=== PATIENT | male | born 1965 | race Caucasian/White ===

== ENCOUNTER 2018-03-30 16:00 | Emergency (ER) | payer MEDICARE, OTHER ==
[~2018-03-30] VITALS: Ht 167.6 cm; Wt 68.0 kg
--- OUTSIDE RECORDS SUMMARY | 2018-03-30 16:08 | XMS REPORT | Continuity of Care Document ---
Author Author [facility] Ctr of [facility] of [place] Address Unknown Phone Unavailable Allergies Active Description Code Type Severity Reaction Onset Reported/Identified Relationship to Patient Clinical Status Yes Mellaril Drug Allergy N/A N/A 07/25/2011 Yes Thorazine Drug Allergy N/A N/A 07/25/2011 Yes Mellaril Drug Allergy 07/25/2011 Yes Thorazine Drug Allergy 07/25/2011 Medications There is no data. Problems Date Dx Coded Attending Type Code Diagnosis Diagnosed By 05/07/2011 296.80 MO BIPOLAR NOS 05/07/2011 DAVID BELLE PHD 296.80 MO BIPOLAR NOS 05/07/2011 296.80 MO BIPOLAR NOS 05/07/2011 296.80 MO BIPOLAR NOS 05/07/2011 296.80 MO BIPOLAR NOS 05/07/2011 296.80 MO BIPOLAR NOS 05/07/2011 TAMELA HUBBARD DO 296.80 MO BIPOLAR NOS 05/07/2011 DAVID BELLE PHD 296.80 MO BIPOLAR NOS 05/07/2011 SHIRA ONEAL APRN 296.80 MO BIPOLAR NOS 05/07/2011 296.80 MO BIPOLAR NOS 07/25/2011 V58.69 MEDICATION HIGH RISK 07/25/2011 DAVID BELLE PHD V58.69 MEDICATION HIGH RISK 07/25/2011 V58.69 MEDICATION HIGH RISK 07/25/2011 V58.69 MEDICATION HIGH RISK 07/25/2011 V58.69 MEDICATION HIGH RISK 07/25/2011 V58.69 MEDICATION HIGH RISK 07/25/2011 TAMELA HUBBARD DO V58.69 MEDICATION HIGH RISK 07/25/2011 DAVID BELLE PHD V58.69 MEDICATION HIGH RISK 07/25/2011 SHIRA ONEAL APRN V58.69 MEDICATION HIGH RISK 07/25/2011 V58.69 MEDICATION HIGH RISK 01/06/2012 296.30 MO DEPRESSIVE RECURRENT UNSPECIFIED 01/06/2012 DAVID BELLE PHD 296.30 MO DEPRESSIVE RECURRENT UNSPECIFIED 01/06/2012 296.30 MO DEPRESSIVE RECURRENT UNSPECIFIED 01/06/2012 296.30 MO DEPRESSIVE RECURRENT UNSPECIFIED 01/06/2012 296.30 MO DEPRESSIVE RECURRENT UNSPECIFIED 01/06/2012 296.30 MO DEPRESSIVE RECURRENT UNSPECIFIED 01/06/2012 TAMELA HUBBARD DO 296.30 MO DEPRESSIVE RECURRENT UNSPECIFIED 01/06/2012 DAVID BELLE PHD 296.30 MO DEPRESSIVE RECURRENT UNSPECIFIED 01/06/2012 ONEALVIOLETA DOMINGUEZSHIRA 296.30 MO DEPRESSIVE RECURRENT UNSPECIFIED Procedures Code [place] [address] INDIV PSYTX 45/50 MIN 12/19/2011 61017 ROUTINE VENIPUNCTURE 01/06/2012 66143 LIVER PANEL (LFT) 01/06/2012 32827 CBC 01/06/2012 [id number] GFR CALC (RESULT ONLY) 01/06/2012 10509 RENAL PROFILE 01/07/2012 04063 LITHIUM 01/07/2012 26249 TSH 01/07/2012 11997 PSYCH PHARM MGMT 01/14/2012 38284 INDIV PSYTX 20/30 MIN 01/26/2012 14128 ROUTINE VENIPUNCTURE 05/04/2012 29048 UA LONG DIP 05/04/2012 90822 CREATININE 05/04/2012 0851016 GFR CALC (RESULT ONLY) 05/04/2012 00086 LITHIUM 05/04/2012 20256 PSYTX PT&/FAMILY 45 MINUTES 07/13/2012 96932 PSYTX PT&/FAMILY 30 MINUTES 11/04/2012 Results There is no data. Encounters ACCT No. Visit Date/Time Discharge Status Pt. Type Provider Facility Loc./Unit Complaint [id number] 03/30/2013 10:28:00 03/30/2013 23:59:59 CLS Outpatient JM DOMINGUEZSHIRA [id number] 11/03/2012 14:09:00 11/03/2012 23:59:59 CLS Outpatient DAVID BELLE PHD [id number] 10/06/2012 13:50:00 10/06/2012 23:59:59 CLS Outpatient TAMELA HUBBARD DO [id number] 05/04/2012 14:16:00 05/04/2012 23:59:59 CLS Outpatient [id number] 04/07/2012 11:30:00 04/07/2012 23:59:59 CLS Outpatient [id number] 01/26/2012 11:17:00 01/26/2012 23:59:59 CLS Outpatient BARBRA PARNELL, DAVID Vallecillo [id number] 01/06/2012 11:47:00 01/06/2012 23:59:59 CLS Outpatient [id number] 12/19/2011 09:57:00 12/19/2011 23:59:59 CLS Outpatient [id number] 07/12/2012 08:55:00 Document Registration [id number] 05/04/2012 14:16:00 Document Registration [id number] 03/22/2018 09:30:00 03/22/2018 23:59:59 CLS Outpatient [facility] RIGO MARTINEZ [facility]
--- NOTE | 2018-03-30 16:23 | ED Hip Pain/Injury ---
General Chief Complaint: Hip/Pelvic Problems Stated Complaint: HIP PAIN Source: patient History of Present Illness Date Seen by Provider: Mar 30, 2018 Time Seen by Provider: 16:05 Initial Comments 52-year-old male presents with left hip pain. He reports he fell 3 days ago when he slipped on ice. He has continued pain and wanted to be evaluated. He is able ambulate on it and bear weight. He was able to chop wood. He reports no other injuries from the fall. Allergies and Home Medications Patient Home Medication List Home Medication List Reviewed: Yes Review of Systems Constitutional: no symptoms reported EENTM: no symptoms reported Respiratory: no symptoms reported Musculoskeletal: see HPI Past Vamyoap-Iyxgys-Qoqntd Hx Patient Social History Recent Foreign Travel: No Contact w/Someone Who Travel: No Physical Exam Vital Signs Vital Signs - First Documented 03/30/18 16:08 Temp 97.8 Pulse 65 Resp 16 Pulse Ox 96 Capillary Refill : Height, Weight, BMI Height: '" Weight: lbs. oz. kg; BMI Method: General Appearance: No Apparent Distress, WD/WN HEENT: Normal ENT Inspection Cardiovascular: Regular Rate, Rhythm, No Edema Respiratory: Chest Non Tender, Lungs Clear, Normal Breath Sounds Gastrointestinal: Normal Bowel Sounds Extremity: Other (Mild tenderness to the left hip, full range of motion no obvious deformity) Neurologic/Psychiatric: Oriented x3 Skin: Normal Color, Cool Progress/Results/Core Measures Results/Orders My Orders Orders - LAZ GREGORY DO Hip 2-3 View Left (03/30/18 16:16) Vital Signs/I&O 03/30/18 16:08 Temp 97.8 Pulse 65 Resp 16 B/P (MAP) Pulse Ox 96 Progress Progress Note : Time: 16:45 Progress Note Reviewed with patient that there is no fracture or dislocation on x-ray. He likely has a hip contusion. He is RA prescribed narcotic pain medication and that we will not be further prescribing her more pain medication. I recommended he try 4% lidocaine with menthol creamer gel along with other type of warm moist heat. If that does not provide him relief he needs to follow-up with his primary care physician for further options for pain management. Departure Impression Primary Impression: Contusion of left hip, initial encounter Disposition: HOME, SELF-CARE Condition: Stable Departure-Patient Inst. Referrals: SELF,DAVID GARBER (PCP/Family) Primary Care Physician Patient Instructions: Contusion (DC) Add. Discharge Instructions: 4% lidocaine with menthol cream or gel to affected area. Warm moist heat to affected area Follow-up with primary care in 3-4 days if no improvement or worsening of symptoms. all discharge instructions reviewed with patient and/or family. Voiced understanding. LAZ GREGORY DO Mar 30, 2018 16:23
--- NOTE | 2018-03-30 16:50 | Diagnostic Imaging Report ---
EXAM: Left hip at 4:20 p.m. INDICATION: Injury TECHNIQUE: AP and lateral views were obtained. COMPARISON: There are no prior studies available for comparison. FINDINGS: There is no fracture, dislocation or acute bony abnormality evident. There is only mild degenerative disease of the hip joint. The sacroiliac joint is generally unremarkable. The soft tissues show no sign of an acute injury or for a radiopaque foreign body. IMPRESSION: 1. There is no evidence for an acute bony abnormality. 2. If clinical concern regarding an underlying abnormality persists, then MRI would be recommended for further study. Dictated by: Dictated on workstation # [id number]
== END 2018-03-30 17:01 | disposition home or self-care (01) ==
LOC: EDUNIT# 16:00 → ER FS 16:04
DX: S70.02XA Contusion of left hip, initial encounter (principal); W00.0XXA Fall on same level due to ice and snow, initial encounter
CPT/HCPCS: 73502; 99282

== ENCOUNTER 2018-04-30 12:02 | Inpatient (IN) | payer MEDICARE ==
[~2018-04-30] VITALS: Ht 167.6 cm; Wt 67.7 kg
--- OUTSIDE RECORDS SUMMARY | 2018-04-30 12:07 | XMS REPORT ---
Author Author Migration, Doctor Organization [facility] Address Unknown Phone Unavailable Care Team Providers Care Clam Treader Name Role Phone Migration, Doctor Unavailable Unavailable PROBLEMS Type Condition ICD9-CM Code VWJ32-EP Code Onset Dates Condition Status SNOMED Code Problem Type 2 diabetes mellitus without complication, unspecified whether senior care insulin use E11.9 Active 160041195 Problem Essential hypertension I10 Active 53459582 Problem Encounter for long-term (current) use of other medications V58.69 Active 352244609 Problem Bipolar disorder, unspecified 296.80 Active 61697417 Problem Major depressive disorder, recurrent episode, unspecified 296.30 Active 97154233 Problem Bipolar disorder, unspecified F31.9 Active 15874211 ALLERGIES No Information ENCOUNTERS Encounter Location Date Diagnosis [address] [address] June, [address] [address] Mar, [address] [address] Mar, [address] [address] 11 Mar, 2018 Type 2 diabetes mellitus without complication, unspecified whether oysterman insulin use E11.9 ; Essential hypertension I10 ; Bipolar disorder, unspecified F31.9 and Pelvic pain in male R10.[address] [address] 11 Mar, 2018 Type 2 diabetes mellitus without complication, unspecified whether oysterman insulin use E11.9 and Essential hypertension I10 [address] [address] Feb, [facility] [address] [facility] [facility] [id number], [place] [address] May, [facility] [address] [facility] [id number], [place] [address] May, [facility] [place] [facility] [address] [id number] [place] [address] Aug, [facility] [place] [facility] [address] [id number] [place] [address] Aug, [facility] [place] [facility] [address] [id number] [place] [address] Aug, [facility] [place] [facility] [address] [id number] [place] [address] Aug, [facility] [place] [facility] [address] [id number] [place] [address] Aug, [facility] [place] [facility] [address] [id number] [place] [address] Aug, [facility] [place] [facility] [address] [id number] [place] [address] Aug, [facility] [place] [facility] [address] [id number] [place] [address] Aug, [facility] [place] [facility] [address] [id number] [place] [address] Jul, [facility] [place] [facility] [address] [id number] [place] [address] Jul, [facility] [place] [facility] [address] [id number] [place] [address] June, [facility] [place] [facility] [address] [id number] [place] [address] June, [facility] [place] [facility] [address] [id number] [place] [address] Mar, [facility] [place] [facility] [address] [id number] [place] [address] Mar, [facility] [place] [facility] [address] [id number] [place] [address] Feb, [facility] [place] [facility] [address] [id number] [place] [address] Feb, [facility] [address] [id number] [place] Feb, [facility] [address] [id number] [place] [address] Feb, [facility] [address] [id number] [place] [address] Oct, [facility] [place] [facility] [address] [id number] [place] [address] Sep, [facility] [address] [id number] [place] [address] Aug, [facility] [address] [id number] [place] [address] Jul, [facility] [address] [id number] [place] [address] Jul, [facility] [address] [id number] [place] [address] Jul, [facility] [place] [facility] [address] [id number] [place] [address] Jul, [facility] [address] [id number] [place] [address] Apr, [facility] [place] [facility] [address] [id number] [place] [address] Apr, [facility] [place] [facility] [address] [id number] [place] [address] Mar, [facility] [place] [facility] [address] [id number] [place] [address] Mar, [facility] [place] [facility] [address] [id number] [place] [address] Feb, [facility] [place] [facility] [address] [id number] [place] [address] Feb, [facility] [place] [facility] [address] [id number] [place] [address] Jan, [facility] [place] [facility] [address] [id number] [place] [address] Jan, [facility] [place] [facility] [address] [id number] [place] [address] Dec, [facility] [place] [facility] [address] [id number] [place] [address] Dec, [facility] [place] [facility] [address] [id number] [place] [address] Dec, [facility] [place] [facility] [address] [id number] [place] [address] Dec, [facility] [place] [facility] [address] [id number] [place] [address] Nov, [facility] [place] [facility] [address] [id number] [place] [address] Oct, [facility] [place] [facility] [address] [id number] [place] [address] Oct, [facility] [place] [facility] [address] [id number] [place] [address] Oct, [facility] [place] [facility] [address] [id number] [place] [address] Aug, [facility] [place] [facility] [address] [id number], [place] [address] Aug, [facility] [place] [facility] [address] [id number] [place] [address] Jul, [facility] [place] [facility] [address] [id number] [place] [address] Jul, [facility] [place] [facility] [address] [id number] [place] [address] Jul, [facility] [place] [facility] [address] [id number], [place] [address] 15 Jul, 2011 [facility] [address] [id number], [place] [address] Jul, [facility] [id number], [place] [address] Jul, [facility] [address] [id number], [place] [address] Jul, [facility] [id number], [place] [address] June, [facility] [id number], [place] [address] June, [facility] [id number], [place] [address] June, [facility] [address] [address] May, [facility] [address] [id number] [address] Apr, IMMUNIZATIONS No Known Immunizations SOCIAL HISTORY Never Assessed REASON FOR VISIT [facility] [place] VITAL SIGNS MEDICATIONS Unknown Medications RESULTS No Results PROCEDURES No Known procedures INSTRUCTIONS MEDICATIONS ADMINISTERED No Known Medications MEDICAL (GENERAL) HISTORY Type Description Date Medical History COPD Medical History BIPOLAR 2 DISORDER Medical History type 2 diabetes mellitus with hyperglycemia, with oysterman current use of insulin Medical History panlobular emphysema Medical History hyperlipidemia Medical History hyperglycemia Medical History tobacco abuse Medical History tendonitis of wrist, left Medical History leukocytosis Medical History hypoxia Medical History tubular adenoma of colon (multiple) Medical History diabetes mellitus due to underlying condition with hyperglycemia with long-term current use of insulin Medical History adrenal nodule, left Medical History gallstones Medical History renal stones Medical History biopolar 1 disorder Medical History diabetic ketoacidosis without coma associated with type 2 diabetes mellitus Medical History aneurysum of right common iliac artery Medical History hyperosmolar hyponatremia Surgical History shoulder surgery, left Surgical History hip arthrogram, right 12/12/2013 Surgical History colonoscopy, 04/02/2016, 10/15/2016 Surgical History cholecystectomy 05/28/2017 Surgical History umbilical hernia repair 05/25/2017 Surgical History total hip arthroplasty, right 04/17/2014
--- OUTSIDE RECORDS SUMMARY | 2018-04-30 12:07 | XMS REPORT | Continuity of Care Document ---
Author Author [facility] C[facility] of [facility] Ctr of [facility] Address Unknown Phone Unavailable Allergies Active Description [...] 01/06/2012 296.30 MO DEPRESSIVE RECURRENT UNSPECIFIED 01/06/2012 STEVIE BRAY TAMELA Ruby 296.30 MO DEPRESSIVE RECURRENT UNSPECIFIED 01/06/2012 BARBRA PHD, DAVID Vallecillo 296.30 MO DEPRESSIVE RECURRENT UNSPECIFIED 01/06/2012 JM DOMINGUEZSHIRA 296.30 MO DEPRESSIVE RECURRENT UNSPECIFIED 03/30/2018 GREGORY DO, LAZ L Ot M25.552 PAIN IN LEFT HIP 03/30/2018 GREGORY DO, LAZ L Ot S70.02XA CONTUSION OF LEFT HIP, INITIAL ENCOUNTER 03/30/2018 BRI BRAY, LAZ L Ot W00.0XXA FALL ON SAME LEVEL DUE TO ICE AND SNOW, 04/07/2018 GREGORY DO, LAZ L Ot M25.552 PAIN IN LEFT HIP 04/07/2018 GREGORY DO, LAZ L Ot S70.02XA CONTUSION OF LEFT HIP, INITIAL ENCOUNTER 04/07/2018 GREGORY , LAZ L Ot W00.0XXA FALL ON SAME LEVEL DUE TO ICE AND SNOW, Procedures Code Description [place] [address] INDIV PSYTX 45/50 MIN 12/19/2011 04566 ROUTINE VENIPUNCTURE 01/06/2012 19080 LIVER PANEL (LFT) 01/06/2012 15273 CBC 01/06/2012 8138601 GFR CALC (RESULT ONLY) 01/06/2012 73155 RENAL PROFILE 01/07/2012 70827 LITHIUM 01/07/2012 56522 TSH 01/07/2012 91526 PSYCH PHARM MGMT 01/14/2012 29530 INDIV PSYTX 20/30 MIN 01/26/2012 76395 ROUTINE VENIPUNCTURE 05/04/2012 94823 UA LONG DIP 05/04/2012 77421 CREATININE 05/04/2012 1326547 GFR CALC (RESULT ONLY) 05/04/2012 27592 LITHIUM 05/04/2012 29522 PSYTX PT&/FAMILY 45 MINUTES 07/13/2012 83310 PSYTX PT&/FAMILY 30 MINUTES 11/04/2012 Results There is no data. Encounters ACCT No. Visit Date/Time Discharge Status Pt. Type Provider Facility Loc./Unit Complaint [id number] 03/30/2013 10:28:00 03/30/2013 23:59:59 CLS Outpatient SHIRA ONEAL APRN [id number] 11/03/2012 14:09:00 11/03/2012 23:59:59 CLS Outpatient DAVID BELLE PHD [id number] 10/06/2012 13:50:00 10/06/2012 23:59:59 CLS Outpatient TAMELA HUBBARD DO [id number] 05/04/2012 14:16:00 05/04/2012 23:59:59 CLS Outpatient [id number] 04/07/2012 11:30:00 04/07/2012 23:59:59 CLS Outpatient [id number] 01/26/2012 11:17:00 01/26/2012 23:59:59 CLS Outpatient DAVID BELLE PHD [id number] 01/06/2012 11:47:00 01/06/2012 23:59:59 CLS Outpatient [id number] 12/19/2011 09:57:00 12/19/2011 23:59:59 CLS Outpatient [id number] 07/12/2012 08:55:00 Document Registration [id number] 05/04/2012 14:16:00 Document Registration [id number] 03/30/2018 16:04:00 03/30/2018 17:01:00 DIS Emergency LAZ GREGORY DO [facility] ER FS HIP PAIN [id number] 04/30/2018 12:04:00 ACT Emergency COTY GARSIA DO [facility] ER FS ABD PAIN; HYPERGLYCEMIA; N/V [id number] 04/30/2018 10:40:00 ACT Outpatient [facility]
[2018-04-30] MEDS ORDERED: AMIT25TA9 (12:35)
[2018-04-30] MEDS ORDERED: INSU100I32 (12:35)
[2018-04-30] MEDS ORDERED: INSU100I14 (12:35)
[2018-04-30] MEDS ORDERED: PROP20TA5 (12:35)
[2018-04-30] MEDS ORDERED: ALBUTEROL (12:35)
[2018-04-30] MEDS ORDERED: PANT40TA3 (12:35)
[2018-04-30] MEDS ORDERED: TRAZ150T72 (12:35)
[2018-04-30] MEDS ORDERED: CITA40TA11 (12:35)
[2018-04-30] MEDS ORDERED: LITH300T3 (12:35)
[2018-04-30] MEDS ORDERED: inSUlin (REGULAR) HUMAN 1 UNIT/0.01 ML (CHARGE PER UNIT) SC ONE (12:45)
[2018-04-30] MEDS: NS IV 1000 ML 1,000 ML IV SCH ×3 (12:47→15:06)
--- NOTE | 2018-04-30 12:51 | ED General ---
General Chief Complaint: Glucose Problems Stated Complaint: ABD PAIN; HYPERGLYCEMIA; N/V Source of Information: Patient History of Present Illness Date Seen by Provider: Apr 30, 2018 Time Seen by Provider: 12:00 Initial Comments Patient is a 53-year-old insulin-dependent diabetic with cognitive impairment who presents with persistent hypoglycemia for the past 2 days. Patient states his blood sugars and elevated greater than 500 at home and that he discontinued the insulin 2 days ago because it was not working. Patient reports abdominal upset and nausea. Was seen at outpatient clinic earlier today and given Zofran and referred to the ED for further evaluation Timing/Duration: 3-4 Days Severity: Moderate Associated Systoms: No Cough, No Diaphoresis, No Fever/Chills; Malaise, Nausea/ Vomiting; No Seizure, No Shortness of Air, No Syncope; Weakness Allergies and Home Medications Allergies Coded Allergies: chlorpromazine (Verified Allergy, Unknown, paralysis, 04/30/18) fentanyl (Verified Allergy, Unknown, hives, 04/30/18) thioridazine (Verified Allergy, Unknown, confusion, 04/30/18) Patient Home Medication List Home Medication List Reviewed: Yes Review of Systems Review of Systems Constitutional: see HPI, dizziness, malaise, weakness, weight loss EENTM: see HPI Respiratory: no symptoms reported Cardiovascular: no symptoms reported Gastrointestinal: nausea, vomiting Genitourinary: no symptoms reported Musculoskeletal: no symptoms reported Skin: no symptoms reported Psychiatric/Neurological: No Symptoms Reported Hematologic/Lymphatic: No Symptoms Reported Immunological/Allergic: no symptoms reported All Other Systems Reviewed Negative Unless Noted: Yes Past Ifeuscl-Pmesjy-Abzgrz Hx Past Med/Social Hx: Reviewed Nursing Past Med/Soc Hx Physical Exam Vital Signs Vital Signs - First Documented 04/30/18 12:13 Temp 99.5 Pulse 108 Resp 26 B/P (MAP) 132/83 (99) Pulse Ox 99 Capillary Refill : Height, Weight, BMI Height: 5'6.00" Weight: 150lbs. oz. 68.971745rg; BMI Method:Stated General Appearance: No Apparent Distress, WD/WN Eyes: Bilateral Eye Normal Inspection, Bilateral Eye PERRL, Bilateral Eye EOMI HEENT: PERRL/EOMI, TMs Normal, Normal ENT Inspection Neck: Full Range of Motion, Normal Inspection, Supple Respiratory: Chest Non Tender, Lungs Clear, Normal Breath Sounds Cardiovascular: Regular Rate, Rhythm Gastrointestinal: Normal Bowel Sounds Back: Normal Inspection Neurologic/Psychiatric: Alert, Oriented x3, artificial breeding technician II-XII Norm as Tested Skin: Normal Color, Warm/Dry Focused Exam Sepsis Stage: Ruled Out Progress/Results/Core Measures Suspected Sepsis SIRS Temperature: Pulse: Respiratory Rate: Laboratory Tests 04/30/18 12:20: White Blood Count 14.1H Blood Pressure / Mean: Laboratory Tests 04/30/18 12:20: Creatinine 1.09, Platelet Count 371, Total Bilirubin 0.6 Results/Orders Lab Results Laboratory Tests Test 04/30/18 12:20 04/30/18 12:26 04/30/18 13:33 04/30/18 14:14 Range/Units White Blood Count 14.1 H 4.3-11.0 10^3/uL Red Blood Count 5.52 4.35-5.85 10^6/uL Hemoglobin 16.9 13.3-17.7 G/DL Hematocrit 47 40-54 % Mean Corpuscular Volume 85 80-99 FL Mean Corpuscular Hemoglobin 31 25-34 PG Mean Corpuscular Hemoglobin Concent 36 32-36 G/DL Red Cell Distribution Width 13.5 10.0-14.5 % Platelet Count 371 130-400 10^3/uL Mean Platelet Volume 10.8 H 7.4-10.4 FL Neutrophils (%) (Auto) 82 H 42-75 % Lymphocytes (%) (Auto) 10 L 12-44 % Monocytes (%) (Auto) 7 0-12 % Eosinophils (%) (Auto) 0 0-10 % Basophils (%) (Auto) 1 0-10 % Neutrophils # (Auto) 11.6 H 1.8-7.8 X 10^3 Lymphocytes # (Auto) 1.4 1.0-4.0 X 10^3 Monocytes # (Auto) 0.9 0.0-1.0 X 10^3 Eosinophils # (Auto) 0.1 0.0-0.3 10^3/uL Basophils # (Auto) 0.1 0.0-0.1 10^3/uL Sodium Level 129 L 135-145 MMOL/L Potassium Level 4.2 3.6-5.0 MMOL/L Chloride Level 87 L 98-107 MMOL/L Carbon Dioxide Level 19 L 21-32 MMOL/L Anion Gap 23 H 5-14 MMOL/L Blood Urea Nitrogen 18 7-18 MG/DL Creatinine 1.09 0.60-1.30 MG/DL Estimat Glomerular Filtration Rate > 60 BUN/Creatinine Ratio 17 Glucose Level 696 *H 70-105 MG/DL Calcium Level 10.2 H 8.5-10.1 MG/DL Corrected Calcium 9.9 8.5-10.1 MG/DL Total Bilirubin 0.6 0.1-1.0 MG/DL Aspartate Amino Transf (AST/SGOT) 14 5-34 U/L Alanine Aminotransferase (ALT/SGPT) 20 0-55 U/L Alkaline Phosphatase 181 H 40-136 U/L Troponin T 24 H <=15 NG/L Total Protein 7.6 6.4-8.2 GM/DL Albumin 4.4 3.2-4.5 GM/DL Lipase 30 8-78 U/L Glucometer > 600 *H 565 *H 70-110 MG/DL Urine Color YELLOW Urine Clarity CLEAR Urine pH 5.5 5-9 Urine Specific [place] <=1.005 1.016-1.022 Urine Protein NEGATIVE NEGATIVE Urine Glucose (UA) 3+ H NEGATIVE Urine Ketones NEGATIVE NEGATIVE Urine Nitrite NEGATIVE NEGATIVE Urine Bilirubin NEGATIVE NEGATIVE Urine Urobilinogen 0.2 NORMAL MG/DL Urine Leukocyte Esterase NEGATIVE NEGATIVE Urine RBC (Auto) TRACE-I NEGATIVE Test 04/30/18 14:21 04/30/18 15:06 Range/Units Troponin T 21 H <=15 NG/L Glucometer 427 *H 70-110 MG/DL My Orders Orders - COTY GARSIA DO Cbc With Automated Diff (04/30/18 12:28) Comprehensive Metabolic Panel (04/30/18 12:28) Lipase (04/30/18 12:28) Urinalysis Dipstick Only (04/30/18 12:28) Acetone,Urine (04/30/18 12:28) Troponin T (04/30/18 12:28) Accucheck Fasting (04/30/18 12:28) Ns Iv 1000 Ml (Sodium Chloride 0.9%) (04/30/18 12:45) Insulin (Regular) Human (Humulin R (Per (04/30/18 12:45) [place] Level (04/30/18 12:54) Accucheck Achs ACHS (04/30/18 13:49) Famotidine Injection (Pepcid Injection) (04/30/18 14:15) Troponin T (04/30/18 14:40) Insulin Aspart (Novolog) (Novolog (Charg (04/30/18 15:30) Ondansetron Oral Dissolve Tab (Zofran (04/30/18 16:02) Medications Given in ED Current Medications Medications Dose Ordered Sig/Roshan Route Start Time Stop Time Status Last Admin Dose Admin Famotidine 20 mg ONCE ONCE IVP 04/30/18 14:15 04/30/18 14:16 DC 04/30/18 15:02 20 MG Insulin Aspart 8 unit ONCE ONCE SC 04/30/18 15:30 04/30/18 15:31 DC 04/30/18 16:05 8 UNIT Insulin Human Regular 16 unit ONCE ONCE SC 04/30/18 12:45 04/30/18 12:46 DC 04/30/18 12:47 16 UNIT Vital Signs/I&O 04/30/18 12:13 Temp 99.5 Pulse 108 Resp 26 B/P (MAP) 132/83 (99) Pulse Ox 99 Capillary Refill : Departure Communication (Admissions) IV fluids, antiacid and antiemetics given. Insulin bolus repeated. Patient still feels nauseated with hyperglycemia is high risk of feeling outpatient therapy. Dr. Sanderson to admit to [facility]. Impression Primary Impression: Hyperglycemia Additional Impressions: Insulin dependent diabetes mellitus Nausea & vomiting Disposition: XFER SHT-TRM HOSP Condition: Stable Admissions Decision to Admit/Date: Apr 30, 2018 Time/Decision to Admit Time: 16:11 Transfer Time Spoke to Accepting Phy: 16:11 (Dr. Sanderson) Departure-Patient Inst. Decision time for Depature: 16:10 Referrals: SELFDAVID MD (PCP/Family) Primary Care Physician COTY GARSIA DO Apr 30, 2018 12:51
[2018-04-30 12:55] LABS: BASOPHILS # (AUTO) 0.1 10^3/uL (0.0-0.1); BASOPHILS % (AUTO) 1 % (0-10); EOSINOPHILS # (AUTO) 0.1 10^3/uL (0.0-0.3); EOSINOPHILS % (AUTO) 0 % (0-10); HEMATOCRIT 47 % (40-54); HEMOGLOBIN 16.9 G/DL (13.3-17.7); LYMPHOCYTES # (AUTO) 1.4 X 10^3 (1.0-4.0); LYMPHOCYTES % (AUTO) 10 % (12-44); MEAN CORPUSCULAR HEMOGLOBIN 31 PG (25-34); MEAN CORPUSCULAR HGB CONC 36 G/DL (32-36); MEAN CORPUSCULAR VOLUME 85 FL (80-99); MEAN PLATELET VOLUME 10.8 FL (7.4-10.4); MONOCYTES # (AUTO) 0.9 X 10^3 (0.0-1.0); MONOCYTES % (AUTO) 7 % (0-12); NEUTROPHILS # (AUTO) 11.6 X 10^3 (1.8-7.8); NEUTROPHILS % (AUTO) 82 % (42-75); PLATELET COUNT 371 10^3/uL (130-400); RED CELL DISTRIBUTION WIDTH 13.5 % (10.0-14.5); WHITE BLOOD COUNT 14.1 10^3/uL (4.3-11.0)
[2018-04-30 13:52] LABS: CARBON DIOXIDE 19 MMOL/L (21-32); CHLORIDE 87 MMOL/L (98-107); POTASSIUM 4.2 MMOL/L (3.6-5.0); SODIUM 129 MMOL/L (135-145)
[2018-04-30 13:53] LABS: BUN/CREATININE RATIO 17; CREATININE SERUM 1.09 MG/DL (0.60-1.30); GFR ESTIMATED > 60
[2018-04-30 13:54] LABS: GLUCOSE 696 MG/DL (70-105)
[2018-04-30 13:55] LABS: ALANINE AMINOTRANSFERASE 20 U/L (0-55); ALBUMIN 4.4 GM/DL (3.2-4.5); ALKALINE PHOSPHATASE 181 U/L (40-136); BILIRUBIN,TOTAL 0.6 MG/DL (0.1-1.0); CALCIUM 10.2 MG/DL (8.5-10.1); LIPASE 30 U/L (8-78); TOTAL PROTEIN 7.6 GM/DL (6.4-8.2)
[2018-04-30] MEDS ORDERED: FAMOTIDINE 20MG/2ML IV (PEPCID) IVP ONE (14:15)
[2018-04-30 14:50] LABS: BILIRUBIN,URINE NEGATIVE (NEGATIVE); CLARITY,URINE CLEAR; COLOR,URINE YELLOW; GLUCOSE, URINE (UA) 3+ (NEGATIVE); KETONES,URINE NEGATIVE (NEGATIVE); LEUKOCYTE ESTERASE ,URINE NEGATIVE (NEGATIVE); NITRITE,URINE NEGATIVE (NEGATIVE); PH,URINE 5.5 (5-9); PROTEIN,URINE NEGATIVE (NEGATIVE); UROBILINOGEN,URINE 0.2 MG/DL (NORMAL)
[2018-04-30] MEDS ORDERED: inSUlin ASPART (NovoLOG) 1 UNIT/0.01 ML (CHARGE PER UNIT) SC ONE (15:30)
[2018-04-30] MEDS ORDERED: ONDANSETRON 4 MG (ZOFRAN) ORAL DISSOLVE TAB PO STA (16:02)
--- OUTSIDE RECORDS SUMMARY | 2018-04-30 17:50 | XMS REPORT | Continuity of Care Document ---
Author Author [facility] Address Unknown Phone Unavailable Allergies Active Description Code Type Severity Reaction Onset Reported/Identified Relationship to Patient Clinical Status Yes Mellaril Drug Allergy N/A N/A 07/25/2011 Yes Thorazine Drug Allergy N/A N/A 07/25/2011 Yes Mellaril Drug Allergy 07/25/2011 Yes Thorazine Drug Allergy 07/25/2011 Yes chlorpromazine [id number] Drug Allergy Unknown paralysis 04/30/2018 Yes fentanyl [id number] Drug Allergy Unknown hives 04/30/2018 Yes thioridazine [id number] Drug Allergy Unknown confusion 04/30/2018 Medications There is no data. Problems Date [...] 01/06/2012 296.30 MO DEPRESSIVE RECURRENT UNSPECIFIED 01/06/2012 BARBRA PHD, DAVID Vallecillo 296.30 MO DEPRESSIVE RECURRENT UNSPECIFIED 01/06/2012 296.30 MO DEPRESSIVE RECURRENT UNSPECIFIED 01/06/2012 296.30 MO DEPRESSIVE RECURRENT UNSPECIFIED 01/06/2012 296.30 MO DEPRESSIVE RECURRENT UNSPECIFIED 01/06/2012 296.30 MO DEPRESSIVE RECURRENT UNSPECIFIED 01/06/2012 STEVIE BRAY TAMELA F 296.30 MO DEPRESSIVE RECURRENT UNSPECIFIED 01/06/2012 BARBRA PHD, DAVID Vallecillo 296.30 MO DEPRESSIVE RECURRENT UNSPECIFIED 01/06/2012 JM CINTRONNSHIRA 296.30 MO DEPRESSIVE RECURRENT UNSPECIFIED 03/30/2018 GREGORY DO, LAZ L Ot M25.552 PAIN IN LEFT HIP 03/30/2018 GREGORY , LAZ L Ot S70.02XA CONTUSION OF LEFT HIP, INITIAL ENCOUNTER 03/30/2018 GREGORY , LAZ L Ot W00.0XXA FALL ON SAME LEVEL DUE TO ICE AND SNOW, 04/07/2018 GREGORY DO, LAZ L Ot M25.552 PAIN IN LEFT HIP 04/07/2018 GREGORY , LAZ L Ot S70.02XA CONTUSION OF LEFT HIP, INITIAL ENCOUNTER 04/07/2018 BRI BRAY, LAZ L Ot W00.0XXA FALL ON SAME LEVEL DUE TO ICE AND SNOW, Procedures Code [place] [address] INDIV PSYTX 45/50 MIN 12/19/2011 47509 ROUTINE VENIPUNCTURE 01/06/2012 51580 LIVER PANEL (LFT) 01/06/2012 00642 CBC 01/06/2012 2269770 GFR CALC (RESULT ONLY) 01/06/2012 69152 RENAL PROFILE 01/07/2012 48553 LITHIUM 01/07/2012 34964 TSH 01/07/2012 83533 PSYCH PHARM MGMT 01/14/2012 16280 INDIV PSYTX 20/30 MIN 01/26/2012 95048 ROUTINE VENIPUNCTURE 05/04/2012 02089 UA LONG DIP 05/04/2012 19651 CREATININE 05/04/2012 6014936 GFR CALC (RESULT ONLY) 05/04/2012 92533 LITHIUM 05/04/2012 67972 PSYTX PT&/FAMILY 45 MINUTES 07/13/2012 97986 PSYTX PT&/FAMILY 30 MINUTES 11/04/2012 Results Test Result Range Complete blood count (CBC) with automated white blood cell (WBC) differential - 04/30/18 12:20 Blood leukocytes automated count (number/volume) 14.1 10*3/uL 4.3-11.0 Blood erythrocytes automated count (number/volume) 5.52 10*6/uL 4.35-5.85 Venous blood hemoglobin measurement (mass/volume) 16.9 g/dL 13.3-17.7 Blood hematocrit (volume fraction) 47 % 40-54 Automated erythrocyte mean corpuscular volume 85 [foz_us] 80-99 Automated erythrocyte mean corpuscular hemoglobin (mass per erythrocyte) 31 pg 25-34 Automated erythrocyte mean corpuscular hemoglobin concentration measurement ( mass/volume) 36 g/dL 32-36 Automated erythrocyte distribution width ratio 13.5 % 10.0-14.5 Automated blood platelet count (count/volume) 371 10*3/uL 130-400 Automated blood platelet mean volume measurement 10.8 [foz_us] 7.4-10.4 Automated blood neutrophils/100 leukocytes 82 % 42-75 Automated blood lymphocytes/100 leukocytes 10 % 12-44 Blood monocytes/100 leukocytes 7 % 0-12 Automated blood eosinophils/100 leukocytes 0 % 0-10 Automated blood basophils/100 leukocytes 1 % 0-10 Blood neutrophils automated count (number/volume) 11.6 10*3 1.8-7.8 Blood lymphocytes automated count (number/volume) 1.4 10*3 1.0-4.0 Blood monocytes automated count (number/volume) 0.9 10*3 0.0-1.0 Automated eosinophil count 0.1 10*3/uL 0.0-0.3 Automated blood basophil count (count/volume) 0.1 10*3/uL 0.0-0.1 Comprehensive metabolic panel - 04/30/18 12:20 Serum or plasma sodium measurement (moles/volume) 129 mmol/L 135-145 Serum or plasma potassium measurement (moles/volume) 4.2 mmol/L 3.6-5.0 Serum or plasma chloride measurement (moles/volume) 87 mmol/L 98-107 Carbon dioxide 19 mmol/L 21-32 Serum or plasma anion gap determination (moles/volume) 23 mmol/L 5-14 Serum or plasma urea nitrogen measurement (mass/volume) 18 mg/dL 7-18 Serum or plasma creatinine measurement (mass/volume) 1.09 mg/dL 0.60-1.30 Serum or plasma urea nitrogen/creatinine mass ratio 17 NRG Serum or plasma creatinine measurement with calculation of estimated glomerular filtration rate > NRG Serum or plasma glucose measurement (mass/volume) 696 mg/dL 70-105 Serum or plasma calcium measurement (mass/volume) 10.2 mg/dL 8.5-10.1 Serum or plasma total bilirubin measurement (mass/volume) 0.6 mg/dL 0.1-1.0 Serum or plasma alkaline phosphatase measurement (enzymatic activity/volume) 181 U/L 40-136 Serum or plasma aspartate aminotransferase measurement (enzymatic activity/ volume) 14 U/L 5-34 Serum or plasma alanine aminotransferase measurement (enzymatic activity/volume ) 20 U/L 0-55 Serum or plasma protein measurement (mass/volume) 7.6 g/dL 6.4-8.2 Serum or plasma albumin measurement (mass/volume) 4.4 g/dL 3.2-4.5 CALCIUM CORRECTED 9.9 mg/dL 8.5-10.1 TROPONIN T - 04/30/18 12:20 TROPONIN T 24 % <=15 Lipase - 04/30/18 12:20 Lipase 30 U/L 8-78 Capillary blood glucose measurement by glucometer (mass/volume) - 04/30/18 12: 26 Capillary blood glucose measurement by glucometer (mass/volume) > mg /dL 70-110 Capillary blood glucose measurement by glucometer (mass/volume) - 04/30/18 13: 33 Capillary blood glucose measurement by glucometer (mass/volume) 565 mg/dL 70-110 Automated dipstick urinalysis - 04/30/18 14:14 Urine color determination YELLOW NRG Urine clarity determination CLEAR NRG Urine pH measurement by test strip 5.5 5-9 Specific gravity of urine by test strip <= 1.016-1.022 Urine protein assay by test strip, semi-quantitative NEGATIVE NEGATIVE Urine glucose detection by automated test strip 3+ NEGATIVE Erythrocytes detection in urine sediment by light microscopy TRACE- I NEGATIVE Urine ketones detection by automated test strip NEGATIVE NEGATIVE Urine nitrite detection by test strip NEGATIVE NEGATIVE Urine total bilirubin detection by test strip NEGATIVE NEGATIVE Urine urobilinogen measurement by automated test strip (mass/volume) 0.2 mg/dL NORMAL Urine leukocyte esterase detection by dipstick NEGATIVE NEGATIVE TROPONIN T - 04/30/18 14:21 TROPONIN T 21 % <=15 Capillary blood glucose measurement by glucometer (mass/volume) - 04/30/18 15: 06 Capillary blood glucose measurement by glucometer (mass/volume) 427 mg/dL 70-110 Encounters ACCT No. Visit Date/Time Discharge Status Pt. Type Provider Facility Loc./Unit Complaint [id number] 03/30/2013 10:28:00 03/30/2013 23:59:59 CLS Outpatient SHIRA ONEAL APRN [id number] 11/03/2012 14:09:00 11/03/2012 23:59:59 CLS Outpatient DAVID BELLE PHD [id number] 10/06/2012 13:50:00 10/06/2012 23:59:59 CLS Outpatient TAMELA HUBBARD DO [id number] 05/04/2012 14:16:00 05/04/2012 23:59:59 CLS Outpatient [id number] 04/07/2012 11:30:00 04/07/2012 23:59:59 CLS Outpatient [id number] 01/26/2012 11:17:00 01/26/2012 23:59:59 CLS Outpatient DAVID BELLE PHD [id number] 01/06/2012 11:47:00 01/06/2012 23:59:59 CLS Outpatient [id number] 12/19/2011 09:57:00 12/19/2011 23:59:59 CLS Outpatient [id number] 07/12/2012 08:55:00 Document Registration [id number] 05/04/2012 14:16:00 Document Registration [id number] 03/30/2018 16:04:00 03/30/2018 17:01:00 DIS Emergency GREGORY DOLAZ [facility] ER FS HIP PAIN [id number] 04/30/2018 12:04:00 ACT Emergency COTY GARSIA DO [facility] ER FS ABD PAIN; HYPERGLYCEMIA; N/V [id number] 04/30/2018 10:40:00 ACT Outpatient [facility]
[2018-05-01 00:05] VITALS: BP 159/93
--- NOTE | 2018-05-01 00:15 | NUR ---
MAAMEOSIRIS Ruby admitted to room 416-1, with an admitting diagnosis of HYPERGLYCEMIA, on 04/30/18 from ED FS via EMS, accompanied by EMS.OSIRIS ISABEL introduced to surroundings, call light, bed controls, phone, TV, temperature control, lights, meal times, smoking policy, visitor policy, side rail policy, bathrooms and showers. Patient Rights given to patient in the handbook.OSIRIS ISABEL verbalizes understanding that [facility] is not responsible for the loss or damage to any personal effects or valuables that are kept in the patients posession during their hospitalization.
[2018-05-01] MEDS ORDERED: ONDANSETRON 4 MG/2 ML (SDV) Z0FRAN IV PRN (01:00)
[2018-05-01] MEDS: NS IV 1000 ML 1,000 ML IV SCH ×4 (02:05→16:49)
[2018-05-01 04:51] VITALS: BP 149/83
[2018-05-01 05:11] LABS: BASOPHILS % (AUTO) 0 % (0-10); EOSINOPHILS # (AUTO) 0.1 10^3/uL (0.0-0.3); EOSINOPHILS % (AUTO) 1 % (0-10); HEMATOCRIT 36 % (40-54); HEMOGLOBIN 12.8 G/DL (13.3-17.7); LYMPHOCYTES # (AUTO) 1.4 X 10^3 (1.0-4.0); LYMPHOCYTES % (AUTO) 15 % (12-44); MEAN CORPUSCULAR HEMOGLOBIN 31 PG (25-34); MEAN CORPUSCULAR HGB CONC 36 G/DL (32-36); MEAN CORPUSCULAR VOLUME 87 FL (80-99); MONOCYTES # (AUTO) 0.6 X 10^3 (0.0-1.0); MONOCYTES % (AUTO) 6 % (0-12); NEUTROPHILS # (AUTO) 6.9 X 10^3 (1.8-7.8); NEUTROPHILS % (AUTO) 78 % (42-75); PLATELET COUNT 227 10^3/uL (130-400); RED CELL DISTRIBUTION WIDTH 13.6 % (10.0-14.5)
[2018-05-01 05:31] LABS: ALANINE AMINOTRANSFERASE 16 U/L (0-55); ALBUMIN 3.3 GM/DL (3.2-4.5); ALKALINE PHOSPHATASE 109 U/L (40-136); BILIRUBIN,TOTAL 0.4 MG/DL (0.1-1.0); BUN/CREATININE RATIO 13; CALCIUM 8.4 MG/DL (8.5-10.1); CARBON DIOXIDE 24 MMOL/L (21-32); CHLORIDE 106 MMOL/L (98-107); CREATININE SERUM 0.93 MG/DL (0.60-1.30); GFR ESTIMATED > 60; GLUCOSE 298 MG/DL (70-105); POTASSIUM 3.8 MMOL/L (3.6-5.0); SODIUM 136 MMOL/L (135-145); TOTAL PROTEIN 5.1 GM/DL (6.4-8.2)
[2018-05-01] MEDS: inSUlin ASPART (NovoLOG) 1 UNIT/0.01 ML (CHARGE PER UNIT) SC SCH ×7 (05:33→21:18)
[2018-05-01 08:00] VITALS: BP 151/89
[2018-05-01] MEDS ORDERED: inSUlin ASPART (NovoLOG) 1 UNIT/0.01 ML (CHARGE PER UNIT) SC SCH (08:00)
--- NOTE | 2018-05-01 08:43 | History & Physicial (CHS) ---
HPI History of Present Illness: 53-year-old male admitted to [facility] by direct from [place] after patient apparently was having issues with his glucose. Patient is a known insulin-dependent diabetic and apparently has not been on his for CIBA over the past 2 days. He had been he having issues with hypoglycemia then on the day of presentation to [address] [place] [address] provider he apparently had a glucose greater than 500. He also was with abdominal discomfort and nausea. Patient had received Zofran in [facility]. He denied any fevers and there is been no reports of any cough. At present he does have an appetite and would like to try diabetic diet Source: patient Exam Limitations: clinical condition Date seen by provider: May 01, 2018 Time Seen by Provider: 08:15 Attending Physician Elenita Rouse MD PCP Self,Kemar GARBER Consult Date of Admission Apr 30, 2018 at 16:30 Home Medications Home Medications Reviewed patient Home Medication Reconciliation performed by pharmacy medication reconciliations pharmacy intake technician and/or nursing. Patients Allergies have been reviewed. Allergies Coded Allergies: chlorpromazine (Verified Allergy, Unknown, paralysis, 04/30/18) fentanyl (Verified Allergy, Unknown, hives, 04/30/18) thioridazine (Verified Allergy, Unknown, confusion, 04/30/18) UBZ-Uyhaiw-Xdhiet Hx Patient Social History Alcohol Use: Denies Use Recreational Drug Use: No Smoking Status: Current Everyday Smoker Type Used: Cigarettes 2nd Hand Smoke Exposure: Yes Recent Foreign Travel: No Contact w/other who traveled: No Recent Hopitalizations: No Recent Infectious Disease Expo: No Physical Abuse Screen: No Sexual Abuse: No Immunizations Up To Date Date of Pneumonia Vaccine: Dec 09, 2016 Date of Influenza Vaccine: Dec 09, 2017 Review of Systems (CHC) Constitutional: see HPI Reviewed Test Results Reviewed Test Results Lab Laboratory Tests Test 04/30/18 12:20 04/30/18 12:26 04/30/18 13:33 04/30/18 14:14 Range/Units White Blood Count 14.1 H 4.3-11.0 10^3/uL Red Blood Count 5.52 4.35-5.85 10^6/uL Hemoglobin 16.9 13.3-17.7 G/DL Hematocrit 47 40-54 % Mean Corpuscular Volume 85 80-99 FL Mean Corpuscular Hemoglobin 31 25-34 PG Mean Corpuscular Hemoglobin Concent 36 32-36 G/DL Red Cell Distribution Width 13.5 10.0-14.5 % Platelet Count 371 130-400 10^3/uL Mean Platelet Volume 10.8 H 7.4-10.4 FL Neutrophils (%) (Auto) 82 H 42-75 % Lymphocytes (%) (Auto) 10 L 12-44 % Monocytes (%) (Auto) 7 0-12 % Eosinophils (%) (Auto) 0 0-10 % Basophils (%) (Auto) 1 0-10 % Neutrophils # (Auto) 11.6 H 1.8-7.8 X 10^3 Lymphocytes # (Auto) 1.4 1.0-4.0 X 10^3 Monocytes # (Auto) 0.9 0.0-1.0 X 10^3 Eosinophils # (Auto) 0.1 0.0-0.3 10^3/uL Basophils # (Auto) 0.1 0.0-0.1 10^3/uL Sodium Level 129 L 135-145 MMOL/L Potassium Level 4.2 3.6-5.0 MMOL/L Chloride Level 87 L 98-107 MMOL/L Carbon Dioxide Level 19 L 21-32 MMOL/L Anion Gap 23 H 5-14 MMOL/L Blood Urea Nitrogen 18 7-18 MG/DL Creatinine 1.09 0.60-1.30 MG/DL Estimat Glomerular Filtration Rate > 60 BUN/Creatinine Ratio 17 Glucose Level 696 *H 70-105 MG/DL Calcium Level 10.2 H 8.5-10.1 MG/DL Corrected Calcium 9.9 8.5-10.1 MG/DL Total Bilirubin 0.6 0.1-1.0 MG/DL Aspartate Amino Transf (AST/SGOT) 14 5-34 U/L Alanine Aminotransferase (ALT/SGPT) 20 0-55 U/L Alkaline Phosphatase 181 H 40-136 U/L Troponin T 24 H <=15 NG/L Total Protein 7.6 6.4-8.2 GM/DL Albumin 4.4 3.2-4.5 GM/DL Lipase 30 8-78 U/L Glucometer > 600 *H 565 *H 70-110 MG/DL Urine Color YELLOW Urine Clarity CLEAR Urine pH 5.5 5-9 Urine Specific [place] <=1.005 1.016-1.022 Urine Protein NEGATIVE NEGATIVE Urine Glucose (UA) 3+ H NEGATIVE Urine Ketones NEGATIVE NEGATIVE Urine Nitrite NEGATIVE NEGATIVE Urine Bilirubin NEGATIVE NEGATIVE Urine Urobilinogen 0.2 NORMAL MG/DL Urine Leukocyte Esterase NEGATIVE NEGATIVE Urine RBC (Auto) TRACE-I NEGATIVE Test 04/30/18 14:21 04/30/18 15:06 04/30/18 16:07 04/30/18 17:14 Range/Units Troponin T 21 H <=15 NG/L Glucometer 427 *H 357 H 274 H 70-110 MG/DL Test 04/30/18 22:39 05/01/18 00:20 05/01/18 02:23 05/01/18 04:38 Range/Units Glucometer 92 133 H 240 H 271 H 70-110 MG/DL Test 05/01/18 05:00 05/01/18 06:29 Range/Units White Blood Count 9.0 4.3-11.0 10^3/uL Red Blood Count 4.15 L 4.35-5.85 10^6/uL Hemoglobin 12.8 #L 13.3-17.7 G/DL Hematocrit 36 L 40-54 % Mean Corpuscular Volume 87 80-99 FL Mean Corpuscular Hemoglobin 31 25-34 PG Mean Corpuscular Hemoglobin Concent 36 32-36 G/DL Red Cell Distribution Width 13.6 10.0-14.5 % Platelet Count 227 130-400 10^3/uL Mean Platelet Volume 10.0 7.4-10.4 FL Neutrophils (%) (Auto) 78 H 42-75 % Lymphocytes (%) (Auto) 15 12-44 % Monocytes (%) (Auto) 6 0-12 % Eosinophils (%) (Auto) 1 0-10 % Basophils (%) (Auto) 0 0-10 % Neutrophils # (Auto) 6.9 1.8-7.8 X 10^3 Lymphocytes # (Auto) 1.4 1.0-4.0 X 10^3 Monocytes # (Auto) 0.6 0.0-1.0 X 10^3 Eosinophils # (Auto) 0.1 0.0-0.3 10^3/uL Basophils # (Auto) 0.0 0.0-0.1 10^3/uL Sodium Level 136 135-145 MMOL/L Potassium Level 3.8 3.6-5.0 MMOL/L Chloride Level 106 98-107 MMOL/L Carbon Dioxide Level 24 21-32 MMOL/L Anion Gap 6 5-14 MMOL/L Blood Urea Nitrogen 12 7-18 MG/DL Creatinine 0.93 0.60-1.30 MG/DL Estimat Glomerular Filtration Rate > 60 BUN/Creatinine Ratio 13 Glucose Level 298 H 70-105 MG/DL Calcium Level 8.4 L 8.5-10.1 MG/DL Corrected Calcium 9.0 8.5-10.1 MG/DL Total Bilirubin 0.4 0.1-1.0 MG/DL Aspartate Amino Transf (AST/SGOT) 17 5-34 U/L Alanine Aminotransferase (ALT/SGPT) 16 0-55 U/L Alkaline Phosphatase 109 40-136 U/L Total Protein 5.1 L 6.4-8.2 GM/DL Albumin 3.3 3.2-4.5 GM/DL Glucometer 239 H 70-110 MG/DL Physical Exam-(CHC) Physical Exam Vital Signs VS - Last 72 Hours, by Label 04/30/18 04/30/18 05/01/18 05/01/18 12:13 23:08 00:05 00:15 Temp 99.5 97.1 97.6 Pulse 108 60 61 Resp 26 12 18 B/P (MAP) 132/83 (99) 154/86 (108) 159/93 Pulse Ox 99 98 94 94 O2 Delivery OxyMask Room Air Room Air 05/01/18 05/01/18 05/01/18 01:00 04:51 07:00 Temp 98.6 Pulse 60 60 59 Resp 18 B/P (MAP) 149/83 (105) Pulse Ox 97 O2 Delivery Room Air Capillary Refill : Less Than 3 Seconds General Appearance: no apparent distress Eyes: Bilateral Eye Normal Inspection HEENT: pharynx normal Neck: supple Respiratory: lungs clear Cardiovascular: regular rate, rhythm, no murmur Gastrointestinal: normal bowel sounds (Perhaps slightly increased), soft Rectal: deferred Extremities: normal inspection, no pedal edema Neurologic/Psychiatric: carton and can supply supervisor II-XII nml as tested, normal mood/affect, oriented x 3 Skin: normal color Assessment/Plan Assessment/Plan Admission Dx 1. Hyperglycemia 2. Diabetes mellitus insulin-dependent 3. Dehydration Admission Status: Inpatient Order (span 2 midnights) Reason for Inpatient Admission: Further monitoring of his glucose and adjustment of insulin. IV fluid rehydration Assessment & Plan 1. Hyperglycemia -Patient placed on sliding scale insulin 2. Diabetes mellitus insulin-dependent -Will restart his home regimen once glucose better under control 3. Dehydration -IV fluid rehydration with normal saline Clinical Quality Measures DVT/VTE Risk/Contraindication: Risk Factor Score Per Nursin RFS Level Per Nursing on Admit: 1=Low/No VTE PPX ASHIA HERNÁNDEZ MD May 01, 2018 08:42
[2018-05-01] MEDS: FAMOTIDINE 20MG/2ML IV (PEPCID) IVP SCH ×2 (09:48→21:16)
[2018-05-01 11:05] VITALS: BP 143/80
[2018-05-01 15:52] VITALS: BP 117/72
[2018-05-01 20:04] VITALS: BP 146/78
[2018-05-01] MEDS ORDERED: inSUlin DETERMIR 1 UNIT/0.01 ML (LEVEMIR) CHARGE PER UNIT SQ SCH (21:00)
[2018-05-01] MEDS: LITHIUM CARBONATE 300 MG TABLET PO SCH (22:46)
[2018-05-01] MEDS: traZODone 150 MG (DESYREL) TABLET PO SCH (22:46)
[2018-05-02] VITALS: BP 150/82
[2018-05-02 04:00] VITALS: BP 119/69
[2018-05-02] MEDS: NS IV 1000 ML 1,000 ML IV SCH ×2 (04:51→18:21)
[2018-05-02] MEDS: inSUlin ASPART (NovoLOG) 1 UNIT/0.01 ML (CHARGE PER UNIT) SC SCH ×7 (07:09→21:36)
[2018-05-02 07:41] VITALS: BP 147/75
[2018-05-02] MEDS: LITHIUM CARBONATE 300 MG TABLET PO SCH ×2 (08:28→21:36)
[2018-05-02] MEDS: FAMOTIDINE 20MG/2ML IV (PEPCID) IVP SCH ×2 (08:28→21:35)
--- NOTE | 2018-05-02 09:00 | Progress Note (SOAP) ---
Subjective Subjective/Events-last exam Patient has not had any hypoglycemic episodes. He does now report he has diarrhea. He is taking a 75 g carbohydrate diet Review of Systems Date Seen by Provider: May 02, 2018 Time Seen by Provider: 07:10 Objective Exam Last Set of Vital Signs Vital Signs Date Time Temp Pulse Resp B/P (MAP) Pulse Ox O2 Delivery O2 Flow Rate FiO2 05/02/18 07:41 97.5 63 20 147/75 (99) 96 Room Air Capillary Refill : Less Than 3 SecondsLess Than 3 Seconds I&O Intake and Output 05/02/18 00:00 Intake Total 5568 ml Output Total 1536 ml Balance 4032 ml Intake Oral 1568 ml IV Total 4000 ml Output Urine Total 1535 ml Stool Total 1 ml # Bowel Movements 1 Daily Weight Change No No General: No Acute Distress Neck: Supple Lungs: Clear to Auscultation Heart: Regular Rate Abdomen: Normal Bowel Sounds (At this time), Soft Skin: No Rashes Neuro: Normal Speech Results/Procedures Lab Laboratory Tests 05/01/18 11:09: Glucometer 192H 05/01/18 15:35: Glucometer 249H 05/01/18 20:39: Glucometer 245H 05/02/18 05:12: Glucometer 226H Assessment/Plan Assessment/Plan Assessment & Plan 1. Hyperglycemia -Patient placed on sliding scale insulin 05/02 -Patient has obviously improved with the hyperglycemia. He is still running in the mid 200s. -We discussed fine-tuning this outpatient but he doesn't feel comfortable going home yet today, especially with regards to now having diarrhea. We will increase the Levemir to 27 units at bedtime. 2. Diabetes mellitus insulin-dependent -Will restart his home regimen once glucose better under control 3. Dehydration -IV fluid rehydration with normal saline 4. Diarrheasuspect viral -Will monitor Clinical Quality Measures DVT/VTE Risk/Contraindication: Risk Factor Score Per Nursin RFS Level Per Nursing on Admit: 1=Low/No VTE PPX ASHIA HERNÁNDEZ MD May 02, 2018 09:00
[2018-05-02] MEDS ORDERED: ACETAMINOPHEN 500 MG TAB (TYLENOL) PO PRN (15:00)
[2018-05-02 16:00] VITALS: BP 147/83
[2018-05-02] MEDS ORDERED: inSUlin DETERMIR 1 UNIT/0.01 ML (LEVEMIR) CHARGE PER UNIT SQ SCH (21:00)
[2018-05-02] MEDS ORDERED: traZODone 150 MG (DESYREL) TABLET PO SCH (21:00)
[2018-05-02] MEDS ORDERED: LITHIUM CARBONATE 300 MG TABLET PO SCH (21:00)
[2018-05-02] MEDS: traZODone 150 MG (DESYREL) TABLET PO SCH (21:35)
[2018-05-03] VITALS: BP 130/72
[2018-05-03] MEDS: NS IV 1000 ML 1,000 ML IV SCH (04:11)
[2018-05-03] MEDS: inSUlin ASPART (NovoLOG) 1 UNIT/0.01 ML (CHARGE PER UNIT) SC SCH ×4 (05:38→11:39)
[2018-05-03 06:59] LABS: BUN/CREATININE RATIO 18; CALCIUM 9.2 MG/DL (8.5-10.1); CARBON DIOXIDE 24 MMOL/L (21-32); CHLORIDE 109 MMOL/L (98-107); CREATININE SERUM 0.78 MG/DL (0.60-1.30); GFR ESTIMATED > 60; GLUCOSE 111 MG/DL (70-105); POTASSIUM 3.1 MMOL/L (3.6-5.0); SODIUM 143 MMOL/L (135-145)
[2018-05-03 08:00] VITALS: BP 134/74
[2018-05-03] MEDS ORDERED: FAMOTIDINE 20 MG (PEPCID) TABLET PO SCH (09:33)
--- NOTE | 2018-05-03 09:48 | Discharge Summary-Hospitalist ---
Diagnosis/Chief Complaint Date of Admission Apr 30, 2018 at 16:30 Date of Discharge Discharge Date: May 03, 2018 Discharge Diagnosis (1) Hyperglycemia Status: Acute (2) Non-compliance Status: Chronic (3) Diarrhea Status: Acute Discharge Summary Discharge Physical Exam Allergies: Coded Allergies: chlorpromazine (Verified Allergy, Unknown, paralysis, 04/30/18) fentanyl (Verified Allergy, Unknown, hives, 04/30/18) thioridazine (Verified Allergy, Unknown, confusion, 04/30/18) Vitals & I&Os Vital Signs Date Time Temp Pulse Resp B/P (MAP) Pulse Ox O2 Delivery O2 Flow Rate FiO2 05/03/18 11:20 05/03/18 08:15 Room Air 05/03/18 08:00 97.3 68 20 96 General Appearance: No Apparent Distress, WD/WN, Chronically ill Respiratory: Chest Non Tender, Lungs Clear, Normal Breath Sounds, No Accessory Muscle Use, No Respiratory Distress Cardiovascular: Regular Rate, Rhythm, No Edema, No Gallop, No JVD, No Murmur, Normal Peripheral Pulses Neurologic/Psychiatric: Alert, Oriented x3, No Motor/Sensory Deficits, Normal Mood/Affect Hospital Course Was the Problem List Reviewed?: Yes Hospital course: Pt had a brief hospital course he was admitted for hyperglycemia and hypokalemia. Pt was given aggressive insulin regimen and he reports he was back to his baseline. Blood sugar was 125 this morning and he will resume his home medication dose in which he had missed a few doses. I did get a follow up for him at pending sale to [facility] and there will be a ride to help him get home since he doesn't drive and has no family. Labs (last 24 hrs) Laboratory Tests 05/02/18 21:10: Glucometer 210H 05/03/18 05:12: Glucometer 125H 05/03/18 06:11: Sodium Level 143, Potassium Level 3.1L, Chloride Level 109H, Carbon Dioxide Level 24, Anion Gap 10, Blood Urea Nitrogen 14, Creatinine 0.78, Estimat Glomerular Filtration Rate > 60, BUN/Creatinine Ratio 18, Glucose Level 111H, Calcium Level 9.2 Patient resulted labs reviewed. Pending Labs Discussion & Recommendations Discharge Planning: <30 minutes discharge planning Discharge Home Medications: Active Scripts Active Reported [Albuterol] Tresiba Flextouch U-100 (Insulin Degludec) 100 Unit/1 Ml Insuln.pen Trazodone HCl 150 Mg Tablet Citalopram HBr (Citalopram Hydrobromide) 40 Mg Tablet Amitriptyline HCl 25 Mg Tablet Novolog Flexpen (Insulin Aspart) 300 Units/3 Ml Solution Propranolol HCl 20 Mg Tablet [place] Carbonate 300 Mg Tablet Pantoprazole Sodium 40 Mg Tablet.dr Instructions to patient/family Please see electronic discharge instructions given to patient. Clinical Quality Measures DVT/VTE Risk/Contraindication: Risk Factor Score Per Nursin RFS Level Per Nursing on Admit: 1=Low/No VTE PPX Problem Qualifiers (1) Diarrhea: Diarrhea type: unspecified type Qualified Codes: R19.7 - Diarrhea, unspecified CHANDA DAVILA DO May 03, 2018 09:48
--- NOTE | 2018-05-03 09:56 | NUR ---
CM/SS RN spoke with this va underwriter that the patient was discharging and had no transportation. Spoke with patient and he stated had no family that would be able to transport. 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 Spoke with [employer] ([place]) she stated normally would not be able to transport but had a cancelation this day and would be able to transport at 11:15am. Updated patient and RNing.
[2018-05-03] MEDS ORDERED: KCL 20 MEQ TAB (K-DUR) PO NR (10:00)
[2018-05-03] MEDS: LITHIUM CARBONATE 300 MG TABLET PO SCH (10:22)
== END 2018-05-03 11:20 | disposition home or self-care (01) | DRG 641 ==
LOC: EDUNIT# 12:02 → ER FS 12:04 → 4TH 16:30
PROVIDERS: ADMIT Family Medicine; ATTEND Family Medicine
DX: E86.0 Dehydration (principal); E11.65 Type 2 diabetes mellitus with hyperglycemia; A08.4 Viral intestinal infection, unspecified; E87.6 Hypokalemia; F17.210 Nicotine dependence, cigarettes, uncomplicated; Z79.4 Long term (current) use of insulin; Z91.19 Patient's noncompliance with other medical treatment and regimen
CPT/HCPCS: 36415; 80048; 80053; 80178; 81002; 82962; 83690; 84484; 85025; 96372; 96374

== ENCOUNTER 2018-07-21 14:09 | Emergency (ER) | payer MEDICARE ==
[~2018-07-21] VITALS: Ht 167.6 cm; Wt 62.6 kg
[~2018-07-21 14:09] MED LIST: ALBUTEROL; AMIT25TA9; CITA40TA11; INSU100I14; INSU100I32; LITH300T3; PANT40TA3; PROP20TA5; TRAZ150T72
--- OUTSIDE RECORDS SUMMARY | 2018-07-21 14:15 | XMS REPORT | Continuity of Care Document ---
Author Organization Unknown Address Unknown Allergies Active Description Code Type Severity Reaction [...] DO 296.30 MO DEPRESSIVE RECURRENT UNSPECIFIED 01/06/2012 BARBRA PARNELL, DAVID Vallecillo 296.30 MO DEPRESSIVE RECURRENT UNSPECIFIED 01/06/2012 JM DOMINGUEZ, SHIRA BRITTON 296.30 MO DEPRESSIVE RECURRENT UNSPECIFIED Procedures Code [place] [address] INDIV PSYTX 45/50 MIN 12/19/2011 75675 ROUTINE VENIPUNCTURE 01/06/2012 27559 LIVER PANEL (LFT) 01/06/2012 08764 CBC 01/06/2012 3445055 GFR CALC (RESULT ONLY) 01/06/2012 83919 RENAL PROFILE 01/07/2012 53247 LITHIUM 01/07/2012 12309 TSH 01/07/2012 63368 PSYCH PHARM MGMT 01/14/2012 25629 INDIV PSYTX 20/30 MIN 01/26/2012 92337 ROUTINE VENIPUNCTURE 05/04/2012 70221 UA LONG DIP 05/04/2012 74221 CREATININE 05/04/2012 [id number] GFR CALC (RESULT ONLY) 05/04/2012 72454 LITHIUM 05/04/2012 61923 PSYTX PT&/FAMILY 45 MINUTES 07/13/2012 81169 PSYTX PT&/FAMILY 30 MINUTES 11/04/2012 Results Test Result Range CMP - 06/18/18 10:00 GLUCOSE 199 mg/dL 65-99 UREA NITROGEN (BUN) 11 mg/dL 7-25 CREATININE 1.06 mg/dL 0.70-1.33 eGFR NON-AFR. DANISH 79 mL/min/1.73m2 > OR=60 eGFR 91 mL/min/1.73m2 > OR=60 BUN/CREATININE RATIO NOT APPLICABLE (calc) 6-22 SODIUM 138 mmol/L 135-146 POTASSIUM 4.4 mmol/L 3.5-5.3 CHLORIDE 102 mmol/L 98-110 CARBON DIOXIDE 27 mmol/L 20-32 CALCIUM 9.5 mg/dL 8.6-10.3 PROTEIN, TOTAL 6.5 g/dL 6.1-8.1 ALBUMIN 3.9 g/dL 3.6-5.1 GLOBULIN 2.6 g/dL (calc) 1.9-3.7 ALBUMIN/GLOBULIN RATIO 1.5 (calc) 1.0-2.5 BILIRUBIN, TOTAL 0.3 mg/dL 0.2-1.2 ALKALINE PHOSPHATASE 111 U/L 40-115 AST 10 U/L 10-35 ALT 13 U/L 9-46 CBC - 06/18/18 10:00 WHITE BLOOD CELL COUNT 8.4 Thousand/uL 3.8-10.8 RED BLOOD CELL COUNT 4.66 Million/uL 4.20-5.80 HEMOGLOBIN 14.0 g/dL 13.2-17.1 HEMATOCRIT 41.0 % 38.5-50.0 MCV 88.0 fL 80.0-100.0 MCH 30.0 pg 27.0-33.0 MCHC 34.1 g/dL 32.0-36.0 RDW 14.6 % 11.0-15.0 PLATELET COUNT 317 Thousand/uL 140-400 MPV 10.0 fL 7.5-12.5 ABSOLUTE NEUTROPHILS 6166 cells/uL 0202-0534 ABSOLUTE LYMPHOCYTES 1512 cells/uL 850-3900 ABSOLUTE MONOCYTES 580 cells/uL 200-950 ABSOLUTE EOSINOPHILS 92 cells/uL 15-500 ABSOLUTE BASOPHILS 50 cells/uL 0-200 NEUTROPHILS 73.4 % NRG LYMPHOCYTES 18.0 % NRG MONOCYTES 6.9 % NRG EOSINOPHILS 1.1 % NRG BASOPHILS 0.6 % NRG LITHIUM (ESKALITH(R)), SERUM - 06/18/18 10:00 LITHIUM <0.3 mmol/L 0.6-1.2 A1C - 06/18/18 10:00 HEMOGLOBIN A1c 11.3 % of total Hgb <5.7 Encounters ACCT No. Visit Date/Time Discharge Status Pt. Type Provider Facility Loc./Unit Complaint [id number] 07/16/2018 15:30:00 07/16/2018 23:59:59 [facility] [id number] 06/18/2018 09:15:00 Document Registration [id number] 03/30/2013 10:28:00 03/30/2013 23:59:59 CLS Outpatient JM DOMINGUEZ SHIRA BRITTON [id number] 11/03/2012 14:09:00 11/03/2012 23:59:59 CLS Outpatient BARBRA PARNELL, DAVID Vallecillo [id number] 10/06/2012 13:50:00 10/06/2012 23:59:59 CLS Outpatient STEVIE TAMELA [id number] 05/04/2012 14:16:00 05/04/2012 23:59:59 CLS Outpatient [id number] 04/07/2012 11:30:00 04/07/2012 23:59:59 CLS Outpatient [id number] 01/26/2012 11:17:00 01/26/2012 23:59:59 CLS Outpatient DAVID BELLE PHD [id number] 01/06/2012 11:47:00 01/06/2012 23:59:59 CLS Outpatient [id number] 12/19/2011 09:57:00 12/19/2011 23:59:59 CLS Outpatient [id number] 07/12/2012 08:55:00 Document Registration [id number] 05/04/2012 14:16:00 Document Registration
--- OUTSIDE RECORDS SUMMARY | 2018-07-21 14:15 | XMS REPORT ---
Author Author Migration, Doctor Organization [facility] Address Unknown Phone Unavailable Care Team Providers Care Insurance Follow Up Representative Name Role Phone Migration, Doctor Unavailable Unavailable PROBLEMS Type Condition ICD9-CM Code MAC30-ON Code Onset Dates Condition Status SNOMED Code Problem Hypertension I10 Active 62509421 Problem Essential hypertension I10 Active 40920493 Problem Tubular adenoma of colon D12.6 Active 086468315 Problem Adrenal nodule E27.9 Active 10211298 Problem Hyperglycemia R73.9 Active 92197311 Problem Hyperlipemia E78.5 Active 30701636 Problem Type 2 diabetes mellitus treated with insulin E11.9 Active 204524596 Problem Hyperosmolar hyponatremia E87.1 Active 272505904 Problem Bipolar 2 disorder F31.81 Active 42068966 Problem Type 2 diabetes mellitus without complication, 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 Active 308256103 Problem Hypoxia R09.02 Active 696225225 Problem COPD (chronic obstructive pulmonary disease) J44.9 Active 71465344 Problem Tobacco abuse Z72.0 Active 54705413 Problem Panlobular emphysema J43.1 Active 7120783 Problem Aneurysm of iliac artery I72.3 Active 80488737 ALLERGIES No Information ENCOUNTERS Encounter Location Date Diagnosis [address] [address] Sep, [address] [address] June, Type 2 diabetes mellitus treated with insulin E11.9 and Panlobular emphysema J43.[address] [address] June, Type 2 diabetes mellitus without complication, 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 [address] Apr, Type 2 diabetes mellitus treated with insulin E11.9 [facility] [address] [facility] [id number] [address] Apr, [facility] [address] [facility] [place] [address] Apr, Type 2 diabetes mellitus without complication, unspecified whether jail insulin use E11.9 ; Uncontrolled blood glucose R73.09 and Nausea R11.0 [facility] [address] [place] [address] Apr, [facility] [address] [address] Apr, [facility] [address] [address] Mar, [facility] [address] [place] [address] Mar, [facility] [address] [place] [address] Mar, Type 2 diabetes mellitus without complication, 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 ; Essential hypertension I10 ; Bipolar disorder, unspecified F31.9 and Pelvic pain in male R10.2 [facility] [address] [place] [address] Mar, Type 2 diabetes mellitus without complication, unspecified whether jail insulin use E11.9 and Essential hypertension I10 [facility] [address] [place] [address] Feb, [facility] [address] [address] May, [facility] [address] [address] May, [facility] [address] [address] Aug, [facility] [address] [address] Aug, [facility] [address] [address] Aug, [facility] [address] [address] Aug, [facility] [place] [facility] [address] [id number] [place] [address] Aug, [facility] [place] [facility] [address] [id number] [place] [address] Aug, [facility] [place] [facility] [address] [id number] [place] [address] Aug, [facility] [place] [facility] [address] [id number] [place] [address] Aug, [facility] [place] [facility] [address] [id number] [place] [address] Jul, [facility] [place] [facility] [address] [id number] [place] [address] Jul, [facility] [place] [facility] [address] [id number] [place] [address] June, [facility] [place] [facility] [address] [id number] [place] [address] June, [facility] [place] [facility] [address] [id number] [place] [address] Mar, [facility] [place] [facility] [address] [id number] [place] [address] Mar, [facility] [place] [facility] [address] [id number] [place] [address] Feb, [facility] [place] [facility] [address] [id number] [address] Feb, [facility] [place] [facility] [address] [id number] [place] [address] Feb, [facility] [place] [facility] [address] [id number] [place] [address] Feb, [facility] [place] [facility] [address] [id number] [place] [address] Oct, [facility] [place] [facility] [address] [id number] [place] [address] Sep, [facility] [address] [id number] [place] [address] Aug, [facility] [address] [id number] [place] [address] Jul, [facility] [address] [id number] [place] [address] Jul, [facility] [place] [facility] [address] [id number] [place] [address] Jul, [facility] [address] [id number] [place] [address] Jul, [facility] [address] [id number] [place] [address] Apr, [facility] [address] [id number] [place] [address] Apr, [facility] [address] [id number] [place] [address] Mar, [facility] [address] [id number] [place] [address] Mar, [facility] [address] [id number] [place] [address] Feb, [facility] [address] [id number] [place] [address] Feb, [facility] [address] [id number] [place] [address] Jan, [facility] [place] [facility] [address] [id number] [place] [address] Jan, [facility] [place] [facility] [address] [id number] [place] [address] Dec, [facility] [address] [id number] [place] [address] Dec, [facility] [place] [facility] [address] [id number] [place] [address] Dec, [facility] [place] [facility] [address] [id number] [place] [address] Dec, [facility] [place] [facility] [address] [id number] [place] [address] Nov, [facility] [place] [facility] [address] [id number] [place] [address] Oct, [facility] [place] [facility] [address] [id number] [place] [address] Oct, [facility] [place] [facility] [address] [id number] [place] [address] Oct, [facility] [place] [facility] [address] [id number] [place] [address] Aug, [facility] [place] [facility] [address] [id number] [place] [address] Aug, [facility] [place] [facility] [address] [id number] [place] [address] Jul, [facility] [place] [facility] [address] [id number] [place] [address] Jul, [facility] [place] [facility] [address] [id number] [place] [address] Jul, [facility] [place] [facility] [address] [id number] [address] 15 Jul, 2011 [facility] [place] [facility] [address] [id number] [place] [address] Jul, [facility] [place] [facility] [address] [id number] [place] [address] Jul, [facility] [place] [facility] [address] [id number] [address] 06 Jul, 2011 [facility] [place] [facility] [address] [id number] [address] June, [facility] [address] [facility] [id number] [place] [address] June, [facility] [address] [facility] [id number] [address] June, [facility] [address] [facility] [id number] [address] May, [facility] [address] [facility] [id number] [address] Apr, IMMUNIZATIONS No Known Immunizations SOCIAL HISTORY Never Assessed REASON FOR VISIT EMR-[facility] PLAN OF CARE VITAL SIGNS MEDICATIONS Unknown Medications RESULTS No Results PROCEDURES No Known procedures INSTRUCTIONS MEDICATIONS ADMINISTERED No Known Medications MEDICAL (GENERAL) HISTORY Type Description Date Medical History COPD (chronic obstructive pulmonary disease) Medical History Bipolar 2 disorder Medical History Type 2 diabetes mellitus treated with insulin Medical History Panlobular emphysema Medical History Hyperlipemia Medical History Hyperglycemia Medical History Tobacco abuse Medical History Hypoxia Medical History Tubular adenoma of colon Medical History Adrenal nodule Medical History Aneurysm of iliac artery Medical History Hyperosmolar hyponatremia Medical History Hypertension Surgical History shoulder surgery, left Surgical History hip arthrogram, right 12/12/2013 Surgical History colonoscopy, 04/02/2016, 10/15/2016 Surgical History cholecystectomy 05/28/2017 Surgical History umbilical hernia repair 05/25/2017 Surgical History total hip arthroplasty, right 04/17/2014
--- OUTSIDE RECORDS SUMMARY | 2018-07-21 14:15 | XMS REPORT ---
Author Author Migration, Doctor Organization [facility] Address Unknown Phone Unavailable Care Team Providers Care Mainspring Torque Tester Name Role Phone Migration, Doctor Unavailable Unavailable PROBLEMS Type Condition ICD9-CM Code EWI74-CL Code Onset Dates Condition Status SNOMED Code Problem Hyperosmolar hyponatremia E87.1 Active 317632317 Problem Essential hypertension I10 Active 58504381 Problem Hypoxia R09.02 Active 609991266 Problem Bipolar 2 disorder F31.81 Active 36685366 Problem Hyperglycemia R73.9 Active 01554225 Problem Panlobular emphysema J43.1 Active 6271474 Problem Tubular adenoma of colon D12.6 Active 108567386 Problem Aneurysm of iliac artery I72.3 Active 30941019 Problem Adrenal nodule E27.9 Active 98074529 Problem Hyperlipemia E78.5 Active 56230575 Problem Type 2 diabetes mellitus treated with insulin E11.9 Active 761037659 Problem COPD (chronic obstructive pulmonary disease) J44.9 Active 19381378 Problem Tobacco abuse Z72.0 Active 97032068 ALLERGIES No Information ENCOUNTERS Encounter Location Date Diagnosis [address] [address] June, [address] [address] Apr, Type 2 diabetes mellitus treated with insulin E11.9 [facility] [address] [facility] [id number], [place] [address] Apr, [facility] [address] [place] [address] Apr, Type 2 diabetes mellitus without complication, unspecified whether halfway insulin use E11.9 ; Uncontrolled blood glucose R73.09 and Nausea R11.[address] [address] Apr, [address] [address] Apr, [address] [place] [address] Mar, [facility] [address] [place] [address] [place] [address] Mar, [facility] [address] [place] [address] Mar, Type 2 diabetes mellitus without complication, 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 ; Essential hypertension I10 ; Bipolar disorder, unspecified F31.9 and Pelvic pain in male R10.2 [facility] [address] [place] [address] [place] [address] Mar, Type 2 diabetes mellitus without complication, 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 and Essential hypertension I10 [facility] [address] [place] [address] Feb, [facility] [address] [facility] [id number], [place] [address] May, [facility] [address] [facility] [id number], [place] [address] May, [facility] [address] [facility] [id number], [place] [address] Aug, [facility] [address] [facility] [id number], [place] [address] Aug, [facility] [address] [facility] [id number], [place] [address] Aug, [facility] [address] [facility] [id number], [place] [address] Aug, [facility] [address] [facility] [id number], [place] [address] Aug, [facility] [address] [facility] [id number], [place] [address] Aug, [facility] [address] [facility] [id number], [place] [address] Aug, [facility] [address] [facility] [id number], [place] [address] Aug, [facility] [place] [facility] [address] [id number] [place] [address] Jul, [facility] [place] [facility] [address] [id number] [place] [address] Jul, [facility] [place] [facility] [address] [id number] [place] [address] June, [facility] [place] [facility] [address] [id number] [place] [address] June, [facility] [place] [facility] [address] [id number] [place] [address] Mar, [facility] [place] [facility] [address] [id number] [place] [address] Mar, [facility] [place] [facility] [address] [id number] [place] [address] Feb, [facility] [place] [facility] [address] [id number] [place] [address] Feb, [facility] [place] [facility] [address] [id number] [place] [address] Feb, [facility] [place] [facility] [address] [id number] [place] [address] Feb, [facility] [place] [facility] [address] [id number] [place] [address] Oct, [facility] [place] [facility] [address] [id number] [place] [address] Sep, [facility] [place] [facility] [address] [id number] [place] [address] Aug, [facility] [place] [facility] [address] [id number] [place] [address] Jul, [facility] [place] [facility] [address] [id number] [place] [address] Jul, [facility] [place] [facility] [address] [id number] [place] [address] Jul, [facility] [place] [facility] [address] [id number] [place] [address] Jul, [facility] [place] [facility] [address] [id number] [place] [address] Apr, [facility] [place] [facility] [address] [id number] [place] [address] Apr, [facility] [place] [facility] [address] [id number] [place] [address] Mar, [facility] [place] [facility] [address] [id number] [place] [address] Mar, [facility] [place] [facility] [address] [id number] [place] [address] Feb, [facility] [place] [facility] [address] [id number] [place] [address] Feb, [facility] [place] [facility] [address] [id number] [place] [address] Jan, [facility] [place] [facility] [address] [id number] [place] [address] Jan, [facility] [place] [facility] [address] [id number] [place] [address] Dec, [facility] [place] [facility] [address] [id number] [place] [address] Dec, [facility] [place] [facility] [address] [id number] [place] [address] Dec, [facility] [place] [facility] [address] [id number] [place] [address] Dec, [facility] [place] [facility] [address] [id number] [place] [address] Nov, [facility] [place] [facility] [address] [id number] [place] [address] 27 Oct, 2011 [facility] [place] [facility] [address] [id number] [place] [address] 07 Oct, 2011 [facility] [place] [facility] [address] [id number] [place] [address] 06 Oct, 2011 [facility] [place] [facility] [address] [id number] [place] [address] 29 Aug, 2011 [facility] [place] [facility] [address] [id number] [place] [address] Aug, [facility] [place] [facility] [address] [id number] [place] [address] Jul, [facility] [place] [facility] [address] [id number] [place] [address] Jul, [facility] [place] [facility] [address] [id number] [place] [address] Jul, [facility] [place] [facility] [address] [id number], [place] [address] 15 Jul, 2011 [facility] [place] [facility] [address] [id number] [place] [address] Jul, [facility] [place] [facility] [address] [id number] [place] [address] Jul, [facility] [place] [facility] [address] [id number], [place] [address] Jul, [facility] [place] [facility] [address] [id number], [place] [address] June, [facility] [place] [facility] [address] [id number] [place] [address] June, [facility] [place] [facility] [address] [id number], [place] [address] June, [facility] [place] [facility] [address] [id number] [place] [address] May, [facility] [place] [facility] [address] [facility] [id number] [place] [address] Apr, IMMUNIZATIONS No Known Immunizations SOCIAL HISTORY Never Assessed REASON FOR VISIT [place] VITAL SIGNS MEDICATIONS Unknown [...]
[2018-07-21] MEDS ORDERED: NS IV 1000 ML 1,000 ML IV SCH (14:39)
--- NOTE | 2018-07-21 14:42 | ED Integumentary General ---
General Chief Complaint: Bite-Animal/Human/Insect Stated Complaint: LT HAND INSECT STING; GENERAL WEAKNESS Source: patient Exam Limitations: no limitations History of Present Illness Date Seen by Provider: Jul 21, 2018 Time Seen by Provider: 14:19 Initial Comments Patient presents to ER by private conveyance with chief complaint that he was stung by a red wasp several times on his left hand 3 or 4 days ago and it was getting better but now today is getting hot swollen painful and red. He also says he's been without transportation so he had to walk to the doctor's office [address] yesterday and then again to the ER today. He says he feels very weak and tired like he is dehydrated. He says he's been drinking a lot of water but it runs out as fast as he drinks. He says he is diabetic and his blood sugars around upwards of 195 but usually they are better than that around 125- 150. He says is been urinating frequently but no dysuria fevers chills nausea vomiting diarrhea or abdominal pain. Allergies and Home Medications Allergies Coded Allergies: chlorpromazine (Verified Allergy, Unknown, paralysis, 04/30/18) fentanyl (Verified Allergy, Unknown, hives, 04/30/18) thioridazine (Verified Allergy, Unknown, confusion, 04/30/18) Patient Home Medication List Home Medication List Reviewed: Yes Review of Systems Review of Systems Constitutional: No chills, No fever, No malaise EENTM: No ear pain, No eye pain Respiratory: No cough, No phlegm Cardiovascular: No chest pain, No palpitations Gastrointestinal: No abdominal pain, No nausea Genitourinary: No discharge, No dysuria Past Mrrnbtk-Tdasjl-Kkyifa Hx Patient Social History Alcohol Use: Denies Use Recreational Drug Use: No Type Used: Cigarettes 2nd Hand Smoke Exposure: Yes Recent Hopitalizations: No Physical Abuse: No Sexual Abuse: No Mistreated: No Fear: No Immunizations Up To Date Date of Pneumonia Vaccine: Dec 09, 2016 Date of Influenza Vaccine: Dec 09, 2017 Seasonal Allergies Seasonal Allergies: No Past Medical History Surgeries: Yes (hip surgery, shoulder, gallbladder, hernia) Orthopedic Respiratory: Yes Asthma, Chronic Bronchitis, COPD, Emphysema Cardiac: Yes (cholesterol) Hypertension Neurological: No Genitourinary: No Gastrointestinal: No Musculoskeletal: Yes Degenerate Disk Disease, Arthritis Endocrine: Yes Diabetes, Insulin dep HEENT: No Cancer: No Psychosocial: Yes (bipolar disorder I, borderline personality ) Bipolar, Personality Disorder Integumentary: No Blood Disorders: No Physical Exam Vital Signs Vital Signs - First Documented 07/21/18 14:15 Temp 99.8 Pulse 92 Resp 24 B/P (MAP) 127/98 (108) Pulse Ox 100 O2 Delivery Room Air Capillary Refill : General Appearance: WD/WN, no apparent distress HEENT: PERRL/EOMI, pharynx normal Neck: full range of motion, normal inspection Cardiovascular: normal peripheral pulses, regular rate, rhythm Respiratory: lungs clear, normal breath sounds, no respiratory distress, no accessory muscle use Neurologic/Psychiatric: no motor/sensory deficits, alert, normal mood/affect, oriented x 3 Skin: other (erythema swelling over the left dorsal hand. Mild dry breakdown certain parts of the skin over the left thumb and first metacarpal.) Progress/Results/Core Measures Results/Orders Lab Results Laboratory Tests Test 07/21/18 14:45 Range/Units White Blood Count 13.6 H 4.3-11.0 10^3/uL Red Blood Count 4.49 4.35-5.85 10^6/uL Hemoglobin 13.9 13.3-17.7 G/DL Hematocrit 40 40-54 % Mean Corpuscular Volume 88 80-99 FL Mean Corpuscular Hemoglobin 31 25-34 PG Mean Corpuscular Hemoglobin Concent 35 32-36 G/DL Red Cell Distribution Width 15.5 H 10.0-14.5 % Platelet Count 294 130-400 10^3/uL Mean Platelet Volume 9.3 7.4-10.4 FL Neutrophils (%) (Auto) 81 H 42-75 % Lymphocytes (%) (Auto) 11 L 12-44 % Monocytes (%) (Auto) 7 0-12 % Eosinophils (%) (Auto) 1 0-10 % Basophils (%) (Auto) 1 0-10 % Neutrophils # (Auto) 11.0 H 1.8-7.8 X 10^3 Lymphocytes # (Auto) 1.5 1.0-4.0 X 10^3 Monocytes # (Auto) 0.9 0.0-1.0 X 10^3 Eosinophils # (Auto) 0.1 0.0-0.3 10^3/uL Basophils # (Auto) 0.1 0.0-0.1 10^3/uL Sodium Level 141 135-145 MMOL/L Potassium Level 3.8 3.6-5.0 MMOL/L Chloride Level 100 98-107 MMOL/L Carbon Dioxide Level 26 21-32 MMOL/L Anion Gap 15 H 5-14 MMOL/L Blood Urea Nitrogen 20 H 7-18 MG/DL Creatinine 0.86 0.60-1.30 MG/DL Estimat Glomerular Filtration Rate > 60 BUN/Creatinine Ratio 23 Glucose Level 175 H 70-105 MG/DL Calcium Level 9.7 8.5-10.1 MG/DL Corrected Calcium 9.5 8.5-10.1 MG/DL Total Bilirubin 0.4 0.1-1.0 MG/DL Aspartate Amino Transf (AST/SGOT) 14 5-34 U/L Alanine Aminotransferase (ALT/SGPT) 22 0-55 U/L Alkaline Phosphatase 105 40-136 U/L Total Protein 6.9 6.4-8.2 GM/DL Albumin 4.3 3.2-4.5 GM/DL My Orders Orders - ESTELA SWEENEY Cbc With Automated Diff (07/21/18 14:39) Comprehensive Metabolic Panel (07/21/18 14:39) Ed Iv/Invasive Line Start (07/21/18 14:39) Ns Iv 1000 Ml (Sodium Chloride 0.9%) (07/21/18 14:39) Ceftriaxone For Iv Use (Rocephin For I (07/21/18 14:45) Medications Given in ED Current Medications Medications Dose Ordered Sig/Roshan Route Start Time Stop Time Status Last Admin Dose Admin Ceftriaxone Sodium 1000 mg/ Sterile Water 10 ml @ 200 mls/hr ONCE ONCE IV 07/21/18 14:45 07/21/18 14:47 DC 07/21/18 14:52 200 MLS/HR Vital Signs/I&O 07/21/18 14:15 Temp 99.8 Pulse 92 Resp 24 B/P (MAP) 127/98 (108) Pulse Ox 100 O2 Delivery Room Air Progress Progress Note : Time: 15:39 Progress Note Patient complains of being very dehydrated so we'll give him a liter fluids check some basic labs which did demonstrate some borderline dehydration. We'll put him on topical bacitracin and Keflex 4 times a day for a week. Departure Impression Primary Impression: Cellulitis of left hand excluding fingers and thumb Additional Impression: Mild dehydration Disposition: 01 HOME, SELF-CARE Condition: Stable Departure-Patient Inst. Decision time for Depature: 15:34 Referrals: SELF,DAVID GARBER (PCP/Family) Primary Care Physician Patient Instructions: Cellulitis (Skin Infection), Adult (DC) Add. Discharge Instructions: Apply bacitracin to the skin of the left hand twice daily for the next week. director of group sales the Keflex and take one capsule 4 times a day with food or water for the next week. Expect to see improvement by day 3 or 4. If you do not been follow-up with primary care for reevaluation. If you develop high fever, nausea vomiting or inability to take medicines then you may return to the ER for further evaluation. Warm compresses, Tylenol and Motrin can be helpful for your pain or body aches. All discharge instructions reviewed with patient and/or family. Voiced understanding. Scripts Cephalexin (Cephalexin) 500 Mg Tablet 500 MG PO QID for 7 Days, #28 TAB 0 Refills Prov: ESTELA SWEENEY 07/21/18 Bacitracin (Bacitracin) 3.5 Gm Oint...g. 0.5 GM OP BID for 7 Days, #1 TUBE 0 Refills Prov: ESTELA SWEENEY 07/21/18 ESTELA SWEENEY Jul 21, 2018 14:41
[2018-07-21] MEDS ORDERED: cefTRIAXone FOR IV USE 1,000 MG in WATER (STERILE) FOR INJECTION 10 ML IV ONE (14:45)
[2018-07-21 14:56] LABS: BASOPHILS % (AUTO) 1 % (0-10); EOSINOPHILS % (AUTO) 1 % (0-10); HEMATOCRIT 40 % (40-54); HEMOGLOBIN 13.9 G/DL (13.3-17.7); LYMPHOCYTES % (AUTO) 11 % (12-44); MEAN CORPUSCULAR HEMOGLOBIN 31 PG (25-34); MEAN CORPUSCULAR HGB CONC 35 G/DL (32-36); MEAN CORPUSCULAR VOLUME 88 FL (80-99); MEAN PLATELET VOLUME 9.3 FL (7.4-10.4); MONOCYTES % (AUTO) 7 % (0-12); NEUTROPHILS % (AUTO) 81 % (42-75); PLATELET COUNT 294 10^3/uL (130-400); RED CELL DISTRIBUTION WIDTH 15.5 % (10.0-14.5); WHITE BLOOD COUNT 13.6 10^3/uL (4.3-11.0)
[2018-07-21 14:57] LABS: BASOPHILS # (AUTO) 0.1 10^3/uL (0.0-0.1); EOSINOPHILS # (AUTO) 0.1 10^3/uL (0.0-0.3); LYMPHOCYTES # (AUTO) 1.5 X 10^3 (1.0-4.0); MONOCYTES # (AUTO) 0.9 X 10^3 (0.0-1.0)
[2018-07-21 15:22] LABS: CHLORIDE 100 MMOL/L (98-107); POTASSIUM 3.8 MMOL/L (3.6-5.0); SODIUM 141 MMOL/L (135-145)
[2018-07-21 15:23] LABS: ALANINE AMINOTRANSFERASE 22 U/L (0-55); ALBUMIN 4.3 GM/DL (3.2-4.5); ALKALINE PHOSPHATASE 105 U/L (40-136); BILIRUBIN,TOTAL 0.4 MG/DL (0.1-1.0); BUN/CREATININE RATIO 23; CALCIUM 9.7 MG/DL (8.5-10.1); CARBON DIOXIDE 26 MMOL/L (21-32); CREATININE SERUM 0.86 MG/DL (0.60-1.30); GFR ESTIMATED > 60; GLUCOSE 175 MG/DL (70-105); TOTAL PROTEIN 6.9 GM/DL (6.4-8.2)
[2018-07-21] MEDS ORDERED: CEPH500T PO (15:48)
[2018-07-21] MEDS ORDERED: BACI3.5O6 OP (15:48)
[2018-07-21 15:56] VITALS: BP 118/84
== END 2018-07-21 15:56 | disposition home or self-care (01) ==
LOC: EDUNIT# 14:09 → ER FS 14:11
DX: L03.114 Cellulitis of left upper limb (principal); E86.0 Dehydration; J43.9 Emphysema, unspecified; I10 Essential (primary) hypertension; E11.9 Type 2 diabetes mellitus without complications; F31.9 Bipolar disorder, unspecified; F60.3 Borderline personality disorder; E78.00 Pure hypercholesterolemia, unspecified; Z88.8 Allergy status to other drugs, medicaments and biological substances; Z77.22 Contact with and (suspected) exposure to environmental tobacco smoke (acute) (chronic); Z98.890 Other specified postprocedural states
CPT/HCPCS: 36415; 80053; 85025; 96361; 96365

== ENCOUNTER 2018-11-03 12:35 | Emergency (ER) | payer MEDICARE ==
[~2018-11-03] VITALS: Ht 168 cm; Wt 65.3 kg
[~2018-11-03 12:35] MED LIST changes: +BACI3.5O6 OP; +CEPH500T PO
[2018-11-03] MEDS ORDERED: KETOROLAC 60 MG/2 ML VIAL ONE (12:59)
[2018-11-03] MEDS ORDERED: DEXAMETHASONE 4 MG/ML SDV (DECADRON) PO ONE (13:00)
[2018-11-03] MEDS ORDERED: oxyCODONE/APAP 5/325MG (PERCOCET 5) TABLET PO ONE (13:00)
[2018-11-03] MEDS ORDERED: KETOROLAC 15 MG/ML VIAL IM ONE (13:00)
--- NOTE | 2018-11-03 13:10 | ED General ---
General Chief Complaint: General Problems/Pain Stated Complaint: NECK/LWR BACK/LT HIP PAIN Nursing Triage Note: Patient c/o lower back, left hip, and neck pain. States that the pain started Thursday but is significantly worse today. He denies any injury or doing any physical activity out of the ordinary. Nursing Sepsis Screen: No Definite Risk History of Present Illness Date Seen by Provider: Nov 03, 2018 Time Seen by Provider: 13:07 Initial Comments Patient presenting to the emergency department for evaluation of multiple areas of pain including neck back with reading pain down his left leg. He says he has been cutting and carrying firewood for the past 2 weeks but denies any known trauma. He says starting Thursday night started having the pain and it has progressed since that time and this morning he said it was severe as it radiated towards his left hip down his left leg and at one point he felt his left leg give out he thinks due to pain. He denies any weakness numbness tingling saddle anesthesia bowel or bladder incontinence. He says he has had chronic back pain issues in the past and have considered an MRI however he has some metal in his mouth and they may have to pursue CT myelogram instead. He says he also hurts in the cervical spine region that he denies any trauma to this region either. He is in no obvious distress with normal vital signs. Allergies and Home Medications Allergies Coded Allergies: chlorpromazine (Verified Allergy, Unknown, paralysis, 04/30/18) fentanyl (Verified Allergy, Unknown, hives, 04/30/18) thioridazine (Verified Allergy, Unknown, confusion, 04/30/18) Home Medications Bacitracin 3.5 Gm Oint...g., 0.5 GM OP BID Prescribed by: ESTELA SWEENEY on 07/21/18 1548 Cephalexin 500 Mg Tablet, 500 MG PO QID Prescribed by: ESTELA SWEENEY on 07/21/18 1548 Patient Home Medication List Home Medication List Reviewed: Yes Review of Systems Review of Systems Constitutional: no symptoms reported EENTM: no symptoms reported Respiratory: no symptoms reported Cardiovascular: no symptoms reported Gastrointestinal: no symptoms reported Genitourinary: no symptoms reported Musculoskeletal: back pain, neck pain Skin: no symptoms reported Psychiatric/Neurological: No Symptoms Reported Past Ijhzdqj-Riaqdz-Iieodb Hx Patient Social History Alcohol Use: Denies Use Recreational Drug Use: No Type Used: Cigarettes 2nd Hand Smoke Exposure: Yes Recent Foreign Travel: No Contact w/Someone Who Travel: No Recent Infectious Disease Expo: No Recent Hopitalizations: No Physical Abuse: No Sexual Abuse: No Mistreated: No Fear: No Immunizations Up To Date Date of Pneumonia Vaccine: Dec 09, 2016 Date of Influenza Vaccine: Dec 09, 2017 Seasonal Allergies Seasonal Allergies: No Past Medical History Surgeries: Yes (hip surgery, shoulder, gallbladder, hernia) Orthopedic Respiratory: Yes Asthma, Chronic Bronchitis, COPD, Emphysema Cardiac: Yes (cholesterol) High Cholesterol, Hypertension Neurological: No Genitourinary: No Gastrointestinal: No Musculoskeletal: Yes Degenerate Disk Disease, Arthritis Endocrine: Yes Diabetes, Insulin dep HEENT: No Cancer: No Psychosocial: Yes (bipolar disorder I, borderline personality ) Bipolar, Personality Disorder Integumentary: No Blood Disorders: No Physical Exam Vital Signs Vital Signs - First Documented 11/03/18 12:40 Temp 36.5 Pulse 96 Resp 18 B/P (MAP) 145/90 (108) Pulse Ox 97 O2 Delivery Room Air Capillary Refill : Less Than 3 Seconds Height, Weight, BMI Height: 5'6.00" Weight: 138lbs. 0oz. 62.408806de; 23.00 BMI Method:Stated General Appearance: No Apparent Distress, WD/WN HEENT: PERRL/EOMI Neck: Supple, Tender Lateral, Tender Midline Respiratory: No Respiratory Distress Cardiovascular: Regular Rate, Rhythm Gastrointestinal: Non Tender, Soft Back: Muscle Spasm, Vertebral Tenderness Extremity: Normal Capillary Refill Neurologic/Psychiatric: Alert, Oriented x3, No Motor/Sensory Deficits Skin: Warm/Dry Progress/Results/Core Measures Suspected Sepsis Recent Fever Within 48 Hours: No Infection Criteria Present: None New/Unexplained Altered Menta: No Sepsis Screen: No Definite Risk SIRS Temperature: Pulse: 96 Respiratory Rate: 18 Blood Pressure 145 /90 Mean: 108 Results/Orders My Orders Orders - ALTAGRACIA MONDRAGON DO Cervical Spine 3 View Or Less (11/03/18 12:51) Lumbar Spine 2 Or 3 View (11/03/18 12:51) Ketorolac Injection (Toradol Injection) (11/03/18 13:00) Oxycodone/Apap 5/325mg Tablet (Percocet (11/03/18 13:00) Dexamethasone Injection (Decadron Inject (11/03/18 13:00) Ketorolac Injection (Toradol Injection) (11/03/18 12:59) Medications Given in ED Current Medications Medications Dose Ordered Sig/Roshan Route Start Time Stop Time Status Last Admin Dose Admin Dexamethasone Sodium Phosphate 8 mg ONCE ONCE PO 11/03/18 13:00 11/03/18 13:01 DC 11/03/18 13:12 8 MG Ketorolac Tromethamine 60 mg ONCE ONCE IM 11/03/18 13:00 11/03/18 13:01 DC 11/03/18 13:12 60 MG Oxycodone/ Acetaminophen 2 tab ONCE ONCE PO 11/03/18 13:00 11/03/18 13:01 DC 11/03/18 13:12 2 TAB Vital Signs/I&O 11/03/18 12:40 Temp 36.5 Pulse 96 Resp 18 B/P (MAP) 145/90 (108) Pulse Ox 97 O2 Delivery Room Air Capillary Refill : Less Than 3 Seconds Blood Pressure Mean: 108 Progress Note : Progress Note Patient with likely cervical and lumbar pain with radiculopathy. No red flag signs or symptoms necessitating an emergent MRI. I will treat his pain get basic imaging and reassess. I spoke to patient about all the findings on his cervical and lumbar spine imaging and the need for follow-up. Patient has repeat normal neurologic exam. His pain is improved he'll be discharged in stable condition with instructions take Tylenol and lidocaine patches for pain follow up with primary care provider soon as possible and come back to the ED sooner with worsening pain neurologic changes or other general concerns. Patient aware and agreeable with plan for discharge and verbalized understanding of the above instructions. Departure Impression Primary Impression: Acute cervical sprain Additional Impression: Lumbar back pain with radiculopathy affecting left lower extremity Disposition: HOME, SELF-CARE Condition: Stable Departure-Patient Inst. Referrals: SELF,DAVID GARBER (PCP/Family) Primary Care Physician Patient Instructions: Radiculopathy Add. Discharge Instructions: All discharge instructions reviewed with patient and/or family. Voiced understanding. Take tylenol for pain and lidocaine patches as well. Follow with PCP. Scripts Oxycodone HCl/Acetaminophen (Percocet 5-325 mg Tablet) 1 Each Tablet 1 TAB PO Q6H PRN for PAIN-MODERATE MDD 6 for 4 Days, #14 TAB Prov: ALTAGRACIA MONDRAGON DO 11/03/18 Ibuprofen (Ibuprofen) 800 Mg Tablet 800 MG PO Q8H PRN for PAIN, #30 TAB 0 Refills Prov: ALTAGRACIA MONDRAGON DO 11/03/18 ALTAGRACIA MONDRAGON DO Nov 03, 2018 13:10
--- NOTE | 2018-11-03 13:30 | Diagnostic Imaging Report ---
INDICATION: Chronic back pain. TIME OF EXAM: 12:46 PM No prior studies are available for comparison. FINDINGS: Curvature and alignment of lumbar spine is normal. There is generalized demineralization. There is very mild central compression of the L3 vertebral body, however, acuity is indeterminate. Remaining lumbar vertebrae show normal stature. Disc spaces are fairly well-maintained. There are some atherosclerotic calcifications in the abdominal aorta. Postop changes right hip arthroplasty are seen. IMPRESSION: Lumbar demineralization. There is an age-indeterminate mild central compression of L3 vertebral body. If there is continued back pain, MRI could be performed for further evaluation. Dictated by: Dictated on workstation # [id number]
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
[2018-11-03] MEDS ORDERED: OXYC-199 PO (14:09)
[2018-11-03] MEDS ORDERED: IBUP-1780 PO (14:09)
[2018-11-03 14:15] VITALS: BP 145/90
== END 2018-11-03 14:15 | disposition home or self-care (01) ==
LOC: EDUNIT# 12:35 → ER FS 12:36
DX: S16.1XXA Strain of muscle, fascia and tendon at neck level, initial encounter (principal); M54.16 Radiculopathy, lumbar region; J43.9 Emphysema, unspecified; I10 Essential (primary) hypertension; E11.9 Type 2 diabetes mellitus without complications; F31.9 Bipolar disorder, unspecified; E78.00 Pure hypercholesterolemia, unspecified; F60.9 Personality disorder, unspecified; Z88.5 Allergy status to narcotic agent; Z88.8 Allergy status to other drugs, medicaments and biological substances; Z77.22 Contact with and (suspected) exposure to environmental tobacco smoke (acute) (chronic); X58.XXXA Exposure to other specified factors, initial encounter
CPT/HCPCS: 72040; 72100

== ENCOUNTER 2018-11-26 12:57 | Emergency (ER) | payer MEDICARE ==
[~2018-11-26] VITALS: Ht 182.8 cm; Wt 63.6 kg
[~2018-11-26 12:57] MED LIST changes: +IBUP-1780 PO; +OXYC-199 PO
--- NOTE | 2018-11-26 13:01 | ED General ---
General Stated Complaint: LT ANKLE INJ History of Present Illness Date Seen by Provider: Nov 26, 2018 Time Seen by Provider: 13:00 Initial Comments Patient presenting to emergency department for evaluation of left ankle and foot pain status post trip and fall injury. Patient's sole of the shoe broke and as he was trying to walk for he tripped forward and he dorsiflexed his left ankle and heard a pop in the talar region. He says he has some numbness in all of his toes and he is not able to bear weight. He denies any other areas of pain or injury. Allergies and Home Medications Allergies Coded Allergies: chlorpromazine (Verified Allergy, Unknown, paralysis, 04/30/18) fentanyl (Verified Allergy, Unknown, hives, 04/30/18) thioridazine (Verified Allergy, Unknown, confusion, 04/30/18) Home Medications Bacitracin 3.5 Gm Oint...g., 0.5 GM OP BID Prescribed by: ESTELA SWEENEY on 07/21/18 1548 Cephalexin 500 Mg Tablet, 500 MG PO QID Prescribed by: ESTELA SWEENEY on 07/21/18 1548 Ibuprofen 800 Mg Tablet, 800 MG PO Q8H PRN for PAIN Prescribed by: ALTAGRACIA MONDRAGON on 11/03/18 1409 Oxycodone HCl/Acetaminophen 1 Each Tablet, 1 TAB PO Q6H PRN for PAIN-MODERATE Prescribed by: ALTAGRACIA MONDRAGON on 11/03/18 1409 Patient Home Medication List Home Medication List Reviewed: Yes Review of Systems Review of Systems Constitutional: no symptoms reported EENTM: no symptoms reported Musculoskeletal: joint pain Skin: no symptoms reported Psychiatric/Neurological: Numbness, Tingling All Other Systems Reviewed Negative Unless Noted: Yes Past Yjjgnpm-Rhswxn-Zmombj Hx Patient Social History Type Used: Cigarettes 2nd Hand Smoke Exposure: Yes Recent Foreign Travel: No Recent Hopitalizations: No Immunizations Up To Date Date of Pneumonia Vaccine: Dec 09, 2016 Date of Influenza Vaccine: Dec 09, 2017 Seasonal Allergies Seasonal Allergies: No Past Medical History Surgeries: Yes (hip surgery, shoulder, gallbladder, hernia) Orthopedic Respiratory: Yes Asthma, Chronic Bronchitis, COPD, Emphysema Cardiac: Yes (cholesterol) High Cholesterol, Hypertension Neurological: No Genitourinary: No Gastrointestinal: No Musculoskeletal: Yes Degenerate Disk Disease, Arthritis Endocrine: Yes Diabetes, Insulin dep HEENT: No Cancer: No Psychosocial: Yes (bipolar disorder I, borderline personality ) Bipolar, Personality Disorder Integumentary: No Blood Disorders: No Physical Exam Vital Signs Vital Signs - First Documented 11/26/18 13:02 Temp 36.8 Pulse 92 Resp 20 B/P (MAP) 123/79 (94) Pulse Ox 98 O2 Delivery Room Air Capillary Refill : Height, Weight, BMI Height: 5'6.00" Weight: 138lbs. 0oz. 62.250341if; 23.00 BMI Method:Stated General Appearance: No Apparent Distress, WD/WN Respiratory: No Respiratory Distress Cardiovascular: Regular Rate, Rhythm Extremity: Normal Capillary Refill, Normal Inspection, Other (slight swelling to left ankle with pain to palpation on bilateral malleoli as well as fifth metatarsal.) Neurologic/Psychiatric: Alert, Oriented x3, Sensory Deficit (subjective numbnes s on all toes is he says it feels dull and tingly to palpation but he has normal cap refill and movement of his toes.) Skin: Warm/Dry Progress/Results/Core Measures Suspected Sepsis SIRS Temperature: Pulse: Respiratory Rate: Blood Pressure / Mean: Results/Orders My Orders Orders - ALTAGRACIA MONDRAGON DO Ankle 3 View Left (11/26/18 13:10) Foot 3 View Left (11/26/18 13:10) Oxycodone/Apap 5/325mg Tablet (Percocet (11/26/18 13:15) Ibuprofen Tablet (Motrin Tablet) (11/26/18 13:15) Medications Given in ED Current Medications Medications Dose Ordered Sig/Roshan Route Start Time Stop Time Status Last Admin Dose Admin Ibuprofen 800 mg ONCE ONCE PO 11/26/18 13:15 11/26/18 13:16 DC 11/26/18 13:24 800 MG Oxycodone/ Acetaminophen 2 tab ONCE ONCE PO 11/26/18 13:15 11/26/18 13:16 DC 11/26/18 13:24 2 TAB Vital Signs/I&O 11/26/18 13:02 Temp 36.8 Pulse 92 Resp 20 B/P (MAP) 123/79 (94) Pulse Ox 98 O2 Delivery Room Air Capillary Refill : Progress Note : Progress Note Patient's x-rays negative for acute process. He does have a neuropraxia which will need follow-up which I discussed with him. Patient told rise precautions to take NSAIDs for pain follow with PCP and/or orthopedics and come back to the ED sooner with any new worsening pain neurologic changes or other general concerns. Departure Impression Primary Impression: Sprain and strain of ankle Additional Impression: Sprain or strain of foot Disposition: 01 HOME, SELF-CARE Condition: Stable Departure-Patient Inst. Referrals: SELF,DAVID GARBER (PCP/Family) Primary Care Physician Patient Instructions: Ankle Sprain (DC) Add. Discharge Instructions: Take 600mg of ibuprofen every 6 hours for pain. Scripts Hydrocodone/Acetaminophen ([place] 5-325 Tablet) 1 Each Tablet 1 TAB PO QHS for Pain MDD 10 TABS for 7 Days, #5 TAB Prov: ALTAGRACIA MONDRAGON DO 11/26/18 ALTAGRACIA MONDRAGON DO Nov 26, 2018 13:01
[2018-11-26] MEDS ORDERED: IBUPROFEN 800 MG (MOTRIN) TAB PO ONE (13:15)
[2018-11-26] MEDS ORDERED: oxyCODONE/APAP 5/325MG (PERCOCET 5) TABLET PO ONE (13:15)
--- NOTE | 2018-11-26 13:42 | Diagnostic Imaging Report ---
Indication: Left foot injury 3 views of the left foot show no fracture, dislocation or other acute abnormalities. IMPRESSION: Negative left foot Dictated by: Dictated on workstation # [id number]
--- NOTE | 2018-11-26 13:43 | Diagnostic Imaging Report ---
INDICATION: Injury to the left ankle. Time of exam 12:56 PM 3 views of the left ankle were obtained. Alignment is normal. Ankle mortise is well maintained. The talar dome is smooth. No fracture or dislocation is seen. IMPRESSION: No acute bony abnormality is detected. Dictated by: Dictated on workstation # [id number]
[2018-11-26] MEDS ORDERED: HYDR-4226 PO (14:01)
[2018-11-26 14:10] VITALS: BP 123/79
--- OUTSIDE RECORDS SUMMARY | 2018-12-20 00:48 | XMS REPORT | Continuity of Care Document ---
Author Organization Unknown POS Address Unknown SP Phone Unavailable SP Allergies Active Description Code Type Severity POS Reaction Onset Reported/Identified POS to Patient Clinical Status POS Yes Mellaril Drug Allergy N/A SP N/A 07/25/2011 SP Yes Thorazine Drug Allergy N/A SP N/A 07/25/2011 SP Yes Mellaril Drug Allergy SP 07/25/2011 SP Yes Thorazine Drug Allergy SP 07/25/2011 SP Yes chlorpromazine [id number] Dr ug Allergy SP Unknown paralysis 04/30/2018 SP SP Yes fentanyl [id number] Drug Allergy SP hives 04/30/2018 SP Yes thioridazine [id number] Drug Allergy SP Unknown confusion 04/30/2018 SP SP Medications There is no data. Problems Date Dx Coded Attending Type Code POS Diagnosed By POS 05/07/2011 296.80 MO BIPOLAR NOS SP SP 05/07/2011 BARBRA PHD, DAVID Vallecillo 296.80 SP MO BIPOLAR NOS SP 05/07/2011 296.80 MO BIPOLAR NOS SP SP 05/07/2011 296.80 MO BIPOLAR NOS SP SP 05/07/2011 296.80 MO BIPOLAR NOS SP SP 05/07/2011 296.80 MO BIPOLAR NOS SP SP 05/07/2011 TAMELA HUBBARD DO 296 .80 SP BIPOLAR NOS SP 05/07/2011 BARBRA PHD, DAVID Vallecillo 296.80 SP MO BIPOLAR NOS SP 05/07/2011 SHIRA ONEAL APRN 296.80 SP MO BIPOLAR NOS SP 05/07/2011 296.80 MO BIPOLAR NOS SP SP 07/25/2011 V58.69 MED ICATION HIGH SP SP 07/25/2011 BARBRA PHD, DAVID Vallecillo V58.69 SP MEDICATION HIGH RISK SP 07/25/2011 V58.69 MED ICATION HIGH SP SP 07/25/2011 V58.69 MED ICATION HIGH SP SP 07/25/2011 V58.69 MED ICATION HIGH SP SP 07/25/2011 V58.69 MED ICATION HIGH SP SP 07/25/2011 STEVIE TAMELA V58 .69 SP HIGH RISK SP 07/25/2011 BARBRA PHD, DAVID Vallecillo V58.69 SP MEDICATION HIGH RISK SP 07/25/2011 JM DOMINGUEZ SHIRA BRITTON V58.69 SP MEDICATION HIGH RISK SP 07/25/2011 V58.69 MED ICATION HIGH SP SP 01/06/2012 296.30 MO DEPRESSIVE SP UNSPECIFIED SP 01/06/2012 BARBRA PHD, DAVID Vallecillo 296.30 SP MO DEPRESSIVE RECURRENT UNSPECIFIED SP 01/06/2012 296.30 MO DEPRESSIVE SP UNSPECIFIED SP 01/06/2012 296.30 MO DEPRESSIVE SP UNSPECIFIED SP 01/06/2012 296.30 MO DEPRESSIVE SP UNSPECIFIED SP 01/06/2012 296.30 MO DEPRESSIVE SP UNSPECIFIED SP 01/06/2012 SILVIODEXTER DO TAMELA Ruby 296 .30 SP DEPRESSIVE RECURRENT UNSPECIFIED SP 01/06/2012 BARBRA PHD, DAVID Vallecillo 296.30 SP MO DEPRESSIVE RECURRENT UNSPECIFIED SP 01/06/2012 JM DOMINGUEZ SHIRA RIZOH 296.30 SP MO DEPRESSIVE RECURRENT UNSPECIFIED SP 03/30/2018 GREGORY DO, LAZ L Ot M25.5 52 SP IN LEFT HIP SP 03/30/2018 GREGORY DO, LAZ L Ot S70.02XA SP CONTUSION OF LEFT HIP, INITIAL ENCOUNTER SP 03/30/2018 GREGORY DO, LAZ L Ot W00.0XXA SP FALL ON SAME LEVEL DUE TO ICE AND SNOW, SP 04/07/2018 GREGORY DO, LAZ L Ot M25.5 52 SP IN LEFT HIP SP 04/07/2018 GREGORY DO, LAZ L Ot S70.02XA SP CONTUSION OF LEFT HIP, INITIAL ENCOUNTER SP 04/07/2018 GREGORY DO, LAZ L Ot W00.0XXA SP FALL ON SAME LEVEL DUE TO ICE AND SNOW, SP 05/03/2018 TYSHAWN GARBER, JOAQUIN R Ot A08.4 SP INTESTINAL INFECTION, UNSPECIFIED SP 05/03/2018 TYSHAWN GARBER, JOAQUIN Conde Ot 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 9 SP 2 DIABETES MELLITUS WITHOUT COMPLIC SP 07/21/2018 ESTELA SWEENEY MD Ot E78. 00 SP HYPERCHOLESTEROLEMIA, UNSPECIFIED SP 07/21/2018 ESTELA SWEENEY MD Ot E86. 0 SP SP 07/21/2018 ESTELA SWEENEY MD Ot F31. 9 SP DISORDER, UNSPECIFIED SP 07/21/2018 ESTELA SWEENEY MD Ot F60. 3 SP PERSONALITY DISORDER SP 07/21/2018 ESTELA SWEENEY MD Ot I10 SP (PRIMARY) HYPERTENSION SP 07/21/2018 ESTELA SWEENEY MD Ot J43. 9 SP UNSPECIFIED SP 07/21/2018 ESTELA SWEENEY MD Ot L03.114 SP CELLULITIS OF LEFT UPPER LIMB SP 07/21/2018 ESTELA SWEENEY MD Ot Z77. 22 SP W AND EXPSR TO ENVIRON TOBACCO SMO SP 07/21/2018 ESTELA SWEENEY MD Ot Z88. 8 SP STATUS TO [facility] DRUG/MEDS/BIOL SUB SP 07/21/2018 ESTELA SWEENEY MD Ot Z98.890 SP OTHER SPECIFIED POSTPROCEDURAL STATES SP 07/23/2018 ESTELA SWEENEY MD Ot E11. 9 SP 2 DIABETES MELLITUS WITHOUT COMPLIC SP 07/23/2018 ESTELA SWEENEY MD Ot E78. 00 SP HYPERCHOLESTEROLEMIA, UNSPECIFIED SP 07/23/2018 ESTELA SWEENEY MD Ot E86. 0 SP SP 07/23/2018 ESTELA SWEENEY MD Ot F31. 9 SP DISORDER, UNSPECIFIED SP 07/23/2018 ESTELA SWEENEY MD Ot F60. 3 SP PERSONALITY DISORDER SP 07/23/2018 ESTELA SWEENEY MD Ot I10 SP (PRIMARY) HYPERTENSION SP 07/23/2018 ESTELA SWEENEY MD Ot J43. 9 SP UNSPECIFIED SP 07/23/2018 ESTELA SWEENEY MD Ot L03.114 SP CELLULITIS OF LEFT UPPER LIMB SP 07/23/2018 ESTELA SWEENEY MD Ot Z77. 22 SP W AND EXPSR TO ENVIRON TOBACCO SMO SP 07/23/2018 ESTELA SWEENEY MD Ot Z88. 8 SP STATUS TO OTH DRUG/MEDS/BIOL SUB SP 07/23/2018 ESTELA SWEENEY MD Ot Z98.890 SP OTHER SPECIFIED POSTPROCEDURAL STATES SP 11/03/2018 ALTAGRACIA MONDRAGON DO Ot E11 .9 SP 2 DIABETES MELLITUS WITHOUT COMPLIC SP 11/03/2018 ALTAGRACIA MONDRAGON DO Ot E78.00 SP PURE HYPERCHOLESTEROLEMIA, UNSPECIFIED SP 11/03/2018 ALTAGRACIA MONDRAGON DO Ot F31 .9 SP DISORDER, UNSPECIFIED SP 11/03/2018 ALTAGRACIA MONDRAGON DO Ot F60 .9 SP DISORDER, UNSPECIFIED SP 11/03/2018 ALTAGRACIA MONDRAGON DO Ot I10 SP (PRIMARY) HYPERTENSION SP 11/03/2018 ALTAGRACIA MONDRAGON DO Ot J43 .9 SP UNSPECIFIED SP 11/03/2018 ALTAGRACIA MONDRAGON DO Ot M54.16 SP RADICULOPATHY, LUMBAR REGION SP 11/03/2018 ALTAGRACIA MONDRAGON DO, Ot M54 .2 SP SP 11/03/2018 ALTAGRACIA MONDRAGON DO Ot S16.1XXA SP STRAIN OF MUSCLE, FASCIA AND TENDON AT N SP 11/03/2018 ALTAGRACIA MONDRAGON DO Ot X58.XXXA SP EXPOSURE TO OTHER SPECIFIED FACTORS, INI SP 11/03/2018 ALTAGRACIA MONDRAGON DO Ot Z77.22 SP CNTCT W AND EXPSR TO ENVIRON TOBACCO SMO SP 11/03/2018 ALTAGRACIA MONDRAGON DO Ot Z88 .5 SP STATUS TO NARCOTIC AGENT STATUS SP 11/03/2018 ALTAGRACIA MONDRAGON DO Ot Z88 .8 SP STATUS TO OTH DRUG/MEDS/BIOL SUB SP 11/05/2018 ALTAGRACIA MONDRAGON DO Ot E11 .9 SP 2 DIABETES MELLITUS WITHOUT COMPLIC SP 11/05/2018 ALTAGRACIA MONDRAGON DO Ot E78.00 SP PURE HYPERCHOLESTEROLEMIA, UNSPECIFIED SP 11/05/2018 ALTAGRACIA MONDRAGON DO Ot F31 .9 SP DISORDER, UNSPECIFIED SP 11/05/2018 ALTAGRACIA MONDRAGON DO Ot F60 .9 SP DISORDER, UNSPECIFIED SP 11/05/2018 ALTAGRACIA MONDRAGON DO Ot I10 SP (PRIMARY) HYPERTENSION SP 11/05/2018 ALTAGRACIA MONDRAGON DO Ot J43 .9 SP UNSPECIFIED SP 11/05/2018 ALTAGRACIA MONDRAGON DO Ot M54.16 SP RADICULOPATHY, LUMBAR REGION SP 11/05/2018 ALTAGRACIA MONDRAGON DO Ot M54 .2 SP SP 11/05/2018 ALTAGRACIA MONDRAGON DO Ot S16.1XXA SP STRAIN OF MUSCLE, FASCIA AND TENDON AT N SP 11/05/2018 ALTAGRACIA MONDRAGON DO Ot X58.XXXA SP EXPOSURE TO OTHER SPECIFIED FACTORS, INI SP 11/05/2018 ALTAGRACIA MONDRAGON DO, Ot Z77.22 SP CNTCT W AND EXPSR TO ENVIRON TOBACCO SMO SP 11/05/2018 ALTAGRACIA MONDRAGON DO, Ot Z88 .5 SP STATUS TO NARCOTIC AGENT STATUS SP 11/05/2018 ALTAGRACIA MONDRAGON DO Ot Z88 .8 SP STATUS TO OTH DRUG/MEDS/BIOL SUB SP 11/30/2018 ALTAGRACIA MONDRAGON DO Ot E11 .9 SP 2 DIABETES MELLITUS WITHOUT COMPLIC SP 11/30/2018 ALTAGRACIA MONDRAGON DO Ot E78.00 SP PURE HYPERCHOLESTEROLEMIA, UNSPECIFIED SP 11/30/2018 ALTAGRACIA MONDRAGON DO, Ot F31 .9 SP DISORDER, UNSPECIFIED SP 11/30/2018 ALTAGRACIA MONDRAGON DO Ot F60 .3 SP PERSONALITY DISORDER SP 11/30/2018 ALTAGRACIA MONDRAGON DO Ot I10 SP (PRIMARY) HYPERTENSION SP 11/30/2018 ALTAGRACIA MONDRAGON DO, Ot J43 .9 SP UNSPECIFIED SP 11/30/2018 ALTAGRACIA MONDRAGON DO, Ot J45.909 SP UNSPECIFIED ASTHMA, UNCOMPLICATED SP 11/30/2018 ALTAGRACIA MONDRAGON DO Ot M79.89 SP OTHER SPECIFIED SOFT TISSUE DISORDERS SP 11/30/2018 ALTAGRACIA MONDRAGON DO Ot S93.402A SP SPRAIN OF UNSPECIFIED LIGAMENT OF LEFT A SP 11/30/2018 ALTAGRACIA MONDRAGON DO, Ot S99.912A SP UNSPECIFIED INJURY OF LEFT ANKLE, INITIA SP 11/30/2018 ALTAGRACIA MONDRAGON DO Ot W01.0XXA SP FALL SAME LEV FROM SLIP/TRIP W/O STRIKE SP 11/30/2018 ALTAGRACIA MONDRAGON DO Ot Y93.01 SP ACTIVITY, WALKING, MARCHING AND HIKING SP 11/30/2018 ALTAGRACIA MONDRAGON DO Ot Z77.22 SP CNTCT W AND EXPSR TO ENVIRON TOBACCO SMO SP 11/30/2018 ALTAGRACIA MONDRAGON DO Ot Z88 .5 SP STATUS TO NARCOTIC AGENT STATUS SP 11/30/2018 ALTAGRACIA MONDRAGON DO Ot Z88 .8 SP STATUS TO OTH DRUG/MEDS/BIOL SUB SP 12/17/2018 WOLF GARBER, LINDA Cullen Ot E11.9 SP 2 DIABETES MELLITUS WITHOUT COMPLIC SP 12/17/2018 WOLF GARBER, LINDA Cullen Ot E78.0 0 SP HYPERCHOLESTEROLEMIA, UNSPECIFIED SP 12/17/2018 WOLF GARBER, LINDA Cullen Ot F31.9 SP DISORDER, UNSPECIFIED SP 12/17/2018 WOLF GARBER, LINDA Cullen Ot F60.3 SP PERSONALITY DISORDER SP 12/17/2018 WOLF GARBER, LINDA Cullen Ot I10 SP (PRIMARY) HYPERTENSION SP 12/17/2018 WOLF GARBER, LINDA Cullen Ot J43.9 SP UNSPECIFIED SP 12/17/2018 WOLF GARBER, LINDA Cullen Ot M79.6 44 SP IN RIGHT FINGER(S) SP 12/17/2018 WOLF GARBER, LINDA Cullen Ot S62.638A SP DISP FX OF DISTAL PHALANX OF OTH FINGER, SP 12/17/2018 WOLF GARBER, LINDA Cullen Ot S67.190A SP CRUSHING INJURY OF RIGHT INDEX FINGER, I SP 12/17/2018 WOLF GARBER, LINDA Cullen Ot W22.8XXA SP STRIKING AGAINST OR STRUCK BY OTHER OBJE SP 12/17/2018 LINDA BLOOM MD Ot Z77.2 2 SP W AND EXPSR TO ENVIRON TOBACCO SMO SP 12/17/2018 LINDA BLOOM MD Ot Z88.5 SP STATUS TO NARCOTIC AGENT STATUS SP 12/17/2018 WOLF GARBER, LINDA Cullen Ot Z88.8 SP STATUS TO OTH DRUG/MEDS/BIOL SUB SP Procedures Code [place] [address] [place] V PSYTX 45/50 MIN SP 12/19/2011 [place] [address] ROUT INE VENIPUNCTURE SP 01/06/2012 [place] [address] LIVE R PANEL (LFT) SP 01/06/2012 [place] [address]68 CBC SP 01/06/2012 SP [id number] GF R CALC (RESULT ONLY) SP 01/06/2012 [place] [address]49 REGGIE L PROFILE SP 01/07/2012 [place] [address] LITHIUM SP 01/07/2012 [place] 80650 TSH SP 01/07/2012 [place] 41939 PSYC H PHARM MGMT SP 01/14/2012 [place] [address] HALEIGH V PSYTX 20/30 MIN SP 01/26/2012 [place] [address] ROUT INE VENIPUNCTURE SP 05/04/2012 [place] [address] UA L ADALID DIP SP 05/04/2012 [place] [address]41 CREA TININE SP 05/04/2012 SP [id number] GF R CALC (RESULT ONLY) SP 05/04/2012 [place] [address] LITHIUM SP 05/04/2012 [place] [address] PSYT X PT&/FAMILY 45 MINUTES SP 07/13/2012 [place] [address] PSYT X PT&/FAMILY 30 MINUTES SP 11/04/2012 SP Results Test Result Range POS Complete blood count (CBC) with automate d white blood cell (WBC) differential - POS 12:20 Blood leukocytes automated count (number/volume) 14.1 10*3/uL POS 4.3-11.0 SP Blood erythrocytes automated count (number/volume) 5.52 10*6/uL SP 4.35-5.85 SP Venous blood hemoglobin measurement (mass/volume) 16.9 g/dL SP17.7 Blood hematocrit (volume fraction) 47 % 40-54 SP Automated erythrocyte mean corpuscular volume 85 [ foz_us] SP99 Automated erythrocyte mean corpuscular h emoglobin (mass per erythrocyte) SP 31 pg 25-34 SP Automated erythrocyte mean corpuscular h emoglobin concentration measurement SP 36 g/dL 32-36 SP Automated erythrocyte distribution width ratio 13. 5 % 10.0- SP Automated blood platelet count (count/volume) 371 10*3/uL SP400 Automated blood platelet mean volume measurement 10.8 [foz_us] SP 7.4-10.4 SP Automated blood neutrophils/100 leukocytes 82 % 42-75 SP Automated blood lymphocytes/100 leukocytes 10 % 12-44 SP Blood monocytes/100 leukocytes 7 % 0-12 SP Automated blood eosinophils/100 leukocytes 0 % 0-10 SP Automated blood basophils/100 leukocytes 1 % 0-10 SP Blood neutrophils automated count (number/volume) 11.6 10*3 SP7.8 Blood lymphocytes automated count (number/volume) 1.4 10*3 SP4.0 Blood monocytes automated count (number/volume) 0. 9 10*3 SP1.0 Automated eosinophil count 0.1 10*3/uL 0 .0-0.3 SP Automated blood basophil count (count/volume) 0.1 10*3/uL SP0.1 Comprehensive metabolic panel - 04/30/18 12:20 POS Serum or plasma sodium measurement (moles/volume) 129 mmol/L SP 135-145 SP Serum or plasma potassium measurement (moles/volume) 4.2 mmol/L SP 3.6-5.0 SP Serum or plasma chloride measurement (moles/volume) 87 mmol/L SP 98-107 SP Carbon dioxide 19 mmol/L 21-32 SP Serum or plasma anion gap determination (moles/volume) 23 mmol/L SP 5-14 SP Serum or plasma urea nitrogen measurement (mass/volume ) 18 mg/dL SP 7-18 SP Serum or plasma creatinine measurement (mass/volume) 1.09 mg/dL SP 0.60-1.30 SP Serum or plasma urea nitrogen/creatinine mass ratio 17 NRG SP Serum or plasma creatinine measurement w ith calculation of estimated glomerular SP rate > NRG SP Serum or plasma glucose measurement (mass/volume) 696 mg/dL SP105 Serum or plasma calcium measurement (mass/volume) 10.2 mg/dL SP 8.5-10.1 SP Serum or plasma total bilirubin measurement (mass/volu me) 0.6 mg/dL SP 0.1-1.0 SP Serum or plasma alkaline phosphatase rick surement (enzymatic activity/volume) SP 181 U/L 40-136 SP Serum or plasma aspartate aminotransfera se measurement (enzymatic SP 14 U/L 5-34 SP Serum or plasma alanine aminotransferase measurement (enzymatic activity/volume) SP 20 U/L 0-55 SP Serum or plasma protein measurement (mass/volume) 7.6 g/dL SP8.2 Serum or plasma albumin measurement (mass/volume) 4.4 g/dL SP4.5 CALCIUM CORRECTED 9.9 mg/dL 8.5-10.1 SP TROPONIN T - 04/30/18 12:20 POS TROPONIN T 24 % <=15 SP Lipase - 04/30/18 12:20 POS Lipase 30 U/L 8-78 SP LITHIUM LEVEL - 04/30/18 12:20 POS [place] [mass/volume] in serum or plasma 0.1 % 0.5-1.5 SP Capillary blood glucose measurement by g lucometer (mass/volume) - 04/30/18 12:26 POS Capillary blood glucose measurement by glucometer (mas s/volume) > POS 70-110 SP Capillary blood glucose measurement by g lucometer (mass/volume) - 04/30/18 13:33 POS Capillary blood glucose measurement by glucometer (mas s/volume) 565 POS 70-110 SP Automated dipstick urinalysis - 04/30/18 14:14 POS Urine color determination YELLOW NRG SP Urine clarity determination CLEAR NR G SP Urine pH measurement by test strip 5.5 5-9 SP Specific gravity of urine by test strip <= 1.016-1.022 SP Urine protein assay by test strip, semi-quantitative NEGATIVE SP NEGATIVE SP Urine glucose detection by automated test strip 3+ NEGATIVE SP Erythrocytes detection in urine sediment by light micr oscopy TRACE-I SP NEGATIVE SP Urine ketones detection by automated test strip NE GATIVE SP Urine nitrite detection by test strip NEGATIVE NEGATIVE SP Urine total bilirubin detection by test strip NEGA TIVE SP Urine urobilinogen measurement by automated test strip (mass/volume) SP mg/dL NORMAL SP Urine leukocyte esterase detection by dipstick NEG ATIVE SP TROPONIN T - 04/30/18 14:21 POS TROPONIN T 21 % <=15 SP Capillary blood glucose measurement by g lucometer (mass/volume) - 04/30/18 15:06 POS Capillary blood glucose measurement by glucometer (mas s/volume) 427 POS 70-110 SP Capillary blood glucose measurement by g lucometer (mass/volume) - 04/30/18 16:07 POS Capillary blood glucose measurement by glucometer (mas s/volume) 357 POS 70-110 SP Capillary blood glucose measurement by g lucometer (mass/volume) - 04/30/18 17:14 POS Capillary blood glucose measurement by glucometer (mas s/volume) 274 POS 70-110 SP Capillary blood glucose measurement by g lucometer (mass/volume) - 04/30/18 22:39 POS Capillary blood glucose measurement by glucometer (mas s/volume) 92 POS 70-110 SP Capillary blood glucose measurement by g lucometer (mass/volume) - 05/01/18 00:20 POS Capillary blood glucose measurement by glucometer (mas s/volume) 133 POS 70-110 SP Capillary blood glucose measurement by g lucometer (mass/volume) - 05/01/18 02:23 POS Capillary blood glucose measurement by glucometer (mas s/volume) 240 POS 70-110 SP Capillary blood glucose measurement by g lucometer (mass/volume) - 05/01/18 04:38 POS Capillary blood glucose measurement by glucometer (mas s/volume) 271 POS 70-110 SP Complete blood count (CBC) with automate d white blood cell (WBC) differential - POS 05:00 Blood leukocytes automated count (number/volume) 9.0 10*3/uL POS 4.3-11.0 SP Blood erythrocytes automated count (number/volume) 4.15 10*6/uL SP 4.35-5.85 SP Venous blood hemoglobin measurement (mass/volume) 12.8 g/dL SP17.7 Blood hematocrit (volume fraction) 36 % 40-54 SP Automated erythrocyte mean corpuscular volume 87 [ foz_us] SP99 Automated erythrocyte mean corpuscular h emoglobin (mass per erythrocyte) SP 31 pg 25-34 SP Automated erythrocyte mean corpuscular h emoglobin concentration measurement SP 36 g/dL 32-36 SP Automated erythrocyte distribution width ratio 13. 6 % 10.0- SP Automated blood platelet count (count/volume) 227 10*3/uL SP400 Automated blood platelet mean volume measurement 10.0 [foz_us] SP 7.4-10.4 SP Automated blood neutrophils/100 leukocytes 78 % 42-75 SP Automated blood lymphocytes/100 leukocytes 15 % 12-44 SP Blood monocytes/100 leukocytes 6 % 0-12 SP Automated blood eosinophils/100 leukocytes 1 % 0-10 SP Automated blood basophils/100 leukocytes 0 % 0-10 SP Blood neutrophils automated count (number/volume) 6.9 10*3 SP7.8 Blood lymphocytes automated count (number/volume) 1.4 10*3 SP4.0 Blood monocytes automated count (number/volume) 0. 6 10*3 SP1.0 Automated eosinophil count 0.1 10*3/uL 0 .0-0.3 SP Automated blood basophil count (count/volume) 0.0 10*3/uL SP0.1 Comprehensive metabolic panel - 05/01/18 05:00 POS Serum or plasma sodium measurement (moles/volume) 136 mmol/L SP 135-145 SP Serum or plasma potassium measurement (moles/volume) 3.8 mmol/L SP 3.6-5.0 SP Serum or plasma chloride measurement (moles/volume) 106 mmol/L SP 98-107 SP Carbon dioxide 24 mmol/L 21-32 SP Serum or plasma anion gap determination (moles/volume) 6 mmol/L SP 5-14 SP Serum or plasma urea nitrogen measurement (mass/volume ) 12 mg/dL SP 7-18 SP Serum or plasma creatinine measurement (mass/volume) 0.93 mg/dL SP 0.60-1.30 SP Serum or plasma urea nitrogen/creatinine mass ratio 13 NRG SP Serum or plasma creatinine measurement w ith calculation of estimated glomerular SP rate > NRG SP Serum or plasma glucose measurement (mass/volume) 298 mg/dL SP105 Serum or plasma calcium measurement (mass/volume) 8.4 mg/dL SP10.1 Serum or plasma total bilirubin measurement (mass/volu me) 0.4 mg/dL SP 0.1-1.0 SP Serum or plasma alkaline phosphatase rick surement (enzymatic activity/volume) SP 109 U/L 40-136 SP Serum or plasma aspartate aminotransfera se measurement (enzymatic SP 17 U/L 5-34 SP Serum or plasma alanine aminotransferase measurement (enzymatic activity/volume) SP 16 U/L 0-55 SP Serum or plasma protein measurement (mass/volume) 5.1 g/dL SP8.2 Serum or plasma albumin measurement (mass/volume) 3.3 g/dL SP4.5 CALCIUM CORRECTED 9.0 mg/dL 8.5-10.1 SP Capillary blood glucose measurement by g lucometer (mass/volume) - 05/01/18 06:29 POS Capillary blood glucose measurement by glucometer (mas s/volume) 239 POS 70-110 SP Capillary blood glucose measurement by g lucometer (mass/volume) - 05/01/18 08:18 POS Capillary blood glucose measurement by glucometer (mas s/volume) 178 POS 70-110 SP Capillary blood glucose measurement by g lucometer (mass/volume) - 05/01/18 11:09 POS Capillary blood glucose measurement by glucometer (mas s/volume) 192 POS 70-110 SP Capillary blood glucose measurement by g lucometer (mass/volume) - 05/01/18 15:35 POS Capillary blood glucose measurement by glucometer (mas s/volume) 249 POS 70-110 SP Capillary blood glucose measurement by g lucometer (mass/volume) - 05/01/18 20:39 POS Capillary blood glucose measurement by glucometer (mas s/volume) 245 POS 70-110 SP Capillary blood glucose measurement by g lucometer (mass/volume) - 05/02/18 05:12 POS Capillary blood glucose measurement by glucometer (mas s/volume) 226 POS 70-110 SP Capillary blood glucose measurement by g lucometer (mass/volume) - 05/02/18 10:49 POS Capillary blood glucose measurement by glucometer (mas s/volume) 230 POS 70-110 SP Capillary blood glucose measurement by g lucometer (mass/volume) - 05/02/18 16:29 POS Capillary blood glucose measurement by glucometer (mas s/volume) 212 POS 70-110 SP Capillary blood glucose measurement by g lucometer (mass/volume) - 05/02/18 21:10 POS Capillary blood glucose measurement by glucometer (mas s/volume) 210 POS 70-110 SP Capillary blood glucose measurement by g lucometer (mass/volume) - 05/03/18 05:12 POS Capillary blood glucose measurement by glucometer (mas s/volume) 125 POS 70-110 SP Whole blood basic metabolic panel - 04/10 06/27 06:11 POS Serum or plasma sodium measurement (moles/volume) 143 mmol/L SP 135-145 SP Serum or plasma potassium measurement (moles/volume) 3.1 mmol/L SP 3.6-5.0 SP Serum or plasma chloride measurement (moles/volume) 109 mmol/L SP 98-107 SP Carbon dioxide 24 mmol/L 21-32 SP Serum or plasma anion gap determination (moles/volume) 10 mmol/L SP 5-14 SP Serum or plasma urea nitrogen measurement (mass/volume ) 14 mg/dL SP 7-18 SP Serum or plasma creatinine measurement (mass/volume) 0.78 mg/dL SP 0.60-1.30 SP Serum or plasma urea nitrogen/creatinine mass ratio 18 NRG SP Serum or plasma creatinine measurement w ith calculation of estimated glomerular SP rate > NRG SP Serum or plasma glucose measurement (mass/volume) 111 mg/dL SP105 Serum or plasma calcium measurement (mass/volume) 9.2 mg/dL SP10.1 CMP - 06/18/18 10:00 POS GLUCOSE 199 mg/dL 65-99 SP UREA NITROGEN (BUN) 11 mg/dL 7-25 SP CREATININE 1.06 mg/dL 0.70-1.33 SP eGFR NON-AFR. PERUVIAN 79 mL/min/1.73m2 > OR=60 SP eGFR 91 mL/min/1.73m2 > OR=60 SP BUN/CREATININE RATIO NOT APPLICABLE (calc) 6-22 SP SODIUM 138 mmol/L 135-146 SP POTASSIUM 4.4 mmol/L 3.5-5.3 SP CHLORIDE 102 mmol/L 98-110 SP CARBON DIOXIDE 27 mmol/L 20-32 SP CALCIUM 9.5 mg/dL 8.6-10.3 SP PROTEIN, TOTAL 6.5 g/dL 6.1-8.1 SP ALBUMIN 3.9 g/dL 3.6-5.1 SP GLOBULIN 2.6 g/dL (calc) 1.9-3.7 SP ALBUMIN/GLOBULIN RATIO 1.5 (calc) 1.0-2. 5 SP BILIRUBIN, TOTAL 0.3 mg/dL 0.2-1.2 SP ALKALINE PHOSPHATASE 111 U/L 40-115 SP AST 10 U/L 10-35 SP ALT 13 U/L 9-46 SP CBC - 06/18/18 10:00 POS WHITE BLOOD CELL COUNT 8.4 Thousand/uL 3 .8-10.8 SP RED BLOOD CELL COUNT 4.66 Million/uL 4.2 0-5.80 SP HEMOGLOBIN 14.0 g/dL 13.2-17.1 SP HEMATOCRIT 41.0 % 38.5-50.0 SP MCV 88.0 fL 80.0-100.0 SP MCH 30.0 pg 27.0-33.0 SP MCHC 34.1 g/dL 32.0-36.0 SP RDW 14.6 % 11.0-15.0 SP PLATELET COUNT 317 Thousand/uL 140-400 SP MPV 10.0 fL 7.5-12.5 SP ABSOLUTE NEUTROPHILS 6166 cells/uL 1500- 7800 SP ABSOLUTE LYMPHOCYTES 1512 cells/uL 850-3 900 SP ABSOLUTE MONOCYTES 580 cells/uL 200-950 SP ABSOLUTE EOSINOPHILS 92 cells/uL 15-500 SP ABSOLUTE BASOPHILS 50 cells/uL 0-200 SP NEUTROPHILS 73.4 % NRG SP LYMPHOCYTES 18.0 % NRG SP MONOCYTES 6.9 % NRG SP EOSINOPHILS 1.1 % NRG SP BASOPHILS 0.6 % NRG SP LITHIUM (ESKALITH(R)), SERUM - 06/18/18 10:00 POS LITHIUM <0.3 mmol/L 0.6-1.2 SP A1C - 06/18/18 10:00 POS HEMOGLOBIN A1c 11.3 % of total Hgb <5.7 SP Complete blood count (CBC) with automate d white blood cell (WBC) differential - POS 14:45 Blood leukocytes automated count (number/volume) 13.6 10*3/uL POS 4.3-11.0 SP Blood erythrocytes automated count (number/volume) 4.49 10*6/uL SP 4.35-5.85 SP Venous blood hemoglobin measurement (mass/volume) 13.9 g/dL SP17.7 Blood hematocrit (volume fraction) 40 % 40-54 SP Automated erythrocyte mean corpuscular volume 88 [ foz_us] SP99 Automated erythrocyte mean corpuscular h emoglobin (mass per erythrocyte) SP 31 pg 25-34 SP Automated erythrocyte mean corpuscular h emoglobin concentration measurement SP 35 g/dL 32-36 SP Automated erythrocyte distribution width ratio 15. 5 % 10.0- SP Automated blood platelet count (count/volume) 294 10*3/uL SP400 Automated blood platelet mean volume measurement 9.3 [foz_us] SP 7.4-10.4 SP Automated blood neutrophils/100 leukocytes 81 % 42-75 SP Automated blood lymphocytes/100 leukocytes 11 % 12-44 SP Blood monocytes/100 leukocytes 7 % 0-12 SP Automated blood eosinophils/100 leukocytes 1 % 0-10 SP Automated blood basophils/100 leukocytes 1 % 0-10 SP Blood neutrophils automated count (number/volume) 11.0 10*3 SP7.8 Blood lymphocytes automated count (number/volume) 1.5 10*3 SP4.0 Blood monocytes automated count (number/volume) 0. 9 10*3 SP1.0 Automated eosinophil count 0.1 10*3/uL 0 .0-0.3 SP Automated blood basophil count (count/volume) 0.1 10*3/uL SP0.1 Comprehensive metabolic panel - 07/21/18 14:45 POS Serum or plasma sodium measurement (moles/volume) 141 mmol/L SP 135-145 SP Serum or plasma potassium measurement (moles/volume) 3.8 mmol/L SP 3.6-5.0 SP Serum or plasma chloride measurement (moles/volume) 100 mmol/L SP 98-107 SP Carbon dioxide 26 mmol/L 21-32 SP Serum or plasma anion gap determination (moles/volume) 15 mmol/L SP 5-14 SP Serum or plasma urea nitrogen measurement (mass/volume ) 20 mg/dL SP 7-18 SP Serum or plasma creatinine measurement (mass/volume) 0.86 mg/dL SP 0.60-1.30 SP Serum or plasma urea nitrogen/creatinine mass ratio 23 NRG SP Serum or plasma creatinine measurement w ith calculation of estimated glomerular SP rate > NRG SP Serum or plasma glucose measurement (mass/volume) 175 mg/dL SP105 Serum or plasma calcium measurement (mass/volume) 9.7 mg/dL SP10.1 Serum or plasma total bilirubin measurement (mass/volu me) 0.4 mg/dL SP 0.1-1.0 SP Serum or plasma alkaline phosphatase rick surement (enzymatic activity/volume) SP 105 U/L 40-136 SP Serum or plasma aspartate aminotransfera se measurement (enzymatic SP 14 U/L 5-34 SP Serum or plasma alanine aminotransferase measurement (enzymatic activity/volume) SP 22 U/L 0-55 SP Serum or plasma protein measurement (mass/volume) 6.9 g/dL SP8.2 Serum or plasma albumin measurement (mass/volume) 4.3 g/dL SP4.5 CALCIUM CORRECTED 9.5 mg/dL 8.5-10.1 SP LIPID PANEL - 09/23/18 08:54 POS CHOLESTEROL, TOTAL 241 mg/dL <200 SP HDL CHOLESTEROL 37 mg/dL >40 SP TRIGLYCERIDES 512 mg/dL <150 SP LDL-CHOLESTEROL mg/dL (calc) NRG SP CHOL/HDLC RATIO 6.5 (calc) <5.0 SP NON HDL CHOLESTEROL 204 mg/dL (calc) <13 0 SP CBC - 09/23/18 08:54 POS WHITE BLOOD CELL COUNT 9.2 Thousand/uL 3 .8-10.8 SP RED BLOOD CELL COUNT 4.59 Million/uL 4.2 0-5.80 SP HEMOGLOBIN 14.3 g/dL 13.2-17.1 SP HEMATOCRIT 43.4 % 38.5-50.0 SP MCV 94.6 fL 80.0-100.0 SP MCH 31.2 pg 27.0-33.0 SP MCHC 32.9 g/dL 32.0-36.0 SP RDW 14.2 % 11.0-15.0 SP PLATELET COUNT 355 Thousand/uL 140-400 SP MPV 10.4 fL 7.5-12.5 SP ABSOLUTE NEUTROPHILS 7010 cells/uL 1500- 7800 SP ABSOLUTE LYMPHOCYTES 1481 cells/uL 850-3 900 SP ABSOLUTE MONOCYTES 570 cells/uL 200-950 SP ABSOLUTE EOSINOPHILS 92 cells/uL 15-500 SP ABSOLUTE BASOPHILS 46 cells/uL 0-200 SP NEUTROPHILS 76.2 % NRG SP LYMPHOCYTES 16.1 % NRG SP MONOCYTES 6.2 % NRG SP EOSINOPHILS 1.0 % NRG SP BASOPHILS 0.5 % NRG SP A1C - 09/23/18 08:54 POS HEMOGLOBIN A1c 13.3 % of total Hgb <5.7 SP VITAMIN B12 - 09/23/18 08:54 POS VITAMIN B12 308 pg/mL 200-1100 SP C-PEPTIDE, SERUM - 12/09/18 12:30 POS C-PEPTIDE 0.83 ng/mL 0.80-3.85 SP A1C - 12/09/18 12:30 POS HEMOGLOBIN A1c 13.7 % of total Hgb <5.7 SP Encounters ACCT No. Visit Date/Time Discharge Status POS Pt. Type Provider Facility Loc./Un it POS Complaint POS [id number] 12/17/2018 15:00:00 ACT SP [facility] SP [id number] 12/09/2018 09:00:00 Document SPRegistration SP [id number] 09/23/2018 09:00:00 Document SPRegistration SP [id number] 06/18/2018 09:15:00 Document [facility] SP [id number] 12/14/2018 16:18:00 17:01:00 SP DIS Outpatient LINDA BLOOM MD [facility] ER FS RT INDEX FINGER LAC SP [id number] 11/26/2018 12:59:00 14:10:00 SP DIS Outpatient ALTAGRACIA MONDRAGON DO [facility] ER FS LT ANKLE INJ SP [id number] 11/03/2018 12:36:00 14:15:00 SP DIS Emergency ALTAGRACIA MONDRAGON DO [facility] ER FS NECK/LWR BACK/LT HIP PAIN SP [id number] 07/21/2018 14:11:00 15:56:00 SP DIS Emergency PATEL GARBER, ESTELA J [facility] ER FS LT HAND INSECT STING; GENERA L WEAKNESS SP [id number] 04/30/2018 16:30:00 019 11:20:00 SP DIS Inpatient TYSHAWN GARBER, JOAQUIN Conde [facility] 4TH HYPERGLYCEMIA SP [id number] 03/30/2018 16:04:00 17:01:00 SP DIS Emergency GREGORY DO, LAZ L [facility] ER FS HIP PAIN SP [id number] 03/30/2013 10:28:00 03/30/2013 23:59: 59 CLS SP Outpatient SHIRA ONEAL APRN SP SP [id number] 11/03/2012 14:09:00 11/03/2012 23:59: 59 CLS SP Outpatient DAVID BELLE PHD SP SP [id number] 10/06/2012 13:50:00 10/06/2012 23:59: 59 CLS SP Outpatient TAMELA HUBBARD DO SP SP [id number] 05/04/2012 14:16:00 05/04/2012 23:59: 59 CLS SP Outpatient SP [id number] 04/07/2012 11:30:00 04/07/2012 23:59: 59 CLS SP Outpatient SP [id number] 01/26/2012 11:17:00 01/26/2012 23:59: 59 CLS SP Outpatient DAVID BELLE PHD SP SP [id number] 01/06/2012 11:47:00 01/06/2012 23:59: 59 [place] [id number] 12/19/2011 09:57:00 12/19/2011 23:59:5 9 CLS SP Outpatient SP [id number] 07/12/2012 08:55:00 Document SP SP [id number] 05/04/2012 14:16:00 Document SP SP
== END 2018-11-26 14:10 | disposition home or self-care (01) ==
LOC: EDUNIT# 12:57 → ER FS 12:59
DX: S93.402A Sprain of unspecified ligament of left ankle, initial encounter (principal); M79.89 Other specified soft tissue disorders; J43.9 Emphysema, unspecified; J45.909 Unspecified asthma, uncomplicated; E78.00 Pure hypercholesterolemia, unspecified; I10 Essential (primary) hypertension; E11.9 Type 2 diabetes mellitus without complications; F31.9 Bipolar disorder, unspecified; F60.3 Borderline personality disorder; Z88.8 Allergy status to other drugs, medicaments and biological substances; Z88.5 Allergy status to narcotic agent; Z77.22 Contact with and (suspected) exposure to environmental tobacco smoke (acute) (chronic); W01.0XXA Fall on same level from slipping, tripping and stumbling without subsequent striking against object, initial encounter; Y93.01 Activity, walking, marching and hiking
CPT/HCPCS: 73610; 73630

== ENCOUNTER 2018-12-14 16:17 | Emergency (ER) | payer MEDICARE ==
[~2018-12-14] VITALS: Ht 175 cm; Wt 95.0 kg
[~2018-12-14 16:17] MED LIST changes: +HYDR-4226 PO
--- NOTE | 2018-12-14 16:36 | ED Upper Extremity ---
General Chief Complaint: Laceration Stated Complaint: RT INDEX FINGER LAC Source: patient History of Present Illness Date Seen by Provider: Dec 14, 2018 Time Seen by Provider: 16:21 Initial Comments 53-year-old male presenting with complaints of crush injury to his right index finger. He was cutting with and then splinting with a sledgehammer. He caught his finger with a sledgehammer. He has decreased sensation and movement to the tip of his right finger. He has bruising and some flattening to the right index finger. He states that his last tetanus shot was within the last 10 years. He has an abrasion or split skin to the index finger just proximal to the nail. He rates his pain as a 1 or 2 out of 10. He states that this happened just prior to coming to the emergency department. He has not taken anything for pain. Allergies and Home Medications Allergies Coded Allergies: chlorpromazine (Verified Allergy, Unknown, paralysis, 04/30/18) fentanyl (Verified Allergy, Unknown, hives, 04/30/18) thioridazine (Verified Allergy, Unknown, confusion, 04/30/18) Home Medications Amoxicillin/Potassium Clav 1 Each Tablet, 1 EACH PO BID Prescribed by: LINDA BLOOM on 12/14/18 1656 Bacitracin 3.5 Gm Oint...g., 0.5 GM OP BID Prescribed by: ESTELA SWEENEY on 07/21/18 1548 Cephalexin 500 Mg Tablet, 500 MG PO QID Prescribed by: ESTELA SWEENEY on 07/21/18 1548 Hydrocodone/Acetaminophen 1 Each Tablet, 1 TAB PO QHS Prescribed by: ALTAGRACIA MONDRAGON on 11/26/18 1401 Hydrocodone/Acetaminophen 1 Each Tablet, 0.5-1 EACH PO Q6H PRN for PAIN-SEVERE Prescribed by: LINDA BLOOM on 12/14/18 1656 Ibuprofen 800 Mg Tablet, 800 MG PO Q8H PRN for PAIN Prescribed by: ALTAGRACIA MONDRAGON on 11/03/18 1409 Oxycodone HCl/Acetaminophen 1 Each Tablet, 1 TAB PO Q6H PRN for PAIN-MODERATE Prescribed by: ALTAGRACIA MONDRAGON on 11/03/18 1409 Patient Home Medication List Home Medication List Reviewed: Yes Review of Systems Constitutional: No chills, No fever EENTM: no symptoms reported Respiratory: no symptoms reported Cardiovascular: no symptoms reported Gastrointestinal: no symptoms reported Genitourinary: no symptoms reported Musculoskeletal: see HPI Skin: see HPI Psychiatric/Neurological: See HPI Past Odfmbtr-Jjklhw-Lxessy Hx Past Med/Social Hx: Reviewed Nursing Past Med/Soc Hx Patient Social History Type Used: Cigarettes 2nd Hand Smoke Exposure: Yes Recent Foreign Travel: No Contact w/Someone Who Travel: No Recent Hopitalizations: No Immunizations Up To Date Date of Pneumonia Vaccine: Dec 09, 2016 Date of Influenza Vaccine: Dec 09, 2017 Seasonal Allergies Seasonal Allergies: No Past Medical History Surgeries: Yes (hip surgery, shoulder, gallbladder, hernia) Orthopedic Respiratory: Yes Asthma, Chronic Bronchitis, COPD, Emphysema Cardiac: Yes (cholesterol) High Cholesterol, Hypertension Neurological: No Genitourinary: No Gastrointestinal: No Musculoskeletal: Yes Degenerate Disk Disease, Arthritis Endocrine: Yes Diabetes, Insulin dep HEENT: No Cancer: No Psychosocial: Yes (bipolar disorder I, borderline personality ) Bipolar, Personality Disorder Integumentary: No Blood Disorders: No Physical Exam Vital Signs Vital Signs - First Documented 12/14/18 16:41 Temp 36.7 Pulse 90 Resp 18 B/P (MAP) 116/93 (101) Pulse Ox 97 O2 Delivery Room Air Capillary Refill : Height, Weight, BMI Height: 5'6.00" Weight: 138lbs. 0oz. 62.916884yf; 19.00 BMI Method:Stated General Appearance: no apparent distress Cardiovascular: normal peripheral pulses Hand: abrasions, ecchymosis (bruising to right index fingertip with flattening of the distal portion of the fingertip. decreased sensation to light touch), limited ROM, stiffness, swelling Neurologic/Psychiatric: alert, normal mood/affect, oriented x 3 Skin: warm/dry Progress/Results/Core Measures Results/Orders My Orders Orders - LINDA BLOOM MD Finger(S) (12/14/18 16:30) Vital Signs/I&O 12/14/18 12/14/18 16:41 16:49 Temp 36.7 36.7 Pulse 90 90 Resp 18 18 B/P (MAP) 116/93 (101) 116/93 (101) Pulse Ox 97 97 O2 Delivery Room Air Progress Progress Note #1: Progress Note clean wound with chlorhexidine and sterile water. obtain imaging of the right index finger. Progress Note #2: Progress Note comminuted and mildly displaced fracture of distal phalanx index finger. splint and have him take antibiotic for the abrasion. Elevate and wear splint to help with swelling and try to prevent throbbing and pain. Counseled that he is still at risk for losing the finger. Advised to check back with orthopedics or her clinic and they may still need to see a plastic surgeon or hand specialist. Diagnostic Imaging Diagonstic Imaging: Xray Plain Films/CT/US/NM/MRI: other (index finger.) Comments NAME: OSIRIS ISABEL [facility] REC#: [id number] PT STATUS: REG ER : 1965 PHYSICIAN: LINDA BLOOM MD ADMIT DATE: 12/14/18/ER FS Draft POSDate of Exam:12/14/18 FINGER(S) INDICATION: Smashed index finger. TECHNIQUE: Single view hand with two views of the right index finger. CORRELATION STUDY: None. FINDINGS: There is a multipart comminuted fracture through the distal phalanx of the index finger. The fracture line does involve the articular base extending through the tuft. There is slight outward displacement of some of the major fracture fragments with the alignment otherwise anatomic. The proximal phalanx and middle phalanx are intact. There is prominent soft tissue edema as well as small gas collections. No definitive foreign body. IMPRESSION: Comminuted, mild, outwardly displaced fractures through the distal phalanx index finger. Dictated on workstation # [id number] Dict: 12/14/18 1648 Trans: 12/14/18 1651 [id number] Interpreted by: KOMAL DUQUE DO Electronically signed by: Reviewed: Reviewed by Me Departure Impression Primary Impression: Crushing injury of right index finger, initial encounter Additional Impressions: Abrasion of right index finger, initial encounter Displaced fracture of distal phalanx of right index finger, initial encounter for closed fracture Disposition: 01 HOME, SELF-CARE Condition: Stable Departure-Patient Inst. Decision time for Depature: 16:52 Referrals: SELFDAVID MD (PCP) Primary Care Physician Patient Instructions: Skin Abrasions (DC), Finger Fracture (DC), SPLINT CARE Add. Discharge Instructions: Keep splint on until you follow up with clinic. Call to be seen with Orthopedics or Primary tomorrow or . Deny Dunbar is at [phone]. You may still need to see a hand specialist and are at risk of losing the fingertip so it is important that you follow this closely with the clinic. Take antibiotics to help prevent infection from the abrasion. Keep your hand elevated above your heart level. Take the pain medicine as needed to control your pain in the finger. All discharge instructions reviewed with patient and/or family. Voiced understanding. Scripts Hydrocodone/Acetaminophen (Hydrocodon-Acetaminophn 10-325) 1 Each Tablet 0.5-1 EACH PO Q6H PRN for PAIN-SEVERE MDD 5 for 3 Days, #12 TAB 0 Refills Prov: LINDA BLOOM MD 12/14/18 Amoxicillin/Potassium Clav (Amox Tr-K Clv 875-125 mg Tab) 1 Each Tablet 1 EACH PO BID for 10 Days, #20 TAB 0 Refills Prov: LINDA BLOOM MD 12/14/18 LINDA BLOOM MD Dec 14, 2018 16:36 POS
[2018-12-14 16:49] VITALS: BP 116/93
--- NOTE | 2018-12-14 16:52 | Diagnostic Imaging Report ---
INDICATION: Smashed index finger. TECHNIQUE: Single view hand with two views of the right index finger. CORRELATION STUDY: None. FINDINGS: There is a multipart comminuted fracture through the distal phalanx of the index finger. The fracture line does involve the articular base extending through the tuft. There is slight outward displacement of some of the major fracture fragments with the alignment otherwise anatomic. The proximal phalanx and middle phalanx are intact. There is prominent soft tissue edema as well as small gas collections. No definitive foreign body. IMPRESSION: Comminuted, mild, outwardly displaced fractures through the distal phalanx index finger. Dictated by: Dictated on workstation # [id number]
[2018-12-14] MEDS ORDERED: AMOX1TAB12 PO (16:56)
[2018-12-14] MEDS ORDERED: HYDR-3820 PO (16:56)
== END 2018-12-14 17:01 | disposition home or self-care (01) ==
LOC: EDUNIT# 16:17 → ER FS 16:18
DX: S62.638A Displaced fracture of distal phalanx of other finger, initial encounter for closed fracture (principal); S67.190A Crushing injury of right index finger, initial encounter; I10 Essential (primary) hypertension; E11.9 Type 2 diabetes mellitus without complications; E78.00 Pure hypercholesterolemia, unspecified; J43.9 Emphysema, unspecified; F31.9 Bipolar disorder, unspecified; F60.3 Borderline personality disorder; Z88.5 Allergy status to narcotic agent; Z88.8 Allergy status to other drugs, medicaments and biological substances; Z77.22 Contact with and (suspected) exposure to environmental tobacco smoke (acute) (chronic); W22.8XXA Striking against or struck by other objects, initial encounter
CPT/HCPCS: 26755; 29130; 73140

== ENCOUNTER → 2018-12-27 | Outpatient (CLI) | payer MEDICARE ==
[~2018-12-27] MED LIST changes: +AMOX1TAB12 PO; +HYDR-3820 PO
--- NOTE | 2018-12-27 11:33 | Diagnostic Imaging Report ---
INDICATION: Right index finger fracture, followup. TIME OF EXAM: 9:25 AM Correlation made with prior study 12/14/2018. Comminuted fracture of the distal phalanx of index finger is again noted. Fracture lines remain clearly visible. Alignment appears to be fairly stable. No new fractures are seen. There is soft tissue swelling of the distal aspect of the index finger. IMPRESSION: Comminuted distal phalangeal fracture of the index finger with fracture lines remaining clearly visible. Anatomic alignment is maintained. Dictated by: Dictated on workstation # [id number]
== END ==
LOC: RAD FS 09:21
PROVIDERS: ATTEND Nurse Practitioner
DX: S62.630D Displaced fracture of distal phalanx of right index finger, subsequent encounter for fracture with routine healing (principal)
CPT/HCPCS: 73140

== ENCOUNTER → 2019-01-12 | Outpatient (CLI) | payer MEDICARE ==
[~2019-01-12] MED LIST changes: +BARIUM SUSPENSION 2.1% (VANILLA SILQ) 450 ML PO ONE; +CATHETER FLUSH 10 ML SYR IV PRN; +HOLD METFORMIN - RECEIVED CONTRAST 20 ML VIAL IV SCH; +IOHEXOL 350 MG/ML 100 ML (OMNIPAQUE 350) VIAL IV ONE; +NS 100 ML (IVPB) BAG IV ONE
[2019-01-12 09:10] LABS: BUN/CREATININE RATIO 17; CARBON DIOXIDE 27 MMOL/L (21-32); CHLORIDE 102 MMOL/L (98-107); CREATININE SERUM 0.84 MG/DL (0.60-1.30); GFR ESTIMATED > 60; POTASSIUM 4.1 MMOL/L (3.6-5.0); SODIUM 141 MMOL/L (135-145)
[2019-01-12 09:11] LABS: ALANINE AMINOTRANSFERASE 16 U/L (0-55); ALBUMIN 3.7 GM/DL (3.2-4.5); ALKALINE PHOSPHATASE 85 U/L (40-136); BILIRUBIN,TOTAL 0.2 MG/DL (0.1-1.0); CALCIUM 9.6 MG/DL (8.5-10.1); GLUCOSE 291 MG/DL (70-105); TOTAL PROTEIN 5.9 GM/DL (6.4-8.2)
--- NOTE | 2019-01-12 14:31 | Diagnostic Imaging Report ---
PROCEDURE: CT abdomen with and without contrast. TECHNIQUE: Multiple contiguous axial CT images of the abdomen were obtained prior to and after intravenous administration of iodinated contrast. Auto Exposure Controls were utilized during the CT exam to meet ALARA standards for radiation dose reduction. INDICATION: Left adrenal nodule. COMPARISON: None available. FINDINGS: There is a 2.3 x 1.7 cm left adrenal nodule which has circumscribed margins and no features of aggressive invasion of the surrounding structures. Precontrast attenuation of the nodule is 15 Hounsfield units. At 60 seconds after IV contrast administration attenuation is 95 Hounsfield units and 15 minute delayed phase images have attenuation of 30 Hounsfield units. These imaging features indicate washout and are compatible with a lipid poor adenoma. Right adrenal gland is normal. There is small amount of dependent atelectasis in right lung base. Otherwise, lung bases are clear. No pericardial or pleural effusion. The liver, spleen and pancreas are normal. Status post cholecystectomy. No pathologic biliary duct dilatation. No dilated loops of bowel. No abdominal lymphadenopathy. There are a few simple cysts within both kidneys. No solid renal mass. Nonobstructing 2-4 mm bilateral renal stones. No concerning focal osseous lesions. IMPRESSION: 1. 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 Dictated by: Dictated on workstation # [id number]
== END ==
LOC: RAD FS 08:25
PROVIDERS: ATTEND Family Medicine
DX: E27.8 Other specified disorders of adrenal gland (principal)
CPT/HCPCS: 36415; 74170; 80053

== ENCOUNTER → 2019-01-17 | Outpatient (CLI) | payer MEDICARE ==
[~2019-01-17] MED LIST changes: -BARIUM SUSPENSION 2.1% (VANILLA SILQ) 450 ML PO ONE; -CATHETER FLUSH 10 ML SYR IV PRN; -HOLD METFORMIN - RECEIVED CONTRAST 20 ML VIAL IV SCH; -IOHEXOL 350 MG/ML 100 ML (OMNIPAQUE 350) VIAL IV ONE; -NS 100 ML (IVPB) BAG IV ONE
--- NOTE | 2019-01-17 12:44 | Diagnostic Imaging Report ---
INDICATION: Fracture. Comparison made with prior examination of 12/27/2018. 3 views were obtained. FINDINGS: There is a subacute comminuted fracture of the distal phalanx of the right index finger. There is some persistent soft tissue swelling. Fracture line is still visible. No other fracture or dislocation. IMPRESSION: Stable alignment of the subacute comminuted fracture involving distal phalanx of the right index finger Dictated by: Dictated on workstation # [id number]
== END ==
LOC: RAD FS 10:31
PROVIDERS: ATTEND Nurse Practitioner
DX: S62.630B Displaced fracture of distal phalanx of right index finger, initial encounter for open fracture (principal)
CPT/HCPCS: 73140

== ENCOUNTER 2019-03-29 12:42 | Emergency (ER) | payer MEDICARE, MEDICAID ==
[~2019-03-29] VITALS: Ht 167 cm; Wt 68.0 kg
[2019-03-29 13:00] LABS: BASOPHILS # (AUTO) 0.1 10^3/uL (0.0-0.1); BASOPHILS % (AUTO) 0 % (0-10); EOSINOPHILS % (AUTO) 0 % (0-10); HEMATOCRIT 44 % (40-54); HEMOGLOBIN 15.1 G/DL (13.3-17.7); LYMPHOCYTES % (AUTO) 8 % (12-44); MEAN CORPUSCULAR HEMOGLOBIN 30 PG (25-34); MEAN CORPUSCULAR HGB CONC 35 G/DL (32-36); MEAN CORPUSCULAR VOLUME 87 FL (80-99); MEAN PLATELET VOLUME 9.4 FL (7.4-10.4); MONOCYTES # (AUTO) 0.7 X 10^3 (0.0-1.0); MONOCYTES % (AUTO) 6 % (0-12); NEUTROPHILS % (AUTO) 85 % (42-75); PLATELET COUNT 365 10^3/uL (130-400); RED CELL DISTRIBUTION WIDTH 14.5 % (10.0-14.5); WHITE BLOOD COUNT 11.8 10^3/uL (4.3-11.0)
[2019-03-29] MEDS ORDERED: NS IV 1000 ML 1,000 ML IV SCH ×2 (13:00→13:30)
[2019-03-29 13:19] LABS: BILIRUBIN,URINE NEGATIVE (NEGATIVE); CLARITY,URINE CLEAR; COLOR,URINE YELLOW; GLUCOSE, URINE (UA) 3+ (NEGATIVE); KETONES,URINE NEGATIVE (NEGATIVE); LEUKOCYTE ESTERASE ,URINE NEGATIVE (NEGATIVE); NITRITE,URINE NEGATIVE (NEGATIVE); PROTEIN,URINE NEGATIVE (NEGATIVE); RBC,URINE RARE /HPF
[2019-03-29 13:20] LABS: BUN/CREATININE RATIO 15; CARBON DIOXIDE 24 MMOL/L (21-32); CHLORIDE 93 MMOL/L (98-107); CREATININE SERUM 0.85 MG/DL (0.60-1.30); GFR ESTIMATED > 60; POTASSIUM 4.2 MMOL/L (3.6-5.0); SODIUM 133 MMOL/L (135-145)
[2019-03-29 13:20] LABS: SQUAMOUS EPITHELIAL CELL,UR RARE /HPF
[2019-03-29 13:21] LABS: ALANINE AMINOTRANSFERASE 19 U/L (0-55); ALBUMIN 4.4 GM/DL (3.2-4.5); ALKALINE PHOSPHATASE 127 U/L (40-136); BILIRUBIN,TOTAL 0.2 MG/DL (0.1-1.0); CALCIUM 10.3 MG/DL (8.5-10.1); GLUCOSE 531 MG/DL (70-105); TOTAL PROTEIN 7.3 GM/DL (6.4-8.2)
[2019-03-29] MEDS ORDERED: inSUlin (REGULAR) HUMAN 1 UNIT/0.01 ML (CHARGE PER UNIT) IV ONE (13:30)
--- NOTE | 2019-03-29 13:33 | ED General ---
General Chief Complaint: Psych/Social Disorder Stated Complaint: AMS, ANXIETY Nursing Triage Note: PT WAS AT A MENTAL HEALTH MEETING AND DRANK A CUP OF COFFEE AND BECAME ANXIOUS. HE REPORTS HE HAS NOT HAD COFFEE IN OVER A WEEK. MENTAL HEALTH CALLED AN AMBULANCE. Nursing Sepsis Screen: No Definite Risk History of Present Illness Date Seen by Provider: Mar 29, 2019 Time Seen by Provider: 13:37 Initial Comments Patient presenting to emergency department via EMS for evaluation of an apparent anxiety attack. History is provided by EMS and patient. He was at his mental health group meeting and decided to have a cup of coffee and he said he had not had cough in a week. Immediately after drinking the coffee he started feeling very shaky and short of breath and was hyperventilating and was concerning other members of the group so 911 was called. After EMS arrived he was still somewhat anxious but was improving and he requested to smoke a cigarette. EMS allowed h im to smoke a cigarette and then he was back to himself that he still wanted to be evaluated in the emergency room. Patient says that he feels back to himself with no pain dizziness vision changes weakness numbness tingling shortness of breath nausea vomiting. His blood sugar was elevated for EMS and here as well and I asked him why his blood sugar so high and he says he changed the site on his insulin pump today and his basal rate is at 1.4 units. I asked him why his pump is in correcting for his hyperglycemia and he says that he doesn't have any more since her pads on it and he says those are being mailed currently. He is in no obvious distress with normal vital signs. Allergies and Home Medications Allergies Coded Allergies: chlorpromazine (Verified Allergy, Unknown, paralysis, 04/30/18) fentanyl (Verified Allergy, Unknown, hives, 04/30/18) thioridazine (Verified Allergy, Unknown, confusion, 04/30/18) Home Medications Amoxicillin/Potassium Clav 1 Each Tablet, 1 EACH PO BID Prescribed by: LINDA BLOOM on 12/14/181655 Bacitracin 3.5 Gm Oint...g., 0.5 GM OP BID Prescribed by: ESTELA SWEENEY on 07/21/18 1548 Cephalexin 500 Mg Tablet, 500 MG PO QID Prescribed by: ESTELA WSEENEY on 07/21/18 1548 Hydrocodone/Acetaminophen 1 Each Tablet, 1 TAB PO QHS Prescribed by: ALTAGRACIA MONDRAGON on 11/26/18 1401 Hydrocodone/Acetaminophen 1 Each Tablet, 0.5-1 EACH PO Q6H PRN for PAIN-SEVERE Prescribed by: LINDA BLOOM on 12/14/18 1656 Ibuprofen 800 Mg Tablet, 800 MG PO Q8H PRN for PAIN Prescribed by: ALTAGRACIA MONDRAGON on 11/03/18 1409 Oxycodone HCl/Acetaminophen 1 Each Tablet, 1 TAB PO Q6H PRN for PAIN-MODERATE Prescribed by: ALTAGRACIA MONDRAGON on 11/03/18 140 Patient Home Medication List Home Medication List Reviewed: Yes Review of Systems Review of Systems Constitutional: no symptoms reported EENTM: no symptoms reported Respiratory: no symptoms reported Cardiovascular: no symptoms reported Gastrointestinal: no symptoms reported Genitourinary: no symptoms reported Musculoskeletal: no symptoms reported Skin: no symptoms reported Psychiatric/Neurological: No Symptoms Reported All Other Systems Reviewed Negative Unless Noted: Yes Past Pxthnjj-Vtpcwc-Uvksgv Hx Patient Social History Alcohol Use: Denies Use Recreational Drug Use: No Smoking Status: Current Everyday Smoker Type Used: Cigarettes 2nd Hand Smoke Exposure: Yes Recent Foreign Travel: No Contact w/Someone Who Travel: No Recent Infectious Disease Expo: No Recent Hopitalizations: No Physical Abuse: No Sexual Abuse: No Mistreated: No Fear: No Immunizations Up To Date Date of Pneumonia Vaccine: Dec 09, 2016 Date of Influenza Vaccine: Dec 09, 2017 Seasonal Allergies Seasonal Allergies: No Past Medical History Surgeries: Yes (hip surgery, shoulder, gallbladder, hernia) Orthopedic Respiratory: Yes Asthma, Chronic Bronchitis, COPD, Emphysema Cardiac: Yes (cholesterol) High Cholesterol, Hypertension Neurological: No Genitourinary: No Gastrointestinal: No Musculoskeletal: Yes Degenerate Disk Disease, Arthritis Endocrine: Yes Diabetes, Insulin dep HEENT: No Cancer: No Psychosocial: Yes (bipolar disorder I, borderline personality ) Bipolar, Personality Disorder Integumentary: No Blood Disorders: No Physical Exam Vital Signs Vital Signs - First Documented 03/29/19 12:49 Temp 36.5 Pulse 94 Resp 18 B/P (MAP) 176/94 (121) Pulse Ox 96 O2 Delivery Room Air Capillary Refill : Less Than 3 Seconds Height, Weight, BMI Height: 5'6.00" Weight: 138lbs. 0oz. 62.070271xb; 24.00 BMI Method:Stated General Appearance: No Apparent Distress, WD/WN HEENT: PERRL/EOMI Neck: Supple Respiratory: Normal Breath Sounds, No Respiratory Distress Cardiovascular: Regular Rate, Rhythm Gastrointestinal: Non Tender, Soft Back: Normal Inspection Extremity: Normal Capillary Refill Neurologic/Psychiatric: Alert, Oriented x3 Skin: Warm/Dry Progress/Results/Core Measures Suspected Sepsis Recent Fever Within 48 Hours: No Infection Criteria Present: None New/Unexplained Altered Menta: No Sepsis Screen: No Definite Risk SIRS Temperature: Pulse: 94 Respiratory Rate: 18 Laboratory Tests 03/29/19 12:50: White Blood Count 11.8H Blood Pressure 176 /94 Mean: 121 Laboratory Tests 03/29/19 12:50: Creatinine 0.85, Platelet Count 365, Total Bilirubin 0.2 Results/Orders Lab Results Laboratory Tests Test 03/29/19 12:50 03/29/19 12:55 Range/Units White Blood Count 11.8 H 4.3-11.0 10^3/uL Red Blood Count 5.01 4.35-5.85 10^6/uL Hemoglobin 15.1 13.3-17.7 G/DL Hematocrit 44 40-54 % Mean Corpuscular Volume 87 80-99 FL Mean Corpuscular Hemoglobin 30 25-34 PG Mean Corpuscular Hemoglobin Concent 35 32-36 G/DL Red Cell Distribution Width 14.5 10.0-14.5 % Platelet Count 365 130-400 10^3/uL Mean Platelet Volume 9.4 7.4-10.4 FL Neutrophils (%) (Auto) 85 H 42-75 % Lymphocytes (%) (Auto) 8 L 12-44 % Monocytes (%) (Auto) 6 0-12 % Eosinophils (%) (Auto) 0 0-10 % Basophils (%) (Auto) 0 0-10 % Neutrophils # (Auto) 10.0 H 1.8-7.8 X 10^3 Lymphocytes # (Auto) 1.0 1.0-4.0 X 10^3 Monocytes # (Auto) 0.7 0.0-1.0 X 10^3 Eosinophils # (Auto) 0.0 0.0-0.3 10^3/uL Basophils # (Auto) 0.1 0.0-0.1 10^3/uL Sodium Level 133 L 135-145 MMOL/L Potassium Level 4.2 3.6-5.0 MMOL/L Chloride Level 93 L 98-107 MMOL/L Carbon Dioxide Level 24 21-32 MMOL/L Anion Gap 16 H 5-14 MMOL/L Blood Urea Nitrogen 13 7-18 MG/DL Creatinine 0.85 0.60-1.30 MG/DL Estimat Glomerular Filtration Rate > 60 BUN/Creatinine Ratio 15 Glucose Level 531 *H 70-105 MG/DL Calcium Level 10.3 H 8.5-10.1 MG/DL Corrected Calcium 10.0 8.5-10.1 MG/DL Total Bilirubin 0.2 0.1-1.0 MG/DL Aspartate Amino Transf (AST/SGOT) 11 5-34 U/L Alanine Aminotransferase (ALT/SGPT) 19 0-55 U/L Alkaline Phosphatase 127 40-136 U/L Total Protein 7.3 6.4-8.2 GM/DL Albumin 4.4 3.2-4.5 GM/DL Urine Color YELLOW Urine Clarity CLEAR Urine pH 5.0 5-9 Urine Specific [place] 1.020 1.016-1.022 Urine Protein NEGATIVE NEGATIVE Urine Glucose (UA) 3+ H NEGATIVE Urine Ketones NEGATIVE NEGATIVE Urine Nitrite NEGATIVE NEGATIVE Urine Bilirubin NEGATIVE NEGATIVE Urine Urobilinogen 0.2 < = 1.0 MG/DL Urine Leukocyte Esterase NEGATIVE NEGATIVE Urine RBC (Auto) TRACE H NEGATIVE Urine RBC RARE /HPF Urine WBC NONE /HPF Urine Squamous Epithelial Cells RARE /HPF Urine Crystals NONE /LPF Urine Bacteria NONE /HPF Urine Casts NONE /LPF Urine Mucus NEGATIVE /LPF Urine Culture Indicated NO My Orders Orders - ALTAGRACIA MONDRAGON DO Cbc With Automated Diff (03/29/19 12:48) Comprehensive Metabolic Panel (03/29/19 12:48) Ns Iv 1000 Ml (Sodium Chloride 0.9%) (03/29/19 13:00) Ua Culture If Indicated (03/29/19 13:06) Insulin (Regular) Human (Humulin R (Per (03/29/19 13:30) Ns Iv 1000 Ml (Sodium Chloride 0.9%) (03/29/19 13:30) Medications Given in ED Current Medications Medications Dose Ordered Sig/Roshan Route Start Time Stop Time Status Last Admin Dose Admin Insulin Human Regular 10 unit ONCE ONCE IV 03/29/19 13:30 03/29/19 13:31 DC 03/29/19 13:30 10 UNIT Vital Signs/I&O 03/29/19 12:49 Temp 36.5 Pulse 94 Resp 18 B/P (MAP) 176/94 (121) Pulse Ox 96 O2 Delivery Room Air Capillary Refill : Less Than 3 Seconds Blood Pressure Mean: 121 Progress Note : Progress Note Patient is at his baseline and is in no obvious distress with normal vital signs other than hypertension noted. His blood sugar is quite elevated but there is no signs of acidosis or ketonuria so he is not in DKA at this time. I have no suspicion for ACS pulmonary embolism dissection or acute pathology at this time rather his symptoms seem quite consistent with anxiety attack provoked by a stimulant and then resolved shortly afterwards. He is being given IV and oral fluids as well as an insulin bolus. He was observed in the emergency department for 2 hours and is still at his baseline with normal vital signs with no complaints of he'll be discharged in stable condition. I told him to check his blood sugar with a fingerstick frequently and consider changing the site of his blood sugar keeps going up and or getting his insulin pump checked out as it could possibly be not functioning correctly. He was told to come back to emergency department any time with any new worsening symptoms. Departure Impression Primary Impression: Anxiety Additional Impression: Hyperglycemia Disposition: 01 HOME, SELF-CARE Condition: Stable Departure-Patient Inst. Referrals: SELF,DAVID GARBER (PCP/Family) Primary Care Physician Patient Instructions: Hyperglycemia, Adult (DC) ALTAGRACIA MONDRAGON DO Mar 29, 2019 13:33
[2019-03-29 14:26] VITALS: BP 112/72
== END 2019-03-29 14:30 | disposition home or self-care (01) ==
LOC: EDUNIT# 12:42 → ER FS 12:43
DX: F41.9 Anxiety disorder, unspecified (principal); E11.65 Type 2 diabetes mellitus with hyperglycemia; J43.9 Emphysema, unspecified; F17.210 Nicotine dependence, cigarettes, uncomplicated; Z88.8 Allergy status to other drugs, medicaments and biological substances; Z88.5 Allergy status to narcotic agent
CPT/HCPCS: 36415; 80053; 81000; 82962; 85025

== ENCOUNTER 2019-03-31 16:00 | Emergency (ER) | payer MEDICARE, MEDICAID ==
[~2019-03-31] VITALS: Ht 167.7 cm; Wt 68.4 kg
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
[2019-03-31 17:00] LABS: AMPHETAMINE SCREEN, URINE NEGATIVE (NEGATIVE); BARBITURATE SCREEN URINE NEGATIVE (NEGATIVE); BENZODIAZEPINES SCREEN URINE NEGATIVE (NEGATIVE); CANNABINOID SCREEN, URINE POSITIVE (NEGATIVE); COCAINE SCREEN URINE NEGATIVE (NEGATIVE); METHADONE STAT NEGATIVE (NEGATIVE); METHAMPHETAMINE SCREEN URINE S NEGATIVE (NEGATIVE); OPIATE SCREEN URINE NEGATIVE (NEGATIVE); OXYCODONE STAT NEGATIVE (NEGATIVE); PROPOXYPHENE STAT NEGATIVE (NEGATIVE); TRICYCLIC ANTIDEPRESSANTS SCRE NEGATIVE (NEGATIVE)
[2019-03-31 17:14] LABS: HEMOGLOBIN 15.3 G/DL (13.3-17.7); MEAN PLATELET VOLUME 9.6 FL (7.4-10.4); RED CELL DISTRIBUTION WIDTH 14.6 % (10.0-14.5); WHITE BLOOD COUNT 11.4 10^3/uL (4.3-11.0)
[2019-03-31 17:51] LABS: BUN/CREATININE RATIO 20; CARBON DIOXIDE 23 MMOL/L (21-32); CHLORIDE 98 MMOL/L (98-107); CREATININE SERUM 0.87 MG/DL (0.60-1.30); GFR ESTIMATED > 60; POTASSIUM 3.9 MMOL/L (3.6-5.0); SODIUM 135 MMOL/L (135-145)
[2019-03-31 17:52] LABS: GLUCOSE 405 MG/DL (70-105)
[2019-03-31 17:53] LABS: ACETAMINOPHEN < 10 UG/ML (10-30); ALANINE AMINOTRANSFERASE 16 U/L (0-55); ALBUMIN 4.2 GM/DL (3.2-4.5); ALKALINE PHOSPHATASE 127 U/L (40-136); BILIRUBIN,TOTAL 0.3 MG/DL (0.1-1.0); SALICYLATE 0.4 MG/DL (5.0-20.0); TOTAL PROTEIN 7.1 GM/DL (6.4-8.2)
[2019-03-31] MEDS ORDERED: NS IV 1000 ML 1,000 ML IV SCH (17:59)
[2019-03-31] MEDS ORDERED: inSUlin (REGULAR) HUMAN 1 UNIT/0.01 ML (CHARGE PER UNIT) SC ONE (18:00)
--- NOTE | 2019-03-31 19:39 | NUR ---
[facility] CONTACTED FOR SCREENING.
--- NOTE | 2019-03-31 20:45 | NUR ---
[facility] SCREENER CALLED AND IS IN CONFERENCE WITH PT
--- NOTE | 2019-03-31 21:20 | NUR ---
PT SIGNED SAFETY CONTRACT.
[2019-03-31 21:28] VITALS: BP 139/78
== END 2019-03-31 21:31 | disposition home or self-care (01) ==
LOC: EDUNIT# 16:00 → ER FS 16:01
DX: T22.112A Burn of first degree of left forearm, initial encounter (principal); T31.0 Burns involving less than 10% of body surface; E11.9 Type 2 diabetes mellitus without complications; F17.210 Nicotine dependence, cigarettes, uncomplicated; Z88.8 Allergy status to other drugs, medicaments and biological substances; Z88.5 Allergy status to narcotic agent; X76.XXXA Intentional self-harm by smoke, fire and flames, initial encounter
CPT/HCPCS: 36415; 80053; 80306; 80320; 80329; 82962; 85027; 96360; 96372

== ENCOUNTER 2019-04-28 12:46 | Emergency (ER) | payer MEDICARE, MEDICAID ==
--- NOTE | 2019-04-28 13:08 | NUR ---
PT DECIDED TO SEE DR BOURGEOIS ONCE HE GOT HERE.
--- OUTSIDE RECORDS SUMMARY | 2019-04-28 13:31 | XMS REPORT ---
Author Author Rodolfo Dinero Doctor Organization [facility] Address Unknown Phone Unavailable Care Team Providers Care Housing Project Manager Name Role Phone Migration, Doctor Unavailable Unavailable PROBLEMS Type Condition ICD9-CM Code IWF09-SV Code Onset Dates Condition S tatus SNOMED Code Problem Panlobular emphysema J43.1 Active 7007927 Problem Hypertension I10 Active 5128699 3 Problem Type 2 diabetes mellitus treated with insulin E11. 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 Activ e 24847567 Problem Tobacco abuse Z72.0 Active 353426 05 Problem COPD (chronic obstructive pulmonary disease) J44.9 Active 46701334 Problem History of diabetic gastroparesis Z86.39 Active 673319725 Problem Aneurysm artery, 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 Active 38033108 Problem Hypoxia R09.02 Active 207842212 Problem Tubular adenoma of colon D12.6 Activ e 976472455 Problem Hyperosmolar hyponatremia E87.1 Acti ve 051497966 Problem Bipolar 2 disorder F31.81 Active 8 6841483 Problem Sciatica of left side M54.32 Active 87995824 Problem Type 2 diabetes mellitus wit hout complication, unspecified whether fci insulin use E11.9 Active 239659898 Problem Essential hypertension I10 Active 83765764 Problem Diabetic polyneuropathy associated with type 2 d iabetes mellitus E11.42 Active 106220008 Problem Type 1 diabetes mellitus with hypoglycemia unawareness E10.649 Active Problem Needle phobia F40.298 Active 464795 003 Problem Type 1 diabetes mellitus with other specified complication E10.69 Active 33323740 Problem Decreased appetite R63.0 Active 6 9971184 Problem Hyperlipemia E78.5 Active 5147817 4 Problem Generalized anxiety disorder F41.1 A ctive 47092707 Problem Hyperglycemia R73.9 Active 671860 07 Problem Adrenal nodule E27.9 Active 84584 000 Problem History of diabetes with ketoacidosis Z86.39 Active 608683799 Problem Cigarette nicotine dependence without complication F17.210 Active 41001895 Problem Moderate depressive disorder F32.9 A ctive 687449621 Problem Altered taste R43.2 Active 537800 [id number] ALLERGIES No Information ENCOUNTERS Encounter Location Date Diagnosis [address] [place] [address] Apr, Aneurysm artery, iliac commo n I72.3 [address] [place] [address] Apr, [address] [place] [address] Mar, [address] [place] [address] Mar, Generalized anxiety disorder F41.1 ; Bipolar 2 disorder F31.81 and Suicidal behavior R46.89 [address] [place] [address] Mar, [address] [place] [address] Mar, [address] [place] [address] Mar, [facility] [id number] [place] [address] Mar, [id number] [place] [address] Mar, Type 1 diabetes mellitus with hypoglycem ia unawareness E10.649 and Suicidal ideations R45.851 [address] [place] [address] Mar, [facility] [id number] [place] [address] Mar, [address] [id number] [place] [address] Mar, [address] [place] [address] Mar, [address] [place] [address] 29 Feb, 2019 Decreased appetite R63.0 ; A ltered taste R43.2 ; Type 1 diabetes mellitus with hypoglycemia unawareness E10.649 and History of diabetic gastroparesis Z86.39 [facility] [place] [address] [id number] [place] [address] Feb, [address] [place] [address] 15 Feb, 2019 [address] [place] [address] 14 Feb, 2019 [address] [place] [address] Feb, Moderate depressive disorder F32.9 and Left hip pain M25.552 [address] [place] [address] Jan, [address] [place] [address] Jan, Type 2 diabetes mellitus wit hout complication, unspecified whether fci insulin use E11.9 [address] [place] [address] 09 Jan, 2019 [address] [place] [address] Jan, Open bite of left wrist, ini tial encounter S61.552A ; Bitten by cat, initial encounter W55.01XA ; Cigarette nicotine dependence without complication F17.210 and Encounter for immunization Z23 [address] [place] [address] Jan, Aneurysm artery, iliac commo n I72.3 ; Adrenal nodule E27.9 ; Encounter for Medicare annual wellness exam Z00.00 ; Essential hypertension I10 ; Type 2 diabetes mellitus without complication, unspecified whether long term care phlebotomist insulin use E11.9 ; COPD (chronic obstructive pulmonary disease) J44.9 and Adrenal adenoma, unspecified laterality D35.[address] [place] [address] Jan, COPD (chronic obstructive pu lmonary disease) J44.9 [facility] [address] [facility] [id number] [place] [address] Jan, [facility] [address] [place] [address] Dec, [facility] [address] [place] [address] Dec, [facility] M[facility] [address] [place] [address] Dec, Adrenal nodule E27.9 [facility] [id number] [place] [address] [id number] [place] [address] Dec, [facility] [address] [place] [id number] [place] [address] Dec, [facility] M[facility] [address] [place] [address] Dec, Encounter for Medicare annua l wellness exam Z00.00 ; Essential hypertension I10 ; Type 2 diabetes mellitus without complication, unspecified whether fci insulin use E11.9 ; COPD (chronic obstructive pulmonary disease) J44.9 ; Aneurysm artery, 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 and Adrenal adenoma, unspecified laterality D35.00 [facility] [address] [place] [address] Dec, [facility] [address] [place] [address] Dec, Essential hypertension I10 [facility] [address] [place] [address] Dec, Essential hypertension I10 [facility] [id number] [place] [address] [id number] [place] [address] Dec, [facility] M[facility] [address] [place] [address] Dec, [facility] M[facility] [address] [place] [address] Dec, Injury of right index finger , initial encounter S69.91XA [facility] [id number] [place] [address] Dec, [facility] [address] [address] Dec, [address] [place] [address] Dec, [address] [place] [address] Dec, [facility] [address] [address] Nov, [address] [place] [address] Nov, [address] [place] [address] Nov, Type 2 diabetes mellitus ramon ated with insulin E11.9 ; Tobacco abuse Z72.0 and Type 1 diabetes mellitus with hypoglycemia unawareness E10.649 [address] [place] [address] Nov, [facility] [id number] [place] [address] Nov, [facility] [address] [address] Nov, [address] [place] [address] Nov, [address] [place] [address] Nov, Strain of left ankle, initia l encounter S96.912A [address] [place] [address] Nov, Tobacco abuse Z72.0 ; Type 1 diabetes mellitus with hypoglycemia unawareness E10.649 ; Type 1 diabetes mellitus with other specified complication E10.69 ; History of diabetic gastroparesis Z86.39 ; History of diabetes with ketoacidosis Z86.39 ; Needle phobia F40.298 ; Risk for falls Z91.81 and Lives alone Z60.2 [address] [place] [address] 17 Nov, 2018 Type 2 diabetes mellitus wit hout complication, unspecified whether long term care phlebotomist insulin use E11.9 ; COPD (chronic obstructive pulmonary disease) J44.9 ; Essential hypertension I10 ; Encounter for immuni zation Z23 and Cervical pain (neck) M54.2 [address] [place] [address] Nov, Cervical pain (neck) M54.2 a nd Lumbar pain M54.5 [address] [place] [address] Oct, Diabetic polyneuropathy asso ciated with type 2 diabetes mellitus E11.42 [address] [place] [address] Sep, [address] [place] [address] Sep, Aneurysm of iliac artery I72 .3 ; Adrenal nodule E27.9 ; Diabetic polyneuropathy associated with type 2 diabetes mellitus E11.42 ; Sciatica of left side M54.32 and Lesion of right ear H93.91 [address] [place] [address] Sep, Diabetic polyneuropathy asso ciated with type 2 diabetes mellitus E11.42 and Type 2 diabetes mellitus treated with insulin E11.9 [address] [place] [address] Aug, [address] [place] [address] Aug, Diabetic polyneuropathy asso ciated with type 2 diabetes mellitus E11.42 [address] [place] [address] Aug, [facility] [place] MARTINEZ [address] [place] [address] Aug, [facility] [place] MARTINEZ [address] [place] [address] Jul, Ear lesion H93.90 [facility] [place] MARTINEZ [address] [place] [address] June, Type 2 diabetes mellitus ramon ated with insulin E11.9 and Panlobular emphysema J43.1 [facility] MARTINEZ [address] [place] [address] June, Type 2 diabetes mellitus wit hout complication, unspecified whether long term care phlebotomist insulin use E11.9 [facility] MARTINEZ [address] [place] [address] Apr, Type 2 diabetes mellitus ramon ated with insulin E11.9 [facility] [address] [id number] [place] [address] Apr, [facility] [address] [facility] [address] [place] [address] Apr, Type 2 diabetes mellitus wit hout complication, unspecified whether fci insulin use E11.9 ; Uncontrolled blood glucose R73.09 and Nausea R11.0 [facility] [place] MARTINEZ [address] [place] [address] Apr, [facility] [place] MARTINEZ [address] [place] [address] Apr, [facility] [place] MARTINEZ [address] [place] [address] Mar, [facility] [place] MARTINEZ [address] [place] [address] Mar, [facility] [place] MARTINEZ [address] [place] [address] Mar, Type 2 diabetes mellitus wit hout complication, unspecified whether fci insulin use E11.9 ; Essential hypertension I10 ; Bipolar disorder, unspecified F31.9 and Pelvic pain in male R10.2 [facility] [place] [facility] [address] [facility] [place] [address] Mar, Type 2 diabetes mellitus wit hout complication, unspecified whether long term care phlebotomist insulin use E11.9 and Essential hypertension I10 [facility] [address] [facility] [address] [place] [address] Feb, [facility] [id number] [place] [address] 14 May, 2014 [facility] [id number] [place] [address] May, [facility] [id number] [place] [address] Aug, [facility] [id number] [place] [address] Aug, [facility] [id number] [place] [address] Aug, [facility] [id number] [place] [address] Aug, [facility] [id number] [place] [address] Aug, [facility] [id number] [place] [address] Aug, [facility] [id number] [place] [address] Aug, [facility] [address] [id number] [place] [address] Aug, [facility] [id number] [place] [address] Jul, [facility] [id number] [place] [address] Jul, [facility] [id number] [place] [address] June, [facility] [address] [id number] [place] [address] June, [facility] [address] [id number] [place] [address] Mar, [facility] [address] [id number] [place] [address] Mar, [facility] [address] [id number] [place] [address] Feb, [facility] [address] [id number] [place] [address] Feb, [facility] [address] [id number] [place] [address] Feb, [facility] [address] [id number] [place] [address] Feb, [facility] [address] [id number] [place] [address] Oct, [facility] [address] [id number] [place] [address] Sep, [facility] [address] [id number] [place] [address] Aug, [facility] [address] [id number] [place] [address] Jul, [facility] [address] [id number] [place] [address] Jul, [facility] [address] [id number] [place] [address] Jul, [facility] [address] [id number] [place] [address] Jul, [facility] [address] [id number] [place] [address] Apr, [facility] [address] [id number] [place] [address] Apr, [facility] [address] [id number] [place] [address] Mar, [facility] [address] [id number] [place] [address] Mar, [facility] [address] [id number] [place] [address] Feb, [facility] [address] [id number] [place] [address] Feb, [facility] [address] [id number] [place] [address] Jan, [facility] [address] [id number] [place] [address] Jan, [facility] [address] [id number] [place] [address] Dec, [facility] [address] [id number] [place] [address] Dec, [facility] [address] [id number] [place] [address] Dec, [facility] [address] [id number] [place] [address] Dec, [facility] [address] [id number] [place] [address] Nov, [facility] [address] [id number] [place] [address] Oct, [facility] [address] [id number] [place] [address] 07 Oct, 2011 [facility] [address] [id number] [place] [address] Oct, [facility] [address] [id number] [place] [address] Aug, [facility] [address] [id number] [place] [address] Aug, [facility] [address] [id number] [place] [address] Jul, [facility] [address] [id number] [place] [address] Jul, [facility] [address] [id number] [place] [address] Jul, [facility] [id number] [place] [address] Jul, [facility] [id number] [place] [address] Jul, [facility] [id number] [place] [address] Jul, [facility] [id number] [place] [address] Jul, [facility] [id number] [place] [address] June, [facility] [id number] [place] [address] June, [facility] [id number] [place] [address] June, [facility] [id number] [place] [address] May, [facility] [id number] [place] [address] Apr, IMMUNIZATIONS No Known Immunizations SOCIAL HISTORY Never Assessed REASON FOR VISIT PLAN OF CARE VITAL SIGNS Weight 155.25 lbs 2013-03-30 Temperature 98 degrees Fahrenheit 2013-03-30 Heart Rate 60 bpm 2013-03-30 Respiratory Rate 28 2013-03-30 Blood pressure systolic 122 mmHg 2013-03-30 Blood pressure diastolic 80 mmHg 2013-03-30 MEDICATIONS Unknown Medications RESULTS No Results PROCEDURES No Known procedures INSTRUCTIONS MEDICATIONS ADMINISTERED No Known Medications MEDICAL (GENERAL) HISTORY Type Description Date Medical History COPD (chronic obstructive pulmonary dise ase) Medical History Bipolar 2 disorder Medical History Type 2 diabetes mellitus treated with in sulin Medical History Panlobular emphysema Medical History Hyperlipemia [...] Surgical History total hip arthroplasty, right 04/17/2014 Hospitalization History see surgeries Hospitalization History blood sugar, dehydration Hospitalization History [facility], [place], [place]
--- OUTSIDE RECORDS SUMMARY | 2019-04-28 13:32 | XMS REPORT | Continuity of Care Document ---
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 Capillary blood glucose measurement by glucometer (mas s/volume) 212 mg/dL 70-110 Capillary blood glucose measurement by g lucometer (mass/volume) - 05/02/18 21:10 Capillary blood glucose measurement by glucometer (mas s/volume) 210 mg/dL 70-110 Capillary blood glucose measurement by g lucometer (mass/volume) - 05/03/18 05:12 Capillary blood glucose measurement by glucometer (mas s/volume) 125 mg/dL 70-110 Whole blood basic metabolic panel - 04/10 06/27 06:11 Serum or plasma sodium measurement (moles/volume) 143 mmol/L 135-145 Serum or plasma potassium measurement (moles/volume) 3.1 mmol/L 3.6-5.0 Serum or plasma chloride measurement (moles/volume) 109 mmol/L 98-107 Carbon dioxide 24 mmol/L 21-32 Serum or plasma anion gap determination (moles/volume) 10 mmol/L 5-14 Serum or plasma urea nitrogen measurement (mass/volume ) 14 mg/dL 7-18 Serum or plasma creatinine measurement (mass/volume) 0.78 mg/dL 0.60-1.30 Serum or plasma urea nitrogen/creatinine mass ratio 18 NRG Serum or plasma creatinine measurement w ith calculation of estimated glomerular filtration rate > NRG Serum or plasma glucose measurement (mass/volume) 111 mg/dL 70-105 Serum or plasma calcium measurement (mass/volume) 9.2 mg/dL 8.5-10.1 CMP - 06/18/18 10:00 GLUCOSE 199 mg/dL 65-99 UREA NITROGEN (BUN) 11 mg/dL 7-25 CREATININE 1.06 mg/dL 0.70-1.33 eGFR NON-AFR. CITIZEN [place] 79 mL/min/1.73m2 > OR = 60 eGFR 91 mL/min/1.73m2 > OR = 60 BUN/CREATININE RATIO NOT APPLICABLE (calc) 6-22 SODIUM 138 mmol/L 135-146 POTASSIUM 4.4 mmol/L 3.5-5.3 CHLORIDE 102 mmol/L 98-110 CARBON DIOXIDE 27 mmol/L 20-32 CALCIUM 9.5 mg/dL 8.6-10.3 PROTEIN, TOTAL 6.5 g/dL 6.1-8.1 ALBUMIN 3.9 g/dL 3.6-5.1 GLOBULIN 2.6 g/dL (calc) 1.9-3.7 ALBUMIN/GLOBULIN RATIO 1.5 (calc) 1.0-2. 5 BILIRUBIN, TOTAL 0.3 mg/dL 0.2-1.2 ALKALINE PHOSPHATASE 111 U/L 40-115 AST 10 U/L 10-35 ALT 13 U/L 9-46 CBC - 06/18/18 10:00 WHITE BLOOD CELL COUNT 8.4 Thousand/uL 3 .8-10.8 RED BLOOD CELL COUNT 4.66 Million/uL 4.2 0-5.80 HEMOGLOBIN 14.0 g/dL 13.2-17.1 HEMATOCRIT 41.0 % 38.5-50.0 MCV 88.0 fL 80.0-100.0 MCH 30.0 pg 27.0-33.0 MCHC 34.1 g/dL 32.0-36.0 RDW 14.6 % 11.0-15.0 PLATELET COUNT 317 Thousand/uL 140-400 MPV 10.0 fL 7.5-12.5 ABSOLUTE NEUTROPHILS 6166 cells/uL 1500- 7800 ABSOLUTE LYMPHOCYTES 1512 cells/uL 850-3 900 ABSOLUTE MONOCYTES 580 cells/uL 200-950 ABSOLUTE EOSINOPHILS 92 cells/uL 15-500 ABSOLUTE BASOPHILS 50 cells/uL 0-200 NEUTROPHILS 73.4 % NRG LYMPHOCYTES 18.0 % NRG MONOCYTES 6.9 % NRG EOSINOPHILS 1.1 % NRG BASOPHILS 0.6 % NRG LITHIUM (ESKALITH(R)), SERUM - 06/18/18 10:00 LITHIUM <0.3 mmol/L 0.6-1.2 A1C - 06/18/18 10:00 HEMOGLOBIN A1c 11.3 % of total Hgb <5.7 Complete blood count (CBC) with automate d white blood cell (WBC) differential - 07/21/18 14:45 Blood leukocytes automated count (number/volume) 13.6 10*3/uL 4.3-11.0 Blood erythrocytes automated count (number/volume) 4.49 10*6/uL 4.35-5.85 Venous blood hemoglobin measurement (mass/volume) 13.9 g/dL 13.3-17.7 Blood hematocrit (volume fraction) 40 % 40-54 Automated erythrocyte mean corpuscular volume 88 [ foz_us] 80-99 Automated erythrocyte mean corpuscular h emoglobin (mass per erythrocyte) 31 pg 25-34 Automated erythrocyte mean corpuscular h emoglobin concentration measurement (mass/volume) 35 g/dL 32-36 Automated erythrocyte distribution width ratio 15. 5 % 10.0- 14.5 Automated blood platelet count (count/volume) 294 10*3/uL 130-400 Automated blood platelet mean volume measurement 9.3 [foz_us] 7.4-10.4 Automated blood neutrophils/100 leukocytes 81 % 42-75 Automated blood lymphocytes/100 leukocytes 11 % 12-44 Blood monocytes/100 leukocytes 7 % 0-12 Automated blood eosinophils/100 leukocytes 1 % 0-10 Automated blood basophils/100 leukocytes 1 % 0-10 Blood neutrophils automated count (number/volume) 11.0 10*3 1.8-7.8 Blood lymphocytes automated count (number/volume) 1.5 10*3 1.0-4.0 Blood monocytes automated count (number/volume) 0. 9 10*3 0.0-1.0 Automated eosinophil count 0.1 10*3/uL 0 .0-0.3 Automated blood basophil count (count/volume) 0.1 10*3/uL 0.0-0.1 Comprehensive metabolic panel - 07/21/18 14:45 Serum or plasma sodium measurement (moles/volume) 141 mmol/L 135-145 Serum or plasma potassium measurement (moles/volume) 3.8 mmol/L 3.6-5.0 Serum or plasma chloride measurement (moles/volume) 100 mmol/L 98-107 Carbon dioxide 26 mmol/L 21-32 Serum or plasma anion gap determination (moles/volume) 15 mmol/L 5-14 Serum or plasma urea nitrogen measurement (mass/volume ) 20 mg/dL 7-18 Serum or plasma creatinine measurement (mass/volume) 0.86 mg/dL 0.60-1.30 Serum or plasma urea nitrogen/creatinine mass ratio 23 NRG Serum or plasma creatinine measurement w ith calculation of estimated glomerular filtration rate > NRG Serum or plasma glucose measurement (mass/volume) 175 mg/dL 70-105 Serum or plasma calcium measurement (mass/volume) 9.7 mg/dL 8.5-10.1 Serum or plasma total bilirubin measurement (mass/volu me) 0.4 mg/dL 0.1-1.0 Serum or plasma alkaline phosphatase rick surement (enzymatic activity/volume) 105 U/L 40-136 Serum or plasma aspartate aminotransfera se measurement (enzymatic activity/volume) 14 U/L 5-34 Serum or plasma alanine aminotransferase measurement (enzymatic activity/volume) 22 U/L 0-55 Serum or plasma protein measurement (mass/volume) 6.9 g/dL 6.4-8.2 Serum or plasma albumin measurement (mass/volume) 4.3 g/dL 3.2-4.5 CALCIUM CORRECTED 9.5 mg/dL 8.5-10.1 LIPID PANEL - 09/23/18 08:54 CHOLESTEROL, TOTAL 241 mg/dL <200 HDL CHOLESTEROL 37 mg/dL >40 TRIGLYCERIDES 512 mg/dL <150 LDL-CHOLESTEROL mg/dL (calc) NRG CHOL/HDLC RATIO 6.5 (calc) <5.0 NON HDL CHOLESTEROL 204 mg/dL (calc) <13 0 CBC - 09/23/18 08:54 WHITE BLOOD CELL COUNT 9.2 Thousand/uL 3 .8-10.8 RED BLOOD CELL COUNT 4.59 Million/uL 4.2 0-5.80 HEMOGLOBIN 14.3 g/dL 13.2-17.1 HEMATOCRIT 43.4 % 38.5-50.0 MCV 94.6 fL 80.0-100.0 MCH 31.2 pg 27.0-33.0 MCHC 32.9 g/dL 32.0-36.0 RDW 14.2 % 11.0-15.0 PLATELET COUNT 355 Thousand/uL 140-400 MPV 10.4 fL 7.5-12.5 ABSOLUTE NEUTROPHILS 7010 cells/uL 1500- 7800 ABSOLUTE LYMPHOCYTES 1481 cells/uL 850-3 900 ABSOLUTE MONOCYTES 570 cells/uL 200-950 ABSOLUTE EOSINOPHILS 92 cells/uL 15-500 ABSOLUTE BASOPHILS 46 cells/uL 0-200 NEUTROPHILS 76.2 % NRG LYMPHOCYTES 16.1 % NRG MONOCYTES 6.2 % NRG EOSINOPHILS 1.0 % NRG BASOPHILS 0.5 % NRG A1C - 09/23/18 08:54 HEMOGLOBIN A1c 13.3 % of total Hgb <5.7 VITAMIN B12 - 09/23/18 08:54 VITAMIN B12 308 pg/mL 200-1100 C-PEPTIDE, SERUM - 12/09/18 12:30 C-PEPTIDE 0.83 ng/mL 0.80-3.85 A1C - 12/09/18 12:30 HEMOGLOBIN A1c 13.7 % of total Hgb <5.7 LIPID PANEL - 12/27/18 08:50 CHOLESTEROL, TOTAL 238 mg/dL <200 HDL CHOLESTEROL 36 mg/dL >40 TRIGLYCERIDES 323 mg/dL <150 LDL-CHOLESTEROL 152 mg/dL (calc) NRG CHOL/HDLC RATIO 6.6 (calc) <5.0 NON HDL CHOLESTEROL 202 mg/dL (calc) <13 0 Comprehensive metabolic panel - 01/12/19 08:45 Serum or plasma sodium measurement (moles/volume) 141 mmol/L 135-145 Serum or plasma potassium measurement (moles/volume) 4.1 mmol/L 3.6-5.0 Serum or plasma chloride measurement (moles/volume) 102 mmol/L 98-107 Carbon dioxide 27 mmol/L 21-32 Serum or plasma anion gap determination (moles/volume) 12 mmol/L 5-14 Serum or plasma urea nitrogen measurement (mass/volume ) 14 mg/dL 7-18 Serum or plasma creatinine measurement (mass/volume) 0.84 mg/dL 0.60-1.30 Serum or plasma urea nitrogen/creatinine mass ratio 17 NRG Serum or plasma creatinine measurement w ith calculation of estimated glomerular filtration rate > NRG Serum or plasma glucose measurement (mass/volume) 291 mg/dL 70-105 Serum or plasma calcium measurement (mass/volume) 9.6 mg/dL 8.5-10.1 Serum or plasma total bilirubin measurement (mass/volu me) 0.2 mg/dL 0.1-1.0 Serum or plasma alkaline phosphatase rick surement (enzymatic activity/volume) 85 U/L 40-136 Serum or plasma aspartate aminotransfera se measurement (enzymatic activity/volume) 13 U/L 5-34 Serum or plasma alanine aminotransferase measurement (enzymatic activity/volume) 16 U/L 0-55 Serum or plasma protein measurement (mass/volume) 5.9 g/dL 6.4-8.2 Serum or plasma albumin measurement (mass/volume) 3.7 g/dL 3.2-4.5 CALCIUM CORRECTED 9.8 mg/dL 8.5-10.1 Complete blood count (CBC) with automate d white blood cell (WBC) differential - 03/29/19 12:50 Blood leukocytes automated count (number/volume) 11.8 10*3/uL 4.3-11.0 Blood erythrocytes automated count (number/volume) 5.01 10*6/uL 4.35-5.85 Venous blood hemoglobin measurement (mass/volume) 15.1 g/dL 13.3-17.7 Blood hematocrit (volume fraction) 44 % 40-54 Automated erythrocyte mean corpuscular volume 87 [ foz_us] 80-99 Automated erythrocyte mean corpuscular h emoglobin (mass per erythrocyte) 30 pg 25-34 Automated erythrocyte mean corpuscular h emoglobin concentration measurement (mass/volume) 35 g/dL 32-36 Automated erythrocyte distribution width ratio 14. 5 % 10.0- 14.5 Automated blood platelet count (count/volume) 365 10*3/uL 130-400 Automated blood platelet mean volume measurement 9.4 [foz_us] 7.4-10.4 Automated blood neutrophils/100 leukocytes 85 % 42-75 Automated blood lymphocytes/100 leukocytes 8 % 12-44 Blood monocytes/100 leukocytes 6 % 0-12 Automated blood eosinophils/100 leukocytes 0 % 0-10 Automated blood basophils/100 leukocytes 0 % 0-10 Blood neutrophils automated count (number/volume) 10.0 10*3 1.8-7.8 Blood lymphocytes automated count (number/volume) 1.0 10*3 1.0-4.0 Blood monocytes automated count (number/volume) 0. 7 10*3 0.0-1.0 Automated eosinophil count 0.0 10*3/uL 0 .0-0.3 Automated blood basophil count (count/volume) 0.1 10*3/uL 0.0-0.1 Comprehensive metabolic panel - 03/29/19 12:50 Serum or plasma sodium measurement (moles/volume) 133 mmol/L 135-145 Serum or plasma potassium measurement (moles/volume) 4.2 mmol/L 3.6-5.0 Serum or plasma chloride measurement (moles/volume) 93 mmol/L 98-107 Carbon dioxide 24 mmol/L 21-32 Serum or plasma anion gap determination (moles/volume) 16 mmol/L 5-14 Serum or plasma urea nitrogen measurement (mass/volume ) 13 mg/dL 7-18 Serum or plasma creatinine measurement (mass/volume) 0.85 mg/dL 0.60-1.30 Serum or plasma urea nitrogen/creatinine mass ratio 15 NRG Serum or plasma creatinine measurement w ith calculation of estimated glomerular filtration rate > NRG Serum or plasma glucose measurement (mass/volume) 531 mg/dL 70-105 Serum or plasma calcium measurement (mass/volume) 10.3 mg/dL 8.5-10.1 Serum or plasma total bilirubin measurement (mass/volu me) 0.2 mg/dL 0.1-1.0 Serum or plasma alkaline phosphatase rick surement (enzymatic activity/volume) 127 U/L 40-136 Serum or plasma aspartate aminotransfera se measurement (enzymatic activity/volume) 11 U/L 5-34 Serum or plasma alanine aminotransferase measurement (enzymatic activity/volume) 19 U/L 0-55 Serum or plasma protein measurement (mass/volume) 7.3 g/dL 6.4-8.2 Serum or plasma albumin measurement (mass/volume) 4.4 g/dL 3.2-4.5 CALCIUM CORRECTED 10.0 mg/dL 8.5-10.1 Complete urinalysis with reflex to cultu re - 03/29/19 12:55 Urine color determination YELLOW NRG Urine clarity determination CLEAR NR G Urine pH measurement by test strip 5.0 5-9 Specific gravity of urine by test strip 1.020 1.016-1.022 Urine protein assay by test strip, semi-quantitative NEGATIVE NEGATIVE Urine glucose detection by automated test strip 3+ NEGATIVE Erythrocytes detection in urine sediment by light micr oscopy TRACE NEGATIVE Urine ketones detection by automated test strip NE GATIVE NEGATIVE Urine nitrite detection by test strip NEGATIVE NEGATIVE Urine total bilirubin detection by test strip NEGA TIVE NEGATIVE Urine urobilinogen measurement by automated test strip (mass/volume) 0.2 mg/dL < = 1.0 Urine leukocyte esterase detection by dipstick NEG ATIVE NEGATIVE Automated urine sediment erythrocyte cou nt by microscopy (number/high power field) RARE NRG Automated urine sediment leukocyte count by microscopy (number/high power field) NONE NRG Bacteria detection in urine sediment by light microsco py NONE NRG Squamous epithelial cells detection in u rine sediment by light microscopy RARE NRG Crystals detection in urine sediment by light microsco py NONE NRG Casts detection in urine sediment by light microscopy NONE NRG Mucus detection in urine sediment by light microscopy NEGATIVE NRG Complete urinalysis with reflex to culture NO NRG Capillary blood glucose measurement by g lucometer (mass/volume) - 03/29/19 14:17 Capillary blood glucose measurement by glucometer (mas s/volume) 220 mg/dL 70-110 Urine drug screening test - 03/31/19 16: 45 Urine phencyclidine detection by screening method NEGATIVE NEGATIVE Urine benzodiazepines detection by screening method NEGATIVE NEGATIVE Urine cocaine detection NEGATIVE NEGATI VE Urine amphetamines detection by screening method N EGATIVE NEGATIVE Urine methamphetamine detection by screening method NEGATIVE NEGATIVE Urine cannabinoids detection by screening method P OSITIVE NEGATIVE Urine opiates detection by screening method NEGATI VE NEGATIVE Urine barbiturates detection NEGATIVE N EGATIVE Screening urine tricyclic antidepressants detection NEGATIVE NEGATIVE Urine methadone detection by screening method NEGA TIVE NEGATIVE Urine oxycodone detection NEGATIVE NEGA TIVE Urine propoxyphene detection NEGATIVE N EGATIVE Automated blood complete blood count ( mogram) panel - 03/31/19 17:00 Blood leukocytes automated count (number/volume) 11.4 10*3/uL 4.3-11.0 Blood erythrocytes automated count (number/volume) 5.04 10*6/uL 4.35-5.85 Venous blood hemoglobin measurement (mass/volume) 15.3 g/dL 13.3-17.7 Blood hematocrit (volume fraction) 44 % 40-54 Automated erythrocyte mean corpuscular volume 87 [ foz_us] 80-99 Automated erythrocyte mean corpuscular h emoglobin (mass per erythrocyte) 30 pg 25-34 Automated erythrocyte mean corpuscular h emoglobin concentration measurement (mass/volume) 35 g/dL 32-36 Automated erythrocyte distribution width ratio 14. 6 % 10.0- 14.5 Automated blood platelet count (count/volume) 358 10*3/uL 130-400 Automated blood platelet mean volume measurement 9.6 [foz_us] 7.4-10.4 Comprehensive metabolic panel - 03/31/19 17:00 Serum or plasma sodium measurement (moles/volume) 135 mmol/L 135-145 Serum or plasma potassium measurement (moles/volume) 3.9 mmol/L 3.6-5.0 Serum or plasma chloride measurement (moles/volume) 98 mmol/L 98-107 Carbon dioxide 23 mmol/L 21-32 Serum or plasma anion gap determination (moles/volume) 14 mmol/L 5-14 Serum or plasma urea nitrogen measurement (mass/volume ) 17 mg/dL 7-18 Serum or plasma creatinine measurement (mass/volume) 0.87 mg/dL 0.60-1.30 Serum or plasma urea nitrogen/creatinine mass ratio 20 NRG Serum or plasma creatinine measurement w ith calculation of estimated glomerular filtration rate > NRG Serum or plasma glucose measurement (mass/volume) 405 mg/dL 70-105 Serum or plasma calcium measurement (mass/volume) 10.0 mg/dL 8.5-10.1 Serum or plasma total bilirubin measurement (mass/volu me) 0.3 mg/dL 0.1-1.0 Serum or plasma alkaline phosphatase rick surement (enzymatic activity/volume) 127 U/L 40-136 Serum or plasma aspartate aminotransfera se measurement (enzymatic activity/volume) 11 U/L 5-34 Serum or plasma alanine aminotransferase measurement (enzymatic activity/volume) 16 U/L 0-55 Serum or plasma protein measurement (mass/volume) 7.1 g/dL 6.4-8.2 Serum or plasma albumin measurement (mass/volume) 4.2 g/dL 3.2-4.5 CALCIUM CORRECTED 9.8 mg/dL 8.5-10.1 Serum or plasma salicylates measurement (mass/volume) - 03/31/19 17:00 Serum or plasma salicylates measurement (mass/volume) 0.4 mg/dL 5.0-20.0 Serum or plasma acetaminophen measuremen t (mass/volume) - 03/31/19 17:00 Serum or plasma acetaminophen measurement (mass/volume ) < ug/mL 10-30 Serum or plasma ethanol measurement (mas s/volume) - 03/31/19 17:00 Serum or plasma ethanol measurement (mass/volume) < mg/dL <10 Capillary blood glucose measurement by g lucometer (mass/volume) - 03/31/19 19:30 Capillary blood glucose measurement by glucometer (mas s/volume) 232 mg/dL 70-110 Encounters ACCT No. Visit Date/Time Discharge Status Pt. Type Provider Facility Loc./Unit Complaint [id number] 2019 11:15:00 2019 23:59: 59 [facility] [id number] 12/27/2018 08:30:00 Document Registration [id number] 12/09/2018 09:00:00 Document Registration [id number] 09/23/2018 09:00:00 Document Registration [id number] 06/18/2018 09:15:00 Document Registration [id number] 03/31/2019 16:01:00 21:31:00 DIS Outpatient SISSY MONZON MD [facility] ER FS SELF INFLICTED WOUNDS [id number] 03/29/2019 12:43:00 14:30:00 DIS Emergency ALTAGRACIA MONDRAGON DO [facility] ER FS AMS, ANXIETY [id number] 01/17/2019 10:31:00 23:59:59 CLS Outpatient SHERRILL PAREDES [facility] RAD FS S62.630B [id number] 01/12/2019 08:25:00 23:59:59 CLS Outpatient DAVID BOURGEOIS MD [facility] RAD FS ADRENAL NODULE [id number] 12/27/2018 09:21:00 23:59:59 CLS Outpatient SHERRILL PAREDES [facility] RAD FS S62.630B [id number] 12/14/2018 16:18:00 17:01:00 DIS Emergency LINDA BLOOM MD [facility] ER FS RT INDEX FINGER LAC [id number] 11/26/2018 12:59:00 14:10:00 DIS Emergency ALTAGRACIA MONDRAGON DO [facility] ER FS LT ANKLE INJ [id number] 11/03/2018 12:36:00 14:15:00 DIS Emergency GIANCARLO ALTAGRACIA BRAY [facility] ER FS NECK/LWR BACK/LT HIP PA IN [id number] 07/21/2018 14:11:00 019 15:56:00 DIS Emergency PATEL GARBER, ESTELA Casey [facility] ER FS LT HAND INSECT STING; G ENERAL WEAKNESS [id number] 04/30/2018 16:30:00 019 11:20:00 DIS Inpatient TYSHAWN GARBER, JOAQUIN Conde [facility] 4TH HYPERGLYCEMIA [id number] 03/30/2018 16:04:00 17:01:00 DIS Emergency LAZ GREGORY DO [facility] ER FS HIP PAIN [id number] 03/30/2013 10:28:00 03/30/2013 23:59: 59 CLS Outpatient JM DOMINGUEZSHIRA [id number] 11/03/2012 14:09:00 11/03/2012 23:59: 59 CLS Outpatient DAVID BELLE PHD [id number] 10/06/2012 13:50:00 10/06/2012 23:59: 59 CLS Outpatient TAMELA HUBBARD DO [id number] 05/04/2012 14:16:00 05/04/2012 23:59: 59 CLS Outpatient [id number] 04/07/2012 11:30:00 04/07/2012 23:59: 59 CLS Outpatient [id number] 01/26/2012 11:17:00 01/26/2012 23:59: 59 CLS Outpatient DAVID BELLE PHD [id number] 01/06/2012 11:47:00 01/06/2012 23:59: 59 CLS Outpatient [id number] 12/19/2011 09:57:00 12/19/2011 23:59:5 9 CLS Outpatient [id number] 07/12/2012 08:55:00 Document Registration [id number] 05/04/2012 14:16:00 Document Registration
--- OUTSIDE RECORDS SUMMARY | 2019-04-28 13:34 | XMS REPORT | Continuity of Care Document ---
Author Organization Unknown Address Unknown Phone Unavailable Allergies Active Description Code Type Severity Reaction Onset Reported/Identified Relationship to Patient Clinical Status Yes Mellaril Drug Allergy N/A N/A 07/25/2011 Yes Thorazine Drug Allergy N/A N/A 07/25/2011 Yes Mellaril Drug Allergy 07/25/2011 Yes Thorazine Drug Allergy 07/25/[id number] ug Allergy Unknown paralysis 04/30/2018 Yes fentanyl [id number] Drug Allergy Unknown hives 04/30/2018 Yes thioridazine [id number] Drug Allergy Unknown confusion 04/30/2018 Medications There [...] UNCOMPL 05/03/2018 JOAQUIN VILLAGRAN MD, Ot Z79.4 LIEUTENANT COLONEL (CURRENT) USE OF INSULIN 05/03/2018 JOAQUIN VILLAGRAN MD, Ot Z91.1 9 PATIENT'S NONCOMPLIANCE W [facility] MEDICAL TR 07/21/2018 PATEL GARBER, ESTELA Casey [...] DO, Ot Z88 .8 ALLERGY STATUS TO [facility] DRUG/MEDS/BIOL SUB 12/14/2018 LINDA BLOOM MD, Ot E11.9 TYPE 2 DIABETES MELLITUS WITHOUT COMPLIC 12/14/2018 LIDNA BLOOM MD, Ot E78.0 0 PURE HYPERCHOLESTEROLEMIA, [...] DO Ot J43 .9 EMPHYSEMA, UNSPECIFIED [facility]/31/[facility].82 ALTERED MENTAL STATUS, UNSPECIFIED 03/31/2019 GIANCARLO ALTAGRACIA BRAY Ot Z88 .5 ALLERGY STATUS TO NARCOTIC AGENT STATUS 03/31/2019 [facility] Z88 .8 ALLERGY STATUS TO OTH DRUG/MEDS/BIOL SUB 03/31/2019 SHERRILL PAREDES [employer]PERINTENDENT Ot S62.630D DISP FX OF DIST PHALANX [...] Code Description [place] [address] [place] V PSYTX 45/50 MIN 12/19/2011 87117 ROUT INE VENIPUNCTURE 01/06/2012 46584 LIVE R PANEL (LFT) 01/06/2012 75304 CBC 01/06/2012 1275505 GF R CALC (RESULT ONLY) 01/06/2012 62905 REGGIE L PROFILE 01/07/2012 89163 LITHIUM 01/07/2012 85774 TSH 01/07/2012 49266 PSYC H PHARM MGMT 01/14/2012 31215 [place] V PSYTX 20/30 MIN 01/26/2012 39156 ROUT INE VENIPUNCTURE 05/04/2012 36519 UA L ADALID DIP 05/04/2012 73648 CREA TININE 05/04/2012 9235727 GF R CALC (RESULT ONLY) 05/04/2012 75892 LITHIUM 05/04/2012 41888 PSYT X PT&/FAMILY 45 MINUTES 07/13/2012 18414 PSYT X PT&/FAMILY 30 MINUTES 11/04/2012 Results [...] U/L 8-78 LITHIUM LEVEL - 04/30/18 12:20 [place] [mass/volume] in serum or plasma 0.1 % [...] 7-25 CREATININE 1.06 mg/dL 0.70-1.33 eGFR NON-AFR. BRAZILIAN 79 mL/min/1.73m2 > OR = 60 eGFR [...] Status Pt. Type Provider Facility Loc./Unit Complaint [id number] 2019 11:15:00 2019 23:59: 59 [facility] [id number] 12/27/2018 08:30:00 Document Registration [id number] 12/09/2018 09:00:00 Document Registration [id number] 09/23/2018 09:00:00 Document Registration [id number] 06/18/2018 09:15:00 Document Registration [id number] 03/31/2019 16:01:00 21:31:00 DIS Outpatient SISSY MONZON MD [facility] ER FS SELF INFLICTED WOUNDS [id number] 03/29/2019 12:43:00 14:30:00 DIS Emergency ALTAGRACIA MONDRAGON DO [facility] ER FS AMS, ANXIETY [id number] 01/17/2019 10:31:00 23:59:59 CLS Outpatient SHERRILL PAREDES [facility] RAD FS S62.630B [id number] 01/12/2019 08:25:00 23:59:59 CLS Outpatient DAVID BOURGEOIS MD [facility] RAD FS ADRENAL NODULE [id number] 12/27/2018 09:21:00 23:59:59 CLS Outpatient SHERRILL PAREDES [facility] RAD FS S62.630B [id number] 12/14/2018 16:18:00 17:01:00 DIS Emergency LINDA BLOOM MD [facility] ER FS RT INDEX FINGER LAC [id number] 11/26/2018 12:59:00 14:10:00 DIS Emergency ALTAGRACIA MONDRAGON DO [facility] ER FS LT ANKLE INJ [id number] 11/03/2018 12:36:00 14:15:00 DIS Emergency GIANCARLO ALTAGRACIA BRAY [facility] ER FS NECK/LWR BACK/LT HIP PA IN [id number] 07/21/2018 14:11:00 019 15:56:00 DIS Emergency PATEL GARBER, ESTELA Casey [facility] ER FS LT HAND INSECT STING; G ENERAL WEAKNESS [id number] 04/30/2018 16:30:00 019 11:20:00 DIS Inpatient TYSHAWN GARBER, JOAQUIN Conde [facility] 4TH HYPERGLYCEMIA [id number] 03/30/2018 16:04:00 17:01:00 DIS Emergency LAZ GREGORY DO [facility] ER FS HIP PAIN [id number] 03/30/2013 10:28:00 03/30/2013 23:59: 59 CLS Outpatient JM DOMINGUEZSHIRA [id number] 11/03/2012 14:09:00 11/03/2012 23:59: 59 CLS Outpatient DAVID BELLE PHD [id number] 10/06/2012 13:50:00 10/06/2012 23:59: 59 CLS Outpatient TAMELA HUBBARD DO [id number] 05/04/2012 14:16:00 05/04/2012 23:59: 59 CLS Outpatient [id number] 04/07/2012 11:30:00 04/07/2012 23:59: 59 CLS Outpatient [id number] 01/26/2012 11:17:00 01/26/2012 23:59: 59 CLS Outpatient DAVID BELLE PHD [id number] 01/06/2012 11:47:00 01/06/2012 23:59: 59 CLS Outpatient [id number] 12/19/2011 09:57:00 12/19/2011 23:59:5 9 CLS Outpatient [id number] 07/12/2012 08:55:00 Document Registration [id number] 05/04/2012 14:16:00 Document Registration
== END 2019-04-28 13:09 | disposition left against medical advice (07) ==
LOC: EDUNIT# 12:46 → ER FS 12:51
DX: M25.551 Pain in right hip (principal); M25.552 Pain in left hip; M79.606 Pain in leg, unspecified

== ENCOUNTER → 2019-04-28 | Outpatient (CLI) | payer MEDICARE, MEDICAID ==
[~2019-04-28] MED LIST changes: +ACHYD1T PO; -HYDR-3820 PO
--- NOTE | 2019-04-28 15:29 | Diagnostic Imaging Report ---
INDICATION: Left hip pain AP and oblique views of the left hip are obtained and compared to 03/30/2018. No fracture or acute bony abnormality is seen. There is no lytic or blastic lesion. The findings are stable compared to the previous study IMPRESSION: Negative plain radiographs of the left hip. Dictated by: Dictated on workstation # [id number]
== END ==
LOC: RAD FS 13:26
PROVIDERS: ATTEND Nurse Practitioner Family
DX: M25.552 Pain in left hip (principal)
CPT/HCPCS: 73502

== ENCOUNTER → 2019-06-20 | Outpatient (CLI) | payer MEDICARE, MEDICAID ==
--- NOTE | 2019-06-20 10:41 | Diagnostic Imaging Report ---
INDICATION: Pre-MRI screening for foreign bodies. TIME OF EXAM: 10:26 AM. TECHNIQUE: Two views over the orbits were obtained. FINDINGS: There are numerous rounded BB foreign bodies identified in the right facial and right scalp soft tissues. In addition, there is a linear irregular metallic density just lateral to the right orbit. The proximity of this to the right globe prevents performance of MRI. No other foreign bodies are seen. IMPRESSION: There are multiple right-sided foreign bodies. There is an irregular metallic foreign body adjacent to the right orbit which precludes MRI. This could be surgically removed if MRI is indeed needed at a later date. Dictated by: Dictated on workstation # [id number]
== END ==
LOC: RAD 10:04
PROVIDERS: ATTEND Nurse Practitioner Family
DX: S00.95XA Superficial foreign body of unspecified part of head, initial encounter (principal); M25.552 Pain in left hip; Z87.39 Personal history of other diseases of the musculoskeletal system and connective tissue; Z96.641 Presence of right artificial hip joint; X58.XXXA Exposure to other specified factors, initial encounter

== ENCOUNTER 2019-08-18 05:37 | Outpatient (RCR) | payer MEDICARE, MEDICAID ==
[~2019-08-18] VITALS: Ht 167.7 cm; Wt 66.8 kg
[~2019-08-18 05:37] MED LIST changes: +AMIT10TA6 PO; +BUSP10TA95 PO; -CITA40TA11; +CITA40TA11 PO; +FLUT16SP22 NSEACH; +INSU100V16 SQ; -PROP20TA5; +PROP20TA5 PO; +RT-ALBUINH INH
== END 2019-08-18 13:39 | disposition home or self-care (01) ==
LOC: PREOP 05:37
PROVIDERS: ATTEND Surgery
DX: Z01.812 Encounter for preprocedural laboratory examination (principal); Z20.828 Contact with and (suspected) exposure to other viral communicable diseases; R10.13 Epigastric pain
CPT/HCPCS: 87635

== ENCOUNTER 2019-08-22 09:13 | Day surgery (SDC) | payer MEDICARE, MEDICAID ==
[~2019-08-22] VITALS: Ht 167.7 cm; Wt 66.8 kg
[2019-08-22] MEDS ORDERED: LACTATED RINGERS 1,000 ML IV ONE (09:20)
[2019-08-22] MEDS ORDERED: LACTATED RINGERS 1,000 ML IV STA (09:24)
[2019-08-22 09:25] VITALS: BP 151/93
[2019-08-22] MEDS ORDERED: HURRICAINE EXT TUBE (BENZOCAINE) XX PRN (09:30)
--- OUTSIDE RECORDS SUMMARY | 2019-08-22 09:34 | XMS REPORT ---
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 Name Role Phone DAVID BELLE Unavailable PROBLEMS Type Condition ICD9-CM Code TKT55-AJ Code Onset Dates Condition S tatus SNOMED Code Problem COPD (chronic obstructive pulmonary disease) J44.9 Active 54537105 Problem Hyperglycemia R73.9 Active 176165 07 Problem Tobacco abuse Z72.0 Active 123371 05 Problem Tubular adenoma of colon D12.6 Activ e 523965952 Problem Hyperlipemia E78.5 Active 5592250 4 Problem Bipolar 2 disorder F31.81 Active 8 9407647 Problem Hypoxia R09.02 Active 230249631 Problem Cigarette nicotine dependence without complication F17.210 Active 16714091 Problem Panlobular emphysema J43.1 Active 2744812 Problem Type 1 diabetes mellitus with other specified complication E10.69 Active 41667950 Problem Hypertension I10 Active 9653175 3 Problem Type 2 diabetes mellitus treated with insulin E11. 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 Activ e 21516214 Problem Diabetic polyneuropathy associated with type 2 d iabetes mellitus E11.42 Active 252947563 Problem Sciatica of left side M54.32 Active 42065465 Problem Aneurysm artery, 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 Active 11349735 Problem Essential hypertension I10 Active 12874612 Problem History of diabetic gastroparesis Z86.39 Active 808748280 Problem History of diabetes with ketoacidosis Z86.39 Active 287769920 Problem Needle phobia F40.298 Active 785440 003 Problem Type 1 diabetes mellitus with hypoglycemia unawareness E10.649 Active Problem Moderate depressive disorder F32.9 A ctive 272626648 Problem Altered taste R43.2 Active 847663 2963413 Problem Decreased appetite R63.0 Active 6 5264025 Problem Insulin pump titration Z46.81 Active 420659383 Problem Hyperosmolar hyponatremia E87.1 Acti ve 159044133 Problem Insulin pump in place Z96.41 Active 159337682 Problem Adrenal nodule E27.9 Active 35237 000 Problem Type 2 diabetes mellitus wit hout complication, unspecified whether shelter insulin use E11.9 Active 832226398 Problem Generalized anxiety disorder F41.1 A ctive 91418464 Problem Seasonal allergic rhinitis, unspecified trigger J3 0.2 Active 576412883 Problem History of right hip replacement Z96.641 Active 4429770216564461 Problem Minimal depression F32.9 Active 7 45222016 ALLERGIES No Information ENCOUNTERS Encounter Location Date Diagnosis [address] [id number] [place] [address] 14 Oct, [address] 340[id number], [place] [address] Aug, [facility] [address] [facility] [id number] 100[address] [place] [address] 02 Aug, [address] 340B [id number] [place] [address] Jul, Essential hypertension I10 ; Decreased appetite R63.0 ; Altered taste R43.2 ; Moderate depressive disorder F32.9 and Type 2 diabetes mellitus without complication, unspecified whether intermission coordinator insulin use E11.[address] 340B [id number] [place] [address] 17 Jul, 2019 Type 1 diabetes mellitus wit h hypoglycemia unawareness E10.649 ; Insulin pump in place Z96.41 ; Insulin pump titration Z46.81 ; Essential hypertension I10 ; Decreased appetite R63.0 ; Altered taste R43.2 ; Moderate depressive disorder F32.9 and Type 2 diabetes mellitus without complication, unspecified whether shelter insulin use E11.9 [facility] [address] [id number] [facility] [place] [address] 15 Jul, [address] 340B [id number] [place] [address] 12 Jul, 2019 Hypertension I10 ; Adrenal n odule E27.9 and Type 1 diabetes mellitus with hypoglycemia unawareness E10.649 [facility] [address] [facility] [id number] [place] [address] Jul, [facility] [address] [facility] [id number] [address] [place] [address] Jul, [facility] [address] [facility] [id number] [place] [address] June, [place] 2557855 [facility] [id number] [place] [address] June, [address] 340[address] [id number] [place] [address] June, [address] 340[address] [id number], [place] [address] June, Superficial foreign body of other part of head, subsequent encounter S00.85XD and Minimal depression F32.9 [place] [address] [id number] [address] June, Type 1 diabetes mellitus wit h hypoglycemia unawareness E10.649 ; Insulin pump in place Z96.41 and Insulin pump titration Z46.[address] [id number], [place] [address] June, [facility] [id number] [place] [address] May, Type 1 diabetes mellitus with hypoglycem ia unawareness E10.649 [place] [address] [facility] [id number] [address] [place] [address] Apr, Foreign body head S00.95XA [address] 340B [id number], [place] [address] Apr, Pain of left hip joint M25.5 52 ; History of osteoarthritis Z87.39 and History of right hip replacement Z96.[address] 340B [id number], [place] [address] Apr, Aneurysm artery, iliac commo n I72.3 ; COPD (chronic obstructive pulmonary disease) J44.9 ; Bipolar 2 disorder F31.81 ; Type 2 diabetes mellitus without complication, unspecified whether intermission coordinator insulin use E11.9 ; Seasonal allergic rhinitis, unspecified trigger J30.2 and Burn T30.[address] 340B [id number] [place] [address] Apr, Type 1 diabetes mellitus wit h hypoglycemia unawareness E10.[address] 340 [id number], [place] [address] Mar, [address] 340[address] [id number], [place] [address] Mar, Generalized anxiety disorder F41.1 ; Bipolar 2 disorder F31.81 and Suicidal behavior R46.89 [place] [address] [id number], [place] [address] Mar, [place] [address] [id number], [place] [address] Mar, [address] 340[address] [id number], [place] [address] Mar, [facility] [address] [facility] [id number] [address] [place] [address] Mar, [address] [id number] [place] [address] Mar, Type 1 diabetes mellitus with hypoglycem ia unawareness E10.649 and Suicidal ideations R45.[address] 340B [id number] [place] [address] Mar, [facility] [address] [facility] [id number] [address] [place] [address] Mar, [address] [id number] [address] Mar, [address] 340[address] [id number], [place] [address] Mar, [facility] [address] 340B [id number] [place] [address] Feb, Decreased appetite R63.0 ; A ltered taste R43.2 ; Type 1 diabetes mellitus with hypoglycemia unawareness E10.649 and History of diabetic gastroparesis Z86.[address] [facility] [place] [address] [id number] [place] [address] Feb, [address] 340B [id number] [place] [address] Feb, [address] 340B [id number] [place] [address] Feb, [address] 340B [id number], [place] [address] Feb, Moderate depressive disorder F32.9 and Left hip pain M25.[address] 340 [id number], [place] [address] Jan, [address] 340B [id number] [place] [address] Jan, Type 2 diabetes mellitus wit hout complication, unspecified whether shelter insulin use E11.[address] 340B [id number] [place] [address] 09 Jan, [address] 340B [id number] [place] [address] Jan, Open bite of left wrist, ini tial encounter S61.552A ; Bitten by cat, initial encounter W55.01XA ; Cigarette nicotine dependence without complication F17.210 and Encounter for immunization Z23 [address] 340B [id number], [place] [address] Jan, Aneurysm artery, iliac commo n I72.3 ; Adrenal nodule E27.9 ; Encounter for Medicare annual wellness exam Z00.00 ; Essential hypertension I10 ; Type 2 diabetes mellitus without complication, unspecified whether shelter insulin use E11.9 ; COPD (chronic obstructive pulmonary disease) J44.9 and Adrenal adenoma, unspecified laterality D35.00 [facility] [place] [address] 340B [id number] [place] [address] Jan, COPD (chronic obstructive pu lmonary disease) J44.9 [facility] [place] [address] [id number] [place] [address] Jan, [facility] [place] [address] 340B [id number] [place] [address] Dec, [facility] [place] [address] 340B [id number] [place] [address] Dec, [facility] [place] [address] [id number] [place] [address] Dec, Adrenal nodule E27.9 [facility] [address] [id number] [place] [address] Dec, [facility] [place] [address] [id number] [place] [address] Dec, [facility] [address] [id number] [place] [address] Dec, Encounter for Medicare annua wellness exam Z00.00 ; Essential hypertension I10 ; Type 2 diabetes mellitus without complication, unspecified whether shelter insulin use E11.9 ; COPD (chronic obstructive pulmonary disease) J44.9 ; Aneurysm artery, 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 and Adrenal adenoma, unspecified laterality D35.00 [facility] [place] [address] 340B [id number] [place] [address] Dec, [facility] [address] [id number] [place] [address] Dec, Essential hypertension I10 [facility] [place] [address] [id number] [place] [address] Dec, Essential hypertension I10 [facility] [place] [address] [id number] [place] [address] Dec, [facility] [place] [address] 340B [id number] [place] [address] Dec, [address] 340B [id number] [place] [address] Dec, Injury of right index finger , initial encounter S69.91XA [facility] [address] [id number] [address] [place] [address] Dec, [facility] [address] [facility] [id number] [address] [place] [address] Dec, [address] 340B [id number], [place] [address] Dec, [address] 340[address] [id number], [place] [address] Dec, [facility] [address] [facility] [id number] [address] [place] [address] Nov, [address] 340B [id number], [place] [address] Nov, [address] 340B [id number], [place] [address] Nov, Type 2 diabetes mellitus ramon ated with insulin E11.9 ; Tobacco abuse Z72.0 and Type 1 diabetes mellitus with hypoglycemia unawareness E10.[address] 340[place] [id number], [place] [address] Nov, [facility] [address] [facility] [id number] [address] [place] [address] Nov, [facility] [address] [facility] [id number] [address] [place] [address] Nov, [address] 340B [id number], [place] [address] Nov, [address] 340B [id number], [place] [address] Nov, Strain of left ankle, initia l encounter S96.912A [address] 340B [id number] [place] [address] Nov, Tobacco abuse Z72.0 ; Type 1 diabetes mellitus with hypoglycemia unawareness E10.649 ; Type 1 diabetes mellitus with other specified complication E10.69 ; History of diabetic gastroparesis Z86.39 ; History of diabetes with ketoacidosis Z86.39 ; Needle phobia F40.298 ; Risk for falls Z91.81 and Lives alone Z60.[address] 340 [id number], [place] [address] Nov, Type 2 diabetes mellitus wit hout complication, unspecified whether intermission coordinator insulin use E11.9 ; COPD (chronic obstructive pulmonary disease) J44.9 ; Essential hypertension I10 ; Encounter for immuni zation Z23 and Cervical pain (neck) M54.[address] 340B [id number], [place] [address] Nov, Cervical pain (neck) M54.2 a nd Lumbar pain M54.[address] 340 [id number], [place] [address] Oct, Diabetic polyneuropathy asso ciated with type 2 diabetes mellitus E11.[address] 340 [id number], [place] [address] Sep, [address] 340 [id number], [place] [address] Sep, Aneurysm of iliac artery I72 .3 ; Adrenal nodule E27.9 ; Diabetic polyneuropathy associated with type 2 diabetes mellitus E11.42 ; Sciatica of left side M54.32 and Lesion of right ear H93.[address] 340B [id number], [place] [address] Sep, Diabetic polyneuropathy asso ciated with type 2 diabetes mellitus E11.42 and Type 2 diabetes mellitus treated with insulin E11.[address] 340B [id number], [place] [address] Aug, [address] 340B [id number] [place] [address] Aug, Diabetic polyneuropathy asso ciated with type 2 diabetes mellitus E11.[address] [facility] RIGO [place] [address] 340B [id number] [place] [address] Aug, [facility] [place] [address] 340B [id number] [place] [address] Aug, [facility] [place] [address] 340B [id number] [place] [address] Jul, Ear lesion H93.[address] [facility] RIGO [address] 340B [id number] [place] [address] June, Type 2 diabetes mellitus ramon ated with insulin E11.9 and Panlobular emphysema J43.[address] [facility] RIG[place] [address] 340B [id number] [place] [address] June, Type 2 diabetes mellitus wit hout complication, unspecified whether shelter insulin use E11.[address] [facility] R[place] [address] 340B [id number] [place] [address] Apr, Type 2 diabetes mellitus ramon ated with insulin E11.9 [facility] [address] [facility] [id number] 100[address] [place] [address] Apr, [facility] [place] IN [facility] [address] [id number] [place] [address] Apr, Type 2 diabetes mellitus wit hout complication, unspecified whether shelter insulin use E11.9 ; Uncontrolled blood glucose R73.09 and Nausea R11.[address] [facility] RIGO [place] [address] 340B [id number] [place] [address] Apr, [facility] RIG[place] [address] 340B [id number] [place] [address] Apr, [facility] R[place] [address] 340B [id number] [place] [address] Mar, [facility] [place] [address] 340B [id number] [address] Mar, [facility] [place] MAIN [address] [facility] 340B [id number] [address] Mar, Type 2 diabetes mellitus wit hout complication, unspecified whether intermission coordinator insulin use E11.9 ; Essential hypertension I10 ; Bipolar disorder, unspecified F31.9 and Pelvic pain in male R10.2 [facility] [place] MAIN [address] [facility] 340B [id number] [place] [address] Mar, Type 2 diabetes mellitus wit hout complication, unspecified whether shelter insulin use E11.9 and Essential hypertension I10 [facility] RIGO [place] [facility] [address] [facility] 340B [id number] [place] [address] Feb, [facility] [address] [id number] [address] [place] [address] 14 May, 2014 [facility] [address] [id number] [address] [place] [address] May, [facility] [address] [id number] [address] [place] [address] Aug, [facility] [address] [id number] [address] [place] [address] Aug, [facility] [address] [id number] [address] [place] [address] Aug, [facility] [address] [id number] [address] [place] [address] Aug, [facility] [address] [id number] [address] [place] [address] Aug, [facility] [address] [id number] [address] [place] [address] Aug, [facility] [address] [id number] [address] [place] [address] Aug, [facility] [address] [id number] [address] [place] [address] Aug, [facility] [address] [id number] [address] [place] [address], [place] [address] Jul, [facility] [address] [id number] [address] [place] [address], [place] [address] Jul, [facility] [address] [id number] [address] [place] [address], [place] [address] June, [facility] [address] [id number] [address] [place] [address], [place] [address] June, [facility] [address] [id number] [address] [place] [address], [place] [address] Mar, [facility] [address] [id number] [address] [place] [address], [place] [address] Mar, [facility] [address] [id number] [address] [place] [address], [place] [address] Feb, [facility] [address] [id number] [address] [place] [address], [place] [address] Feb, [facility] [address] [id number] [address] [place] [address], [place] [address] Feb, [facility] [address] [id number] [address] [place] [address], [place] [address] Feb, [facility] [address] [id number] [address] [place] [address], [place] [address] Oct, [facility] [address] [id number] [address] [place] [address], [place] [address] Sep, [facility] [address] [id number] [address] [place] [address], [place] [address] Aug, [facility] [address] [id number] [address] [place] [address], [place] [address] Jul, [facility] [address] [id number] [address] [place] [address], [place] [address] Jul, [facility] [address] [id number] [address] [place] [address], [place] [address] Jul, [facility] [address] [id number] [address] [place] [address], [place] [address] Jul, [facility] [address] [id number] [address] [place] [address], [place] [address] Apr, [facility] [address] [id number] [address] [place] [address], [place] [address] Apr, [facility] [address] [id number] [address] [place] [address], [place] [address] Mar, [facility] [address] [id number] [address] [place] [address], [place] [address] Mar, [facility] [address] [id number] [address] [place] [address], [place] [address] Feb, [facility] [address] [id number] [address] [place] [address], [place] [address] Feb, [facility] [address] [id number] [address] [place] [address], [place] [address] Jan, [facility] [address] [id number] [address] [place] [address], [place] [address] Jan, [facility] [address] [id number] [address] [place] [address], [place] [address] Dec, [facility] [address] [id number] [address] [place] [address], [place] [address] Dec, [facility] [address] [id number] [address] [place] [address], [place] [address] Dec, [facility] [address] [id number] [address] [place] [address], [place] [address] Dec, [facility] [address] [id number] [address] [place] [address], [place] [address] Nov, [facility] [address] [id number] [address] [place] [address], [place] [address] Oct, [facility] [address] [id number] [address] [place] [address], [place] [address] 07 Oct, 2011 [facility] [address] [id number] [address] [place] [address], [place] [address] 06 Oct, 2011 [facility] [address] [id number] [address] [place] [address], [place] [address] 29 Aug, 2011 [facility] [address] [id number] [address] [place] [address], [place] [address] Aug, [facility] [address] [id number] [address] [place] [address], [place] [address] Jul, [facility] [address] [id number] [address] [place] [address], [place] [id number] Jul, [facility] [address] [id number] [address] [place] [address], [place] [id number] Jul, [facility] [address] [id number] [address] [place] [address], [place] [id number] Jul, [facility] [address] [id number] [address] [place] [address], [place] [id number] Jul, [facility] [address] [id number] [address] [place] [address], [place] [id number] Jul, [facility] [address] [id number] [address] [place] [address], [place] [id number] Jul, [facility] [address] [id number] [address] [place] [address], [place] [id number] June, [facility] [address] [id number] [address] [place] [address], [place] [id number] June, [facility] [address] [id number] [address] [place] [address], [place] [id number] June, [facility] [address] [id number] [address] [place] [address], [place] [id number] May, [facility] [address] [id number] [address] [place] [address], [place] [id number] Apr, IMMUNIZATIONS No Known Immunizations SOCIAL HISTORY Never Assessed REASON FOR VISIT PLAN OF CARE VITAL SIGNS MEDICATIONS Unknown Medications RESULTS No Results PROCEDURES Procedure Date Ordered Result Body Site PSYTX PT&/FAMILY 30 MINUTES Nov 03, 2012 INSTRUCTIONS MEDICATIONS ADMINISTERED No Known Medications MEDICAL [...] Hospitalization History blood sugar, dehydration Hospitalization History [facility], [place], [place]
--- OUTSIDE RECORDS SUMMARY | 2019-08-22 09:34 | XMS REPORT ---
Author Author Rodolfo Santamaria Organization [facility] Address [address] [place] [address] Care Team Providers Care Stage Director Name Role Phone HinaRYANEN Unavailable PROBLEMS Type Condition ICD9-CM Code [id number] Code Onset Dates Condition S tatus SNOMED Code Problem COPD (chronic obstructive pulmonary disease) J44.9 Active 65764928 Problem Hyperglycemia R73.9 Active 068131 07 Problem Tobacco abuse Z72.0 Active 928050 05 Problem Tubular adenoma of colon D12.6 Activ e 859103106 Problem Hyperlipemia E78.5 Active 0006679 4 Problem Bipolar 2 disorder F31.81 Active 8 5030713 Problem Hypoxia R09.02 Active 090313061 Problem Cigarette nicotine dependence without complication F17.210 Active 27068277 Problem Panlobular emphysema J43.1 Active 9648277 Problem Type 1 diabetes mellitus with other specified complication E10.69 Active 73251032 Problem Hypertension I10 Active 2289689 3 Problem Type 2 diabetes mellitus treated with insulin E11. 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 Active 328131 003 Problem Type 1 diabetes mellitus with hypoglycemia unawareness E10.649 Active Problem Moderate depressive disorder F32.9 A ctive 142147206 Problem Altered taste R43.2 Active 086493 3694876 Problem Decreased appetite R63.0 Active 6 9356507 Problem Insulin pump titration Z46.81 Active 619616567 Problem Hyperosmolar hyponatremia E87.1 Acti ve 506519984 Problem Insulin pump in place Z96.41 Active 985443945 Problem Adrenal nodule E27.9 Active 96141 000 Problem Type 2 diabetes mellitus wit hout complication, unspecified whether terminal operations supervisor insulin use E11.9 Active 578680433 Problem Generalized anxiety disorder F41.1 A ctive 93955140 Problem Seasonal allergic rhinitis, unspecified trigger J3 0.2 Active 398351672 Problem History of right hip replacement Z96.641 Active [id number] Problem Minimal depression F32.9 Active 7 44329893 ALLERGIES No Information ENCOUNTERS Encounter Location Date Diagnosis [address] [id number] [place] [address] Jul, [address] 340[address] [id number] [address] Jul, [facility] [id number] [place] [address] [address] [id number] [place] [address] June, [facility] [id number] [place], [place] [address]ER RD [id number] [place] [address] June, [address] 340 [id number] [place] [address] June, [address] 340[address] [id number] [place] [address] June, Superficial foreign body of other part of head, subsequent encounter S00.85XD and Minimal depression F32.[address] 340 [id number] [place] [address] June, Type 1 diabetes mellitus wit h hypoglycemia unawareness E10.649 ; Insulin pump in place Z96.41 and Insulin pump titration Z46.[address] 340[address] [id number] [place] [address] June, [facility] [address] [id number] [place] [address] May, Type 1 diabetes mellitus with hypoglycem ia unawareness E10.649 [place] [address] [facility] [id number] [place] [address] Apr, Foreign body head S00.95XA [address] 340 [id number] [address] Apr, Pain of left hip joint M25.5 52 ; History of osteoarthritis Z87.39 and History of right hip replacement Z96.[address] [id number] [address] Apr, Aneurysm artery, iliac commo n I72.3 ; COPD (chronic obstructive pulmonary disease) J44.9 ; Bipolar 2 disorder F31.81 ; Type 2 diabetes mellitus without complication, unspecified whether skilled nursing insulin use E11.9 ; Seasonal allergic rhinitis, unspecified trigger J30.2 and Burn T30.[address] [id number] [address] Apr, Type 1 diabetes mellitus wit h hypoglycemia unawareness E10.[address] [id number] [address] Mar, [address] [id number] [address] Mar, Generalized anxiety disorder F41.1 ; Bipolar 2 disorder F31.81 and Suicidal behavior R46.[address] [id number] [address] Mar, [place] [address] [id number] [address] Mar, [place] [address] [id number] [address] Mar, [facility] [address] [facility] [id number] [place] [address] Mar, [facility] [place]RISTOPHER[place]Y [address] [facility] [id number] [place] [address] Mar, Type 1 diabetes mellitus with hypoglycem ia unawareness E10.649 and Suicidal ideations R45.851 [facility] RIGO [address] 340[address] [id number] [place] [address] Mar, [facility] [address] [facility] [id number] 100KS [place] [address] Mar, [place] [id number] [facility] [id number] [place] [address] Mar, [address] 340[address] [id number] [place] [address] Mar, [address] 340B [id number] [place] [address] Feb, Decreased appetite R63.0 ; A ltered taste R43.2 ; Type 1 diabetes mellitus with hypoglycemia unawareness E10.649 and History of diabetic gastroparesis Z86.39 [facility] [id number] [place] [address] Feb, [facility] RIG[place] [address] 340B [id number] [place] [address] Feb, [address] 340B 40145926EDGRAND [place] [address] Feb, [address] 340[address] [id number] [place] [address] Feb, Moderate depressive disorder F32.9 and Left hip pain M25.[address] 340[address] [id number] [place] [address] Jan, [address] 340B [id number] [address] Jan, Type 2 diabetes mellitus wit hout complication, unspecified whether skilled nursing insulin use E11.9 [facility] RIGO [address] 340B [id number] [place] [address] Jan, [address] 340B [id number] [address] Jan, Open bite of left wrist, ini tial encounter S61.552A ; Bitten by cat, initial encounter W55.01XA ; Cigarette nicotine dependence without complication F17.210 and Encounter for immunization Z23 [facility] RIGO [place] [address] 340[address] [id number] [place] [address] 06 Jan, 2019 Aneurysm artery, iliac commo n I72.3 ; Adrenal nodule E27.9 ; Encounter for Medicare annual wellness exam Z00.00 ; Essential hypertension I10 ; Type 2 diabetes mellitus without complication, unspecified whether skilled nursing insulin use E11.9 ; COPD (chronic obstructive pulmonary disease) J44.9 and Adrenal adenoma, unspecified laterality D35.00 [facility] RIGO [place] [address] 340B [id number] [place] [address] Jan, COPD (chronic obstructive pu lmonary disease) J44.9 [facility] [place] [address] [id number] [place] [address] Jan, [facility] [place] [address] 340B [id number] [place] [address] Dec, [facility] [place] [address] 340B [id number] [place] [address] Dec, [facility] RIGO [address] 340B [id number] [place] [address] Dec, Adrenal nodule E27.9 [facility] CH[place]STOPHE [address] [id number] [place] [address] Dec, [facility] [place] [address] [id number] [place] [address] Dec, [facility] [place] [place] [address] 340B [id number] [place] [address] Dec, Encounter for Medicare annua l wellness exam Z00.00 ; Essential hypertension I10 ; Type 2 diabetes mellitus without complication, unspecified whether terminal operations supervisor insulin use E11.9 ; COPD (chronic obstructive pulmonary disease) J44.9 ; Aneurysm artery, 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 and Adrenal adenoma, unspecified laterality D35.00 [facility] [place] [address] 340[address] [id number] [place] [address] Dec, [facility] [place] [address] 340B [id number] [place] [address] Dec, Essential hypertension I10 [facility] [place] [address] 340B [id number] [place] [address] Dec, Essential hypertension I10 [facility] [place] [address] [id number] [place] [address] Dec, [facility] [place] [address] 340B [id number] [place] [address] Dec, [facility] [place] [address] 340B [id number] [place] [address] Dec, Injury of right index finger , initial encounter S69.91XA [facility] [address] [facility] [id number] [address] [place] [address] Dec, [facility] [address] [facility] [id number] [address] [place] [address] Dec, [facility] [place] [address] 340B [id number] [place] [address] Dec, [facility] [place] [address] 340B [id number] [place] [address] Dec, [facility] [address] [facility] [id number] [address] [place] [address] Nov, [facility] R[place] [address] 340B [id number] [place] [address] Nov, [facility] [place] [address] 340B [id number] [place] [address] Nov, Type 2 diabetes mellitus ramon ated with insulin E11.9 ; Tobacco abuse Z72.0 and Type 1 diabetes mellitus with hypoglycemia unawareness E10.649 [facility] [place] [address] 340B [id number] [place] [address] Nov, [facility] [address] [facility] [id number] [place] [address] Nov, [facility] [address] [facility] [id number] [address] [place] [address] Nov, [address] 340B [id number] [place] [address] Nov, [address] 340 [id number] [address] Nov, Strain of left ankle, initia l encounter S96.912A [address] [id number] [address] Nov, Tobacco abuse Z72.0 ; Type 1 diabetes mellitus with hypoglycemia unawareness E10.649 ; Type 1 diabetes mellitus with other specified complication E10.69 ; History of diabetic gastroparesis Z86.39 ; History of diabetes with ketoacidosis Z86.39 ; Needle phobia F40.298 ; Risk for falls Z91.81 and Lives alone Z60.[address] 340 [id number] [address] Nov, Type 2 diabetes mellitus wit hout complication, unspecified whether terminal operations supervisor insulin use E11.9 ; COPD (chronic obstructive pulmonary disease) J44.9 ; Essential hypertension I10 ; Encounter for immuni zation Z23 and Cervical pain (neck) M54.[address] 340 [id number] [address] Nov, Cervical pain (neck) M54.2 a nd Lumbar pain M54.[address] 340 [id number] [address] Oct, Diabetic polyneuropathy asso ciated with type 2 diabetes mellitus E11.[address] 340 [id number] [address] Sep, [address] 340B [id number] [place] [address] Sep, Aneurysm of iliac artery I72 .3 ; Adrenal nodule E27.9 ; Diabetic polyneuropathy associated with type 2 diabetes mellitus E11.42 ; Sciatica of left side M54.32 and Lesion of right ear H93.91 [facility] RIGO [place] [address] 340B [id number] [place] [address] Sep, Diabetic polyneuropathy asso ciated with type 2 diabetes mellitus E11.42 and Type 2 diabetes mellitus treated with insulin E11.9 [facility] RIGO [place] [address] 340B [id number] [place] [address] Aug, [facility] RIGO [address] 340B [id number] [place] [address] Aug, Diabetic polyneuropathy asso ciated with type 2 diabetes mellitus E11.42 [facility] RIGO [address] 340B [id number] [place] [address] Aug, [facility] RIGO [place] [address] 340B [id number] [place] [address] Aug, [facility] RIGO [place] [address] 340B [id number] [place] [address] Jul, Ear lesion H93.90 [facility] RIGO [address] 340B [id number] [place] [address] June, Type 2 diabetes mellitus ramon ated with insulin E11.9 and Panlobular emphysema J43.1 [facility] RIGO [place] [address] 340B [id number] [place] [address] June, Type 2 diabetes mellitus wit hout complication, unspecified whether terminal operations supervisor insulin use E11.9 [facility] RIG[place] [address] 340B [id number] [place] [address] Apr, Type 2 diabetes mellitus ramon ated with insulin E11.9 [facility] [address] [facility] [id number] 100KS [place] [address] Apr, [facility] [address] [id number] [place] [address] Apr, Type 2 diabetes mellitus wit hout complication, unspecified whether terminal operations supervisor insulin use E11.9 ; Uncontrolled blood glucose R73.09 and Nausea R11.0 [facility] [place] [address] 340B [id number] [place] [address] Apr, [facility] [place] [address] 340B [id number] [place] [address] Apr, [facility] RIGO [place] [address] 340B [id number] [place] [address] Mar, [facility] RIGO [place] [address] 340B [id number] [place] [address] Mar, [facility] [place] [address] 340B [id number] [address] Mar, Type 2 diabetes mellitus wit hout complication, unspecified whether skilled nursing insulin use E11.9 ; Essential hypertension I10 ; Bipolar disorder, unspecified F31.9 and Pelvic pain in male R10.2 [facility] [place] [address] 340B [id number] [place] [address] Mar, Type 2 diabetes mellitus wit hout complication, unspecified whether terminal operations supervisor insulin use E11.9 and Essential hypertension I10 [facility] RIGO [place] [address] 340B [id number] [place] [address] Feb, [facility] [address] [facility] [id number] [address] [place] [address] May, [facility] [address] [facility] [id number] [address] [place] [address] May, [facility] [address] [facility] [id number] [address] [place] [address] Aug, [facility] [address] [facility] [id number] [address] [place] [address] Aug, [facility] [address] [facility] [id number] [address] [place] [address] Aug, [facility] [address] [id number] [address] [place] [address], [place] [address] 18 Aug, 2013 [facility] [address] [id number] [address] [place] [address], [place] [address] Aug, [facility] [address] [id number] [address] [place] [address], [place] [address] Aug, [facility] [address] [id number] [address] [place] [address], [place] [address] Aug, [facility] [address] [id number] [address] [place] [address], [place] [address] Aug, [facility] [address] [id number] [address] [place] [address], [place] [address] Jul, [facility] [address] [id number] [address] [place] [address], [place] [address] Jul, [facility] [address] [id number] [address] [place] [address], [place] [address] June, [facility] [address] [id number] [address] [place] [address], [place] [address] June, [facility] [address] [id number] [address] [place] [address], [place] [address] Mar, [facility] [address] [id number] [address] [place] [address], [place] [address] Mar, [facility] [address] [id number] [address] [place] [address], [place] [address] Feb, [facility] [address] [id number] [address] [place] [address], [place] [address] Feb, [facility] [address] [id number] [address] [place] [address], [place] [address] Feb, [facility] [address] [id number] [address] [place] [address], [place] [address] Feb, [facility] [address] [id number] [address] [place] [address], [place] [address] Oct, [facility] [address] [id number] [address] [place] [address], [place] [address] Sep, [facility] [address] [id number] [address] [place] [address], [place] [address] Aug, [facility] [address] [id number] [address] [place] [address], [place] [address] Jul, [facility] [address] [id number] [address] [place] [address], [place] [address] Jul, [facility] [address] [id number] [address] [place] [address], [place] [address] Jul, [facility] [address] [id number] [address] [place] [address], [place] [address] Jul, [facility] [address] [id number] [address] [place] [address], [place] [address] Apr, [facility] [address] [id number] [address] [place] [address], [place] [address] Apr, [facility] [address] [id number] [address] [place] [address], [place] [address] Mar, [facility] [address] [id number] [address] [place] [address], [place] [address] Mar, [facility] [address] [id number] [address] [place] [address], [place] [address] Feb, [facility] [address] [id number] [address] [place] [address], [place] [address] Feb, [facility] [address] [id number] [address] [place] [address], [place] [address] Jan, [facility] [address] [id number] [address] [place] [address], [place] [address] Jan, [facility] [address] [id number] [address] [place] [address], [place] [address] Dec, [facility] [address] [id number] [address] [place] [address] Dec, [facility] [address] [id number] [address] [place] [address], [place] [address] Dec, [facility] [address] [id number] [address] [place] [address], [place] [address] Dec, [facility] [address] [id number] [address] [place] [address], [place] [address] Nov, [facility] [address] [id number] [address] [place] [address], [place] [address] 27 Oct, 2011 [facility] [address] [id number] [address] [place] [address], [place] [address] 07 Oct, 2011 [facility] [address] [id number] [address] [place] [address], [place] [address] Oct, [facility] [address] [id number] [address] [place] [address], [place] [address] Aug, [facility] [address] [id number] [address] [place] [address], [place] [address] Aug, [facility] [address] [id number] [address] [place] [address], [place] [address] Jul, [facility] [address] [id number] [address] [place] [address], [place] [address] Jul, [facility] [address] [id number] [address] [place] [address], [place] [address] Jul, [facility] [address] [id number] [address] [place] [address] 15 Jul, 2011 [facility] [address] [id number] [address] [place] [address], [place] [address] 12 Jul, 2011 [facility] [address] [id number] [address] [place] [address], [place] [address] 07 Jul, 2011 [facility] [address] [id number] [address] [place] [address], [place] [address] 06 Jul, 2011 [facility] [address] [id number] [address] [place] [address] June, [facility] [address] [facility] [id number] [address] [place] [address] June, [facility] [address] [facility] [id number] [address] [place] [address] June, [facility] [address] [facility] [place] [id number] [address] [place] [phone] May, [facility] [address] [facility] [place] [id number] [address] [place] [phone] Apr, IMMUNIZATIONS No Known Immunizations SOCIAL HISTORY Never Assessed REASON FOR VISIT PLAN OF CARE VITAL SIGNS Height 66.5 in 2012-10-06 Weight 154 lbs 2012-10-06 Temperature 98 degrees Fahrenheit 2012-10-06 Heart Rate 78 bpm 2012-10-06 Respiratory Rate 24 2012-10-06 Blood pressure systolic 104 mmHg 2012-10-06 Blood pressure diastolic 80 mmHg 2012-10-06 MEDICATIONS Unknown Medications RESULTS No Results PROCEDURES Procedure Date Ordered Result Body Site ASSAY OF CREATININE Oct 06, 2012 ASSAY OF LITHIUM Oct 06, 2012 URINALYSIS, AUTO, W/O SCOPE Oct 06, 2012 VENIPUNCT, ROUTINE* Oct 06, 2012 INSTRUCTIONS MEDICATIONS ADMINISTERED No Known Medications [...] Hospitalization History blood sugar, dehydration Hospitalization History [facility], [place], [place] PATY [place]
--- OUTSIDE RECORDS SUMMARY | 2019-08-22 09:34 | XMS REPORT ---
Author Author Rodolfo Santamaria Organization [facility] Address [address] [place] [address] Care Team Providers Care Awning Maker Name Role Phone HinaRYANEN Unavailable PROBLEMS Type Condition ICD9-CM Code DYE39-IU Code Onset Dates Condition S tatus SNOMED Code Problem COPD (chronic obstructive pulmonary disease) J44.9 Active 14762547 Problem Hyperglycemia R73.9 Active 146543 07 Problem Tobacco abuse Z72.0 Active 137492 05 Problem Tubular adenoma of colon D12.6 Activ e 519239205 Problem Hyperlipemia E78.5 Active 4581600 4 Problem Bipolar 2 disorder F31.81 Active 8 9261668 Problem Hypoxia R09.02 Active 209350694 Problem Cigarette nicotine dependence without complication F17.210 Active 64311562 Problem Panlobular emphysema J43.1 Active 3636493 Problem Type 1 diabetes mellitus with other specified complication E10.69 Active 22260271 Problem Hypertension I10 Active 3500688 3 Problem Type 2 diabetes mellitus treated with insulin E11. 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 Active 236200 003 Problem Type 1 diabetes mellitus with hypoglycemia unawareness E10.649 Active Problem Moderate depressive disorder F32.9 A ctive 368093385 Problem Altered taste R43.2 Active 254096 3001396 Problem Decreased appetite R63.0 Active 6 4634970 Problem Insulin pump titration Z46.81 Active 128578024 Problem Hyperosmolar hyponatremia E87.1 Acti ve 144490490 Problem Insulin pump in place Z96.41 Active 181740641 Problem Adrenal nodule E27.9 Active 68625 000 Problem Type 2 diabetes mellitus wit hout complication, unspecified whether keno terminal operator insulin use E11.9 Active 052601639 Problem Generalized anxiety disorder F41.1 A ctive 44582904 Problem Seasonal allergic rhinitis, unspecified trigger J3 0.2 Active 669612455 Problem History of right hip replacement Z96.641 Active 1805051855067553 Problem Minimal depression F32.9 Active 7 81660564 ALLERGIES No Information ENCOUNTERS Encounter Location Date Diagnosis [address] 340 [id number] [address] 14 Oct, [address] 340B [id number], [place] [address] Aug, [address] 340 [id number], [place] [address] Jul, Essential hypertension I10 ; Decreased appetite R63.0 ; Altered taste R43.2 ; Moderate depressive disorder F32.9 and Type 2 diabetes mellitus without complication, unspecified whether keno terminal operator insulin use E11.[address] 340 [id number] [place] [address] 17 Jul, 2019 Type 1 diabetes mellitus wit h hypoglycemia unawareness E10.649 ; Insulin pump in place Z96.41 ; Insulin pump titration Z46.81 ; Essential hypertension I10 ; Decreased appetite R63.0 ; Altered taste R43.2 ; Moderate depressive disorder F32.9 and Type 2 diabetes mellitus without complication, unspecified whether keno terminal operator insulin use E11.[address] [id number] [place] [address] 15 Jul, [address] 340B [id number] [place] [address] Jul, Hypertension I10 ; Adrenal n odule E27.9 and Type 1 diabetes mellitus with hypoglycemia unawareness E10.649 [facility] [address] [id number] [place] [address] Jul, [facility] [address] [facility] [id number] [address] [address] Jul, [facility] [address] [id number] [place] [address] June, [facility] [address] [id number] [place] [address] June, [address] [id number], [place] [address] June, [address] 340 [id number], [place] [address] June, Superficial foreign body of other part of head, subsequent encounter S00.85XD and Minimal depression F32.[address] [id number] [place] [address] June, Type 1 diabetes mellitus wit h hypoglycemia unawareness E10.649 ; Insulin pump in place Z96.41 and Insulin pump titration Z46.[address] [id number] [address] June, [facility] [address] [facility] [id number], [place] [address] May, Type 1 diabetes mellitus with hypoglycem ia unawareness E10.649 [facility] [address] [facility] [id number] [address] [address] Apr, Foreign body head S00.95XA [address] 340 [id number], [place] [address] Apr, Pain of left hip joint M25.5 52 ; History of osteoarthritis Z87.39 and History of right hip replacement Z96.[address] 340B [id number], [place] [address] Apr, Aneurysm artery, iliac commo n I72.3 ; COPD (chronic obstructive pulmonary disease) J44.9 ; Bipolar 2 disorder F31.81 ; Type 2 diabetes mellitus without complication, unspecified whether nursing home insulin use E11.9 ; Seasonal allergic rhinitis, unspecified trigger J30.2 and Burn T30.[address] 340B [id number], [place] [address] Apr, Type 1 diabetes mellitus wit h hypoglycemia unawareness E10.[address] 340B [id number], [place] [address] Mar, [address] 340B [id number], [place] [address] Mar, Generalized anxiety disorder F41.1 ; Bipolar 2 disorder F31.81 and Suicidal behavior R46.[address] 340B [id number], [place] [address] Mar, [address] 340B [id number], [place] [address] Mar, [address] 340B [id number], [place] [address] Mar, [facility] [address] [facility] [id number] [address] [address] Mar, [address] [id number] [address] Mar, Type 1 diabetes mellitus with hypoglycem ia unawareness E10.649 and Suicidal ideations R45.[address] 340B [id number], [place] [address] Mar, [facility] [address] [facility] [id number] [place] [address] Mar, [facility] [place] [id number] [id number], [place] [address] Mar, [address] 340B [id number] [place] [address] Mar, [address] 340B [id number], [place] [address] Feb, Decreased appetite R63.0 ; A ltered taste R43.2 ; Type 1 diabetes mellitus with hypoglycemia unawareness E10.649 and History of diabetic gastroparesis Z86.39 [facility] [place] [address] [id number] [place] [address] Feb, [facility] RIGO [address] 340B [id number] [place] [address] 15 Feb, [address] 340B [id number] [place] [address] 14 Feb, [address] 340B [id number] [place] [address] 06 Feb, 2019 Moderate depressive disorder F32.9 and Left hip pain M25.[address] 340B [id number] [place] [address] 11 Jan, [address] 340B [id number] [place] [address] Jan, Type 2 diabetes mellitus wit hout complication, unspecified whether nursing home insulin use E11.[address] 340B [id number] [place] [address] 09 Jan, [address] 340B [id number] [place] [address] 09 Jan, 2019 Open bite of left wrist, ini tial encounter S61.552A ; Bitten by cat, initial encounter W55.01XA ; Cigarette nicotine dependence without complication F17.210 and Encounter for immunization Z23 [address] 340B [id number] [place] [address] 06 Jan, 2019 Aneurysm artery, iliac commo n I72.3 ; Adrenal nodule E27.9 ; Encounter for Medicare annual wellness exam Z00.00 ; Essential hypertension I10 ; Type 2 diabetes mellitus without complication, unspecified whether nursing home insulin use E11.9 ; COPD (chronic obstructive pulmonary disease) J44.9 and Adrenal adenoma, unspecified laterality D35.[address] 340B [id number] [place] [address] Jan, COPD (chronic obstructive pu lmonary disease) J44.9 [facility] [place] [address] [id number] [place] [address] Jan, [facility] [place] [address] [id number] [place] [address] Dec, [facility] MARTINEZ [address] 340B [id number] [place] [address] Dec, [facility] [address]Z [address] [id number] [place] [address] Dec, Adrenal nodule E27.9 [facility] [place] [address] [id number] [place] [address] Dec, [facility] [place] [address] [id number] [place] [address] Dec, [facility] MARTINEZ [address] 340B [id number] [place] [address] Dec, Encounter for Medicare annua l wellness exam Z00.00 ; Essential hypertension I10 ; Type 2 diabetes mellitus without complication, unspecified whether nursing home insulin use E11.9 ; COPD (chronic obstructive pulmonary disease) J44.9 ; Aneurysm artery, 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 and Adrenal adenoma, unspecified laterality D35.00 [facility] [address] 340B [id number] [place] [address] Dec, [facility] [place]Z [address] [id number] [place] [address] Dec, Essential hypertension I10 [facility] [address] 340B [id number] [place] [address] Dec, Essential hypertension I10 [facility] [address] [id number] [place] [address] Dec, [facility]ART[facility] [address] 340B [id number] [place] [address] Dec, [facility] 340B [id number] [place] [address] Dec, Injury of right index finger , initial encounter S69.91XA [facility] [address] [facility] [id number] [address] [place] [address] Dec, [facility] [address] [facility] [id number] [address] [place] [address] Dec, [address] 340B [id number], [place] [address] Dec, [address] 340B [id number], [place] [address] Dec, [facility] [address] [facility] [id number] [address] [place] [address] Nov, [address] 340B [id number], [place] [address] Nov, [address] 340B [id number], [place] [address] Nov, Type 2 diabetes mellitus ramon ated with insulin E11.9 ; Tobacco abuse Z72.0 and Type 1 diabetes mellitus with hypoglycemia unawareness E10.[address] 340B [id number], [place] [address] Nov, [facility] [address] [facility] [id number] [address] [place] [address] Nov, [facility] [address] [facility] [id number] [address] [place] [address] Nov, [address] 340B [id number], [place] [address] Nov, [address] 340B [id number], [place] [address] Nov, Strain of left ankle, initia l encounter S96.912A [address] 340B [id number], [place] [address] Nov, Tobacco abuse Z72.0 ; Type 1 diabetes mellitus with hypoglycemia unawareness E10.649 ; Type 1 diabetes mellitus with other specified complication E10.69 ; History of diabetic gastroparesis Z86.39 ; History of diabetes with ketoacidosis Z86.39 ; Needle phobia F40.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 ; Risk for falls Z91.81 and Lives alone Z60.2 [facility] RIG[facility] [address] 340B [id number] [place] [address] Nov, Type 2 diabetes mellitus wit hout complication, unspecified whether keno terminal operator insulin use E11.9 ; COPD (chronic obstructive pulmonary disease) J44.9 ; Essential hypertension I10 ; Encounter for immuni zation Z23 and Cervical pain (neck) M54.[address] 340B [id number], [place] [address] Nov, Cervical pain (neck) M54.2 a nd Lumbar pain M54.[address] 340B [id number], [place] [address] Oct, Diabetic polyneuropathy asso ciated with type 2 diabetes mellitus E11.[address] 340B [id number] [place] [address] Sep, [address] 340B [id number], [place] [address] Sep, Aneurysm of iliac artery I72 .3 ; Adrenal nodule E27.9 ; Diabetic polyneuropathy associated with type 2 diabetes mellitus E11.42 ; Sciatica of left side M54.32 and Lesion of right ear H93.[address] 340B [id number] [place] [address] Sep, Diabetic polyneuropathy asso ciated with type 2 diabetes mellitus E11.42 and Type 2 diabetes mellitus treated with insulin E11.9 [facility] R[facility] [address] 340B [id number] [place] [address] Aug, [address] 340B [id number], [place] [address] Aug, Diabetic polyneuropathy asso ciated with type 2 diabetes mellitus E11.42 [facility] MARTINEZ [address] 340B [id number] [place] [address] Aug, [facility] MARTINE[facility] [address] 340B [id number] [place] [address] Aug, [facility] [address] 340B [id number] [place] [address] Jul, Ear lesion H93.90 [facility] MARTINE[facility] [address] 340B [id number] [place] [address] June, Type 2 diabetes mellitus ramon ated with insulin E11.9 and Panlobular emphysema J43.1 [facility] MARTINEZ [address] 340B [id number] [place] [address] June, Type 2 diabetes mellitus wit hout complication, unspecified whether nursing home insulin use E11.9 [facility] [address] 340B [id number] [place] [address] Apr, Type 2 diabetes mellitus ramon ated with insulin E11.9 [facility] [address] [facility] [id number] 100KS [place] [address] Apr, [facility] MARTINEZ [facility] [address] [id number] [place] [address] Apr, Type 2 diabetes mellitus wit hout complication, unspecified whether nursing home insulin use E11.9 ; Uncontrolled blood glucose R73.09 and Nausea R11.0 [facility] MARTINEZ [address] 340B [id number] [place] [address] Apr, [facility] [address] 340B [id number] [place] [address] Apr, [facility] M[facility] [address] 340B [id number] [place] [address] Mar, [facility] [address] 340B [id number] [place] [address] Mar, [facility] [address] 340B [id number] [place] [address] 11 Mar, 2018 Type 2 diabetes mellitus wit hout complication, unspecified whether nursing home insulin use E11.9 ; Essential hypertension I10 ; Bipolar disorder, unspecified F31.9 and Pelvic pain in male R10.2 [facility] RIGO MARTINEZ [address] 340B [id number] [place] [address] Mar, Type 2 diabetes mellitus wit hout complication, unspecified whether keno terminal operator insulin use E11.9 and Essential hypertension I10 [facility] RIG[place] M[place] [address] 340B [id number] [place] [address] Feb, [facility] [address] [id number] [address] [place] [address] May, [facility] [address] [id number] [address] [place] [address] May, [facility] [address] [id number] [address] [place] [address] Aug, [facility] [address] [id number] [address] [place] [address] Aug, [facility] [address] [id number] [address] [place] [address] Aug, [facility] [address] [id number] [address] [place] [address] Aug, [facility] [address] [id number] [address] [place] [address] Aug, [facility] [address] [id number] [address] [place] [address] Aug, [facility] [address] [id number] [address] [place] [address] Aug, [facility] [address] [id number] [address] [place] [address] Aug, [facility] [address] [id number] [address] [place] [address] Jul, [facility] [address] [id number] [address] [place] [address], [place] [address] Jul, [facility] [address] [id number] [address] [place] [address], [place] [address] June, [facility] [address] [id number] [address] [place] [address], [place] [address] June, [facility] [address] [id number] [address] [place] [address], [place] [address] Mar, [facility] [address] [id number] [address] [place] [address], [place] [address] Mar, [facility] [address] [id number] [address] [place] [address], [place] [address] Feb, [facility] [address] [id number] [address] [place] [address], [place] [address] Feb, [facility] [address] [id number] [address] [place] [address], [place] [address] Feb, [facility] [address] [id number] [address] [place] [address], [place] [address] Feb, [facility] [address] [id number] [address] [place] [address], [place] [address] Oct, [facility] [address] [id number] [address] [place] [address], [place] [address] Sep, [facility] [address] [id number] [address] [place] [address], [place] [address] Aug, [facility] [address] [id number] [address] [place] [address], [place] [address] Jul, [facility] [address] [id number] [address] [place] [address], [place] [address] Jul, [facility] [address] [id number] [address] [place] [address], [place] [address] Jul, [facility] [address] [id number] [address] [place] [address], [place] [address] Jul, [facility] [address] [id number] [address] [place] [address], [place] [address] Apr, [facility] [address] [id number] [address] [place] [address], [place] [address] Apr, [facility] [address] [id number] [address] [place] [address], [place] [address] Mar, [facility] [address] [id number] [address] [place] [address], [place] [address] Mar, [facility] [address] [id number] [address] [place] [address], [place] [address] Feb, [facility] [address] [id number] [address] [place] [address], [place] [address] Feb, [facility] [address] [id number] [address] [place] [address], [place] [address] Jan, [facility] [address] [id number] [address] [place] [address], [place] [address] Jan, [facility] [address] [id number] [address] [place] [address], [place] [address] Dec, [facility] [address] [id number] [address] [place] [address], [place] [address] Dec, [facility] [address] [id number] [address] [place] [address], [place] [address] Dec, [facility] [address] [id number] [address] [place] [address], [place] [address] Dec, [facility] [address] [id number] [address] [place] [address], [place] [address] 08 Nov, 2011 [facility] [address] [id number] [address] [place] [address], [place] [address] 27 Oct, 2011 [facility] [address] [id number] [address] [place] [address] [address] 07 Oct, 2011 [facility] [address] [id number] [address] [place] [address] 06 Oct, 2011 [facility] [address] [id number] [address] [place] [address] 29 Aug, 2011 [facility] [address] [id number] [address] [place] [address] Aug, [facility] [address] [id number] [address] [place] [address] Jul, [facility] [address] [id number] [address] [place] [address] Jul, [facility] [address] [id number] [address] [place] [address] Jul, [facility] [address] [id number] [address] [place] [address] Jul, [facility] [address] [id number] [address] [place] [address] Jul, [facility] [address] [id number] [address] [place] [address] Jul, [facility] [address] [id number] [address] [place] [address] Jul, [facility] [address] [id number] [address] [place] [address] June, [facility] [address] [id number] [address] [place] [address] June, [facility] [address] [id number] [address] [place] [id number] June, [facility] [address] [id number] [address] [place] [phone] May, [facility] [address] [id number] [address] [place] [id number] Apr, IMMUNIZATIONS No Known Immunizations SOCIAL HISTORY [...] Hospitalization History blood sugar, dehydration Hospitalization History [facility], [place], [place]
--- OUTSIDE RECORDS SUMMARY | 2019-08-22 09:35 | XMS REPORT ---
Author Author Rodolfo Dinero Doctor Organization [facility] Address Unknown Phone Unavailable Care Team Providers Care Show Worker Name Role Phone Migration, Doctor Unavailable Unavailable PROBLEMS Type Condition ICD9-CM Code CFC40-DR Code Onset Dates Condition S tatus SNOMED Code Problem Panlobular emphysema J43.1 Active 9127745 Problem Type 2 diabetes mellitus treated with insulin E11. 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 Activ e 28114614 Problem Tobacco abuse Z72.0 Active 329521 05 Problem COPD (chronic obstructive pulmonary disease) J44.9 Active 87619219 Problem Hyperlipemia E78.5 Active 3436938 4 Problem Hyperglycemia R73.9 Active 063268 07 Problem Type 1 diabetes mellitus with hypoglycemia unawareness E10.649 Active Problem History of diabetic gastroparesis Z86.39 Active 276109121 Problem Hypertension I10 Active 4052880 3 Problem Hyperosmolar hyponatremia E87.1 Acti ve 323719842 Problem Bipolar 2 disorder F31.81 Active 8 8413969 Problem Sciatica of left side M54.32 Active 59821442 Problem Type 2 diabetes mellitus wit hout complication, unspecified whether rn long term care insulin use E11.9 Active 241139669 Problem Aneurysm artery, 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 Active 56379544 Problem Diabetic polyneuropathy associated with type 2 d iabetes mellitus E11.42 Active 520880619 Problem Type 1 diabetes mellitus with other specified complication E10.69 Active 87972148 Problem Essential hypertension I10 Active 18821591 Problem Needle phobia F40.298 Active 503268 003 Problem History of diabetes with ketoacidosis Z86.39 Active 283624971 Problem Cigarette nicotine dependence without complication F17.210 Active 85289317 Problem Seasonal allergic rhinitis, unspecified trigger J3 0.2 Active 608468135 Problem Tubular adenoma of colon D12.6 Activ e 383612105 Problem History of right hip replacement Z96.641 Active 8879021978236330 Problem Adrenal nodule E27.9 Active 10079 000 Problem Hypoxia R09.02 Active 471762863 Problem Moderate depressive disorder F32.9 A ctive 635736507 Problem Altered taste R43.2 Active 991557 0776081 Problem Decreased appetite R63.0 Active 6 3279943 Problem Generalized anxiety disorder F41.1 A ctive 24883026 ALLERGIES No Information ENCOUNTERS Encounter Location Date Diagnosis [address] [id number] [place] [address] Jul, [address] 340[address] [id number] [place] [address] May, [facility] [address] [facility] [id number] [address] [address] 24 Apr, 2019 Foreign body head S00.95XA [address] 340B [id number] [place] [address] Apr, Pain of left hip joint M25.5 52 ; History of osteoarthritis Z87.39 and History of right hip replacement Z96.[address] 340B [id number] [place] [address] Apr, Aneurysm artery, iliac commo n I72.3 ; COPD (chronic obstructive pulmonary disease) J44.9 ; Bipolar 2 disorder F31.81 ; Type 2 diabetes mellitus without complication, unspecified whether rn long term care insulin use E11.9 ; Seasonal allergic rhinitis, unspecified trigger J30.2 and Burn T30.[address] 340[address] [id number] [place] [address] Apr, Type 1 diabetes mellitus wit h hypoglycemia unawareness E10.[address] 340[address] [id number] [place] [address] Mar, [address] 340B [id number] [place] [address] Mar, Generalized anxiety disorder F41.1 ; Bipolar 2 disorder F31.81 and Suicidal behavior R46.[address] 340B [id number] [place] [address] Mar, [address] 340[address] [id number] [place] [address] Mar, [address] [id number] [place] [address] Mar, [facility] [address] [facility] [id number] [address] [place] [address] Mar, [facility] [address] [id number] [place] [address] Mar, Type 1 diabetes mellitus with hypoglycem ia unawareness E10.649 and Suicidal ideations R45.[address] 340B [id number] [place] [address] Mar, [facility] [address] [facility] [id number] [address] [place] [address] Mar, [facility] [address] [facility] [id number], [place] [address] Mar, [address] 340B [id number] [place] [address] Mar, [address] 340B [id number] [place] [address] Feb, Decreased appetite R63.0 ; A ltered taste R43.2 ; Type 1 diabetes mellitus with hypoglycemia unawareness E10.649 and History of diabetic gastroparesis Z86.39 [facility] [id number] [place] [address] Feb, [address] 340[address] [id number] [place] [address] Feb, [address] 340B [id number] [place] [address] Feb, [address] 340B [id number] [place] [address] Feb, Moderate depressive disorder F32.9 and Left hip pain M25.[address] 340B [id number] [place] [address] Jan, [facility] [address] 340B [id number] [place] [address] Jan, Type 2 diabetes mellitus wit hout complication, unspecified whether rn long term care insulin use E11.9 [facility] [address] 340B [id number] [place] [address] Jan, [address] 340B [id number] [place] [address] Jan, Open bite of left wrist, ini tial encounter S61.552A ; Bitten by cat, initial encounter W55.01XA ; Cigarette nicotine dependence without complication F17.210 and Encounter for immunization Z23 [facility] [address] 340B [id number] [place] [address] 06 Jan, 2019 Aneurysm artery, iliac commo n I72.3 ; Adrenal nodule E27.9 ; Encounter for Medicare annual wellness exam Z00.00 ; Essential hypertension I10 ; Type 2 diabetes mellitus without complication, unspecified whether rn long term care insulin use E11.9 ; COPD (chronic obstructive pulmonary disease) J44.9 and Adrenal adenoma, unspecified laterality D35.00 [facility] [address] 340B [id number] [place] [address] Jan, COPD (chronic obstructive pu lmonary disease) J44.9 [facility] [address] [id number] [place] [address] Jan, [facility] [address] 340B [id number] [place] [address] Dec, [facility] [address] 340B [id number] [place] [address] Dec, [facility] [address] 340B [id number] [place] [address] Dec, Adrenal nodule E27.9 [facility] [address] [id number] [place] [address] Dec, [facility] [address] [id number] [place] [address] Dec, [facility] [address] 340B [id number] [place] [address] Dec, Encounter for Medicare pooja wellness exam Z00.00 ; Essential hypertension I10 ; Type 2 diabetes mellitus without complication, unspecified whether rn long term care insulin use E11.9 ; COPD (chronic obstructive pulmonary disease) J44.9 ; Aneurysm artery, 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 and Adrenal adenoma, unspecified laterality D35.00 [facility] [address] [address] [id number] [place] [address] Dec, [facility] [address] 340B [id number] [place] [address] Dec, Essential hypertension I10 [facility] [address] 340B [id number] [place] [address] Dec, Essential hypertension I10 [facility] [address] [id number] [place] [address] Dec, [facility] [address] 340B [id number] [place] [address] Dec, [facility] [address] [id number] [place] [address] Dec, Injury of right index finger , initial encounter S69.91XA [facility] [address] [facility] [id number] [address] [place] [address] Dec, [facility] [address] [facility] [id number] [address] [place] [address] Dec, [facility] [address] 340B [id number] [place] [address] Dec, [facility] [address] 340B [id number] [place] [address] Dec, [facility] [address] [facility] [id number] [address] [place] [address] Nov, [address] 340B [id number] [place] [address] Nov, [address] 340 [id number] [place] [address] Nov, Type 2 diabetes mellitus ramon ated with insulin E11.9 ; Tobacco abuse Z72.0 and Type 1 diabetes mellitus with hypoglycemia unawareness E10.[address] 340B [id number] [place] [address] Nov, [facility] [address] [facility] [id number] [address] [place] [address] Nov, [facility] [address] [facility] [id number] [address] [place] [address] Nov, [address] [id number] [place] [address] Nov, [address] 340B [id number] [place] [address] Nov, Strain of left ankle, initia l encounter S96.912A [address] [id number] [place] [address] Nov, Tobacco abuse Z72.0 ; Type 1 diabetes mellitus with hypoglycemia unawareness E10.649 ; Type 1 diabetes mellitus with other specified complication E10.69 ; History of diabetic gastroparesis Z86.39 ; History of diabetes with ketoacidosis Z86.39 ; Needle phobia F40.298 ; Risk for falls Z91.81 and Lives alone Z60.[address] 340B [id number] [place] [address] Nov, Type 2 diabetes mellitus wit hout complication, unspecified whether nursing home insulin use E11.9 ; COPD (chronic obstructive pulmonary disease) J44.9 ; Essential hypertension I10 ; Encounter for immuni zation Z23 and Cervical pain (neck) M54.[address] 340 [id number] [place] [address] Nov, Cervical pain (neck) M54.2 a nd Lumbar pain M54.5 [facility] MARTINE[facility] [address] 340B [id number] [place] [address] Oct, Diabetic polyneuropathy asso ciated with type 2 diabetes mellitus E11.42 [facility] [address] 340B [id number] [place] [address] Sep, [facility] [address] [id number] [place] [address] Sep, Aneurysm of iliac artery I72 .3 ; Adrenal nodule E27.9 ; Diabetic polyneuropathy associated with type 2 diabetes mellitus E11.42 ; Sciatica of left side M54.32 and Lesion of right ear H93.91 [facility]ART[facility] [address] 340B [id number] [place] [address] Sep, Diabetic polyneuropathy asso ciated with type 2 diabetes mellitus E11.42 and Type 2 diabetes mellitus treated with insulin E11.9 [facility] [address] [id number] [place] [address] Aug, [facility] [place] [address] [id number] [place] [address] Aug, Diabetic polyneuropathy asso ciated with type 2 diabetes mellitus E11.42 [facility] [address] 340B [id number] [place] [address] Aug, [facility] [place] [address] [id number] [place] [address] Aug, [facility] [address] [id number] [place] [address] Jul, Ear lesion H93.90 [facility] [address] 340B [id number] [place] [address] June, Type 2 diabetes mellitus ramon ated with insulin E11.9 and Panlobular emphysema J43.1 [facility] [address] 340B [id number] [place] [address] June, Type 2 diabetes mellitus wit hout complication, unspecified whether nursing home insulin use E11.9 [facility] R[facility] MARTINEZ [address] 340B [id number] [place] [address] Apr, Type 2 diabetes mellitus ramon ated with insulin E11.9 [facility] [address] [facility] [id number] [address] [place] [address] Apr, [facility] [address] [id number] [address] Apr, Type 2 diabetes mellitus wit hout complication, unspecified whether nursing home insulin use E11.9 ; Uncontrolled blood glucose R73.09 and Nausea R11.0 [facility] MART[place] [address] 340B [id number] [place] [address] Apr, [facility] MART[place] [address] 340B [id number] [place] [address] Apr, [facility] MART[place] [address] 340B [id number] [place] [address] Mar, [facility] MART[place] [address] 340B [id number] [place] [address] Mar, [facility] [address] 340B [id number] [place] [address] Mar, Type 2 diabetes mellitus wit hout complication, unspecified whether rn long term care insulin use E11.9 ; Essential hypertension I10 ; Bipolar disorder, unspecified F31.9 and Pelvic pain in male R10.2 [facility] RIG[facility] MARTINEZ [address] 340B [id number] [place] [address] Mar, Type 2 diabetes mellitus wit hout complication, unspecified whether rn long term care insulin use E11.9 and Essential hypertension I10 [facility] RIG[facility] MARTINEZ [address] 340B [id number] [place] [address] Feb, [facility] [address] [facility] [id number] [address] [place] [address] May, [facility] [address] [id number] [address] [place] [address], [place] [address] May, [facility] [address] [id number] [address] [place] [address], [place] [address] Aug, [facility] [address] [id number] [address] [place] [address], [place] [address] Aug, [facility] [address] [id number] [address] [place] [address], [place] [address] Aug, [facility] [address] [id number] [address] [place] [address], [place] [address] Aug, [facility] [address] [id number] [address] [place] [address], [place] [address] Aug, [facility] [address] [id number] [address] [place] [address], [place] [address] Aug, [facility] [address] [id number] [address] [place] [address], [place] [address] Aug, [facility] [address] [id number] [address] [place] [address], [place] [address] Aug, [facility] [address] [id number] [address] [place] [address], [place] [address] Jul, [facility] [address] [id number] [address] [place] [address], [place] [address] Jul, [facility] [address] [id number] [address] [place] [address], [place] [address] June, [facility] [address] [id number] [address] [place] [address], [place] [address] June, [facility] [address] [id number] [address] [place] [address], [place] [address] Mar, [facility] [address] [id number] [address] [place] [address], [place] [address] Mar, [facility] [address] [id number] [address] [place] [address], [place] [address] Feb, [facility] [address] [id number] [address] [place] [address], [place] [address] Feb, [facility] [address] [id number] [address] [place] [address], [place] [address] Feb, [facility] [address] [id number] [address] [place] [address], [place] [address] Feb, [facility] [address] [id number] [address] [place] [address], [place] [address] Oct, [facility] [address] [id number] [address] [place] [address], [place] [address] Sep, [facility] [address] [id number] [address] [place] [address], [place] [address] Aug, [facility] [address] [id number] [address] [place] [address], [place] [address] Jul, [facility] [address] [id number] [address] [place] [address], [place] [address] Jul, [facility] [address] [id number] [address] [place] [address], [place] [address] Jul, [facility] [address] [id number] [address] [place] [address], [place] [address] Jul, [facility] [address] [id number] [address] [place] [address], [place] [address] Apr, [facility] [address] [id number] [address] [place] [address], [place] [address] Apr, [facility] [address] [id number] [address] [place] [address], [place] [address] Mar, [facility] [address] [id number] [address] [place] [address], [place] [address] Mar, [facility] [address] [id number] [address] [place] [address], [place] [address] Feb, [facility] [address] [id number] [address] [place] [address], [place] [address] Feb, [facility] [address] [id number] [address] [place] [address], [place] [address] Jan, [facility] [address] [id number] [address] [place] [address], [place] [address] Jan, [facility] [address] [id number] [address] [place] [address], [place] [address] Dec, [facility] [address] [id number] [address] [place] [address], [place] [address] Dec, [facility] [address] [id number] [address] [place] [address], [place] [address] Dec, [facility] [address] [id number] [address] [place] [address], [place] [address] Dec, [facility] [address] [id number] [address] [place] [address], [place] [address] Nov, [facility] [address] [id number] [address] [place] [address], [place] [address] 27 Oct, 2011 [facility] [address] [id number] [address] [place] [address], [place] [address] 07 Oct, 2011 [facility] [address] [id number] [address] [place] [address], [place] [address] 06 Oct, 2011 [facility] [address] [id number] [address] [place] [address], [place] [address] Aug, [facility] [address] [id number] [address] [place] [address], [place] [address] Aug, [facility] [address] [id number] [address] [place] [address], [place] [address] Jul, [facility] [address] [id number] [address] [place] [address], [place] [address] Jul, [facility] [address] [id number] [address] [place] [address], [place] [address] Jul, [facility] [address] [id number] [address] [place] [address] 15 Jul, 2011 [facility] [address] [id number] [address] [place] [address] Jul, [facility] [address] [id number] [address] [place] [address] Jul, [facility] [address] [id number] [address] [place] [address] Jul, [facility] [address] [id number] [address] [place] [address] June, [facility] [address] [id number] [address] [place] [address] June, [facility] [address] [facility] [id number] [address] [place] [address] June, [facility] [address] [id number] [address] [place] [address] May, [facility] [address] [facility] [id number] [address] [place] [address] Apr, IMMUNIZATIONS No Known Immunizations SOCIAL HISTORY [...] Hospitalization History blood sugar, dehydration Hospitalization History [facility], [place]
--- OUTSIDE RECORDS SUMMARY | 2019-08-22 09:35 | XMS REPORT ---
Author Author Rodolfo BOURGEOIS [facility] Address [address] [place] [address] Care Team Providers Care Radio Television Announcer Name Role Phone DAVID BOURGEOIS Unavailable PROBLEMS Type Condition ICD9-CM Code [id number] Code Onset Dates Condition S tatus SNOMED Code Problem Panlobular emphysema J43.1 Active 1365046 Problem Type 2 diabetes mellitus treated with insulin E11. 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 Activ e 06371086 Problem Tobacco abuse Z72.0 Active 547516 05 Problem COPD (chronic obstructive pulmonary disease) J44.9 Active 48514509 Problem Hyperlipemia E78.5 Active 2987455 4 Problem Hyperglycemia R73.9 Active 902837 07 Problem Type 1 diabetes mellitus with hypoglycemia unawareness E10.649 Active Problem History of diabetic gastroparesis Z86.39 Active 470897547 Problem Hypertension I10 Active 2236236 3 Problem Hyperosmolar hyponatremia E87.1 Acti ve 096516578 Problem Bipolar 2 disorder F31.81 Active 8 0032991 Problem Sciatica of left side M54.32 Active 52612988 Problem Type 2 diabetes mellitus wit hout complication, unspecified whether long term care social worker insulin use E11.9 Active 372273981 Problem Aneurysm artery, 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 Active 99172646 Problem Diabetic polyneuropathy associated with type 2 d iabetes mellitus E11.42 Active 682549539 Problem Type 1 diabetes mellitus with other specified complication E10.69 Active 55620818 Problem Essential hypertension I10 Active 70908768 Problem Needle phobia F40.298 Active 326820 003 Problem History of diabetes with ketoacidosis Z86.39 Active 199244155 Problem Cigarette nicotine dependence without complication F17.210 Active 23756802 Problem Seasonal allergic rhinitis, unspecified trigger J3 0.2 Active 012816778 Problem Tubular adenoma of colon D12.6 Activ e 988267909 Problem History of right hip replacement Z96.641 Active 2725642575233953 Problem Adrenal nodule E27.9 Active 23640 000 Problem Hypoxia R09.02 Active 788085907 Problem Moderate depressive disorder F32.9 A ctive 688885411 Problem Altered taste R43.2 Active 792416 7134724 Problem Decreased appetite R63.0 Active 6 8343011 Problem Generalized anxiety disorder F41.1 A ctive 46619491 ALLERGIES Substance Reaction Event Type Date Status Thorazine Paralyzes his whole body Drug Allergy Apr, Act eula Fentanyl itching Drug Allergy Apr, Active Mellaril Unknown Drug Allergy Apr, Active ENCOUNTERS Encounter Location Date Diagnosis [address] 340 [id number], [place] [address] Jul, [address] [id number], [place] [address] May, [facility] [address] [facility] [id number] [address] May, Type 1 diabetes mellitus with hypoglycem ia unawareness E10.649 [facility] [address] [facility] [id number] [address] [place] [address] Apr, Foreign body head S00.95XA [address] [id number] [address] Apr, Pain of left hip joint M25.5 52 ; History of osteoarthritis Z87.39 and History of right hip replacement Z96.[address] [id number], [place] [address] Apr, Aneurysm artery, iliac commo n I72.3 ; COPD (chronic obstructive pulmonary disease) J44.9 ; Bipolar 2 disorder F31.81 ; Type 2 diabetes mellitus without complication, unspecified whether senior living insulin use E11.9 ; Seasonal allergic rhinitis, unspecified trigger J30.2 and Burn T30.[address] [id number] [place] [address] Apr, Type 1 diabetes mellitus wit h hypoglycemia unawareness E10.[address] [id number] [place] [address] Mar, [address] 340B [id number], [place] [address] Mar, Generalized anxiety disorder F41.1 ; Bipolar 2 disorder F31.81 and Suicidal behavior R46.[address] 340B [id number], [place] [address] Mar, [address] 340B [id number], [place] [address] Mar, [address] 340B [id number], [place] [address] Mar, [facility] [address] [facility] [id number] [address] [place] [address] Mar, [facility] [address] [id number] [place] [address] Mar, Type 1 diabetes mellitus with hypoglycem ia unawareness E10.649 and Suicidal ideations R45.851 [facility] [address] 340B [id number], [place] [address] Mar, [facility] [address] [facility] [id number] [address] [place] [address] Mar, [facility] [address] [id number] [place] [address] Mar, [facility] [address] 340B [id number], [place] [address] Mar, [address] 340B [id number], [place] [address] Feb, Decreased appetite R63.0 ; A ltered taste R43.2 ; Type 1 diabetes mellitus with hypoglycemia unawareness E10.649 and History of diabetic gastroparesis Z86.39 [facility] [place] [address] [id number] [place] [address] Feb, [facility] [address] 340B [id number] [place] [address] Feb, [facility] RIGO [address] 340B [id number] [place] [address] 14 Feb, [address] 340B [id number] [place] [address] Feb, Moderate depressive disorder F32.9 and Left hip pain M25.552 [facility] [address] 340B [id number] [place] [address] Jan, [address] 340B [id number] [place] [address] Jan, Type 2 diabetes mellitus wit hout complication, unspecified whether senior living insulin use E11.9 [facility] R[facility] [address] 340B [id number] [place] [address] Jan, [address] 340B [id number] [place] [address] Jan, Open bite of left wrist, ini tial encounter S61.552A ; Bitten by cat, initial encounter W55.01XA ; Cigarette nicotine dependence without complication F17.210 and Encounter for immunization Z23 [facility] [address] 340B [id number] [place] [address] 06 Jan, 2019 Aneurysm artery, iliac commo n I72.3 ; Adrenal nodule E27.9 ; Encounter for Medicare annual wellness exam Z00.00 ; Essential hypertension I10 ; Type 2 diabetes mellitus without complication, unspecified whether senior living insulin use E11.9 ; COPD (chronic obstructive pulmonary disease) J44.9 and Adrenal adenoma, unspecified laterality D35.00 [facility] RIG[facility] [address] 340B [id number] [place] [address] Jan, COPD (chronic obstructive pu lmonary disease) J44.9 [facility] [address] [id number] [place] [address] Jan, [facility] RIG[place] [address] 340B [id number] [place] [address] Dec, [facility] [address] 340B [id number] [place] [address] Dec, [facility] [address] 340B [id number] [place] [address] Dec, Adrenal nodule E27.9 [facility] KEE [address] [id number] [place] [address] Dec, [facility] KEE [address] [id number] [place] [address] Dec, [facility] [address] 340B [id number] [place] [address] Dec, Encounter for Medicare annua l wellness exam Z00.00 ; Essential hypertension I10 ; Type 2 diabetes mellitus without complication, unspecified whether long term care social worker insulin use E11.9 ; COPD (chronic obstructive pulmonary disease) J44.9 ; Aneurysm artery, 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 and Adrenal adenoma, unspecified laterality D35.00 [facility] [address] 340B [id number] [place] [address] Dec, [facility] [address] 340B [id number], [place] [address] Dec, Essential hypertension I10 [facility] [address] 340B [id number] [place] [address] Dec, Essential hypertension I10 [facility] [address] [id number] [place] [address] Dec, [facility] [address] 340B [id number] [place] [address] Dec, [facility] [address] 340B [id number], [place] [address] Dec, Injury of right index finger , initial encounter S69.91XA [facility] [address] [facility] [id number] [address] [place] [address] Dec, [facility] [address] [facility] [id number] [address] [place] [address] Dec, [facility] RIGO [address] 340B [id number] [place] [address] Dec, [address] 340B [id number] [place] [address] Dec, [facility] [address] [facility] [id number] [address] [place] [address] Nov, [address] 340B [id number] [place] [address] Nov, [address] 340B [id number], [place] [address] Nov, Type 2 diabetes mellitus ramon ated with insulin E11.9 ; Tobacco abuse Z72.0 and Type 1 diabetes mellitus with hypoglycemia unawareness E10.[address] 340 [id number], [place] [address] Nov, [facility] [address] [facility] [id number] [address] [place] [address] Nov, [facility] [address] [facility] [id number] [address] [place] [address] Nov, [address] 340B [id number], [place] [address] Nov, [address] 340B [id number], [place] [address] Nov, Strain of left ankle, initia l encounter S96.912A [address] 340B [id number], [place] [address] Nov, Tobacco abuse Z72.0 ; Type 1 diabetes mellitus with hypoglycemia unawareness E10.649 ; Type 1 diabetes mellitus with other specified complication E10.69 ; History of diabetic gastroparesis Z86.39 ; History of diabetes with ketoacidosis Z86.39 ; Needle phobia F40.298 ; Risk for falls Z91.81 and Lives alone Z60.2 [facility] [address] 340B [id number] [place] [address] Nov, Type 2 diabetes mellitus wit hout complication, unspecified whether senior living insulin use E11.9 ; COPD (chronic obstructive pulmonary disease) J44.9 ; Essential hypertension I10 ; Encounter for immuni zation Z23 and Cervical pain (neck) M54.2 [facility] RIGO [address] 340B [id number] [place] [address] Nov, Cervical pain (neck) M54.2 a nd Lumbar pain M54.5 [facility] RIGO MARTINEZ [address] 340B [id number] [place] [address] Oct, Diabetic polyneuropathy asso ciated with type 2 diabetes mellitus E11.42 [facility] RIGO MARTINEZ [address] 340B [id number] [place] [address] Sep, [facility] RIGO MARTINEZ [address] 340B [id number] [place] [address] Sep, Aneurysm of iliac artery I72 .3 ; Adrenal nodule E27.9 ; Diabetic polyneuropathy associated with type 2 diabetes mellitus E11.42 ; Sciatica of left side M54.32 and Lesion of right ear H93.91 [facility] RIGO MARTINEZ [address] 340B [id number] [place] [address] Sep, Diabetic polyneuropathy asso ciated with type 2 diabetes mellitus E11.42 and Type 2 diabetes mellitus treated with insulin E11.9 [facility] RIGO MARTINEZ [address] 340B [id number] [place] [address] Aug, [facility] RIGO MARTINEZ [address] 340B [id number] [place] [address] Aug, Diabetic polyneuropathy asso ciated with type 2 diabetes mellitus E11.42 [facility] RIGO MARTINEZ [address] 340B [id number] [place] [address] Aug, [facility] RIG[place] [address] 340B [id number] [place] [address] Aug, [facility] [address] 340B [id number] [place] [address] Jul, Ear lesion H93.90 [facility] RIGO MARTINEZ [address] 340B [id number] [place] [address] June, Type 2 diabetes mellitus ramon ated with insulin E11.9 and Panlobular emphysema J43.1 [facility] RIGO MARTINEZ [address] 340B [id number], [place] [address] June, Type 2 diabetes mellitus wit hout complication, unspecified whether long term care social worker insulin use E11.9 [facility] R[facility] [address] 340B [id number] [place] [address] Apr, Type 2 diabetes mellitus ramon ated with insulin E11.9 [facility] [address] [facility] [id number] [address] [place] [address] Apr, [facility] [address] [id number] [place] [address] Apr, Type 2 diabetes mellitus wit hout complication, unspecified whether long term care social worker insulin use E11.9 ; Uncontrolled blood glucose R73.09 and Nausea R11.0 [facility] RIGO MARTINEZ [address] 340B [id number], [place] [address] Apr, [facility] RIGO MARTINEZ [address] 340B [id number], [place] [address] Apr, [facility] RIGO MARTINEZ [address] 340B [id number], [place] [address] Mar, [facility] RIGO MARTINEZ [address] 340B [id number], [place] [address] Mar, [facility] RIGO MARTINEZ [address] 340B [id number], [place] [address] Mar, Type 2 diabetes mellitus wit hout complication, unspecified whether senior living insulin use E11.9 ; Essential hypertension I10 ; Bipolar disorder, unspecified F31.9 and Pelvic pain in male R10.2 [facility] RIGO MARTINEZ [address] 340B [id number] [place] [address] Mar, Type 2 diabetes mellitus wit hout complication, unspecified whether long term care social worker insulin use E11.9 and Essential hypertension I10 [facility] MAIN [address] [facility] 340B [id number] [address] Feb, [facility] [address] [id number] [address] [place] [address] 14 May, 2014 [facility] [address] [id number] [address] [place] [address] May, [facility] [address] [id number] [address] [place] [address] Aug, [facility] [address] [id number] [address] [place] [address] Aug, [facility] [address] [id number] [address] [place] [address] Aug, [facility] [address] [id number] [address] [place] [address] Aug, [facility] [address] [id number] [address] [place] [address] Aug, [facility] [address] [id number] [address] [place] [address] Aug, [facility] [address] [id number] [address] [place] [address] Aug, [facility] [address] [id number] [address] [place] [address] Aug, [facility] [address] [id number] [address] [place] [address] Jul, [facility] [address] [id number] [address] [place] [address] Jul, [facility] [address] [id number] [address] [place] [address] June, [facility] [address] [id number] [address] [place] [address], [place] [address] June, [facility] [address] [id number] [address] [place] [address], [place] [address] Mar, [facility] [address] [id number] [address] [place] [address], [place] [address] Mar, [facility] [address] [id number] [address] [place] [address], [place] [address] Feb, [facility] [address] [id number] [address] [place] [address], [place] [address] Feb, [facility] [address] [id number] [address] [place] [address], [place] [address] Feb, [facility] [address] [id number] [address] [place] [address], [place] [address] Feb, [facility] [address] [id number] [address] [place] [address], [place] [address] Oct, [facility] [address] [id number] [address] [place] [address], [place] [address] Sep, [facility] [address] [id number] [address] [place] [address], [place] [address] Aug, [facility] [address] [id number] [address] [place] [address], [place] [address] Jul, [facility] [address] [id number] [address] [place] [address], [place] [address] Jul, [facility] [address] [id number] [address] [place] [address], [place] [address] Jul, [facility] [address] [id number] [address] [place] [address], [place] [address] Jul, [facility] [address] [id number] [address] [place] [address], [place] [address] Apr, [facility] [address] [id number] [address] [place] [address], [place] [address] Apr, [facility] [address] [id number] [address] [place] [address], [place] [address] Mar, [facility] [address] [id number] [address] [place] [address], [place] [address] Mar, [facility] [address] [id number] [address] [place] [address], [place] [address] Feb, [facility] [address] [id number] [address] [place] [address], [place] [address] Feb, [facility] [address] [id number] [address] [place] [address], [place] [address] Jan, [facility] [address] [id number] [address] [place] [address], [place] [address] Jan, [facility] [address] [id number] [address] [place] [address], [place] [address] Dec, [facility] [address] [id number] [address] [place] [address], [place] [address] Dec, [facility] [address] [id number] [address] [place] [address], [place] [address] Dec, [facility] [address] [id number] [address] [place] [address], [place] [address] Dec, [facility] [address] [id number] [address] [place] [address], [place] [address] Nov, [facility] [address] [id number] [address] [place] [address], [place] [address] 27 Oct, 2011 [facility] [address] [id number] [address] [place] [address], [place] [address] 07 Oct, 2011 [facility] [address] [id number] [address] [place] [address], [place] [address] 06 Oct, 2011 [facility] [address] [id number] [address] [place] [address], [place] [address] Aug, [facility] [address] [id number] [address] [place] [address] Aug, [facility] [address] [id number] [address] [place] [address] Jul, [facility] [address] [id number] [address] [place] [address] Jul, [facility] [address] [id number] [address] [place] [address] Jul, [facility] [address] [id number] [address] [place] [address] Jul, [facility] [address] [id number] [address] [place] [address] Jul, [facility] [address] [id number] [address] [place] [address] Jul, [facility] [address] [id number] [address] [place] [address] Jul, [facility] [address] [id number] [address] [place] [address] June, [facility] [address] [id number] [address] [place] [address] June, [facility] [address] [id number] [address] [place] [address] June, [facility] [address] [id number] [address] [place] [address] May, [facility] [address] [id number] [address] [place] [address] Apr, IMMUNIZATIONS No Known Immunizations SOCIAL HISTORY Never Assessed REASON FOR VISIT [facility] follow up PLAN OF CARE Activity Details Follow Up has Reason: VITAL SIGNS Height 66.5 in 2018-05-07 Weight 150 lbs 2018-05-07 BMI 23.85 kg/m2 2018-05-07 Blood pressure systolic 120 mmHg 2018-05-07 Blood pressure diastolic 74 mmHg 2018-05-07 MEDICATIONS Medication Instructions Dosage Frequency Start Date End Date Duration S tatus Test strips test 4-5 times per day Active Oxygen Active Tresiba FlexTouch 100 UNIT/ML Subcutaneous Once a day 29 units 24h Active Amitriptyline HCl 25 MG Orally at bedtime 1 tablet 30 day(s) Active citalopram 40 mg by oral route Once a day 1 tablet 24h Aug, Active Lipitor 40 MG Orally at bedtime 1 Tablet by Oral route 1 time per d ay Sep, Active Aspirin 81 81 MG Orally Once a day 1 tablet 24h 30 d ay(s) Active Pantoprazole Sodium 40 MG Orally Once a day 1 tablet 24h 30 days Active Ventolin HFA 108 (90 Base) MCG/ACT Inhalation every 6 hrs 2 puffs a s needed 6h Active NovoLog Flexpen 100 UNIT/ML INJECT 10 UN ITS SUBCUTANEOUSLY WITH MEALS PLUS SLIDING SCALE DOSING UP TO 10 PER DAY 60 Active [place] Carbonate 300 mg Orally 2 times a day 1 Capsule by O ral route 1 time per day qAM2 Capsule by Oral route 1 time per day qHS 12h Aug, Active Cyclobenzaprine HCl 10 MG Orally TID PRN 1 tablet as needed Active trazodone 150 mg by oral route at bedtime 1 Tablet by Ora l route 1 time per day at bedtime Aug, Active Propranolol HCl 20 MG Orally 2 times a day 1 tablet on an empty stomac h 12h 30 day(s) Active RESULTS No Results PROCEDURES Procedure Date Ordered Result Body Site [facility] VISIT ESTABLISHED PATIENT May 07, 2018 INSTRUCTIONS MEDICATIONS ADMINISTERED No Known Medications MEDICAL [...] History blood sugar, dehydration Hospitalization History [facility], [place], [place]
--- OUTSIDE RECORDS SUMMARY | 2019-08-22 09:35 | XMS REPORT ---
Author Author Rodolfo Santamaria Organization [facility][1] Address [address] [place] [address] Care Team Providers Care Form Setter Name Role Phone HinaRYANEN Unavailable PROBLEMS Type Condition ICD9-CM Code XAS90-ZZ Code Onset Dates Condition S tatus SNOMED Code Problem COPD (chronic obstructive pulmonary disease) J44.9 Active 74611422 Problem Hyperglycemia R73.9 Active 493693 07 Problem Tobacco abuse Z72.0 Active 860260 05 Problem Tubular adenoma of colon D12.6 Activ e 017886329 Problem Hyperlipemia E78.5 Active 2805209 4 Problem Bipolar 2 disorder F31.81 Active 8 5360161 Problem Hypoxia R09.02 Active 018644168 Problem Cigarette nicotine dependence without complication F17.210 Active 95552999 Problem Panlobular emphysema J43.1 Active 0237295 Problem Type 1 diabetes mellitus with other specified complication E10.69 Active 76759638 Problem Hypertension I10 Active 4769804 3 Problem Type 2 diabetes mellitus treated with insulin E11. 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 Activ e 89245888 Problem Diabetic polyneuropathy associated with type 2 d iabetes mellitus E11.42 Active 140629596 Problem Sciatica of left side M54.32 Active 31508332 Problem Aneurysm artery, 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 Active 77131650 Problem Essential hypertension I10 Active 69204816 Problem History of diabetic gastroparesis Z86.39 Active 240333089 Problem History of diabetes with ketoacidosis Z86.39 Active 952761435 Problem Needle phobia F40.298 Active 947397 003 Problem Type 1 diabetes mellitus with hypoglycemia unawareness E10.649 Active Problem Moderate depressive disorder F32.9 A ctive 598041157 Problem Altered taste R43.2 Active 435043 2702208 Problem Decreased appetite R63.0 Active 6 8178679 Problem Insulin pump titration Z46.81 Active 597056554 Problem Hyperosmolar hyponatremia E87.1 Acti ve 185566082 Problem Insulin pump in place Z96.41 Active 524567520 Problem Adrenal nodule E27.9 Active 30413 000 Problem Type 2 diabetes mellitus wit hout complication, unspecified 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 Active 160442424 Problem Generalized anxiety disorder F41.1 A ctive 00522065 Problem Seasonal allergic rhinitis, unspecified trigger J3 0.2 Active 638874565 Problem History of right hip replacement Z96.641 Active 6603299934474755 Problem Minimal depression F32.9 Active 7 72410094 ALLERGIES No Information ENCOUNTERS Encounter Location Date Diagnosis [address] 340 [id number] [address] 17 Jul, [address] 340 [id number] [place] [address] Jul, [address] [id number] [address] June, Superficial foreign body of other part of head, subsequent encounter S00.85XD and Minimal depression F32.[address] 340 [id number] [place] [address] June, Type 1 diabetes mellitus wit h hypoglycemia unawareness E10.649 ; Insulin pump in place Z96.41 and Insulin pump titration Z46.[address] [id number] [place] [address] June, [facility] [address] [id number] [place] [address] May, Type 1 diabetes mellitus with hypoglycem ia unawareness E10.649 [facility] [address] [facility] [id number] 100[place] [address] Apr, Foreign body head S00.95XA [address] 340B [id number] [place] [address] Apr, Pain of left hip joint M25.5 52 ; History of osteoarthritis Z87.39 and History of right hip replacement Z96.[address] [id number] [place] [address] Apr, Aneurysm artery, iliac commo n I72.3 ; COPD (chronic obstructive pulmonary disease) J44.9 ; Bipolar 2 disorder F31.81 ; Type 2 diabetes mellitus without complication, unspecified whether senior care insulin use E11.9 ; Seasonal allergic rhinitis, unspecified trigger J30.2 and Burn T30.[address] 340B [id number] [place] [address] Apr, Type 1 diabetes mellitus wit h hypoglycemia unawareness E10.[address] [id number] [address] Mar, [address] 340B [id number] [place] [address] Mar, Generalized anxiety disorder F41.1 ; Bipolar 2 disorder F31.81 and Suicidal behavior R46.[address] [id number] [place] [address] Mar, [place] [address] [id number] [address] Mar, [place] [address] [id number] [place] [address] Mar, [facility] [address] [facility] [id number] [address] [place] [address] Mar, [address] [id number], [place] [address] Mar, Type 1 diabetes mellitus with hypoglycem ia unawareness E10.649 and Suicidal ideations R45.[address] 340B [id number] [place] [address] Mar, [facility] [address] [facility] [id number] [address] [place] [address] Mar, [facility] [address] [id number] [place] [address] 07 Mar, 2019 [facility] [address] 340B [id number] [place] [address] 03 Mar, 2019 [facility] [address] 340B [id number] [place] [address] Feb, Decreased appetite R63.0 ; A ltered taste R43.2 ; Type 1 diabetes mellitus with hypoglycemia unawareness E10.649 and History of diabetic gastroparesis Z86.39 [facility] [address] [id number] [place] [address] Feb, [facility] [address] 340B [id number] [place] [address] Feb, [address] 340B [id number] [place] [address] Feb, [address] 340B [id number] [place] [address] Feb, Moderate depressive disorder F32.9 and Left hip pain M25.[address] 340B [id number] [place] [address] Jan, [address] 340B [id number] [place] [address] Jan, Type 2 diabetes mellitus wit hout complication, unspecified whether senior care insulin use E11.9 [facility] [address] 340B [id number] [place] [address] Jan, [address] 340B [id number] [place] [address] Jan, Open bite of left wrist, ini tial encounter S61.552A ; Bitten by cat, initial encounter W55.01XA ; Cigarette nicotine dependence without complication F17.210 and Encounter for immunization Z23 [facility] [address] 340B [id number] [place] [address] Jan, Aneurysm artery, iliac commo n I72.3 ; Adrenal nodule E27.9 ; Encounter for Medicare annual wellness exam Z00.00 ; Essential hypertension I10 ; Type 2 diabetes mellitus without complication, unspecified 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 ; COPD (chronic obstructive pulmonary disease) J44.9 and Adrenal adenoma, unspecified laterality D35.00 [facility] [address] [id number] [address] Jan, COPD (chronic obstructive pu lmonary disease) J44.9 [facility] [address] [id number] [place] [address] Jan, [facility] [address]B [id number] [place] [address] Dec, [facility] [address] 340B [id number] [place] [address] Dec, [facility] [address] [id number] [place] [address] Dec, Adrenal nodule E27.9 [facility] [place] [address] [id number] [place] [address] Dec, [facility] [address] [id number] [place] [address] Dec, [facility] [address] 340B [id number] [place] [address] Dec, Encounter for Medicare annua l wellness exam Z00.00 ; Essential hypertension I10 ; Type 2 diabetes mellitus without complication, unspecified whether senior care insulin use E11.9 ; COPD (chronic obstructive pulmonary disease) J44.9 ; Aneurysm artery, 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 and Adrenal adenoma, unspecified laterality D35.00 [facility] [address] 340B [id number] [place] [address] Dec, [facility] [address] 340B [id number] [place] [address] Dec, Essential hypertension I10 [facility] [address] 340B [id number] [place] [address] Dec, Essential hypertension I10 [facility] [place] [address] [id number] [place] [address] Dec, [facility] [address] 340B [id number] [place] [address] Dec, [facility] [address] 340B [id number] [place] [address] Dec, Injury of right index finger , initial encounter S69.91XA [facility] [place] [address] [facility] [id number] [address] [place] [address] Dec, [facility] [place] [address] [facility] [id number] [address] [place] [address] Dec, [facility] [address] 340B [id number] [place] [address] Dec, [facility] [address] 340B [id number] [place] [address] Dec, [facility] [place] [address] [facility] [id number] [address] [place] [address] Nov, [facility] [address] 340B [id number] [place] [address] Nov, [facility] [address] 340B [id number] [place] [address] Nov, Type 2 diabetes mellitus ramon ated with insulin E11.9 ; Tobacco abuse Z72.0 and Type 1 diabetes mellitus with hypoglycemia unawareness E10.649 [facility] [address] 340B [id number] [place] [address] Nov, [facility] [place] [address] [facility] [id number] [address] [place] [address] Nov, [facility] [place] [address] [facility] [id number] [address] [place] [address] Nov, [facility] [address] 340B [id number] [place] [address] Nov, [address] 340 [id number] [place] [address] Nov, Strain of left ankle, initia l encounter S96.912A [address] 340 [id number] [place] [address] Nov, Tobacco abuse Z72.0 ; Type 1 diabetes mellitus with hypoglycemia unawareness E10.649 ; Type 1 diabetes mellitus with other specified complication E10.69 ; History of diabetic gastroparesis Z86.39 ; History of diabetes with ketoacidosis Z86.39 ; Needle phobia F40.298 ; Risk for falls Z91.81 and Lives alone Z60.[address] [id number] [address] Nov, Type 2 diabetes mellitus wit hout complication, unspecified whether senior care insulin use E11.9 ; COPD (chronic obstructive pulmonary disease) J44.9 ; Essential hypertension I10 ; Encounter for immuni zation Z23 and Cervical pain (neck) M54.[address] 340 [id number] [place] [address] Nov, Cervical pain (neck) M54.2 a nd Lumbar pain M54.[address] [id number] [place] [address] Oct, Diabetic polyneuropathy asso ciated with type 2 diabetes mellitus E11.[address] 340 [id number] [place] [address] Sep, [address] [id number] [place] [address] Sep, Aneurysm of iliac artery I72 .3 ; Adrenal nodule E27.9 ; Diabetic polyneuropathy associated with type 2 diabetes mellitus E11.42 ; Sciatica of left side M54.32 and Lesion of right ear H93.[address] 340B [id number] [place] [address] Sep, Diabetic polyneuropathy asso ciated with type 2 diabetes mellitus E11.42 and Type 2 diabetes mellitus treated with insulin E11.9 [facility] [address] 340B [id number] [place] [address] Aug, [facility] [address] 340B [id number] [place] [address] Aug, Diabetic polyneuropathy asso ciated with type 2 diabetes mellitus E11.42 [facility] [address] 340B [id number] [place] [address] Aug, [facility] [address] 340B [id number] [place] [address] Aug, [facility] [address] 340B [id number] [place] [address] Jul, Ear lesion H93.90 [facility] [address] 340B [id number] [place] [address] June, Type 2 diabetes mellitus ramon ated with insulin E11.9 and Panlobular emphysema J43.1 [facility] [address] 340B [id number] [place] [address] June, Type 2 diabetes mellitus wit hout complication, unspecified whether senior care insulin use E11.9 [facility] [address] 340B [id number] [place] [address] Apr, Type 2 diabetes mellitus ramon ated with insulin E11.9 [facility] [address] [facility] [id number] 100[place] [address] Apr, [facility] [address] [id number] [place] [address] Apr, Type 2 diabetes mellitus wit hout complication, unspecified whether senior care insulin use E11.9 ; Uncontrolled blood glucose R73.09 and Nausea R11.0 [facility] [address] 340B [id number] [place] [address] Apr, [facility] [place] [address] 340B [id number] [place] [address] Apr, [facility] [address] 340B [id number] [place] [address] Mar, [facility] [address] 340B [id number] [place] [address] Mar, [facility] [address] [id number] [place] [address] Mar, Type 2 diabetes mellitus wit hout complication, unspecified whether senior care insulin use E11.9 ; Essential hypertension I10 ; Bipolar disorder, unspecified F31.9 and Pelvic pain in male R10.2 [facility] [address] 340B [id number] [place] [address] Mar, Type 2 diabetes mellitus wit hout complication, unspecified whether senior care insulin use E11.9 and Essential hypertension I10 [facility] [address] [id number] [place] [address] Feb, [facility] [address] [id number] [address] [place] [address] May, [facility] [address] [id number] [address] [place] [address] May, [facility] [address] [facility] [id number] [address] [place] [address] Aug, [facility] [address] [id number] [address] [place] [address] Aug, [facility] [address] [id number] [address] [place] [address] Aug, [facility] [address] [id number] [address] [place] [address] Aug, [facility] [address] [id number] [address] [place] [address] Aug, [facility] [address] [id number] [address] [place] [address] Aug, [facility] [address] [id number] [address] [place] [address], [place] [address] 07 Aug, 2013 [facility] [address] [id number] [address] [place] [address], [place] [address] Aug, [facility] [address] [id number] [address] [place] [address], [place] [address] Jul, [facility] [address] [id number] [address] [place] [address], [place] [address] Jul, [facility] [address] [id number] [address] [place] [address], [place] [address] June, [facility] [address] [id number] [address] [place] [address], [place] [address] June, [facility] [address] [id number] [address] [place] [address], [place] [address] Mar, [facility] [address] [id number] [address] [place] [address], [place] [address] Mar, [facility] [address] [id number] [address] [place] [address], [place] [address] Feb, [facility] [address] [id number] [address] [place] [address], [place] [address] Feb, [facility] [address] [id number] [address] [place] [address], [place] [address] Feb, [facility] [address] [id number] [address] [place] [address], [place] [address] Feb, [facility] [address] [id number] [address] [place] [address], [place] [address] Oct, [facility] [address] [id number] [address] [place] [address], [place] [address] Sep, [facility] [address] [id number] [address] [place] [address], [place] [address] Aug, [facility] [address] [id number] [address] [place] [address], [place] [address] Jul, [facility] [address] [id number] [address] [place] [address], [place] [address] Jul, [facility] [address] [id number] [address] [place] [address], [place] [address] Jul, [facility] [address] [id number] [address] [place] [address], [place] [address] Jul, [facility] [address] [id number] [address] [place] [address], [place] [address] Apr, [facility] [address] [id number] [address] [place] [address], [place] [address] Apr, [facility] [address] [id number] [address] [place] [address], [place] [address] Mar, [facility] [address] [id number] [address] [place] [address], [place] [address] Mar, [facility] [address] [id number] [address] [place] [address], [place] [address] Feb, [facility] [address] [id number] [address] [place] [address], [place] [address] Feb, [facility] [address] [id number] [address] [place] [address], [place] [address] Jan, [facility] [address] [id number] [address] [place] [address], [place] [address] Jan, [facility] [address] [id number] [address] [place] [address], [place] [address] Dec, [facility] [address] [id number] [address] [place] [address], [place] [address] Dec, [facility] [address] [id number] [address] [place] [address], [place] [address] Dec, [facility] [address] [id number] [address] [place] [address], [place] [address] Dec, [facility] [address] [id number] [address] [place] [address] 08 Nov, 2011 [facility] [address] [id number] [address] [place] [address], [place] [address] 27 Oct, 2011 [facility] [address] [id number] [address] [place] [address], [place] [address] 07 Oct, 2011 [facility] [address] [id number] [address] [place] [address], [place] [address] 06 Oct, 2011 [facility] [address] [id number] [address] [place] [address], [place] [address] 29 Aug, 2011 [facility] [address] [id number] [address] [place] [address], [place] [address] Aug, [facility] [address] [id number] [address] [place] [address], [place] [address] Jul, [facility] [address] [id number] [address] [place] [address], [place] [address] Jul, [facility] [address] [id number] [address] [place] [address], [place] [address] Jul, [facility] [address] [id number] [address] [place] [address], [place] [address] Jul, [facility] [address] [id number] [address] [place] [address], [place] [address] Jul, [facility] [address] [id number] [address] [place] [address], [place] [address] Jul, [facility] [address] [id number] [address] [place] [address], [place] [address] Jul, [facility] [address] [id number] [address] [place] [address], [place] [address] June, [facility] [address] [id number] [address] [place] [address], [place] [address] June, [facility] [address] [id number] [address] [place] [address], [place] [address] June, [facility] [address] [facility] [id number] [place] [address] May, [facility] [address] [facility] [id number] [place] [address] Apr, IMMUNIZATIONS No Known Immunizations SOCIAL HISTORY [...] dehydration Hospitalization History [facility], [place], [place] PAT[place]
--- OUTSIDE RECORDS SUMMARY | 2019-08-22 09:35 | XMS REPORT ---
Author Author Rodolfo Santamaria Organization [facility] Address [address] [place] [address] Care Team Providers Care Structural Draftsman Name Role Phone Hina TAMELA Unavailable PROBLEMS Type Condition ICD9-CM Code GCF01-FX Code Onset Dates Condition S tatus SNOMED Code Problem Panlobular emphysema J43.1 Active 9385159 Problem Type 2 diabetes mellitus treated with insulin E11. 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 Activ e 75605079 Problem Tobacco abuse Z72.0 Active 043591 05 Problem COPD (chronic obstructive pulmonary disease) J44.9 Active 34092538 Problem Hyperlipemia E78.5 Active 7775450 4 Problem Hyperglycemia R73.9 Active 598566 07 Problem Type 1 diabetes mellitus with hypoglycemia unawareness E10.649 Active Problem History of diabetic gastroparesis Z86.39 Active 084079895 Problem Hypertension I10 Active 1015065 3 Problem Hyperosmolar hyponatremia E87.1 Acti ve 883456280 Problem Bipolar 2 disorder F31.81 Active 8 1657667 Problem Sciatica of left side M54.32 Active 29303235 Problem Type 2 diabetes mellitus wit hout complication, unspecified whether fdc insulin use E11.9 Active 250992377 Problem Aneurysm artery, 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 Active 31334860 Problem Diabetic polyneuropathy associated with type 2 d iabetes mellitus E11.42 Active 602934371 Problem Type 1 diabetes mellitus with other specified complication E10.69 Active 17694873 Problem Essential hypertension I10 Active 38197691 Problem Needle phobia F40.298 Active 551460 003 Problem History of diabetes with ketoacidosis Z86.39 Active 584848609 Problem Cigarette nicotine dependence without complication F17.210 Active 92603035 Problem Seasonal allergic rhinitis, unspecified trigger J3 0.2 Active 603839254 Problem Tubular adenoma of colon D12.6 Activ e 907972691 Problem History of right hip replacement Z96.641 Active 9835746346896382 Problem Adrenal nodule E27.9 Active 96450 000 Problem Hypoxia R09.02 Active 021398372 Problem Moderate depressive disorder F32.9 A ctive 091577344 Problem Altered taste R43.2 Active 311651 7748380 Problem Decreased appetite R63.0 Active 6 2078371 Problem Generalized anxiety disorder F41.1 A ctive 58136202 ALLERGIES No Information ENCOUNTERS Encounter Location Date Diagnosis [address] [id number] [address] Jul, [facility] [address] [id number] [place] [address] May, Type 1 diabetes mellitus with hypoglycem ia unawareness E10.649 [facility] [place] [address] [facility] [id number] [address] [place] [address] Apr, Foreign body head S00.95XA [address] [id number], [place] [address] Apr, Pain of left hip joint M25.5 52 ; History of osteoarthritis Z87.39 and History of right hip replacement Z96.[address] [id number], [place] [address] Apr, Aneurysm artery, iliac commo n I72.3 ; COPD (chronic obstructive pulmonary disease) J44.9 ; Bipolar 2 disorder F31.81 ; Type 2 diabetes mellitus without complication, unspecified whether fdc insulin use E11.9 ; Seasonal allergic rhinitis, unspecified trigger J30.2 and Burn T30.[address] [id number], [place] [address] Apr, Type 1 diabetes mellitus wit h hypoglycemia unawareness E10.[address] 340[address] 16307717AMADAM[place], [place] [address] Mar, [address] [id number], [place] [address] Mar, Generalized anxiety disorder F41.1 ; Bipolar 2 disorder F31.81 and Suicidal behavior R46.89 [facility] [address] [id number] [place] [address] Mar, [address] 340[address] [id number], [place] [address] Mar, [address] [id number] [place] [address] Mar, [facility] [place] [address] [facility] [id number] [address] [place] [address] Mar, [facility] [address] [id number] [place] [address] Mar, Type 1 diabetes mellitus with hypoglycem ia unawareness E10.649 and Suicidal ideations R45.[address] 340[address] [id number], [place] [address] Mar, [facility] [place] [address] [facility] [id number] [place] [address] Mar, [facility] [address] [id number], [place] [address] Mar, [address] 340[address] [id number], [place] [address] Mar, [address] 340[address] [id number], [place] [address] Feb, Decreased appetite R63.0 ; A ltered taste R43.2 ; Type 1 diabetes mellitus with hypoglycemia unawareness E10.649 and History of diabetic gastroparesis Z86.39 [facility] [address] [id number], [place] [address] Feb, [address] 340[address] [id number], [place] [address] Feb, [address] 340[address] 58859154QKADAMSVIL[place], [place] [address] Feb, [address] [id number] [place] [address] Feb, Moderate depressive disorder F32.9 and Left hip pain M25.552 [facility] [address] [id number] [place] [address] Jan, [facility] [address] [id number] [place] [address] Jan, Type 2 diabetes mellitus wit hout complication, unspecified whether fdc insulin use E11.9 [facility] [address] 340[address] [id number] [place] [address] Jan, [facility] [address] 340[address] [id number], [place] [address] Jan, Open bite of left wrist, ini tial encounter S61.552A ; Bitten by cat, initial encounter W55.01XA ; Cigarette nicotine dependence without complication F17.210 and Encounter for immunization Z23 [facility] [address] 340[address] [id number] [place] [address] Jan, Aneurysm artery, iliac commo n I72.3 ; Adrenal nodule E27.9 ; Encounter for Medicare annual wellness exam Z00.00 ; Essential hypertension I10 ; Type 2 diabetes mellitus without complication, unspecified whether fdc insulin use E11.9 ; COPD (chronic obstructive pulmonary disease) J44.9 and Adrenal adenoma, unspecified laterality D35.00 [facility] [address] 340[address] [id number] [place] [address] Jan, COPD (chronic obstructive pu lmonary disease) J44.9 [facility] [place] [address] [id number] [place] [address] Jan, [facility] [address] 340[address] [id number] [place] [address] Dec, [facility] [address] 340[address] [id number] [place] [address] Dec, [facility] [address] 340[address] [id number] [place] [address] Dec, Adrenal nodule E27.9 [facility] [address] [id number] [place] [address] Dec, [facility] [address] [id number] [place] [address] Dec, [facility] [address] [id number] [place] [address] Dec, Encounter for Medicare annua l wellness exam Z00.00 ; Essential hypertension I10 ; Type 2 diabetes mellitus without complication, unspecified whether fdc insulin use E11.9 ; COPD (chronic obstructive pulmonary disease) J44.9 ; Aneurysm artery, 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 and Adrenal adenoma, unspecified laterality D35.00 [facility] [address] 340[address] [id number] [place] [address] Dec, [facility] [address] 340[address] [id number], [place] [address] Dec, Essential hypertension I10 [facility] [address] 340[address] [id number] [place] [address] Dec, Essential hypertension I10 [facility] [address] [id number] [place] [address] Dec, [facility] [address] [id number] [place] [address] Dec, [facility] [address] [id number] [place] [address] Dec, Injury of right index finger , initial encounter S69.91XA [facility] [place] [address] [facility] [id number] [address] [place] [address] Dec, [facility] [place] [address] [facility] [id number] [address] [place] [address] Dec, [facility] [address] 340[address] [id number] [place] [address] Dec, [address] 340[address] [id number] [place] [address] Dec, [facility] [place] [address] [facility] [id number] [address] [place] [address] Nov, [address] 340[address] [id number] [place] [address] Nov, [address] 340 [id number], [place] [address] Nov, Type 2 diabetes mellitus ramon ated with insulin E11.9 ; Tobacco abuse Z72.0 and Type 1 diabetes mellitus with hypoglycemia unawareness E10.[address] 340 [id number], [place] [address] Nov, [facility] [place] [address] [facility] [id number] [address] [place] [address] Nov, [facility] [place] [address] [facility] [id number] [address] [place] [address] Nov, [address] 340[address] [id number], [place] [address] Nov, [address] 340 [id number], [place] [address] Nov, Strain of left ankle, initia l encounter S96.912A [address] 340 [id number] [address] Nov, Tobacco abuse Z72.0 ; Type 1 diabetes mellitus with hypoglycemia unawareness E10.649 ; Type 1 diabetes mellitus with other specified complication E10.69 ; History of diabetic gastroparesis Z86.39 ; History of diabetes with ketoacidosis Z86.39 ; Needle phobia F40.298 ; Risk for falls Z91.81 and Lives alone Z60.[address] 340[address] [id number], [place] [address] Nov, Type 2 diabetes mellitus wit hout complication, unspecified whether terminal makeup operator insulin use E11.9 ; COPD (chronic obstructive pulmonary disease) J44.9 ; Essential hypertension I10 ; Encounter for immuni zation Z23 and Cervical pain (neck) M54.2 [facility] [address] 340[address] [id number] [place] [address] 04 Nov, 2018 Cervical pain (neck) M54.2 a nd Lumbar pain M54.5 [facility] MARTINEZ [address] 340[address] [id number] [place] [address] Oct, Diabetic polyneuropathy asso ciated with type 2 diabetes mellitus E11.42 [facility] [address] [id number] [place] [address] Sep, [facility] [address] 340[address] [id number] [place] [address] Sep, Aneurysm of iliac artery I72 .3 ; Adrenal nodule E27.9 ; Diabetic polyneuropathy associated with type 2 diabetes mellitus E11.42 ; Sciatica of left side M54.32 and Lesion of right ear H93.91 [facility] M[place]Z [address] 340B [id number] [place] [address] Sep, Diabetic polyneuropathy asso ciated with type 2 diabetes mellitus E11.42 and Type 2 diabetes mellitus treated with insulin E11.9 [facility] [address] [id number] [place] [address] Aug, [facility] [address] [id number] [place] [address] Aug, Diabetic polyneuropathy asso ciated with type 2 diabetes mellitus E11.42 [facility] [address] [id number] [place] [address] Aug, [facility] [address] [id number] [place] [address] Aug, [facility] [address] [id number] [place] [address] Jul, Ear lesion H93.90 [facility] [address] 340B [id number] [place] [address] June, Type 2 diabetes mellitus ramon ated with insulin E11.9 and Panlobular emphysema J43.1 [facility] MART[address]Z [address] 340B [id number] [place] [address] June, Type 2 diabetes mellitus wit hout complication, unspecified whether terminal makeup operator insulin use E11.9 [facility] [place] [address] 340[address] [id number] [place] [address] Apr, Type 2 diabetes mellitus ramon ated with insulin E11.9 [facility] [place] [address] [facility] [id number] [address] [place] [address] Apr, [facility] WALK IN [facility] [id number] [address] Apr, Type 2 diabetes mellitus wit hout complication, unspecified whether terminal makeup operator insulin use E11.9 ; Uncontrolled blood glucose R73.09 and Nausea R11.0 [facility] [place] [address] 340[address] [id number] [place] [address] Apr, [facility] [place] [address] 340[address] [id number] [place] [address] Apr, [facility] M[place] [address] 340B [id number], [place] [address] Mar, [facility] [place] [address] [id number] [place] [address] Mar, [facility] [place] [address] 340B [id number], [place] [address] Mar, Type 2 diabetes mellitus wit hout complication, unspecified whether fdc insulin use E11.9 ; Essential hypertension I10 ; Bipolar disorder, unspecified F31.9 and Pelvic pain in male R10.2 [facility] M[place]Z [address] 340B [id number], [place] [address] Mar, Type 2 diabetes mellitus wit hout complication, unspecified whether terminal makeup operator insulin use E11.9 and Essential hypertension I10 [facility] M[place] [address] 340B [id number], [place] [address] Feb, [facility] [address] [id number] [address] [place] [address], [place] [address] 14 May, 2014 [facility] [address] [id number] [address] [place] [address], [place] [address] May, [facility] [address] [id number] [address] [place] [address], [place] [address] Aug, [facility] [address] [id number] [address] [place] [address], [place] [address] Aug, [facility] [address] [id number] [address] [place] [address], [place] [address] Aug, [facility] [address] [id number] [address] [place] [address], [place] [address] Aug, [facility] [address] [id number] [address] [place] [address], [place] [address] Aug, [facility] [address] [id number] [address] [place] [address], [place] [address] Aug, [facility] [address] [id number] [address] [place] [address], [place] [address] Aug, [facility] [address] [id number] [address] [place] [address], [place] [address] Aug, [facility] [address] [id number] [address] [place] [address], [place] [address] Jul, [facility] [address] [id number] [address] [place] [address], [place] [address] Jul, [facility] [address] [id number] [address] [place] [address], [place] [address] June, [facility] [address] [id number] [address] [place] [address], [place] [address] June, [facility] [address] [id number] [address] [place] [address], [place] [address] Mar, [facility] [address] [id number] [address] [place] [address], [place] [address] Mar, [facility] [address] [id number] [address] [place] [address], [place] [address] Feb, [facility] [address] [id number] [address] [place] [address], [place] [address] Feb, [facility] [address] [id number] [address] [place] [address], [place] [address] Feb, [facility] [address] [id number] [address] [place] [address], [place] [address] Feb, [facility] [address] [id number] [address] [place] [address], [place] [address] Oct, [facility] [address] [id number] [address] [place] [address], [place] [address] Sep, [facility] [address] [id number] [address] [place] [address], [place] [address] Aug, [facility] [address] [id number] [address] [place] [address], [place] [address] Jul, [facility] [address] [id number] [address] [place] [address], [place] [address] Jul, [facility] [address] [id number] [address] [place] [address], [place] [address] Jul, [facility] [address] [id number] [address] [place] [address], [place] [address] Jul, [facility] [address] [id number] [address] [place] [address], [place] [address] Apr, [facility] [address] [id number] [address] [place] [address], [place] [address] Apr, [facility] [address] [id number] [address] [place] [address], [place] [address] 27 Mar, 2012 [facility] [address] [id number] [address] [place] [address], [place] [address] Mar, [facility] [address] [id number] [address] [place] [address], [place] [address] Feb, [facility] [address] [id number] [address] [place] [address], [place] [address] Feb, [facility] [address] [id number] [address] [place] [address], [place] [address] Jan, [facility] [address] [id number] [address] [place] [address], [place] [address] Jan, [facility] [address] [id number] [address] [place] [address], [place] [address] Dec, [facility] [address] [id number] [address] [place] [address], [place] [address] Dec, [facility] [address] [id number] [address] [place] [address], [place] [address] Dec, [facility] [address] [id number] [address] [place] [address], [place] [address] Dec, [facility] [address] [id number] [address] [place] [address], [place] [address] Nov, [facility] [address] [id number] [address] [place] [address], [place] [address] Oct, [facility] [address] [id number] [address] [place] [address], [place] [address] Oct, [facility] [address] [id number] [address] [place] [address], [place] [address] 06 Oct, 2011 [facility] [address] [id number] [address] [place] [address], [place] [address] Aug, [facility] [address] [id number] [address] [place] [address], [place] [address] Aug, [facility] [address] [id number] [address] [place] [address], [place] [address] Jul, [facility] [address] [id number] [address] [place] [address] Jul, [facility] [place] [address] [id number] [address] [place] [address] Jul, [facility] [place] [address] [id number] [address] [place] [address] Jul, [facility] [place] [address] [id number] [address] [place] [address] Jul, [facility] [place] [address] [id number] [address] [place] [address] Jul, [facility] [place] [address] [id number] [address] [place] [address] Jul, [facility] [place] [address] [id number] [address] [place] [address] June, [facility] [place] [address] [facility] [id number] [address] [place] [address] June, [facility] [place] [address] [id number] [address] [place] [address] June, [facility] [place] [address] [id number] [address] [place] [address] May, [facility] [place] [address] [facility] [id number] [address] [place] [address] Apr, IMMUNIZATIONS No Known Immunizations SOCIAL HISTORY [...] Hospitalization History blood sugar, dehydration Hospitalization History [facility], [place], [place]
--- OUTSIDE RECORDS SUMMARY | 2019-08-22 09:35 | XMS REPORT ---
Author Author Rodolfo Santamaria Organization [facility] Address [address] [place] [address] Care Team Providers Care Ore Trimmer Name Role Phone Hina TAMELA Unavailable PROBLEMS Type Condition ICD9-CM Code [id number] Code Onset Dates Condition S tatus SNOMED Code Problem Panlobular emphysema J43.1 Active 9391330 Problem Type 2 diabetes mellitus treated with insulin E11. 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 Activ e 59657866 Problem Tobacco abuse Z72.0 Active 758520 05 Problem COPD (chronic obstructive pulmonary disease) J44.9 Active 30524124 Problem Hyperlipemia E78.5 Active 3572578 4 Problem Hyperglycemia R73.9 Active 284044 07 Problem Type 1 diabetes mellitus with hypoglycemia unawareness E10.649 Active Problem History of diabetic gastroparesis Z86.39 Active 919068952 Problem Hypertension I10 Active 1247065 3 Problem Hyperosmolar hyponatremia E87.1 Acti ve 475367194 Problem Bipolar 2 disorder F31.81 Active 8 1400854 Problem Sciatica of left side M54.32 Active 40375638 Problem Type 2 diabetes mellitus wit hout complication, unspecified whether shelter insulin use E11.9 Active 374560914 Problem Aneurysm artery, 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 Active 37445517 Problem Diabetic polyneuropathy associated with type 2 d iabetes mellitus E11.42 Active 986463962 Problem Type 1 diabetes mellitus with other specified complication E10.69 Active 70931210 Problem Essential hypertension I10 Active 65250706 Problem Needle phobia F40.298 Active 535128 003 Problem History of diabetes with ketoacidosis Z86.39 Active 672873383 Problem Cigarette nicotine dependence without complication F17.210 Active 47891573 Problem Seasonal allergic rhinitis, unspecified trigger J3 0.2 Active 768397233 Problem Tubular adenoma of colon D12.6 Activ e 330760071 Problem History of right hip replacement Z96.641 Active 2786556939396433 Problem Adrenal nodule E27.9 Active 40357 000 Problem Hypoxia R09.02 Active 844144234 Problem Moderate depressive disorder F32.9 A ctive 745921223 Problem Altered taste R43.2 Active 671448 3683511 Problem Decreased appetite R63.0 Active 6 3406086 Problem Generalized anxiety disorder F41.1 A ctive 97553429 ALLERGIES No Information ENCOUNTERS Encounter Location Date Diagnosis [address] [id number], [place] [address] Jul, [facility] [address] [id number] [place] [address] May, Type 1 diabetes mellitus with hypoglycem ia unawareness E10.649 [facility] [address] [facility] [id number] 100[address] [place] [address] Apr, Foreign body head S00.95XA [address] [id number], [place] [address] Apr, Pain of left hip joint M25.5 52 ; History of osteoarthritis Z87.39 and History of right hip replacement Z96.[address] [id number], [place] [address] Apr, Aneurysm artery, iliac commo n I72.3 ; COPD (chronic obstructive pulmonary disease) J44.9 ; Bipolar 2 disorder F31.81 ; Type 2 diabetes mellitus without complication, unspecified whether shelter insulin use E11.9 ; Seasonal allergic rhinitis, unspecified trigger J30.2 and Burn T30.[address] [id number], [place] [address] Apr, Type 1 diabetes mellitus wit h hypoglycemia unawareness E10.[address] [id number], [place] [address] Mar, [address] 340[address] [id number], [place] [address] Mar, Generalized anxiety disorder F41.1 ; Bipolar 2 disorder F31.81 and Suicidal behavior R46.89 [facility] [address] [id number] [place] [address] Mar, [address] [id number], [place] [address] Mar, [address] [id number] [place] [address] Mar, [facility] [address] [facility] [id number] [address] [place] [address] Mar, [facility] [address] [id number] [place] [address] Mar, Type 1 diabetes mellitus with hypoglycem ia unawareness E10.649 and Suicidal ideations R45.[address] 340[address] [id number], [place] [address] Mar, [facility] [address] [facility] [id number] [place] [address] Mar, [facility] [address] [id number], [place] [address] Mar, [address] [id number], [place] [address] Mar, [address] [id number], [place] [address] Feb, Decreased appetite R63.0 ; A ltered taste R43.2 ; Type 1 diabetes mellitus with hypoglycemia unawareness E10.649 and History of diabetic gastroparesis Z86.39 [facility] [address] [id number], [place] [address] Feb, [address] 340[address] [id number], [place] [address] Feb, [address] [id number], [place] [address] Feb, [address] [id number] [place] [address] Feb, Moderate depressive disorder F32.9 and Left hip pain M25.552 [facility] [address] [id number] [place] [address] Jan, [facility] [address] [id number] [place] [address] Jan, Type 2 diabetes mellitus wit hout complication, unspecified whether shelter insulin use E11.9 [facility] [address] [id number] [place] [address] Jan, [facility] [address] 340[address] [id number], [place] [address] Jan, Open bite of left wrist, ini tial encounter S61.552A ; Bitten by cat, initial encounter W55.01XA ; Cigarette nicotine dependence without complication F17.210 and Encounter for immunization Z23 [facility] [address] [id number] [place] [address] Jan, Aneurysm artery, iliac commo n I72.3 ; Adrenal nodule E27.9 ; Encounter for Medicare annual wellness exam Z00.00 ; Essential hypertension I10 ; Type 2 diabetes mellitus without complication, unspecified whether shelter insulin use E11.9 ; COPD (chronic obstructive pulmonary disease) J44.9 and Adrenal adenoma, unspecified laterality D35.00 [facility] [address] [id number] [place] [address] Jan, COPD (chronic obstructive pu lmonary disease) J44.9 [facility] [place] [address] [id number] [place] [address] Jan, [facility] [address] [id number] [place] [address] Dec, [facility] [address] [id number] [place] [address] Dec, [facility] [address] [id number] [place] [address] Dec, Adrenal nodule E27.9 [facility] [address] [id number] [place] [address] Dec, [facility] [address] [id number] [place] [address] Dec, [facility] [address] [id number] [place] [address] Dec, Encounter for Medicare annua l wellness exam Z00.00 ; Essential hypertension I10 ; Type 2 diabetes mellitus without complication, unspecified whether shelter insulin use E11.9 ; COPD (chronic obstructive pulmonary disease) J44.9 ; Aneurysm artery, 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 and Adrenal adenoma, unspecified laterality D35.00 [facility] [address] [id number] [place] [address] Dec, [facility] [address] 340[address] [id number], [place] [address] Dec, Essential hypertension I10 [facility] [address] 340[address] [id number] [place] [address] Dec, Essential hypertension I10 [facility] [address] [id number] [place] [address] Dec, [facility] [address] 340[address] [id number] [place] [address] Dec, [facility] [address] [id number] [place] [address] Dec, Injury of right index finger , initial encounter S69.91XA [facility] [address] [facility] [id number] [address] [place] [address] Dec, [facility] [address] [facility] [id number] [address] [place] [address] Dec, [facility] [address] [id number] [place] [address] Dec, [address] 340[address] [id number] [place] [address] Dec, [facility] [address] [facility] [id number] [address] [place] [address] Nov, [address] [id number] [place] [address] Nov, [address] 340 [id number], [place] [address] Nov, Type 2 diabetes mellitus ramon ated with insulin E11.9 ; Tobacco abuse Z72.0 and Type 1 diabetes mellitus with hypoglycemia unawareness E10.[address] 340 [id number], [place] [address] Nov, [facility] [address] [facility] [id number] [address] [place] [address] Nov, [facility] [address] [facility] [id number] [address] [place] [address] Nov, [address] 340[address] [id number], [place] [address] Nov, [address] 340 [id number], [place] [address] Nov, Strain of left ankle, initia l encounter S96.912A [address] 340 [id number], [place] [address] Nov, Tobacco abuse Z72.0 ; Type 1 diabetes mellitus with hypoglycemia unawareness E10.649 ; Type 1 diabetes mellitus with other specified complication E10.69 ; History of diabetic gastroparesis Z86.39 ; History of diabetes with ketoacidosis Z86.39 ; Needle phobia F40.298 ; Risk for falls Z91.81 and Lives alone Z60.[address] [id number], [place] [address] Nov, Type 2 diabetes mellitus wit hout complication, unspecified whether terminal operator insulin use E11.9 ; COPD (chronic obstructive pulmonary disease) J44.9 ; Essential hypertension I10 ; Encounter for immuni zation Z23 and Cervical pain (neck) M54.2 [facility] [address] 340B [id number] [place] [address] 04 Nov, 2018 Cervical pain (neck) M54.2 a nd Lumbar pain M54.5 [facility] [place] [address] [id number] [place] [address] Oct, Diabetic polyneuropathy asso ciated with type 2 diabetes mellitus E11.42 [facility] [place] [address] [id number] [place] [address] Sep, [facility] [address] [id number] [place] [address] Sep, Aneurysm of iliac artery I72 .3 ; Adrenal nodule E27.9 ; Diabetic polyneuropathy associated with type 2 diabetes mellitus E11.42 ; Sciatica of left side M54.32 and Lesion of right ear H93.91 [facility] [place] [address] 340[address] [id number] [place] [address] Sep, Diabetic polyneuropathy asso ciated with type 2 diabetes mellitus E11.42 and Type 2 diabetes mellitus treated with insulin E11.9 [facility] [address] [id number] [place] [address] Aug, [facility] [place] [address] [id number] [place] [address] Aug, Diabetic polyneuropathy asso ciated with type 2 diabetes mellitus E11.42 [facility] [address] [id number] [place] [address] Aug, [facility] [address] [id number] [place] [address] Aug, [facility] [address] [id number] [place] [address] Jul, Ear lesion H93.90 [facility] [address] [id number] [place] [address] June, Type 2 diabetes mellitus ramon ated with insulin E11.9 and Panlobular emphysema J43.1 [facility] [place] [address] [id number] [place] [address] June, Type 2 diabetes mellitus wit hout complication, unspecified whether terminal operator insulin use E11.9 [facility] [place] [address] 340[address] [id number] [place] [address] Apr, Type 2 diabetes mellitus ramon ated with insulin E11.9 [facility] [address] [facility] [id number] 100[place] [address] Apr, [facility] WALK IN [facility] [address] [id number] [address] Apr, Type 2 diabetes mellitus wit hout complication, unspecified whether terminal operator insulin use E11.9 ; Uncontrolled blood glucose R73.09 and Nausea R11.0 [facility] [place] [address] 340[address] [id number] [place] [address] Apr, [facility] [place] [address] [id number] [place] [address] Apr, [facility] [place] [address] 340[address] [id number], [place] [address] Mar, [facility] [place] [address] [id number] [place] [address] Mar, [facility] [place] [address] 340[address] [id number], [place] [address] Mar, Type 2 diabetes mellitus wit hout complication, unspecified whether shelter insulin use E11.9 ; Essential hypertension I10 ; Bipolar disorder, unspecified F31.9 and Pelvic pain in male R10.2 [facility] [place] [address] 340B [id number], [place] [address] Mar, Type 2 diabetes mellitus wit hout complication, unspecified whether terminal operator insulin use E11.9 and Essential hypertension I10 [facility] [place] [address] 340B [id number], [place] [address] Feb, [facility] [address] [id number] [address] [place] [address], [place] [address] 14 May, 2014 [facility] [address] [id number] [address] [place] [address], [place] [address] May, [facility] [address] [id number] [address] [place] [address], [place] [address] Aug, [facility] [address] [id number] [address] [place] [address], [place] [address] Aug, [facility] [address] [id number] [address] [place] [address], [place] [address] Aug, [facility] [address] [id number] [address] [place] [address], [place] [address] Aug, [facility] [address] [id number] [address] [place] [address], [place] [address] Aug, [facility] [address] [id number] [address] [place] [address], [place] [address] Aug, [facility] [address] [id number] [address] [place] [address], [place] [address] Aug, [facility] [address] [id number] [address] [place] [address], [place] [address] Aug, [facility] [address] [id number] [address] [place] [address], [place] [address] Jul, [facility] [address] [id number] [address] [place] [address], [place] [address] Jul, [facility] [address] [id number] [address] [place] [address], [place] [address] June, [facility] [address] [id number] [address] [place] [address], [place] [address] June, [facility] [address] [id number] [address] [place] [address], [place] [address] Mar, [facility] [address] [id number] [address] [place] [address], [place] [address] Mar, [facility] [address] [id number] [address] [place] [address], [place] [address] Feb, [facility] [address] [id number] [address] [place] [address], [place] [address] Feb, [facility] [address] [id number] [address] [place] [address], [place] [address] Feb, [facility] [address] [id number] [address] [place] [address], [place] [address] Feb, [facility] [address] [id number] [address] [place] [address], [place] [address] Oct, [facility] [address] [id number] [address] [place] [address], [place] [address] Sep, [facility] [address] [id number] [address] [place] [address], [place] [address] Aug, [facility] [address] [id number] [address] [place] [address], [place] [address] Jul, [facility] [address] [id number] [address] [place] [address], [place] [address] Jul, [facility] [address] [id number] [address] [place] [address], [place] [address] Jul, [facility] [address] [id number] [address] [place] [address], [place] [address] Jul, [facility] [address] [id number] [address] [place] [address], [place] [address] Apr, [facility] [address] [id number] [address] [place] [address], [place] [address] Apr, [facility] [address] [id number] [address] [place] [address], [place] [address] 27 Mar, 2012 [facility] [address] [id number] [address] [place] [address], [place] [address] Mar, [facility] [address] [id number] [address] [place] [address], [place] [address] Feb, [facility] [address] [id number] [address] [place] [address], [place] [address] Feb, [facility] [address] [id number] [address] [place] [address], [place] [address] Jan, [facility] [address] [id number] [address] [place] [address], [place] [address] Jan, [facility] [address] [id number] [address] [place] [address], [place] [address] Dec, [facility] [address] [id number] [address] [place] [address], [place] [address] Dec, [facility] [address] [id number] [address] [place] [address], [place] [address] Dec, [facility] [address] [id number] [address] [place] [address], [place] [address] Dec, [facility] [address] [id number] [address] [place] [address], [place] [address] Nov, [facility] [address] [id number] [address] [place] [address], [place] [address] Oct, [facility] [address] [id number] [address] [place] [address], [place] [address] Oct, [facility] [address] [id number] [address] [place] [address], [place] [address] 06 Oct, 2011 [facility] [address] [id number] [address] [place] [address], [place] [address] Aug, [facility] [address] [id number] [address] [place] [address], [place] [address] Aug, [facility] [address] [id number] [address] [place] [address], [place] [address] Jul, [facility] [address] [id number] [address] [place] [address] Jul, [facility] [address] [id number] [address] [place] [address] Jul, [facility] [address] [id number] [address] [place] [address] Jul, [facility] [address] [id number] [address] [place] [address] Jul, [facility] [address] [id number] [address] [place] [address] Jul, [facility] [address] [id number] [address] [place] [address] Jul, [facility] [address] [id number] [address] [place] [address] June, [facility] [address] [facility] [id number] [address] [place] [address] June, [facility] [address] [id number] [address] [place] [address] June, [facility] [address] [id number] [address] [place] [address] May, [facility] [address] [facility] [id number] [address] [place] [address] Apr, IMMUNIZATIONS No Known Immunizations SOCIAL HISTORY [...] Hospitalization History blood sugar, dehydration Hospitalization History [facility], [place], [place]
--- OUTSIDE RECORDS SUMMARY | 2019-08-22 09:36 | XMS REPORT ---
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 Activ e 01287861 Problem Tobacco abuse Z72.0 Active 592881 05 Problem COPD (chronic obstructive pulmonary disease) J44.9 Active 42654183 Problem Hyperlipemia E78.5 Active 3586287 4 Problem Hyperglycemia R73.9 Active 826756 07 Problem History of diabetes with ketoacidosis Z86.39 Active 172429275 Problem Needle phobia F40.298 Active 601941 003 Problem Hypertension I10 Active 3602165 3 Problem Hyperosmolar hyponatremia E87.1 Acti ve 470025919 Problem Bipolar 2 disorder F31.81 Active 8 6009134 Problem Sciatica of left side M54.32 Active 36978287 Problem Type 2 diabetes mellitus wit hout complication, unspecified whether assisted insulin use E11.9 Active 949452060 Problem Aneurysm artery, 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 Active 23657035 Problem Diabetic polyneuropathy associated with type 2 d iabetes mellitus E11.42 Active 023490553 Problem Type 1 diabetes mellitus with other specified complication E10.69 Active 67314289 Problem Essential hypertension I10 Active 60061547 Problem History of diabetic gastroparesis Z86.39 Active 440502460 Problem Type 1 diabetes mellitus with hypoglycemia unawareness E10.649 Active Problem Cigarette nicotine dependence without complication F17.210 Active 25595676 Problem Seasonal allergic rhinitis, unspecified trigger J3 0.2 Active 773120874 Problem Tubular adenoma of colon D12.6 Activ e 720479733 Problem History of right hip replacement Z96.641 Active 1797537530127845 Problem Adrenal nodule E27.9 Active 89633 000 Problem Hypoxia R09.02 Active 422727414 Problem Moderate depressive disorder F32.9 A ctive 002802056 Problem Altered taste R43.2 Active 505423 6080646 Problem Decreased appetite R63.0 Active 6 0608893 Problem Generalized anxiety disorder F41.1 A ctive 27616841 ALLERGIES No Information ENCOUNTERS Encounter Location Date Diagnosis [address] [id number] [place] [address] Jul, [address] 340 [id number] [address] May, [facility] [address] [facility] [id number] [address] [place] [address] 24 Apr, 2019 Foreign body head S00.95XA [address] 340 [id number], [place] [address] Apr, Pain of left hip joint M25.5 52 ; History of osteoarthritis Z87.39 and History of right hip replacement Z96.[address] [id number] [place] [address] Apr, Aneurysm artery, iliac commo n I72.3 ; COPD (chronic obstructive pulmonary disease) J44.9 ; Bipolar 2 disorder F31.81 ; Type 2 diabetes mellitus without complication, unspecified whether assisted insulin use E11.9 ; Seasonal allergic rhinitis, unspecified trigger J30.2 and Burn T30.[address] [id number], [place] [address] Apr, Type 1 diabetes mellitus wit h hypoglycemia unawareness E10.[address] [id number], [place] [address] Mar, [address] [id number], [place] [address] Mar, Generalized anxiety disorder F41.1 ; Bipolar 2 disorder F31.81 and Suicidal behavior R46.[address] [id number] [place] [address] Mar, [address] 340B [id number] [place] [address] Mar, [address] 340B [id number] [place] [address] Mar, [facility] [address] [facility] [id number] [address] [place] [address] Mar, [facility] [address] [id number] [place] [address] Mar, Type 1 diabetes mellitus with hypoglycem ia unawareness E10.649 and Suicidal ideations R45.[address] 340B [id number] [place] [address] Mar, [facility] [address] [facility] [id number] [place] [address] Mar, [facility] [address] [id number] [place] [address] Mar, [address] 340B [id number] [place] [address] Mar, [facility] [address] 340B [id number] [place] [address] Feb, Decreased appetite R63.0 ; A ltered taste R43.2 ; Type 1 diabetes mellitus with hypoglycemia unawareness E10.649 and History of diabetic gastroparesis Z86.39 [facility] [address] [id number] [place] [address] Feb, [facility] RIGO [address] 340B [id number] [place] [address] Feb, [address] 340B [id number] [place] [address] Feb, [address] 340B [id number], [place] [address] Feb, Moderate depressive disorder F32.9 and Left hip pain M25.552 [facility]IGO MARTINEZ [address] 340B [id number] [place] [address] Jan, [facility] RIGO MARTINEZ [address] 340B [id number] [place] [address] Jan, Type 2 diabetes mellitus wit hout complication, unspecified whether assisted insulin use E11.9 [facility] RIGO MARTINEZ [address] 340B [id number], [place] [address] Jan, [facility] [address] 340B [id number] [place] [address] Jan, Open bite of left wrist, ini tial encounter S61.552A ; Bitten by cat, initial encounter W55.01XA ; Cigarette nicotine dependence without complication F17.210 and Encounter for immunization Z23 [facility] [address] 340B [id number], [place] [address] Jan, Aneurysm artery, iliac commo n I72.3 ; Adrenal nodule E27.9 ; Encounter for Medicare annual wellness exam Z00.00 ; Essential hypertension I10 ; Type 2 diabetes mellitus without complication, unspecified whether exterminator termite insulin use E11.9 ; COPD (chronic obstructive pulmonary disease) J44.9 and Adrenal adenoma, unspecified laterality D35.00 [facility] RIG[facility] MARTINEZ [address] 340B [id number] [place] [address] Jan, COPD (chronic obstructive pu lmonary disease) J44.9 [facility] [address] [facility] [id number] [place] [address] Jan, [facility] RIGO MARTINEZ [address] 340B [id number] [place] [address] Dec, [facility] RIGO MARTINEZ [address] 340B [id number] [place] [address] Dec, [facility] [address] 340B [id number] [place] [address] Dec, Adrenal nodule E27.9 [facility] [address] [id number] [place] [address] Dec, [facility] [address] [id number] [place] [address] Dec, [facility] MARTINEZ [address] 340B [id number] [place] [address] Dec, [facility] Z00.00 ; Essential hypertension I10 ; Type 2 diabetes mellitus without complication, unspecified whether exterminator termite insulin use E11.9 ; COPD (chronic obstructive pulmonary disease) J44.9 ; Aneurysm artery, 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 and Adrenal adenoma, unspecified laterality D35.00 [facility] [address] 340B [id number] [place] [address] Dec, [facility] [address] 340B [id number] [place] [address] Dec, Essential hypertension I10 [facility] [address] 340B [id number] [place] [address] Dec, Essential hypertension I10 [facility] [address] [id number] [place] [address] Dec, [facility] RIGO MARTINEZ [address] 340B [id number] [place] [address] Dec, [facility] [address] 340B [id number] [place] [address] Dec, Injury of right index finger , initial encounter S69.91XA [facility] [address] [facility] [id number] [address] [place] [address] Dec, [facility] [address] [facility] [id number] [address] [place] [address] Dec, [facility] R[facility] [address] 340B [id number] [place] [address] Dec, [address] 340B [id number] [place] [address] Dec, [facility] [address] [facility] [id number] [address] [place] [address] Nov, [address] 340B [id number], [place] [address] Nov, [address] 340B [id number], [place] [address] Nov, Type 2 diabetes mellitus ramon ated with insulin E11.9 ; Tobacco abuse Z72.0 and Type 1 diabetes mellitus with hypoglycemia unawareness E10.[address] 340B [id number], [place] [address] Nov, [facility] [address] [facility] [id number] [address] [place] [address] Nov, [facility] [address] [facility] [id number] [address] [place] [address] Nov, [address] 340 [id number], [place] [address] Nov, [address] 340B [id number], [place] [address] Nov, Strain of left ankle, initia l encounter S96.912A [address] 340B [id number], [place] [address] Nov, Tobacco abuse Z72.0 ; Type 1 diabetes mellitus with hypoglycemia unawareness E10.649 ; Type 1 diabetes mellitus with other specified complication E10.69 ; History of diabetic gastroparesis Z86.39 ; History of diabetes with ketoacidosis Z86.39 ; Needle phobia F40.298 ; Risk for falls Z91.81 and Lives alone Z60.[address] 340B [id number], [place] [address] Nov, Type 2 diabetes mellitus wit hout complication, unspecified whether exterminator termite insulin use E11.9 ; COPD (chronic obstructive pulmonary disease) J44.9 ; Essential hypertension I10 ; Encounter for immuni zation Z23 and Cervical pain (neck) M54.[address]B [id number] [place] [address] 04 Nov, 2018 Cervical pain (neck) M54.2 a nd Lumbar pain M54.5 [facility] M[facility] [address] 340B [id number] [place] [address] 30 Oct, 2018 Diabetic polyneuropathy asso ciated with type 2 diabetes mellitus E11.42 [facility] MARTINEZ [address] 340B [id number] [place] [address] Sep, [facility] [address] 340B [id number] [place] [address] Sep, Aneurysm of iliac artery I72 .3 ; Adrenal nodule E27.9 ; Diabetic polyneuropathy associated with type 2 diabetes mellitus E11.42 ; Sciatica of left side M54.32 and Lesion of right ear H93.91 [facility] R[facility] MARTINEZ [address] 340B [id number] [place] [address] Sep, Diabetic polyneuropathy asso ciated with type 2 diabetes mellitus E11.42 and Type 2 diabetes mellitus treated with insulin E11.9 [facility] [address] [id number] [place] [address] Aug, [facility] R[facility] [address]ARTINEZ [address] [id number] [place] [address] Aug, Diabetic polyneuropathy asso ciated with type 2 diabetes mellitus E11.42 [facility] RIGO [address]INEZ [address] [id number] [place] [address] Aug, [facility] [address] [id number] [place] [address] Aug, [facility] [address] [id number] [place] [address] Jul, Ear lesion H93.90 [facility] [address] [id number] [place] [address] June, Type 2 diabetes mellitus ramon ated with insulin E11.9 and Panlobular emphysema J43.1 [facility] RIG[facility] MARTINEZ [address] 340B [id number] [place] [address] June, Type 2 diabetes mellitus wit hout complication, unspecified whether assisted insulin use E11.9 [facility] [address] 340B [id number] [place] [address] Apr, Type 2 diabetes mellitus ramon ated with insulin E11.9 [facility] [address] [facility] [id number] [address] [place] [address] Apr, [facility] [address] 340 [id number] [place] [address] Apr, Type 2 diabetes mellitus wit hout complication, unspecified whether exterminator termite insulin use E11.9 ; Uncontrolled blood glucose R73.09 and Nausea R11.0 [facility] RIGO MARTINEZ [address] 340B [id number] [place] [address] Apr, [facility] RIGO MARTINEZ [address] 340B [id number], [place] [address] Apr, [facility] R[facility] MARTINEZ [address] 340B [id number] [place] [address] Mar, [facility] RIG[facility] MARTINEZ [address] 340B [id number] [place] [address] Mar, [facility] MARTINEZ [address] 340B [id number] [place] [address] Mar, Type 2 diabetes mellitus wit hout complication, unspecified whether assisted insulin use E11.9 ; Essential hypertension I10 ; Bipolar disorder, unspecified F31.9 and Pelvic pain in male R10.2 [facility] RIG[facility] MARTINEZ [address] 340B [id number], [place] [address] Mar, Type 2 diabetes mellitus wit hout complication, unspecified whether assisted insulin use E11.9 and Essential hypertension I10 [facility] R[facility] MARTINEZ [address] 340B [id number] [place] [address] Feb, [facility] [address] [id number] [address] [place] [address], [place] [address] 14 May, 2014 [facility] [address] [id number] [address] [place] [address], [place] [address] 13 May, 2014 [facility] [address] [id number] [address] [place] [address], [place] [address] 30 Aug, 2013 [facility] [address] [id number] [address] [place] [address], [place] [address] 30 Aug, 2013 [facility] [address] [id number] [address] [place] [address], [place] [address] Aug, [facility] [address] [id number] [address] [place] [address], [place] [address] Aug, [facility] [address] [id number] [address] [place] [address], [place] [address] Aug, [facility] [address] [id number] [address] [place] [address], [place] [address] Aug, [facility] [address] [id number] [address] [place] [address], [place] [address] Aug, [facility] [address] [id number] [address] [place] [address], [place] [address] Aug, [facility] [address] [id number] [address] [place] [address], [place] [address] Jul, [facility] [address] [id number] [address] [place] [address], [place] [address] Jul, [facility] [address] [id number] [address] [place] [address], [place] [address] June, [facility] [address] [id number] [address] [place] [address], [place] [address] June, [facility] [address] [id number] [address] [place] [address], [place] [address] Mar, [facility] [address] [id number] [address] [place] [address], [place] [address] Mar, [facility] [address] [id number] [address] [place] [address], [place] [address] Feb, [facility] [address] [id number] [address] [place] [address], [place] [address] Feb, [facility] [address] [id number] [address] [place] [address], [place] [address] Feb, [facility] [address] [id number] [address] [place] [address], [place] [address] Feb, [facility] [address] [id number] [address] [place] [address], [place] [address] Oct, [facility] [address] [id number] [address] [place] [address], [place] [address] Sep, [facility] [address] [id number] [address] [place] [address], [place] [address] Aug, [facility] [address] [id number] [address] [place] [address], [place] [address] Jul, [facility] [address] [id number] [address] [place] [address], [place] [address] Jul, [facility] [address] [id number] [address] [place] [address], [place] [address] Jul, [facility] [address] [id number] [address] [place] [address], [place] [address] Jul, [facility] [address] [id number] [address] [place] [address], [place] [address] Apr, [facility] [address] [id number] [address] [place] [address], [place] [address] Apr, [facility] [address] [id number] [address] [place] [address], [place] [address] Mar, [facility] [address] [id number] [address] [place] [address], [place] [address] Mar, [facility] [address] [id number] [address] [place] [address], [place] [address] Feb, [facility] [address] [id number] [address] [place] [address], [place] [address] Feb, [facility] [address] [id number] [address] [place] [address], [place] [address] Jan, [facility] [address] [id number] [address] [place] [address], [place] [address] Jan, [facility] [address] [id number] [address] [place] [address], [place] [address] Dec, [facility] [address] [id number] [address] [place] [address], [place] [address] Dec, [facility] [address] [id number] [address] [place] [address], [place] [address] Dec, [facility] [address] [id number] [address] [place] [address], [place] [address] Dec, [facility] [address] [id number] [address] [place] [address], [place] [address] Nov, [facility] [address] [id number] [address] [place] [address], [place] [address] 27 Oct, 2011 [facility] [address] [id number] [address] [place] [address], [place] [address] Oct, [facility] [address] [id number] [address] [place] [address], [place] [address] Oct, [facility] [address] [id number] [address] [place] [address], [place] [address] Aug, [facility] [address] [id number] [address] [place] [address], [place] [address] Aug, [facility] [address] [id number] [address] [place] [address], [place] [address] Jul, [facility] [address] [id number] [address] [place] [address], [place] [address] Jul, [facility] [address] [id number] [address] [place] [address] Jul, [facility] [address] [id number] [address] [place] [address] Jul, [facility] [address] [id number] [address] [place] [address] Jul, [facility] [address] [id number] [address] [place] [address] Jul, [facility] [address] [id number] [address] [place] [address] Jul, [facility] [address] [id number] [address] [place] [address] June, [facility] [address] [facility] [id number] [address] [place] [address] June, [facility] [address] [id number] [address] [place] [address] June, [facility] [address] [id number] [address] [place] [address] May, [facility] [address] [facility] [id number] [address] [place] [address] Apr, IMMUNIZATIONS No Known Immunizations SOCIAL HISTORY Never Assessed [facility] OF CARE VITAL SIGNS MEDICATIONS Unknown [...] Hospitalization History blood sugar, dehydration Hospitalization History [facility] [place] PATY [place]
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
[2019-08-22] MEDS ORDERED: PROPOFOL INJECTION 50 ML IV ONE (10:29)
[2019-08-22] MEDS ORDERED: MIDAZOLAM 2 MG/2 ML (VERSED) VIAL ONE (10:29)
--- NOTE | 2019-08-22 10:30 | Progress Note-Pre Operative ---
Pre-Operative Progress Note H&P Reviewed The H&P was reviewed, patient examined and no changes noted. Time Seen by Provider: 10:29 Date H&P Reviewed: Aug 22, 2019 Time H&P Reviewed: 10:28 Pre-Operative Diagnosis: Epigastric pain, decreased appetite NED YANG DO Aug 22, 2019 10:30
--- NOTE | 2019-08-22 11:00 | Progress Note-Post Operative ---
Post-Operative Progess Note Surgeon (s)/Hedis Analyst (s) Surgeon NED YANG DO Hedis Analyst: none Pre-Operative Diagnosis Epigastric pain, decreased appetite Post-Operative Diagnosis Gastritis Hiatal Hernia Procedure & Operative Findings Date of Procedure 08/22/19 Procedure Performed/Findings EGD with bx Anesthesia Type IV sedation by FRAME FEEDER Estimated Blood Loss Estimated blood loss (mL): scant Specimens/Packing Specimens Removed antral bx body of stomach bx GE jxn bx NED YANG DO Aug 22, 2019 11:00
--- NOTE | 2019-08-22 11:05 | Endoscopy Discharge Instruct ---
Endo Procedure/Findings Findings 1.: Gastritis 2.: Hiatal Hernia Discharge Instructions - Activity: You might feel a little sleepy until tomorrow. This is due to the medicine you received to relax you. Until tomorrow, you should: NOT drive a car, operate machinery or power tools. NOT drink any alcoholic beverages. NOT make any important decisions or sign importortant papers. Do not return to work until tomorrow, unless otherwise instructed. Resume previous activities tomorrow. Diet: Start by taking liquids. If you tolerate liquids, advance to solid food. make appt for one week 1.: EGD in 1 year Notify Physician - If you experience excessive bleeding, unusual abdominal pain, fever, or chest pain, contact your doctor immediately. NED YANG DO Aug 22, 2019 11:05
[2019-08-22 11:12] VITALS: BP 134/67
[2019-08-22 11:35] VITALS: BP 131/70
[2019-08-22 11:48] VITALS: BP 131/70
--- NOTE | 2019-08-22 11:57 | Anesthesia-General Post-Op ---
MAC Patient Condition Mental Status/LOC: Same as Preop Cardiovascular: Satisfactory Nausea/Vomiting: Absent Respiratory: Satisfactory Pain: Controlled Complications: Absent Post Op Complications Complications None Follow Up Care/Instructions Patient Instructions None needed. Anesthesiology Discharge Order Discharge Order Patient is doing well, no complaints, stable vital signs, no apparent adverse anesthesia problems. No complications reported per nursing. VIRGIL WATERMAN CRNA Aug 22, 2019 11:57
--- NOTE | 2019-08-23 03:32 | OPERATIVE REPORT ---
DATE OF SERVICE: PREOPERATIVE DIAGNOSES: Epigastric pain and decreased appetite. POSTOPERATIVE DIAGNOSES: Gastritis, hiatal hernia. PROCEDURE: EGD with biopsy. SURGEON: Kris Andrade DO FLAP PRESSER: None. ANESTHESIA: IV sedation by the IRRIGATOR VALVE PIPE. SPECIMEN: Biopsy of the antrum, biopsy from the cardia and biopsy from GE junction. BLOOD LOSS: Scant. FLUIDS: Per anesthesia. POSTOPERATIVE CONDITION: Stable. INDICATION FOR PROCEDURE: The patient is a 54-year-old male, who has been having some epigastric pain and he has been noted some decreased appetite, needed a workup. FINDINGS: The patient had some gastritis and a hiatal hernia about 1 to 2 cm. Pictures taken. Biopsy done. PROCEDURE NOTE: After informed consent was obtained, the patient was brought to the endoscopy suite, placed in bed in the left lateral decubitus position. He was administered IV sedation by the IRRIGATOR VALVE PIPE, who then monitored his vitals the entire time, heart rate, blood pressure and pulse ox and the scope was inserted down the mouth through the esophagus. On the way in, noted some changes at the GE junction, took a picture. Pushed in towards the antrum, noted some gastritis, took a picture, pushed into the duodenum. Duodenum looked fine. Pulled back into the antrum, did a biopsy of the antrum and then I retroflexed the scope, saw an approximately 2 cm hiatal hernia, took a picture of this and then it looked like there may have been some redness up in the cardia, so did a biopsy of the cardia of stomach and then pulled the scope into the GE junction, did a biopsy, then pushed the scope back in the stomach, suctioned out all the air and then pulled the scope up the esophagus and out the mouth. The patient tolerated the procedure, recovered in endoscopy suite. Job ID: [id number] DocumentID: [id number] Dictated Date: 08/22/2019 16:58:56 Welfare Adviser Date: 08/23/2019 03:31:12 Dictated By: KRIS ANDRADE DO [facility]
== END 2019-08-22 11:48 | disposition home or self-care (01) ==
LOC: ENDO 09:13
PROVIDERS: ATTEND Surgery
DX: K29.70 Gastritis, unspecified, without bleeding (principal); K44.9 Diaphragmatic hernia without obstruction or gangrene; E11.9 Type 2 diabetes mellitus without complications; K21.0 Gastro-esophageal reflux disease with esophagitis; J43.9 Emphysema, unspecified; E78.5 Hyperlipidemia, unspecified; J30.2 Other seasonal allergic rhinitis; F31.9 Bipolar disorder, unspecified; M19.90 Unspecified osteoarthritis, unspecified site; Z88.5 Allergy status to narcotic agent; Z88.8 Allergy status to other drugs, medicaments and biological substances; Z79.82 Long term (current) use of aspirin; Z79.899 Other long term (current) drug therapy; Z86.79 Personal history of other diseases of the circulatory system; F17.210 Nicotine dependence, cigarettes, uncomplicated; Z79.4 Long term (current) use of insulin

== ENCOUNTER → 2019-08-24 | Outpatient (CLI) | payer MEDICARE, MEDICAID ==
--- NOTE | 2019-08-24 12:26 | Diagnostic Imaging Report ---
INDICATION: LOWER EXTREMITY EDEMA, EXERCISE INTOLERANCE COMPARISON: None FINDINGS: Frontal and lateral views of the chest demonstrate normal heart size and pulmonary vascularity. The lungs are clear. There are no signs of infiltrate, pleural effusions or pneumothoraces. The visualized osseous structures show no acute abnormalities. IMPRESSION: 1. No acute process. No signs of infiltrates, effusions or pneumothoraces. Dictated by: Dictated on workstation # [id number]
== END ==
LOC: RAD FS 10:49
PROVIDERS: ATTEND Nurse Practitioner
DX: R60.0 Localized edema (principal); R68.89 Other general symptoms and signs
CPT/HCPCS: 71046

== ENCOUNTER 2019-08-28 14:23 | Emergency (ER) | payer MEDICARE, MEDICAID ==
[~2019-08-28] VITALS: Ht 170.1 cm; Wt 68.8 kg
[2019-08-28 14:26] VITALS: BP 162/106
--- OUTSIDE RECORDS SUMMARY | 2019-08-28 14:31 | XMS REPORT | Continuity of Care Document ---
Author Organization Unknown Address Unknown Phone Unavailable Allergies Active Description Code Type Severity Reaction Onset Reported/Identified Relationship to Patient Clinical Status Yes Mellaril Drug Allergy N/A N/A 07/25/2011 Yes Thorazine Drug Allergy N/A N/A 07/25/2011 Yes Mellaril Drug Allergy 07/25/2011 Yes Thorazine Drug Allergy 07/25/[id number] ug Allergy Unknown paralysis 04/30/2018 Yes fentanyl [id number] Drug Allergy Unknown hives 04/30/2018 Yes thioridazine [id number] Drug Allergy Unknown confusion 04/30/2018 Medications There is no data. Problems Date Dx Coded Attending Type Code Diagnosis Diagnosed By 01/08/1338 NED YANG DO Ot R10.1 3 EPIGASTRIC PAIN 01/08/1338 NED YANG DO Ot Z01.8 12 ENCOUNTER FOR PREPROCEDURAL LABORATORY E 01/08/1338 NED YANG DO Ot Z20.8 28 CONTACT W AND EXPOSURE TO OTH VIRAL COMM 05/07/2011 296.80 MO BIPOLAR NOS 05/07/2011 BARBRA PHD, DAVID Vallecillo 296.80 MO BIPOLAR NOS 05/07/2011 296.80 MO BIPOLAR NOS 05/07/2011 296.80 MO BIPOLAR NOS 05/07/2011 296.80 MO BIPOLAR NOS 05/07/2011 296.80 MO BIPOLAR NOS 05/07/2011 TAMLEA HUBBARD DO 296 .80 MO BIPOLAR NOS 05/07/2011 BARBRA PHD, DAVID Vallecillo 296.80 MO BIPOLAR NOS 05/07/2011 SHIRA ONEAL APRN 296.80 MO BIPOLAR NOS 05/07/2011 296.80 MO BIPOLAR NOS 07/25/2011 V58.69 MED ICATION HIGH RISK 07/25/2011 BARBRA PHD, DAVID Vallecillo V58.69 MEDICATION HIGH RISK 07/25/2011 V58.69 MED ICATION HIGH RISK 07/25/2011 V58.69 MED ICATION HIGH RISK 07/25/2011 V58.69 MED ICATION HIGH RISK 07/25/2011 V58.69 MED ICATION HIGH RISK 07/25/2011 TAMELA HUBBARD DO V58 .69 MEDICATION HIGH RISK 07/25/2011 BARBRA PARNELL, DAVID Vallecillo V58.69 MEDICATION HIGH RISK 07/25/2011 JM DOMINGUEZ SHIRA BRITTON V58.69 MEDICATION HIGH RISK 07/25/2011 V58.69 MED ICATION HIGH RISK 01/06/2012 296.30 MO DEPRESSIVE RECURRENT UNSPECIFIED 01/06/2012 BARBRA PARNELL, DAVID Vallecillo 296.30 MO DEPRESSIVE RECURRENT UNSPECIFIED 01/06/2012 296.30 MO DEPRESSIVE RECURRENT UNSPECIFIED 01/06/2012 296.30 MO DEPRESSIVE RECURRENT UNSPECIFIED 01/06/2012 296.30 MO DEPRESSIVE RECURRENT UNSPECIFIED 01/06/2012 296.30 MO DEPRESSIVE RECURRENT UNSPECIFIED 01/06/2012 TAMELA HUBBARD DO 296 .30 MO DEPRESSIVE RECURRENT UNSPECIFIED 01/06/2012 BARBRA PARNELL, DAVID Vallecillo 296.30 MO DEPRESSIVE RECURRENT UNSPECIFIED 01/06/2012 JM DOMINGUEZ SHIRA RIZOH 296.30 MO DEPRESSIVE RECURRENT UNSPECIFIED 03/30/2018 GREGORY [...] MD Ot E86.0 DEHYDRATION 05/03/2018 JOAQUIN VILLAGRAN MD Ot E87.6 HYPOKALEMIA 05/03/2018 JOAQUIN VILLAGRAN MD Ot F17.2 10 NICOTINE DEPENDENCE, CIGARETTES, UNCOMPL 05/03/2018 JOAQUIN VILLAGRAN MD Ot Z79.4 [employer] (CURRENT) USE OF INSULIN 05/03/2018 JOAQUIN VILLAGRAN MD Ot Z91.1 9 PATIENT'S NONCOMPLIANCE W OT MEDICAL TR 07/21/2018 ESTELA SWEENEY MD Ot E11. 9 TYPE [...] MD Ot Z88. 8 ALLERGY STATUS TO [facility] DRUG/MEDS/BIOL SUB 07/21/2018 ESTELA SWEENEY MD Ot [...] DIABETES MELLITUS WITHOUT COMPLIC 11/03/2018 ALTAGRACIA MONDRAGON DO Ot E78.00 PURE HYPERCHOLESTEROLEMIA, UNSPECIFIED 11/03/2018 ALTAGRACIA MONDRAGON DO Ot F31 .9 BIPOLAR DISORDER, UNSPECIFIED 11/03/2018 ALTAGRACIA MONDRAGON DO Ot F60 .9 PERSONALITY DISORDER, UNSPECIFIED 11/03/2018 ALTAGRACIA MONDRAGON DO Ot I10 ESSENTIAL (PRIMARY) HYPERTENSION 11/03/2018 ALTAGRACIA MONDRAGON DO, Ot J43 .9 EMPHYSEMA, UNSPECIFIED 11/03/2018 ALTAGRACIA MONDRAGON DO, Ot M54.16 RADICULOPATHY, LUMBAR REGION 11/03/2018 ALTAGRACIA MONDRAGON DO, Ot M54 .2 CERVICALGIA 11/03/2018 ALTAGRACIA MONDRAGON DO Ot S16.1XXA STRAIN OF MUSCLE, FASCIA AND TENDON AT N 11/03/2018 ALTAGRACIA MONDRAGON DO Ot X58.XXXA EXPOSURE TO OTHER SPECIFIED FACTORS, INI 11/03/2018 ALTAGRACIA MONDRAGON DO Ot Z77.22 CNTCT W AND EXPSR TO ENVIRON TOBACCO SMO 11/03/2018 ALTAGRACIA MONDRAGON DO Ot Z88 .5 ALLERGY STATUS TO NARCOTIC AGENT STATUS 11/03/2018 ALTAGRACIA MONDRAGON DO Ot Z88 .8 ALLERGY STATUS TO OTH DRUG/MEDS/BIOL SUB 11/05/2018 ALTAGRACIA MONDRAGON DO, Ot E11 .9 TYPE 2 DIABETES MELLITUS WITHOUT COMPLIC 11/05/2018 ALTAGRACIA MONDRAGON DO Ot E78.00 PURE HYPERCHOLESTEROLEMIA, UNSPECIFIED 11/05/2018 ALTAGRACIA MONDRAGON DO, Ot F31 .9 BIPOLAR DISORDER, UNSPECIFIED 11/05/2018 ALTAGRACIA MONDRAGON DO, Ot F60 .9 PERSONALITY DISORDER, UNSPECIFIED 11/05/2018 ALTAGRACIA MONDRAGON DO Ot I10 ESSENTIAL (PRIMARY) HYPERTENSION 11/05/2018 ALTAGRACIA MONDRAGON DO, Ot J43 .9 EMPHYSEMA, UNSPECIFIED 11/05/2018 ALTAGRACIA MONDRAGON DO Ot M54.16 RADICULOPATHY, LUMBAR REGION 11/05/2018 ALTAGRACIA [...] FROM SLIP/TRIP W/O STRIKE 11/26/2018 ALTAGRACIA MONDRAGON DO, Ot Y93.01 ACTIVITY, WALKING, [...] .3 BORDERLINE PERSONALITY DISORDER 11/30/2018 ALTAGRACIA MONDRAGON DO Ot I10 ESSENTIAL (PRIMARY) HYPERTENSION 11/30/2018 ALTAGRACIA [...] .8 ALLERGY STATUS TO OTH DRUG/MEDS/BIOL SUB 12/14/2018 LINDA BLOOM MD, Ot [...] DIABETES MELLITUS WITHOUT COMPLIC 12/17/2018 LINDA BLOOM MD, Ot E78.0 0 PURE HYPERCHOLESTEROLEMIA, UNSPECIFIED 12/17/2018 LINDA BLOOM MD, Ot F31.9 BIPOLAR DISORDER, UNSPECIFIED 12/17/2018 LINDA BLOOM MD Ot 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 12/17/2018 LINDA BLOOM MD, Ot I10 ESSENTIAL (PRIMARY) HYPERTENSION 12/17/2018 LINAD BLOOM MD, Ot J43.9 EMPHYSEMA, UNSPECIFIED 12/17/2018 LINDA BLOOM MD, Ot M79.6 44 PAIN [...] DIABETES MELLITUS WITHOUT COMPLIC 12/22/2018 LINDA BLOOM MD, Ot E78.0 0 PURE HYPERCHOLESTEROLEMIA, UNSPECIFIED 12/22/2018 LINDA BLOOM MD, Ot F31.9 BIPOLAR DISORDER, UNSPECIFIED 12/22/2018 LINDA BLOOM MD, Ot 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 12/22/2018 LINDA [...] OTHER SPECIFIED DISORDERS OF ADRENAL GLA 02/08/2019 SEHRRILL PAREDES Ot S62.630B DISP FX OF DISTAL [...] Ot F41 .9 ANXIETY DISORDER, UNSPECIFIED 03/29/2019 ALTAGRACIA MONDRAGON DO Ot J43 .9 EMPHYSEMA, UNSPECIFIED 03/29/2019 ALTAGRACIA MONDRAGON DO Ot R41.82 ALTERED MENTAL STATUS, UNSPECIFIED 03/29/2019 ALTAGRACIA MONDRAGON DO Ot Z88 .5 ALLERGY STATUS TO NARCOTIC AGENT STATUS 03/29/2019 ALTAGRACIA MONDRAGON DO Ot Z88 .8 ALLERGY STATUS TO OTH DRUG/MEDS/BIOL SUB 03/31/2019 ALTAGRACIA MONDRAGON DO Ot E11.65 TYPE 2 DIABETES MELLITUS WITH HYPERGLYCE 03/31/2019 ALTAGRACIA MONDRAGON DO Ot F17.210 NICOTINE DEPENDENCE, CIGARETTES, UNCOMPL 03/31/2019 ALTAGRACIA MONDRAGON DO Ot F41 .9 ANXIETY DISORDER, UNSPECIFIED 03/31/2019 ALTAGRACIA MONDRAGON DO Ot J43 .9 EMPHYSEMA, UNSPECIFIED 03/31/2019 ALTAGRACIA MONDRAGON DO Ot R41.82 ALTERED MENTAL STATUS, UNSPECIFIED 03/31/2019 ALTAGRACIA MONDRAGON DO Ot Z88 .5 ALLERGY STATUS TO NARCOTIC AGENT STATUS 03/31/2019 ALTAGRACIA MONDRAGON DO Ot Z88 .8 ALLERGY STATUS TO OTH DRUG/MEDS/BIOL SUB 03/31/2019 SISSY MONZON MD Ot E11. 9 TYPE 2 DIABETES MELLITUS WITHOUT COMPLIC 03/31/2019 SISSY MONZON MD Ot F17.210 NICOTINE DEPENDENCE, CIGARETTES, UNCOMPL 03/31/2019 [...] TO OTH DRUG/MEDS/BIOL SUB 03/31/2019 SHERRILL PAREDES TURNER IN Ot S62.630D DISP FX OF DIST PHALANX OF R IDX FNGR, 7 03/31/2019 DAVID BOURGEOIS MD Ot E27.8 OTHER SPECIFIED DISORDERS OF ADRENAL GLA 03/31/2019 SHERRILL PAREDES TURNER IN Ot S62.630B DISP FX OF DISTAL PHALANX [...] TO NARCOTIC AGENT STATUS 04/05/2019 SISSY MONZON MD Ot Z88. 8 ALLERGY STATUS TO OTH DRUG/MEDS/BIOL SUB 05/04/2019 O'DELLODIN APRN Ot M25.552 PAIN IN LEFT HIP 05/21/2019 O'DELL, ODIN Saroj DOMINGUEZ Ot M25.552 PAIN IN LEFT HIP 06/01/2019 O'DELL, ODIN Saroj DOMINGUEZ Ot M25.552 PAIN IN LEFT HIP 06/21/2019 O'DELL, ODIN Saroj DOMINGUEZ Ot M25.552 PAIN IN LEFT HIP 06/21/2019 O'DELL, ODIN Kyle APRN Ot S00.95XA SUPERFICIAL FOREIGN BODY OF UNSP PART OF 06/21/2019 O'ODIN JIMENEZ APRN Ot X58.XXXA EXPOSURE TO OTHER SPECIFIED FACTORS, INI 06/21/2019 O'DELLODIN APRN Ot Z87.39 PERSONAL HISTORY OF DISEASES OF THE MS S 06/21/2019 O'DELL ODINLola Kyle APRN Ot Z96.641 PRESENCE OF RIGHT ARTIFICIAL HIP JOINT 07/07/2019 O'DELL, ODIN K WOODS RIDER Ot M25.552 PAIN IN LEFT HIP 07/07/2019 O'DELL, ODIN K WOODS RIDER Ot S00.95XA SUPERFICIAL FOREIGN BODY OF UNSP PART OF 07/07/2019 O'DELL, ODIN K WOODS RIDER Ot X58.XXXA EXPOSURE TO OTHER SPECIFIED FACTORS, INI 07/07/2019 O'DELL, ODIN K WOODS RIDER Ot Z87.39 PERSONAL HISTORY OF DISEASES OF THE MS S 07/07/2019 O'DELL, ODIN K WOODS RIDER Ot Z96.641 PRESENCE OF RIGHT ARTIFICIAL HIP JOINT 07/09/2019 O'DELL, ODIN K WOODS RIDER Ot M25.552 PAIN IN LEFT HIP 07/09/2019 O'DELL, ODIN K WOODS RIDER Ot S00.95XA SUPERFICIAL FOREIGN BODY OF UNSP PART OF 07/09/2019 O'DELL, ODIN K WOODS RIDER Ot X58.XXXA EXPOSURE TO OTHER SPECIFIED FACTORS, INI 07/09/2019 O'DELL, ODIN K WOODS RIDER Ot Z87.39 PERSONAL HISTORY OF DISEASES OF THE MS S 07/09/2019 O'DELL, ODIN K WOODS RIDER Ot Z96.641 PRESENCE OF RIGHT ARTIFICIAL HIP JOINT 07/28/2019 O'DELL, ODIN K WOODS RIDER Ot M25.552 PAIN IN LEFT HIP 07/28/2019 O'DELL, ODIN K WOODS RIDER Ot S00.95XA SUPERFICIAL FOREIGN BODY OF UNSP PART OF 07/28/2019 O'DELL, ODIN K WOODS RIDER Ot X58.XXXA EXPOSURE TO OTHER SPECIFIED FACTORS, INI 07/28/2019 O'DELL, ODIN K WOODS RIDER Ot Z87.39 PERSONAL HISTORY OF DISEASES OF THE MS S 07/28/2019 O'DELL, ODIN K WOODS RIDER Ot Z96.641 PRESENCE OF RIGHT ARTIFICIAL HIP JOINT 08/22/2019 DELMAN DO, NED B Ot E11.9 TYPE 2 DIABETES MELLITUS WITHOUT COMPLIC 08/22/2019 DELMAN DO, NED B Ot E78.5 HYPERLIPIDEMIA, UNSPECIFIED 08/22/2019 DELMAN DO, NED B Ot F17.2 10 NICOTINE DEPENDENCE, CIGARETTES, UNCOMPL 08/22/2019 CELIA DO, NED B Ot F31.9 BIPOLAR DISORDER, UNSPECIFIED 08/22/2019 DELMAN DO, NED B Ot J30.2 OTHER SEASONAL ALLERGIC RHINITIS 08/22/2019 [facility], NED B Ot J43.9 EMPHYSEMA, UNSPECIFIED 08/22/2019 [facility], NED B Ot K21.0 GASTRO-ESOPHAGEAL REFLUX DISEASE WITH ES 08/22/2019 LIONELMCCARLEY , NED B Ot K29.7 0 GASTRITIS, UNSPECIFIED, WITHOUT BLEEDING 08/22/2019 [facility], NED B Ot K44.9 DIAPHRAGMATIC HERNIA WITHOUT OBSTRUCTION 08/22/2019 [facility], NED B Ot M19.9 0 UNSPECIFIED OSTEOARTHRITIS, UNSPECIFIED 08/22/2019 [facility], NED B Ot Z79.4 [employer] (CURRENT) USE OF INSULIN 08/22/2019 [facility], NED B Ot Z79.8 2 [employer] (CURRENT) USE OF ASPIRIN 08/22/2019 [facility], NED B Ot Z79.8 99 OTHER [employer] (CURRENT) DRUG THERAPY 08/22/2019 [facility], NED B Ot Z86.7 9 PERSONAL HISTORY OF OTHER DISEASES OF TH 08/22/2019 [facility], NED B Ot Z88.5 ALLERGY STATUS TO NARCOTIC AGENT STATUS 08/22/2019 [facility], NED B Ot Z88.8 ALLERGY STATUS TO OTH DRUG/MEDS/BIOL SUB 08/24/2019 [facility], NED B Ot E11.9 TYPE 2 DIABETES MELLITUS WITHOUT COMPLIC 08/24/2019 [facility], NED B Ot E78.5 HYPERLIPIDEMIA, UNSPECIFIED 08/24/2019 [facility], NED B Ot F17.2 10 NICOTINE DEPENDENCE, CIGARETTES, UNCOMPL 08/24/2019 [facility], NED B Ot F31.9 BIPOLAR DISORDER, UNSPECIFIED 08/24/2019 [facility], NED B Ot J30.2 OTHER SEASONAL ALLERGIC RHINITIS 08/24/2019 [facility], NED B Ot J43.9 EMPHYSEMA, UNSPECIFIED 08/24/2019 [facility], NED B Ot K21.0 GASTRO-ESOPHAGEAL REFLUX DISEASE WITH ES 08/24/2019 LIONELMCCARLEY , NED B Ot K29.7 0 GASTRITIS, UNSPECIFIED, WITHOUT BLEEDING 08/24/2019 [facility], NED B Ot K44.9 DIAPHRAGMATIC HERNIA WITHOUT OBSTRUCTION 08/24/2019 [facility], NED B Ot M19.9 0 UNSPECIFIED OSTEOARTHRITIS, UNSPECIFIED 08/24/2019 CELIA BRAY, NED B Ot Z79.4 [employer] (CURRENT) USE OF INSULIN 08/24/2019 CELIA BRAY, NED B Ot Z79.8 2 [employer] (CURRENT) USE OF ASPIRIN 08/24/2019 CELIA BRAY, NED B Ot Z79.8 99 OTHER [employer] (CURRENT) DRUG THERAPY 08/24/2019 CELIA BRAY, NED B Ot Z86.7 9 PERSONAL HISTORY OF OTHER DISEASES OF 08/24/2019 CELIA BRAY, NED B Ot Z88.5 ALLERGY STATUS TO NARCOTIC AGENT STATUS 08/24/2019 CELIA BRAY, NED B Ot Z88.8 ALLERGY STATUS TO OTH DRUG/MEDS/BIOL SUB 08/24/2019 CELIA BRAY, NED B Ot E11.9 TYPE 2 DIABETES MELLITUS WITHOUT COMPLIC 08/24/2019 CELIA BRAY, NED B Ot E78.5 HYPERLIPIDEMIA, UNSPECIFIED 08/24/2019 CELIA BRAY, NED B Ot F17.2 10 NICOTINE DEPENDENCE, CIGARETTES, UNCOMPL 08/24/2019 CELIA BRAY, NED B Ot F31.9 BIPOLAR DISORDER, UNSPECIFIED 08/24/2019 [facility] , NED B Ot J30.2 OTHER SEASONAL ALLERGIC RHINITIS 08/24/2019 CELIA BRAY, NED B Ot J43.9 EMPHYSEMA, UNSPECIFIED 08/24/2019 LIONELMCCARLEY , NED B Ot K21.0 GASTRO-ESOPHAGEAL REFLUX DISEASE WITH ES 08/24/2019 CELIA BRAY, NED B Ot K29.7 0 GASTRITIS, UNSPECIFIED, WITHOUT BLEEDING 08/24/2019 CELIA BRAY, NED B Ot K44.9 DIAPHRAGMATIC HERNIA WITHOUT OBSTRUCTION 08/24/2019 CELIA BRAY, NED B Ot M19.9 0 UNSPECIFIED OSTEOARTHRITIS, UNSPECIFIED 08/24/2019 CELIA BRAY, NED B Ot Z79.4 [employer] (CURRENT) USE OF INSULIN 08/24/2019 CELIA BRAY, NED B Ot Z79.8 2 [employer] (CURRENT) USE OF ASPIRIN 08/24/2019 CELIA BRAY, NED B Ot Z79.8 99 OTHER SENIOR CARE (CURRENT) DRUG THERAPY 08/24/2019 CELIA BRAY, NED B Ot Z86.7 9 PERSONAL HISTORY OF OTHER DISEASES OF 08/24/2019 CELIA BRAY, NED B Ot Z88.5 ALLERGY STATUS TO NARCOTIC AGENT STATUS 08/24/2019 CELIA BRAY, NED B Ot Z88.8 ALLERGY STATUS TO OTH DRUG/MEDS/BIOL SUB 08/24/2019 CELIA BRAY, NED B Ot E11.9 TYPE 2 DIABETES MELLITUS WITHOUT COMPLIC 08/24/2019 CELIA BRAY, NED B Ot E78.5 HYPERLIPIDEMIA, UNSPECIFIED 08/24/2019 CELIA BRAY, NED B Ot F17.2 10 NICOTINE DEPENDENCE, CIGARETTES, UNCOMPL 08/24/2019 CELIA BRAY, NED B Ot F31.9 BIPOLAR DISORDER, UNSPECIFIED 08/24/2019 CELIA BRAY, NED B Ot J30.2 OTHER SEASONAL ALLERGIC RHINITIS 08/24/2019 CELIA BRAY, NED B Ot J43.9 EMPHYSEMA, UNSPECIFIED 08/24/2019 CELIA BRAY, NED B Ot K21.0 GASTRO-ESOPHAGEAL REFLUX DISEASE WITH ES 08/24/2019 CELIA BRAY, NED B Ot K29.7 0 GASTRITIS, UNSPECIFIED, WITHOUT BLEEDING 08/24/2019 CELIA BRAY, NED B Ot K44.9 DIAPHRAGMATIC HERNIA WITHOUT OBSTRUCTION 08/24/2019 CELIA BRAY, NED B Ot M19.9 0 UNSPECIFIED OSTEOARTHRITIS, UNSPECIFIED 08/24/2019 CELIA BRAY, NED B Ot Z79.4 SENIOR CARE (CURRENT) USE OF INSULIN 08/24/2019 CELIA BRAY, NED B Ot Z79.8 2 [employer] (CURRENT) USE OF ASPIRIN 08/24/2019 CELIA BRAY, NDE B Ot Z79.8 99 OTHER SENIOR CARE (CURRENT) DRUG THERAPY 08/24/2019 CELIA BRAY, NED B Ot Z86.7 9 PERSONAL HISTORY OF OTHER DISEASES OF TH 08/24/2019 CELIA BRAY, NED B Ot Z88.5 ALLERGY STATUS TO NARCOTIC AGENT STATUS 08/24/2019 CELIA BRAY, NED B Ot Z88.8 ALLERGY STATUS TO OTH DRUG/MEDS/BIOL SUB 08/26/2019 EDELMIRA RIZZO TURNER IN Ot R60.0 LOCALIZED EDEMA 08/26/2019 EDELMIRA RIZZO TURNER IN Ot R68.89 OTHER GENERAL SYMPTOMS AND SIGNS Procedures Code Description Performed [place] [address] [place] V PSYTX 45/50 MIN 12/19/2011 22346 ROUT INE VENIPUNCTURE 01/06/2012 14743 LIVE R PANEL (LFT) 01/06/2012 41138 CBC 01/06/20126724008 GF R CALC (RESULT ONLY) 01/06/2012 83352 REGGIE L PROFILE 01/07/2012 16758 LITHIUM 01/07/2012 48667 TSH 01/07/2012 35339 PSYC H PHARM MGMT 01/14/2012 16378 [place] V PSYTX 20/30 MIN 01/26/2012 67392 ROUT INE VENIPUNCTURE 05/04/2012 35680 UA L ADALID DIP 05/04/2012 83513 CREA TININE 05/04/2012 [id number] GF R CALC (RESULT ONLY) 05/04/2012 53022 LITHIUM 05/04/2012 23891 PSYT X PT&/FAMILY 45 MINUTES 07/13/2012 13735 PSYT X PT&/FAMILY 30 MINUTES 11/04/2012 Results [...] U/L 8-78 LITHIUM LEVEL - 04/30/18 12:20 [place] [mass/volume] in serum or plasma 0.1 % [...] 7-25 CREATININE 1.06 mg/dL 0.70-1.33 eGFR NON-AFR. CROATIAN 79 mL/min/1.73m2 > OR = 60 eGFR [...] LC/MS/MS 147 nmol/L 78-185 Coronavirus SARS-CoV-2 SO 2019 - 0 08:07 Coronavirus Ab [Units/volume] in Serum Negative Negative A1C - 08/24/19 11:34 HEMOGLOBIN A1c 7.4 % of total Hgb <5.7 Encounters ACCT No. Visit Date/Time Discharge Status Pt. Type Provider Facility Loc./Unit Complaint [id number] 08/25/2019 10:45:[address] [facility] [id number] 08/24/2019 09:30:00 Document Registration [id number] 08/01/2019 08:00:00 Document Registration [id number] 12/27/2018 08:30:00 Document Registration [id number] 12/09/2018 09:00:00 Document Registration [id number] 09/23/2018 09:00:00 Document Registration [id number] 06/18/2018 09:15:00 Document Registration [id number] 08/24/2019 10:49:00 23:59:59 CLS Outpatient EDELMIRA RIZZOP [facility] RAD FS LOWER EXTREMITY EDEMA,EXERCISE TOLERANCE [id number] 08/22/2019 09:13:00 11:48:00 DIS Outpatient NED YANG DO [facility] ENDO EPIGASTRIC PAIN/ABD TABBY N/DECREASE APPETITIE [id number] 08/18/2019 05:37:00 13:39:00 DIS Outpatient NED YANG DO [facility] PREOP EGD [id number] 06/20/2019 10:15:00 23:59:59 CLS Outpatient Bennie'ODIN JIMENEZ APRN [facility] RAD PAIN OF L HIP JOINT [id number] 04/28/2019 13:26:00 23:59:59 CLS Outpatient ODIN LANDAVERDE WOODS RIDER [facility] RAD FS M25.552 [id number] 04/28/2019 12:53:00 13:09:00 DIS Emergency ROVENSTTAMELA APODACA DO [facility] ER FS ROSALIND HIP/LEG TABBY N [id number] 03/31/2019 16:01:00 21:31:00 DIS Emergency SISSY MONZON MD [facility] ER FS SELF INFLICTED WOUNDS [id number] 03/29/2019 12:43:00 14:30:00 DIS Emergency ALTAGRACIA MONDRAGON DO [facility] ER FS AMS, ANXIETY [id number] 01/17/2019 10:31:00 23:59:59 CLS Outpatient SHERRILL PAREDES [facility] RAD FS S62.630B [id number] 01/12/2019 08:25:00 23:59:59 CLS Outpatient DAVID BOURGEOIS MD [facility] RAD FS ADRENAL NODULE [id number] 12/27/2018 09:21:00 23:59:59 CLS Outpatient SHERRILL PAREDES [facility] RAD FS S62.630B [id number] 12/14/2018 16:18:00 17:01:00 DIS Emergency LINDA BLOOM MD [facility] ER FS RT INDEX FINGER LAC [id number] 11/26/2018 12:59:00 14:10:00 DIS Emergency ALTAGRACIA MONDRAGON DO [facility] ER FS LT ANKLE INJ [id number] 11/03/2018 12:36:00 14:15:00 DIS Emergency GIANCARLO ALTAGRACIA BRAY [facility] ER FS NECK/LWR BACK/LT HIP PA IN [id number] 07/21/2018 14:11:00 019 15:56:00 DIS Emergency PATEL GARBER, ESTELA Casey [facility] ER FS LT HAND INSECT STING; G ENERAL WEAKNESS [id number] 04/30/2018 16:30:00 019 11:20:00 DIS Inpatient TYSHAWN GARBER, JOAQUIN Conde [facility] 4TH HYPERGLYCEMIA [id number] 03/30/2018 16:04:00 17:01:00 DIS Emergency LAZ GREGORY DO [facility] ER FS HIP PAIN [id number] 03/30/2013 10:28:00 03/30/2013 23:59: 59 CLS Outpatient MJ DOMINGUEZSHIRA [id number] 11/03/2012 14:09:00 11/03/2012 23:59: 59 CLS Outpatient DAVID BELLE PHD [id number] 10/06/2012 13:50:00 10/06/2012 23:59: 59 CLS Outpatient TAMELA HUBBARD DO [id number] 05/04/2012 14:16:00 05/04/2012 23:59: 59 CLS Outpatient [id number] 04/07/2012 11:30:00 04/07/2012 23:59: 59 CLS Outpatient [id number] 01/26/2012 11:17:00 01/26/2012 23:59: 59 CLS Outpatient DAVID BELLE PHD [id number] 01/06/2012 11:47:00 01/06/2012 23:59: 59 CLS Outpatient [id number] 12/19/2011 09:57:00 12/19/2011 23:59:5 9 CLS Outpatient [id number] 07/12/2012 08:55:00 Document Registration [id number] 05/04/2012 14:16:00 Document Registration
[2019-08-28] MEDS ORDERED: diphenhydrAMINE 50 MG/ML INJ (BENADRYL) IM STA (14:32)
--- NOTE | 2019-08-28 14:36 | ED Headache ---
General Chief Complaint: Head/Cervical Problems Stated Complaint: HEADACHE, BS 264 Source: patient, RN/MD Exam Limitations: no limitations History of Present Illness Date Seen by Provider: Aug 28, 2019 Time Seen by Provider: 14:25 Initial Comments This patient is 54-year-old male presents to the emergency department with complaint of a headache. Patient states she's had headache for 2 days. Has long history of headaches. Is even seen a specialist and has had a CT scan. Patient states a lot of his headaches usually related from his neck and sometimes frontal sinuses. Patient is currently taking of Vistaril to help with some itching due to his diabetes and insertion side of his diabetic monitor and insulin pump. And that does seem to help with the sinuses. This is chronic condition. Patient requests something to help with the headache. Timing/Duration: 24 hours Severity/Quality: moderate Location: frontal Associated Symptoms: No denies symptoms, No confusion, No fatigue, No facial pain, No fever/chills, No flushing, No loss of consciousness, No nausea/vomiting, No nasal congestion, No nasal drainage, No numbness in legs/feet, No rash, No seizures, No sinus infection, No stiff neck, No vision changes, No weakness, No other Allergies and Home Medications Allergies Coded Allergies: chlorpromazine (Verified Allergy, Unknown, paralysis, 04/30/18) fentanyl (Verified Allergy, Unknown, hives, 04/30/18) thioridazine (Verified Allergy, Unknown, confusion, 04/30/18) Home Medications Albuterol Sulfate 1 Puff Puff, 2 PUFF INH Q4H PRN for WHEEZING, (Reported) 1 PUFF = 90 MCG Amitriptyline HCl 10 Mg Tablet, 10 MG PO HS, (Reported) Buspirone HCl 10 Mg Tablet, 10 MG PO DAILY@0800,1200, (Reported) Citalopram Hydrobromide 40 Mg Tablet, 40 MG PO DAILY, (Reported) Fluticasone Propionate 16 Gm [place].susp, 2 SPR NSEACH DAILY, (Reported) Insulin Aspart 100 Unit/1 Ml Susp, UNIT SQ DAILY, (Reported) per pump Propranolol HCl 20 Mg Tablet, 20 MG PO BID, (Reported) Patient Home Medication List Home Medication List Reviewed: Yes Review of Systems Review of Systems Constitutional: No no symptoms reported, No see HPI, No chills, No diaphoresis, No dizziness, No fever, No malaise, No weakness, No weight gain, No weight loss, No other Eyes: Denies No Symptoms Reported, Denies See HPI, Denies Blindness, Denies Blurred Vision, Denies Drainage, Denies Decreased Acuity, Denies Foreign Body Sensation, Denies Inflammation, Denies Pain, Denies Photophobia, Denies Previous Injury, Denies Shadows, Denies Tunnel Vision, Denies Vision Changes, Denies Contact Lenses, Denies Glasses, Denies Other Ears, Nose, Mouth, Throat: denies no symptoms reported, denies see HPI, denies ear pain, denies ear discharge, denies nose pain, denies nose discharge, denies epistaxis, denies mouth pain, denies mouth swelling, denies loose teeth, denies throat pain, denies throat swelling Respiratory: No no symptoms reported, No see HPI, No cough, No dyspnea on exertion, No hemoptysis, No orthopnea, No phlegm, No short of breath, No stridor, No wheezing, No other Cardiovascular: No no symptoms reported, No see HPI, No chest pain, No edema, No Hx of Intervention, No palpitations, No syncope, No vascular heart diseas, No other Gastrointestinal: No RUQ, No LUQ, No RLQ, No LLQ, No no symptoms reported, No see HPI, No abdominal pain, No constipation, No diarrhea, No dysphagia, No hematemesis, No heartburn, No jaundice, No loss of appetite, No melena, No nausea, No vomiting, No other Genitourinary: No no symptoms reported, No see HPI, No decreased output, No discharge, No dysuria, No frequency, No hematuria, No hesitancy, No incontinence, No nocturia, No pain, No other Musculoskeletal: No no symptoms reported, No see HPI, No back pain, No gout, No joint pain, No joint swelling, No muscle pain, No muscle stiffness, No muscle cramps, No muscle twitching, No muscle weakness, No neck pain, No other Psychiatric/Neurological: Denies No Symptoms Reported, Denies See HPI, Denies Anxiety, Denies Depressed, Denies Emotional Problems; Headache; Denies Numbness, Denies Paresthesia, Denies Pre-Existing Deficit, Denies Seizure, Denies Tingling, Denies Tremors, Denies Weakness, Denies Other All Other Systems Reviewed Negative Unless Noted: Yes Past Pslyird-Klkqpz-Qprtlm Hx Patient Social History Alcohol Use: Denies Use Recreational Drug Use: No Type Used: Cigarettes 2nd Hand Smoke Exposure: Yes Recent Hopitalizations: No Physical Abuse: No Sexual Abuse: No Immunizations Up To Date Date of Pneumonia Vaccine: Dec 09, 2016 Date of Influenza Vaccine: Dec 09, 2017 Seasonal Allergies Seasonal Allergies: No Past Medical History Surgeries: Yes (hip surgery, shoulder, hernia) Gallbladder, Orthopedic Respiratory: Yes Asthma, Chronic Bronchitis, COPD, Emphysema Cardiac: Yes High Cholesterol, Hypertension Neurological: No Genitourinary: Yes Kidney Stones Gastrointestinal: Yes (epigastric pain) Gastroesophageal Reflux Musculoskeletal: Yes Degenerate Disk Disease, Arthritis Endocrine: Yes Diabetes, Insulin dep HEENT: No Cancer: No Psychosocial: Yes (bipolar disorder I, borderline personality ) Bipolar, Personality Disorder Integumentary: No Blood Disorders: No Physical Exam Vital Signs Capillary Refill : Height, Weight, BMI Height: 5'6.00" Weight: 138lbs. 0oz. [id number]; 23.75 BMI Method:Stated General Appearance: WD/WN, no apparent distress Cardiovascular: normal peripheral pulses, regular rate, rhythm, no edema, no gallop, no JVD, no murmur Respiratory: chest non-tender, lungs clear, normal breath sounds, no respiratory distress, no accessory muscle use Gastrointestinal: normal bowel sounds, non tender, soft, no organomegaly, no pulsatile mass Extremities: normal range of motion, non-tender, normal inspection, no pedal edema, no calf tenderness, normal capillary refill, pelvis stable Skin: normal color, warm/dry Progress/Results/Core Measures Results/Orders My Orders Orders - FARIDA ACEVEOD MD Ketorolac Injection (Toradol Injection) (08/28/19 14:45) Diphenhydramine Injection (Benadryl Inje (08/28/19 14:32) Departure Impression Primary Impression: Headache Disposition: 01 HOME, SELF-CARE Condition: Stable Departure-Patient Inst. Decision time for Depature: 14:35 Referrals: SELFDAVID MD (PCP/Family) Primary Care Physician Patient Instructions: Headache, Adult (DC) Add. Discharge Instructions: Encourage by mouth fluids. Continue monitor blood glucose with your pump. Try to stop smoking. Continue Tylenol Motrin as needed for headache. Try to get in a cool dark place and his wrist. Follow-up with your primary care physician tomorrow. All discharge instructions reviewed with patient and/or family. Voiced understanding. FARIDA ACEVEDO MD Aug 28, 2019 14:35
[2019-08-28] MEDS ORDERED: KETOROLAC 60 MG/2 ML VIAL IM ONE (14:45)
[2019-08-28] MEDS ORDERED: HYDR-700 (14:52)
== END 2019-08-28 14:46 | disposition home or self-care (01) ==
LOC: EDUNIT# 14:23 → ER FS 14:25
DX: R51 Headache (principal); E11.9 Type 2 diabetes mellitus without complications; I10 Essential (primary) hypertension; F31.9 Bipolar disorder, unspecified; J43.9 Emphysema, unspecified; Z88.5 Allergy status to narcotic agent; Z88.8 Allergy status to other drugs, medicaments and biological substances; Z79.51 Long term (current) use of inhaled steroids
CPT/HCPCS: 99284

== ENCOUNTER → 2019-09-02 | Outpatient (CLI) | payer MEDICARE, MEDICAID ==
[~2019-09-02] MED LIST changes: +BARIUM for suspension 96% w/w (Vanilla Silq Medium Density) PO ONE; +BARIUM for suspension 98% w/w (Vanilla Silq High Density) PO ONE; +HYDR-700
--- NOTE | 2019-09-02 11:40 | Diagnostic Imaging Report ---
INDICATION: Shortness of breath. Patient ingested effervescent crystals as well as thin and thick barium and imaging of the esophagus was performed. 56 seconds of fluoroscopic time was utilized. The esophagus has a smooth contour. No mass or stricture is identified. No definite gastroesophageal reflux or hiatal hernia is demonstrated. Visualized stomach is unremarkable. IMPRESSION: Unremarkable esophagram. Dictated by: Dictated on workstation # [id number]
== END ==
LOC: RAD 10:20
PROVIDERS: ATTEND Surgery
DX: R06.02 Shortness of breath (principal)
CPT/HCPCS: 74220

== ENCOUNTER → 2019-11-01 | Outpatient (CLI) | payer MEDICARE, MEDICAID ==
[~2019-11-01] MED LIST changes: -BARIUM for suspension 96% w/w (Vanilla Silq Medium Density) PO ONE; -BARIUM for suspension 98% w/w (Vanilla Silq High Density) PO ONE; -PANT40TA3; +PANT40TA52
--- NOTE | 2019-11-01 16:59 | Diagnostic Imaging Report ---
INDICATION: Left shoulder pain. TECHNIQUE: AP, oblique, and transscapular views of the left shoulder were obtained. FINDINGS: No fracture or dislocation is seen. There is no acute bony abnormality. There is mild degenerative change of the AC joint. IMPRESSION: Mild degenerative change of the AC joint. No acute bony abnormality of the left shoulder. Dictated by: Dictated on workstation # [id number]
== END ==
LOC: RAD FS 12:49
PROVIDERS: ATTEND Nurse Practitioner
DX: M19.012 Primary osteoarthritis, left shoulder (principal)
CPT/HCPCS: 73030

== ENCOUNTER 2019-11-26 21:09 | Emergency (ER) | payer MEDICARE, MEDICAID ==
[~2019-11-26] VITALS: Ht 172.7 cm; Wt 69.0 kg
[2019-11-26] MEDS ORDERED: morphine INJ 10 MG/ML 1ML (SYR OR VIAL) IVP STA (21:20)
--- NOTE | 2019-11-26 21:28 | ED General ---
General Chief Complaint: Lower Extremity Stated Complaint: RT HIP PAIN Source of Information: Patient Exam Limitations: No Limitations History of Present Illness Date Seen by Provider: Nov 26, 2019 Time Seen by Provider: 21:10 Initial Comments Patient is a 54-year-old male who presents to the emergency room today with a chief complaint of dizziness, syncope, right hip pain. Patient states that he was in the kitchen and he felt himself getting dizzy he states he bent down two or three times with this dizzy spell and the next thing he knew, after he stood up the last time, he was on the kitchen floor. Patient has had a prosthetic hip placed about 5 years ago he states he has extreme pain to his right hip curren tly. Patient denies any history of syncopal events in the past. He is an insulin-dependent diabetic with an insulin pump. He has a long history of mental illness as well as vascular disease. He has hypercholesterolemia and hypertension. Patient denies any recent illnesses such as fevers, chills, cough, GI or symptoms. He states he had not eaten dinner yet this evening and in reviewing his insulin pump his blood sugars have been over 100 in the course of the last hour or so. He does state it was type soldering machine tender the kitchen, that may have been a contributing factor. All other review of systems reviewed negative except as stated above. Timing/Duration: 1 Hour Severity: Moderate Associated Systoms: Other (Right hip pain) Allergies and Home Medications Allergies Coded Allergies: chlorpromazine (Verified Allergy, Unknown, paralysis, 04/30/18) fentanyl (Verified Allergy, Unknown, hives, 04/30/18) thioridazine (Verified Allergy, Unknown, confusion, 04/30/18) Home Medications Albuterol Sulfate 1 Puff Puff, 2 PUFF INH Q4H PRN for WHEEZING, (Reported) 1 PUFF = 90 MCG Amitriptyline HCl 10 Mg Tablet, 10 MG PO HS, (Reported) Buspirone HCl 10 Mg Tablet, 10 MG PO DAILY@0800,1200, (Reported) Citalopram Hydrobromide 40 Mg Tablet, 40 MG PO DAILY, (Reported) Fluticasone Propionate 16 Gm [place].susp, 2 SPR NSEACH DAILY, (Reported) Hydrocodone/Acetaminophen 1 Each Tablet, 1-2 EACH PO Q6H PRN for PAIN-MODERATE Prescribed by: REBA SOUTH on 11/26/192232 Insulin Aspart 100 Unit/1 Ml Susp, UNIT SQ DAILY, (Reported) per pump Patient Home Medication List Home Medication List Reviewed: Yes Review of Systems Review of Systems Constitutional: dizziness EENTM: no symptoms reported Respiratory: no symptoms reported Cardiovascular: no symptoms reported Gastrointestinal: no symptoms reported Genitourinary: no symptoms reported Musculoskeletal: joint pain (Right hip pain), other (Numbness in his feet secondary to neuropathy) Skin: no symptoms reported Psychiatric/Neurological: Paresthesia (Secondary to neuropathy) All Other Systems Reviewed Negative Unless Noted: Yes Past Dvolehd-Lzjtqk-Hzgzwl Hx Patient Social History Alcohol Use: Denies Use Recreational Drug Use: No Smoking Status: Current Everyday Smoker Type Used: Cigarettes 2nd Hand Smoke Exposure: Yes Recent Foreign Travel: No Contact w/Someone Who Travel: No Recent Hopitalizations: No Physical Abuse: No Sexual Abuse: No Mistreated: No Fear: No Immunizations Up To Date Date of Pneumonia Vaccine: Dec 09, 2016 Date of Influenza Vaccine: Dec 09, 2017 Seasonal Allergies Seasonal Allergies: No Past Medical History Surgeries: Yes (hip surgery, shoulder, hernia) Gallbladder, Orthopedic Respiratory: Yes Asthma, Chronic Bronchitis, COPD, Emphysema Cardiac: Yes High Cholesterol, Hypertension Neurological: Yes Neuropathy Genitourinary: Yes Kidney Stones Gastrointestinal: Yes (epigastric pain) Gastroesophageal Reflux Musculoskeletal: Yes Degenerate Disk Disease, Arthritis Endocrine: Yes Diabetes, Insulin dep HEENT: No Cancer: No Psychosocial: Yes (bipolar disorder I, borderline personality ) Bipolar, Personality Disorder Integumentary: No Blood Disorders: No Physical Exam Vital Signs Vital Signs - First Documented 11/26/19 21:16 Temp 36.1 Pulse 87 Resp 18 B/P (MAP) 117/86 (96) Pulse Ox 94 O2 Delivery Room Air Capillary Refill : Height, Weight, BMI Height: 5'6.00" Weight: 138lbs. 0oz. 62.075598lx; 23.00 BMI Method:Stated General Appearance: No Apparent Distress, Thin Eyes: Bilateral Eye Normal Inspection, Bilateral Eye PERRL HEENT: PERRL/EOMI Neck: Non Tender Respiratory: Chest Non Tender, Normal Breath Sounds, No Accessory Muscle Use, No Respiratory Distress Cardiovascular: Regular Rate, Rhythm, No Murmur, Normal Peripheral Pulses, Other (Distal pulses intact, 2+ radial bilaterally 2+ dorsalis pedis bilate rally) Gastrointestinal: Normal Bowel Sounds, Non Tender, Soft Extremity: Normal Capillary Refill, No Pedal Edema, Other (Tenderness with palpation of the right hip and range of motion of the right lower extremity) Neurologic/Psychiatric: Alert, Oriented x3, Normal Mood/Affect Skin: Normal Color, Warm/Dry, Other (Abrasion over the right elbow) Progress/Results/Core Measures Suspected Sepsis SIRS Temperature: Pulse: Respiratory Rate: Laboratory Tests 11/26/19 19:23: White Blood Count 17.3H Blood Pressure / Mean: Laboratory Tests 11/26/19 19:23: Creatinine 1.71H, Platelet Count 394 Results/Orders Lab Results Laboratory Tests Test 11/26/19 19:23 Range/Units White Blood Count 17.3 H 4.3-11.0 10^3/uL Red Blood Count 5.05 4.35-5.85 10^6/uL Hemoglobin 15.0 13.3-17.7 G/DL Hematocrit 45 40-54 % Mean Corpuscular Volume 89 80-99 FL Mean Corpuscular Hemoglobin 30 25-34 PG Mean Corpuscular Hemoglobin Concent 33 32-36 G/DL Red Cell Distribution Width 15.4 H 10.0-14.5 % Platelet Count 394 130-400 10^3/uL Mean Platelet Volume 9.4 7.4-10.4 FL Immature Granulocyte % (Auto) 1 % Neutrophils (%) (Auto) 81 H 42-75 % Lymphocytes (%) (Auto) 9 L 12-44 % Monocytes (%) (Auto) 7 0-12 % Eosinophils (%) (Auto) 1 0-10 % Basophils (%) (Auto) 0 0-10 % Neutrophils # (Auto) 14.1 H 1.8-7.8 X 10^3 Lymphocytes # (Auto) 1.6 1.0-4.0 X 10^3 Monocytes # (Auto) 1.2 H 0.0-1.0 X 10^3 Eosinophils # (Auto) 0.1 0.0-0.3 10^3/uL Basophils # (Auto) 0.1 0.0-0.1 10^3/uL Immature Granulocyte # (Auto) 0.2 H 0.0-0.1 10^3/uL Neutrophils % (Manual) 83 % Lymphocytes % (Manual) 11 % Monocytes % (Manual) 6 % Toxic Granulation 4+ Polychromasia SLIGHT Poikilocytosis MODERATE Sodium Level 137 135-145 MMOL/L Potassium Level 4.1 3.6-5.0 MMOL/L Chloride Level 101 98-107 MMOL/L Carbon Dioxide Level 22 21-32 MMOL/L Anion Gap 14 5-14 MMOL/L Blood Urea Nitrogen 16 7-18 MG/DL Creatinine 1.71 H 0.60-1.30 MG/DL Estimat Glomerular Filtration Rate 42 BUN/Creatinine Ratio 9 Glucose Level 166 H 70-105 MG/DL Calcium Level 9.4 8.5-10.1 MG/DL Smear Scan LRG PLTS My Orders Orders - REBA SOUTH MD Ct Head Wo (11/26/19 21:16) Pelvis With Right Hip 2-3 View (11/26/19 21:16) Ekg Tracing (11/26/19 21:16) Chest 1 View Ap/Pa Only (11/26/19 21:16) Cbc With Automated Diff (11/26/19 21:16) Basic Metabolic Panel (11/26/19 21:16) Ondansetron Injection (Zofran Injectio (11/26/19 21:30) Morphine Injection (Morphine Injection (11/26/19 21:20) Manual Differential (11/26/19 19:23) Hydrocodone/Apap 10/325 Tablet (Lortab 1 (11/26/19 22:45) Medications Given in ED Current Medications Medications Dose Ordered Sig/Roshan Route Start Time Stop Time Status Last Admin Dose Admin Ondansetron HCl 4 mg ONCE ONCE IVP 11/26/19 21:30 11/26/19 21:31 DC 11/26/19 21:26 4 MG Vital Signs/I&O 11/26/19 21:16 Temp 36.1 Pulse 87 Resp 18 B/P (MAP) 117/86 (96) Pulse Ox 94 O2 Delivery Room Air Capillary Refill : Progress Note : Time: 21:31 Progress Note 54-year-old male presents to the emergency department today with a chief co mplaint of right hip pain after syncopal event. Evaluation today includes a physical exam, EKG, chest x-ray, pelvis x-ray with 2 views of the right hip. CT scan of the brain is also obtained secondary to the patient's dizziness/preceding symptoms of fainting. Basic laboratory studies are also obtained secondary to the patient's diabetes and other comorbid illnesses. Patient was examined thoroughly, abrasions noted to the right elbow. Patient is awake alert and oriented in no acute distress other than pain in the right hip with manipulation of the right lower extremity. Patient's vital signs currently are stable. Pending imaging studies at this time. 2225 Patient's laboratory studies have been evaluated by me, he has an increase in his serum creatinine which he states happens occasionally. The patient reassures me that he has follow-up with his diabetes doctor this week. I have encouraged him to relay this information to her. I have also sent a copy of his ER visit today to his primary care doctor, Dr. Aldridge. Patient's CT scan of the brain was within normal limits, his chest x-ray was within normal limits, his EKG showed a normal sinus rhythm without ectopy. His pelvis and right hip x- rays show a nondisplaced longitudinal fracture that is likely chronic in nature of the lesser trochanter. Again this is a nonacute appearing fracture. This is a nonsurgical fracture. I am going to have the patient take home a pair of crutches and be weightbearing as tolerated on his right leg. He will go home with a prescription for some pain medications. He is advised to be careful with sitting and standing abruptly. I believe his syncopal episode was vasovagal in nature. The patient is agreeable with this. All questions have been sought and answered he is comfortable with his plan for discharge and is stable for discharge. ECG Initial ECG Impression Date: Nov 26, 2019 Initial ECG Impression Time: 21:28 Initial ECG Rate: 96 Initial ECG Rhythm: Normal Sinus Initial ECG Intervals: Normal Initial ECG Impression: Nonspecific Changes (Nonspecific ST-T wave changes in the anterior lateral leads V5, V6) Initial ECG Comparisson: No Previous ECG Available Diagnostic Imaging Diagonstic Imaging: Xray (chest xray/pelvis), CT (brain) Plain Films/CT/US/NM/MRI: chest, pelvis, hip Comments [facility] [place], [place] NAME: OSIRIS ISABEL [facility] REC#: [id number] PT STATUS: REG ER : 1965 PHYSICIAN: REBA SOUTH MD ADMIT DATE: 11/26/19/ER FS Signed Date of Exam:11/26/19 CHEST 1 VIEW AP/PA ONLY Indication: Syncope, right hip pain Portable chest 9:27 PM Heart size and pulmonary vascularity are normal. Lungs are clear. There are no effusions or pneumothoraces. There are some old healed rib fractures in the left lower thoracic cage. IMPRESSION: No acute abnormalities in the the chest Dictated by: Dictated on workstation # [id number] Dict: 11/26/192152 Trans: 11/26/192153 [id number] Interpreted by: FELIX BEJARANO MD Electronically signed by: FELIX BEJARANO MD 11/26/192153 [facility] [place], [place] NAME: OSIRIS ISABEL [facility] REC#: [id number] PT STATUS: REG ER : 1965 PHYSICIAN: REBA SOUTH MD ADMIT DATE: 11/26/19/ER FS Signed Date of Exam:11/26/19 CT HEAD WO PROCEDURE: CT head without contrast. TECHNIQUE: Multiple contiguous axial images were obtained through the brain without the use of intravenous contrast. Auto Exposure Controls were utilized during the CT exam to meet ALARA standards for radiation dose reduction. INDICATION: Syncope The ventricles are normal in size, shape and position. There are no masses or hemorrhages. There are no extra-axial fluid collections. IMPRESSION: Unremarkable CT head Dictated by: Dictated on workstation # [id number] Dict: 11/26/192153 Trans: 11/26/192154 [id number] Interpreted by: FELIX BEJARANO MD Electronically signed by: FELIX BEJARANO MD 11/26/192154 [facility] [place] [place] [id number] PT STATUS: REG ER : 1965 PHYSICIAN: REBA SOUTH MD ADMIT DATE: 11/26/19/ER FS Signed Date of Exam:11/26/19 PELVIS WITH RIGHT HIP 2-3 VIEW Indication: Right hip pain AP view pelvis shows postoperative changes from right hip arthroplasty. There is no evidence of loosening. There is a fracture of indeterminate age through the lesser trochanter. This may be nonacute based on appearance of the bone. There are no prior studies available for comparison. IMPRESSION: Postoperative changes from right hip arthroplasty. Deformity of the lesser trochanter which may be a nonacute longitudinal fracture. Dictated by: Dictated on workstation # [id number] Dict: 11/26/192206 Trans: 11/26/192209 [id number] Interpreted by: FELIX BEJARANO MD Electronically signed by: FELIX BEJARANO MD 11/26/192209 Departure Impression Primary Impression: Syncope Qualified Codes: R55 - Syncope and collapse Additional Impressions: Right hip pain Abrasion of right elbow Qualified Codes: S50.311A - Abrasion of right elbow, initial encounter Elevated serum creatinine Disposition: HOME, SELF-CARE Condition: Stable Departure-Patient Inst. Decision time for Depature: 22:30 Referrals: DAVID ALDRIDGE MD (PCP/Family) Primary Care Physician Patient Instructions: Hip Pain (DC), Skin Abrasions Add. Discharge Instructions: Keep a dressing over the abrasion on your right elbow. Use the crutches to bear weight as tolerated on your right leg. Take the pain medications as needed for pain. Please keep your follow-up appointment with your diabetes doctor this week. Be sure and let her know that your kidney function was elevated at today's visit. If you have any more passing out spells or other concerning symptoms please come back to the emergency department for reevaluation. All discharge instructions reviewed with patient and/or family. Voiced understanding. Scripts Hydrocodone/Acetaminophen (Lorcet 5-325 mg Tablet) 1 Each Tablet 1-2 EACH PO Q6H PRN for PAIN-MODERATE MDD 10 for 2 Days, #10 TAB Prov: REBA SOUTH MD 11/26/19 Copy Copies To 1: DAVID ALDRIDGE MD, KATHRYN M MD Nov 26, 2019 21:27
[2019-11-26] MEDS ORDERED: ONDANSETRON 4 MG/2 ML (SDV) Z0FRAN IVP ONE (21:30)
[2019-11-26 21:31] LABS: HEMATOCRIT 45 % (40-54); MEAN CORPUSCULAR HEMOGLOBIN 30 PG (25-34); MEAN CORPUSCULAR VOLUME 89 FL (80-99); WHITE BLOOD COUNT 17.3 10^3/uL (4.3-11.0)
[2019-11-26 21:32] LABS: BASOPHILS # (AUTO) 0.1 10^3/uL (0.0-0.1); BASOPHILS % (AUTO) 0 % (0-10); EOSINOPHILS # (AUTO) 0.1 10^3/uL (0.0-0.3); EOSINOPHILS % (AUTO) 1 % (0-10); LYMPHOCYTES # (AUTO) 1.6 X 10^3 (1.0-4.0); LYMPHOCYTES % (AUTO) 9 % (12-44); MEAN CORPUSCULAR HGB CONC 33 G/DL (32-36); MEAN PLATELET VOLUME 9.4 FL (7.4-10.4); MONOCYTES # (AUTO) 1.2 X 10^3 (0.0-1.0); MONOCYTES % (AUTO) 7 % (0-12); NEUTROPHILS # (AUTO) 14.1 X 10^3 (1.8-7.8); NEUTROPHILS % (AUTO) 81 % (42-75); PLATELET COUNT 394 10^3/uL (130-400)
[2019-11-26 21:48] LABS: LYMPHOCYTES % (MANUAL) 11 %; MONOCYTES % (MANUAL) 6 %; NEUTROPHILS % (MANUAL) 83 %
[2019-11-26 21:49] LABS: POIKILOCYTOSIS MODERATE; POLYCHROMASIA SLIGHT; SMEAR SCAN COMMENT LRG PLTS; TOXIC GRANULATION/VACUOLAZATIO 4+
[2019-11-26 21:50] LABS: CALCIUM 9.4 MG/DL (8.5-10.1); CREATININE SERUM 1.71 MG/DL (0.60-1.30); POTASSIUM 4.1 MMOL/L (3.6-5.0)
--- NOTE | 2019-11-26 21:55 | Diagnostic Imaging Report ---
Indication: Syncope, right hip pain Portable chest 9:27 PM Heart size and pulmonary vascularity are normal. Lungs are clear. There are no effusions or pneumothoraces. There are some old healed rib fractures in the left lower thoracic cage. IMPRESSION: No acute abnormalities in the the chest Dictated by: Dictated on workstation # [id number]
--- NOTE | 2019-11-26 21:56 | Diagnostic Imaging Report ---
PROCEDURE: CT head without contrast. TECHNIQUE: Multiple contiguous axial images were obtained through the brain without the use of intravenous contrast. Auto Exposure Controls were utilized during the CT exam to meet ALARA standards for radiation dose reduction. INDICATION: Syncope The ventricles are normal in size, shape and position. There are no masses or hemorrhages. There are no extra-axial fluid collections. IMPRESSION: Unremarkable CT head Dictated by: Dictated on workstation # [id number]
--- NOTE | 2019-11-26 22:11 | Diagnostic Imaging Report ---
Indication: Right hip pain AP view pelvis shows postoperative changes from right hip arthroplasty. There is no evidence of loosening. There is a fracture of indeterminate age through the lesser trochanter. This may be nonacute based on appearance of the bone. There are no prior studies available for comparison. IMPRESSION: Postoperative changes from right hip arthroplasty. Deformity of the lesser trochanter which may be a nonacute longitudinal fracture. Dictated by: Dictated on workstation # [id number]
[2019-11-26] MEDS ORDERED: HYDR-3870 PO (22:33)
[2019-11-26] MEDS ORDERED: HYDROcodone/APAP 10 MG/325 MG (LORTAB) TAB PO ONE ×2 (22:37→22:45)
[2019-11-26 22:54] VITALS: BP 103/69
== END 2019-11-26 22:54 | disposition home or self-care (01) ==
LOC: EDUNIT# 21:09 → ER FS 21:12
DX: S50.311A Abrasion of right elbow, initial encounter (principal); M25.551 Pain in right hip; R55 Syncope and collapse; R94.4 Abnormal results of kidney function studies; J44.9 Chronic obstructive pulmonary disease, unspecified; F31.9 Bipolar disorder, unspecified; E11.9 Type 2 diabetes mellitus without complications; E78.00 Pure hypercholesterolemia, unspecified; F17.210 Nicotine dependence, cigarettes, uncomplicated; Z88.8 Allergy status to other drugs, medicaments and biological substances; Z79.4 Long term (current) use of insulin; W19.XXXA Unspecified fall, initial encounter
CPT/HCPCS: 36415; 70450; 71045; 73502; 80048; 85007; 85027; 93005

== ENCOUNTER → 2020-02-15 | Outpatient (CLI) | payer MEDICARE, MEDICAID ==
[~2020-02-15] MED LIST changes: +ALBU18HF2 INH; +FLUT12AE4 IH; +GABA300C PO; +HYDR-3870 PO; +OXYC5TAB PO; +PANT40TA2 PO; +PROP10TA8 PO; +RPN.25T PO; +TRAM50TA3 PO
--- NOTE | 2020-02-15 15:35 | Diagnostic Imaging Report ---
INDICATION: Shortness of breath PA and lateral chest Heart size and pulmonary vascularity are normal. Infiltrates that were present on the exam from 12/24/2019 have nearly completely cleared with minimal residual scarring in the right upper lung. There are no effusions or pneumothoraces. IMPRESSION: Near-complete interval clearing of the pulmonary infiltrates. Dictated by: Dictated on workstation # [id number]
== END ==
LOC: RAD FS 15:15
PROVIDERS: ATTEND Nurse Practitioner Family
DX: J44.9 Chronic obstructive pulmonary disease, unspecified (principal); R91.8 Other nonspecific abnormal finding of lung field; Z86.16 Personal history of COVID-19
CPT/HCPCS: 71046

== ENCOUNTER → 2020-03-02 | Outpatient (CLI) | payer MEDICARE, MEDICAID ==
[~2020-03-02] MED LIST changes: +RT-ALBUTEROL SULF 2.5 MG/3 ML PRE-MIX VIAL INH ONE
== END ==
LOC: RT 12:30
PROVIDERS: ATTEND Nurse Practitioner Family
DX: J44.9 Chronic obstructive pulmonary disease, unspecified (principal)
CPT/HCPCS: 94060; 94726; 94729

== ENCOUNTER → 2020-03-05 | Outpatient (CLI) | payer MEDICARE, MEDICAID ==
[~2020-03-05] MED LIST changes: -RT-ALBUTEROL SULF 2.5 MG/3 ML PRE-MIX VIAL INH ONE
--- NOTE | 2020-03-05 09:52 | Diagnostic Imaging Report ---
INDICATIONS: Postop followup of the right hip. FINDINGS: Total arthroplasty of the right hip. The acetabular and femoral components appear in good position. There is a side plate along the proximal humerus with cerclage wires intact. No evidence of acute fracture. IMPRESSION: Satisfactory appearing total arthroplasty right hip with good alignment. Dictated by: Dictated on workstation # [id number]
== END ==
LOC: RAD FS 09:03
PROVIDERS: ATTEND Nurse Practitioner
DX: M97.01XA Periprosthetic fracture around internal prosthetic right hip joint, initial encounter (principal); S72.124A Nondisplaced fracture of lesser trochanter of right femur, initial encounter for closed fracture; Z96.641 Presence of right artificial hip joint
CPT/HCPCS: 73502

== ENCOUNTER → 2020-03-08 | Outpatient (CLI) | payer MEDICARE, MEDICAID ==
--- NOTE | 2020-03-08 14:08 | Diagnostic Imaging Report ---
INDICATION: Right rib pain. Time of exam 11:29 AM There is a fracture of the right 5th posterior rib with slight displacement. No other rib fractures are seen. There is no frontal contusion, effusion or pneumothorax. IMPRESSION: Right posterior 5th rib fracture, slightly displaced. Dictated by: Dictated on workstation # [id number]
== END ==
LOC: RAD FS 11:17
PROVIDERS: ATTEND Family Medicine
DX: S22.31XA Fracture of one rib, right side, initial encounter for closed fracture (principal)
CPT/HCPCS: 71100

== ENCOUNTER → 2020-03-29 | Outpatient (CLI) | payer MEDICARE, MEDICAID ==
--- NOTE | 2020-03-29 11:40 | Diagnostic Imaging Report ---
INDICATION: Cough and dyspnea PA and lateral views of the chest are obtained with comparison made to the examination of 02/15/2020 Background emphysema is again noted. Prominent interstitial markings are seen in the lungs. There is no evidence of pneumothorax. No definite pleural fluid is seen. There is a questionable nodular focus projecting over the left midlung although this is not confirmed on the lateral image and may be artifactual. No definite pleural fluid is seen. IMPRESSION: Emphysema and chronic interstitial lung disease which may reflect areas of scarring. There is also a questionable nodular focus in the lateral aspect of the left midlung which is seen only on the frontal image. Short-term followup study would be useful to document stability or resolution. Dictated by: Dictated on workstation # [id number]
== END ==
LOC: RAD FS 11:14
PROVIDERS: ATTEND Family Medicine
DX: J43.9 Emphysema, unspecified (principal); J84.9 Interstitial pulmonary disease, unspecified
CPT/HCPCS: 71046

== ENCOUNTER → 2020-11-29 | Outpatient (CLI) | payer MEDICARE, MEDICAID ==
[~2020-11-29] MED LIST changes: -AMIT10TA6 PO; +AMT10T PO
--- NOTE | 2020-11-29 15:06 | Diagnostic Imaging Report ---
INDICATION: COPD EXAMINATION: Two-view chest 11/29/2020 COMPARISON: 03/29/2020 FINDINGS: 2 views of the chest The heart and pulmonary vasculature appear normal. Lungs and pleural spaces clear. No infiltrates or effusions. No pneumothorax. IMPRESSION: 1. No acute cardiopulmonary process. Dictated by: Dictated on workstation # [id number]
== END ==
LOC: RAD FS 13:54
PROVIDERS: ATTEND Family Medicine
DX: J44.9 Chronic obstructive pulmonary disease, unspecified (principal)
CPT/HCPCS: 71046

== ENCOUNTER → 2021-05-03 | Outpatient (CLI) | payer MEDICARE, MEDICAID ==
[~2021-05-03] MED LIST changes: -CITA40TA11 PO; +CITA40TA13 PO
== END ==
LOC: CARD 10:30
PROVIDERS: ATTEND Internal Medicine Cardiovascular Disease
DX: I11.9 Hypertensive heart disease without heart failure (principal); I25.10 Atherosclerotic heart disease of native coronary artery without angina pectoris
CPT/HCPCS: 93306

== ENCOUNTER 2021-05-25 13:57 | Emergency (ER) | payer OTHER, MEDICARE, MEDICAID ==
[~2021-05-25] VITALS: Ht 170.2 cm; Wt 60.1 kg
--- NOTE | 2021-05-25 14:02 | ED Integumentary General ---
General Stated Complaint: RT HAND INJ Source: patient History of Present Illness Date Seen by Provider: May 25, 2021 Time Seen by Provider: 14:02 Initial Comments This 56 y/o diabetic RHD male from [place] accidentally got his fingers in the way when he was slamming the door of his truck. He reached through the window w/ left hand to open the door and release right hand hand from the door entrapment. Timing/Duration: just prior to arrival Severity: mild Location: hands (Right fingers) Possible Cause: other (slammed truck door on fingers accidentally) Associated Symptoms: No jaundice; numbness ("I can't feel them but they hurt bad."); No pallor; other (laceration to RMF, RRF) Allergies and Home Medications Allergies Coded Allergies: chlorpromazine (Verified Allergy, Unknown, paralysis, 04/30/18) fentanyl (Verified Allergy, Unknown, hives, 04/30/18) thioridazine (Verified Allergy, Unknown, confusion, 04/30/18) Patient Home Medication List Home Medication List Reviewed: No Albuterol Sulfate (Ventolin Hfa) 18 Gm Hfa.aer.ad, 2 PUFF INH Q6H PRN for SHORTNESS OF BREATH, (Reported) Entered as Reported by: RUBEN KU on 12/27/19 1042 Amitriptyline HCl (Amitriptyline HCl) 10 Mg Tablet, 10 MG PO HS PRN for SLEEP, (Reported) Entered as Reported by: SANTOS RODARTE on 08/16/19 1444 Buspirone HCl (Buspirone HCl) 10 Mg Tablet, 10 MG PO BID, (Reported) Entered as Reported by: SANTOS RODARTE on 08/16/19 1444 Citalopram Hydrobromide (Citalopram HBr) 40 Mg Tablet, 40 MG PO DAILY, (Reported) Entered as Reported by: SRAVANTHI GALLARDO on 04/30/18 1235 Fluticasone Propionate (Fluticasone Propionate) 16 Gm [place].susp, 2 SPR NSEACH DAILY PRN for CONGESTION, (Reported) Entered as Reported by: SANTOS RODARTE on 08/16/19 1444 Fluticasone/Salmeterol (Advair Hfa 115-21 Mcg Inhaler) 12 Gm Hfa.aer.ad, 0 PUFF IH RTBID Prescribed by: CHANDA DAVILA on 12/29/19 1146 Gabapentin (Neurontin) 300 Mg Capsule, 300 MG PO TID, (Reported) Entered as Reported by: RUBEN KU on 12/27/19 1042 Insulin Aspart (Novolog) 100 Unit/1 Ml Susp, UNIT SQ PER PUMP, (Reported) Entered as Reported by: SANTOS RODARTE on 08/16/19 1444 Oxycodone HCl (Oxycodone HCl) 5 Mg Tablet, 5 MG PO Q6H PRN for PAIN-SEVERE (8- 10), (Reported) Entered as Reported by: RUBEN KU on 12/27/19 1042 Pantoprazole Sodium (Protonix) 40 Mg Tablet.dr, 40 MG PO DAILY Prescribed by: CHANDA DAVILA on 12/29/19 1146 Propranolol HCl (Propranolol HCl) 10 Mg Tablet, 10 MG PO BID, (Reported) Entered as Reported by: RUBEN KU on 12/27/19 1042 Ropinirole HCl (Requip) 0.25 Mg Tab, 0.25 MG PO Q8HR PRN for RESTLESS LEGS Prescribed by: CHANDA DAVILA on 12/29/19 1146 Tramadol HCl (Tramadol HCl) 50 Mg Tablet, 50 MG PO Q4H PRN for PAIN-MODERATE (5- 7), (Reported) Entered as Reported by: RUBEN KU on 12/27/19 1042 Review of Systems Review of Systems Constitutional: No fever Musculoskeletal: see HPI Skin: see HPI Past Gmavyxh-Kuqdgq-Asucob Hx Seasonal Allergies Seasonal Allergies: No Past Medical History Surgeries: Yes (hip surgery, shoulder, hernia) Gallbladder, Orthopedic Respiratory: Yes Asthma, Chronic Bronchitis, COPD, Emphysema Cardiac: Yes High Cholesterol, Hypertension Neurological: Yes Neuropathy Genitourinary: Yes Kidney Stones Gastrointestinal: Yes (epigastric pain) Gastroesophageal Reflux Musculoskeletal: Yes Degenerate Disk Disease, Arthritis Endocrine: Yes Diabetes, Insulin dep HEENT: No Cancer: No Psychosocial: Yes (bipolar disorder I, borderline personality ) Bipolar, Personality Disorder Integumentary: No Blood Disorders: No Physical Exam Vital Signs Vital Signs - First Documented 05/25/21 13:57 Temp 36.2 Pulse 95 Resp 18 B/P (MAP) 166/89 (114) Pulse Ox 97 O2 Delivery Room Air Capillary Refill : General Appearance: no apparent distress Neck: supple Cardiovascular: no edema, other (normal pulse and cap refill) Respiratory: lungs clear, no respiratory distress Extremities: normal range of motion, no pedal edema Neurologic/Psychiatric: no motor/sensory deficits, alert, oriented x 3 Skin: normal color, other (small lacs on dorsum of RRF and RMF; minimal bleeding, No FB) Skin Problem Character: other (normal general skin exam elsewhere) Comments Two lacerations, each < 0.5 cm, each on dorsal aspect proximal phalanx, one on on RRF and one on RMF. No bone or tendon exposed. FROM. No objective sensory deficit (tender during cleansing); normal appearance of hand & fingers otherwise Procedures/Interventions Wound Location: Upper Extremities (fingers, right) Wound Length (cm): 1 (estimated 1 cm total) Wound's Depth, Shape: superficial, linear Wound Explored: clean Betadine Prep?: No Anesthesia: 1% Lidocaine Suture: Ethlion Suture Size: 5-0 Number of Sutures: 3 Progress/Results/Core Measures Results/Orders My Orders Orders - GEMMA PAVON MD Hand 3 View Right (05/25/21 14:03) Tetanus/Diphtheria Inj (Adult) (Tenivac (05/25/21 14:15) Lidocaine 1% Inj 20 Ml (Xylocaine 1% Inj (05/25/21 14:15) Clindamycin Capsule (Cleocin Capsule) (05/25/21 14:15) Hydrocodone/Apap 5/325 Tablet (Lortab 5 (05/25/21 14:15) Suture Set At Bedside (05/25/21 14:11) Lidocaine 1% Inj 50 Ml (Xylocaine 1% Inj (05/25/21 14:28) Medications Given in ED Current Medications Medications Dose Ordered Sig/Roshan Route Start Time Stop Time Status Last Admin Dose Admin Acetaminophen/ Hydrocodone Bitart 1 ea ONCE ONCE PO 05/25/21 14:15 05/25/21 14:16 DC 05/25/21 14:30 1 EA Clindamycin HCl 300 mg ONCE ONCE PO 05/25/21 14:15 05/25/21 14:16 DC 05/25/21 14:30 300 MG Lidocaine HCl 50 ml STK-MED ONCE .ROUTE 05/25/21 14:28 05/25/21 14:31 DC 05/25/21 14:32 50 ML Tetanus/ Diphtheria Toxoids 0.5 ml ONCE ONCE IM 05/25/21 14:15 05/25/21 14:16 DC 05/25/21 14:31 0.5 ML Vital Signs/I&O 05/25/21 13:57 Temp 36.2 Pulse 95 Resp 18 B/P (MAP) 166/89 (114) Pulse Ox 97 O2 Delivery Room Air Departure Communication (Admissions) X-ray shows no fx or disloc or FB Impression Primary Impression: Laceration of finger of right hand without foreign body without damage to nail Disposition: 01 HOME, SELF-CARE Condition: Stable Departure-Patient Inst. Decision time for Depature: 14:47 Referrals: DAVID BOURGEOIS MD (PCP) Primary Care Physician Patient Instructions: Laceration Repair With Stitches (DC) Add. Discharge Instructions: Wash wound daily and apply neosporin and band-aid. Have 3 sutures removed in 1 week. Scripts Cephalexin (Cephalexin) 500 Mg Tablet 500 MG PO TID for wound for 5 Days, #15 TAB Prov: GEMMA PAVON MD 05/25/21 GEMMA PAVON MD May 25, 2021 14:02
[2021-05-25] MEDS ORDERED: LIDOCAINE 1% INJ 20 ML VIAL INJ ONE (14:15)
[2021-05-25] MEDS ORDERED: CLINDAMYCIN 150 MG (CLEOCIN) CAP PO ONE (14:15)
[2021-05-25] MEDS ORDERED: TETANUS & DIPHTHERIA TOX,ADULT 0.5 ML (TENIVAC) IM ONE (14:15)
[2021-05-25] MEDS ORDERED: HYDROcodone/APAP 5 MG/325 MG (LORTAB) TAB PO ONE (14:15)
[2021-05-25] MEDS ORDERED: LIDOCAINE 1% INJ 50 ML (XYLOCAINE) VIAL ONE (14:28)
--- NOTE | 2021-05-25 14:28 | Diagnostic Imaging Report ---
INDICATION: Injury to hand, pain after stomach hardware. TECHNIQUE: 4 views of the right hand. CORRELATION STUDY: None FINDINGS: There is normal alignment and appearance of the osseous structures of the hand. The joint spaces are maintained. There is no acute fracture. Soft tissues are unremarkable. IMPRESSION: 1. Negative for acute bony abnormality of the hand. Dictated by: Dictated on workstation # [id number]
[2021-05-25] MEDS ORDERED: CEPH500T PO (14:49)
[2021-05-25 15:08] VITALS: BP 133/86
== END 2021-05-25 15:04 | disposition home or self-care (01) ==
LOC: EDUNIT# 13:57 → ER FS 13:58
DX: S61.214A Laceration without foreign body of right ring finger without damage to nail, initial encounter (principal); S61.212A Laceration without foreign body of right middle finger without damage to nail, initial encounter; E11.9 Type 2 diabetes mellitus without complications; Z23 Encounter for immunization; Z79.4 Long term (current) use of insulin; W23.1XXA Caught, crushed, jammed, or pinched between stationary objects, initial encounter
CPT/HCPCS: 73130; 90714

== ENCOUNTER 2021-06-19 15:39 | Observation (INO) | payer MEDICARE, MEDICAID ==
[~2021-06-19] VITALS: Ht 170.2 cm; Wt 73.8 kg
[~2021-06-19 15:39] MED LIST changes: -ASPI-1238 PO; -CATHETER FLUSH 10 ML SYR IVP PRN; -CYCL10TA25 PO; -FLUT12AE4 INH; -GBPN600T PO; -LOSA25TA41 PO; -LUMA42CA PO; -METO50TA7 PO; -OLAN2.5T27 PO; -PANT40TA52 PO; -REGADENOSON 0.4 MG/5 ML SYR (LEXISCAN) IV ONE; -ROSU40TA23 PO; -[UNRECOGNIZED DRUG - CODE] PO
--- NOTE | 2021-06-19 15:56 | ED Chest Pain ---
General Stated Complaint: CP,SOB Source: patient Exam Limitations: no limitations History of Present Illness Date Seen by Provider: June 19, 2021 Time Seen by Provider: 15:41 Initial Comments Patient ER by private conveyance with chief complaint he was on his way home from a stress test when he started getting tightness in his chest and shortness of air about 20 minutes prior to arrival. He says he is pain which is moderate substernal nonradiating. No jaw or arm involvement. He does have a history of asthma/COPD with nocturnal, supplemental oxygen usage and smokes cigarettes as well as he is on an insulin pump for his diabetes. He has high blood pressure and hyperlipidemia for which he takes medications. He has not taken any of his medicines or aspirin today because he had a stress test this morning. He did have a couple cans of Coke and some crackers before he left. His insulin pump has been reading high around upper 200s to 300 mg/dL. He has a significant family history with his mother having coronary disease in her late 50s early 60s. He himself has not had coronary disease. He was told to follow-up tomorrow at Dr. De Paz's office where they would probably be setting him up for a cardiac catheterization. Stress test was terminated this morning for hypertensive reaction. 1. Fair exercise tolerance for a total of 6 minutes on standard Bipin protocol, 7.3 METS achieving 91% of maximal expected heart rate 2. Severe hypertensive response to exercise with peak blood pressure 238/110 return to baseline during recovery 3. Exercise-induced frequent PVCs and ventricular bigeminy, ventricular couplets. Few short episode of 3 beats nonsustained ventricular tachycardia resolved later in recovery 4. Diaphragmatic attenuation with fixed defect involving the mid to apical inferior wall with no significant reversibility 5. Normal left ventricular size with hypokinesia of the inferior wall, ejection fraction 42% Echocardiogram by Dr. De Paz from 2 months ago demonstrated an EF of 55 to 60% without any regional wall motion abnormality noted. Grade 1 diastolic dysfunction. Allergies and Home Medications Allergies Coded Allergies: chlorpromazine (Verified Allergy, Unknown, paralysis, 04/30/18) fentanyl (Verified Allergy, Unknown, hives, 04/30/18) thioridazine (Verified Allergy, Unknown, confusion, 04/30/18) Patient Home Medication List Home Medication List Reviewed: Yes Albuterol Sulfate (Ventolin Hfa) 18 Gm Hfa.aer.ad, 2 PUFF INH Q6H PRN for SHORTNESS OF BREATH, (Reported) Entered as Reported by: RUBEN KU on 12/27/19 1042 Amitriptyline HCl (Amitriptyline HCl) 10 Mg Tablet, 10 MG PO HS PRN for SLEEP, (Reported) Entered as Reported by: SANTOS RODARTE on 08/16/19 1444 Buspirone HCl (Buspirone HCl) 10 Mg Tablet, 10 MG PO BID, (Reported) Entered as Reported by: SANTOS RODARTE on 08/16/19 1444 Cephalexin (Cephalexin) 500 Mg Tablet, 500 MG PO TID Prescribed by: GEMMA PAVON on 05/25/21 1449 Citalopram Hydrobromide (Citalopram HBr) 40 Mg Tablet, 40 MG PO DAILY, (Reported) Entered as Reported by: SRAVANTHI GALLARDO on 04/30/18 1235 Fluticasone Propionate (Fluticasone Propionate) 16 Gm [place].susp, 2 SPR NSEACH DAILY PRN for CONGESTION, (Reported) Entered as Reported by: SANTOS RODARTE on 08/16/19 1444 Fluticasone/Salmeterol (Advair Hfa 115-21 Mcg Inhaler) 12 Gm Hfa.aer.ad, 0 PUFF IH RTBID Prescribed by: CHANDA DAVILA on 12/29/19 1146 Gabapentin (Neurontin) 300 Mg Capsule, 300 MG PO TID, (Reported) Entered as Reported by: RUBEN KU on 12/27/19 1042 Insulin Aspart (Novolog) 100 Unit/1 Ml Susp, UNIT SQ PER PUMP, (Reported) Entered as Reported by: SANTOS RODARTE on 08/16/19 1444 Oxycodone HCl (Oxycodone HCl) 5 Mg Tablet, 5 MG PO Q6H PRN for PAIN-SEVERE (8- 10), (Reported) Entered as Reported by: RUBEN KU on 12/27/19 1042 Pantoprazole Sodium (Protonix) 40 Mg Tablet.dr, 40 MG PO DAILY Prescribed by: CHANDA DAVILA on 12/29/19 1146 Propranolol HCl (Propranolol HCl) 10 Mg Tablet, 10 MG PO BID, (Reported) Entered as Reported by: RUBEN KU on 12/27/19 1042 Ropinirole HCl (Requip) 0.25 Mg Tab, 0.25 MG PO Q8HR PRN for RESTLESS LEGS Prescribed by: CHANDA DAVILA on 12/29/19 1146 Tramadol HCl (Tramadol HCl) 50 Mg Tablet, 50 MG PO Q4H PRN for PAIN-MODERATE (5- 7), (Reported) Entered as Reported by: RUBEN KU on 12/27/19 1042 Review of Systems Review of Systems Constitutional: No chills, No diaphoresis, No fever, No malaise EENTM: No Blurred Vision, No Double Vision Respiratory: Shortness of Air Cardiovascular: Chest Pain; Denies Lightheadedness Gastrointestinal: Denies Constipated, Denies Nausea Genitourinary: Denies Burning, Denies Discharge Musculoskeletal: No back pain, No gout, No joint pain Skin: No change in color, No pruritus, No rash Psychiatric/Neurological: Denies Headache, Denies Numbness All Other Systems Reviewed Negative Unless Noted: Yes Past Iwvznzx-Bxnigp-Ybzvza Hx Patient Social History Tobacco Use?: Yes Tobacco type used: Cigarettes Smoking Status: Current Everyday Smoker Use of E-Cig and/or Vaping dev: No Immunizations Up To Date First/Initial COVID19 Vaccinat: yes Second COVID19 Vaccination Rod: Yes Seasonal Allergies Seasonal Allergies: No Past Medical History Surgery/Hospitalization HX: Left shoulder surgery, right hip replacement, Cholecysectomy, Hernia repair, DM insulin dependant, insomina, anxiety, bipolar, high cholesterol, depression, chronic pain. Surgeries: Yes (hip surgery, shoulder, hernia) Gallbladder, Orthopedic Respiratory: Yes Asthma, Chronic Bronchitis, COPD, Emphysema Cardiac: Yes High Cholesterol, Hypertension Neurological: Yes Neuropathy Genitourinary: Yes Kidney Stones Gastrointestinal: Yes (epigastric pain) Gastroesophageal Reflux Musculoskeletal: Yes Degenerate Disk Disease, Arthritis Endocrine: Yes Diabetes, Insulin dep HEENT: No Cancer: No Psychosocial: Yes (bipolar disorder I, borderline personality ) Bipolar, Personality Disorder Integumentary: No Blood Disorders: No Physical Exam Vital Signs Vital Signs - First Documented 06/19/21 15:45 Temp 36.4 Pulse 81 Resp 18 B/P (MAP) 165/98 (120) Pulse Ox 98 O2 Delivery Room Air Capillary Refill : Height, Weight, BMI Height: 5'6.00" Weight: 138lbs. 0oz. [id number]; 20.00 BMI Method:Stated General Appearance: Anxious, Chronically ill, Mild Distress HEENT: PERRL/EOMI, Pharynx Normal, Moist Mucous Membranes Neck: Full Range of Motion, Normal Inspection Respiratory: Lungs Clear, Normal Breath Sounds, No Accessory Muscle Use, No Respiratory Distress Cardiovascular: Regular Rate, Rhythm, No Edema, Normal Peripheral Pulses Gastrointestinal: Normal Bowel Sounds, Non Tender, Soft Extremity: Normal Capillary Refill, Normal Inspection, No Pedal Edema Neurologic/Psychiatric: Alert, Oriented x3, No Motor/Sensory Deficits Skin: Normal Color, Warm/Dry Procedures/Interventions Suture Size: 5-0 Progress/Results/Core Measures Results/Orders Lab Results Laboratory Tests Test 06/19/21 15:50 Range/Units White Blood Count 11.5 H 4.3-11.0 10^3/uL Red Blood Count 4.74 4.30-5.52 10^6/uL Hemoglobin 14.3 13.3-17.7 g/dL Hematocrit 42 40-54 % Mean Corpuscular Volume 89 80-99 fL Mean Corpuscular Hemoglobin 30 25-34 pg Mean Corpuscular Hemoglobin Concent 34 32-36 g/dL Red Cell Distribution Width 15.5 H 10.0-14.5 % Platelet Count 308 130-400 10^3/uL Mean Platelet Volume 9.7 9.0-12.2 fL Immature Granulocyte % (Auto) 1 % Neutrophils (%) (Auto) 75 42-75 % Lymphocytes (%) (Auto) 17 12-44 % Monocytes (%) (Auto) 6 0-12 % Eosinophils (%) (Auto) 1 0-10 % Basophils (%) (Auto) 1 0-10 % Neutrophils # (Auto) 8.6 H 1.8-7.8 10^3/uL Lymphocytes # (Auto) 1.9 1.0-4.0 10^3/uL Monocytes # (Auto) 0.7 0.0-1.0 10^3/uL Eosinophils # (Auto) 0.1 0.0-0.3 10^3/uL Basophils # (Auto) 0.1 0.0-0.1 10^3/uL Immature Granulocyte # (Auto) 0.1 0.0-0.1 10^3/uL Prothrombin Time 12.6 12.2-14.7 SEC INR Comment 0.9 0.8-1.4 Activated Partial Thromboplast Time 26 24-35 SEC Sodium Level 140 135-145 MMOL/L Potassium Level 3.9 3.6-5.0 MMOL/L Chloride Level 104 98-107 MMOL/L Carbon Dioxide Level 24 21-32 MMOL/L Anion Gap 12 5-14 MMOL/L Blood Urea Nitrogen 21 H 7-18 MG/DL Creatinine 0.86 0.60-1.30 MG/DL Estimat Glomerular Filtration Rate 100 BUN/Creatinine Ratio 24 Glucose Level 279 H 70-105 MG/DL Calcium Level 9.3 8.5-10.1 MG/DL Corrected Calcium 9.1 8.5-10.1 MG/DL Magnesium Level 1.7 1.6-2.4 MG/DL Total Bilirubin 0.4 0.1-1.0 MG/DL Aspartate Amino Transf (AST/SGOT) 13 5-34 U/L Alanine Aminotransferase (ALT/SGPT) 15 0-55 U/L Alkaline Phosphatase 106 40-136 U/L Myoglobin 33.8 10.0-92.0 NG/ML Troponin I < 0.30 <0.30 NG/ML Pro-B-Type Natriuretic Peptide 288.7 H <75.0 PG/ML Total Protein 6.8 6.4-8.2 GM/DL Albumin 4.2 3.2-4.5 GM/DL My Orders Orders - PATEL,ESTELA J Cbc With Automated Diff (06/19/21 15:49) Magnesium (06/19/21 15:49) Chest 1 View Ap/Pa Only (06/19/21 15:49) Ekg Tracing (06/19/21 15:49) Comprehensive Metabolic Panel (06/19/21 15:49) Myoglobin Serum (06/19/21 15:49) Protime With Inr (06/19/21 15:49) Partial Thromboplastin Time (06/19/21 15:49) O2 (06/19/21 15:49) Monitor-Rhythm Ecg Trace Only (06/19/21 15:49) Lipid Panel (06/20/21 06:00) Aspirin Chewable Tablet (Baby Aspirin Ch (06/19/21 16:00) Nitroglycerin 0.4 Mg Btl 25's (Nitrostat (06/19/21 16:00) Ed Iv/Invasive Line Start (06/19/21 15:49) Troponin I Fs (06/19/21 15:49) Probnp Fs (06/19/21 16:01) Enoxaparin Injection (Lovenox Injection) (06/19/21 17:15) Metoprolol Succinate (Xl) Tab (Toprol Xl (06/19/21 17:15) Medications Given in ED Current Medications Medications Dose Ordered Sig/Roshan Route Start Time Stop Time Status Last Admin Dose Admin Aspirin 324 mg ONCE ONCE PO 06/19/21 16:00 06/19/21 16:01 DC 06/19/21 16:04 324 MG Nitroglycerin 0.4 mg UD PRN SL 06/19/21 16:00 06/19/21 16:04 0.4 MG Vital Signs/I&O 06/19/21 15:45 Temp 36.4 Pulse 81 Resp 18 B/P (MAP) 165/98 (120) Pulse Ox 98 O2 Delivery Room Air Progress Progress Note #1: Time: 15:54 Progress Note After reviewing his stress test we got an EKG which was not revealing any relevant ST changes. LVH seen. Even if he has a negative troponin he would have 6 points on the HEART Pathway Score. High risk; 12-65% 30-day MACE. Plan to observe at the hospital. Further testing indicated. No crackles auscultated, JVD, edema or other indicators of heart failure. 324 mg of aspirin to chew and swallow. We will trial some nitroglycerin. His presenting blood pressure is 165/98. Progress Note #2: Time: 16:49 Progress Note Patient states the first dose of nitroglycerin almost completely took away his chest tightness. He rates it as about a 2 out of 10 now. He does not want anything else for it. Initial ECG Impression Date: June 19, 2021 Initial ECG Impression Time: 15:45 Initial ECG Rate: 77 Initial ECG Rhythm: Normal Sinus Initial ECG Intervals: Normal Initial ECG Impression: Normal, Nonspecific Changes Initial ECG Comparisson: Unchanged Comment Normal sinus rhythm without clinically relevant ST changes. Left mean electrical axis deviation. Diagnostic Imaging Diagonstic Imaging: Xray Plain Films/CT/US/NM/MRI: chest Comments NAME: [facility] REC#: [id number] PT STATUS: REG ER : 1965 PHYSICIAN: ESTELA SWEENYE MD ADMIT DATE: 06/19/21/ER FS Draft Date of Exam:06/19/21 CHEST 1 VIEW AP/PA ONLY INDICATION: Chest pain. COMPARISON: 11/29/2020. TECHNIQUE: Single radiograph of the chest dated June 19, 2021. FINDINGS: The cardiac silhouette is within normal limits in size. No significant pulmonary vascular congestion. The lungs appear stable and clear of focal pulmonary opacity. No pleural effusion. No pneumothorax. Chronic fracturing of the posterolateral right 5th rib, stable. No definite acute osseous abnormality. IMPRESSION: Similar-appearing examination without acute cardiopulmonary abnormality. Dictated on workstation # [id number] Dict: 06/19/21 1558 Trans: 06/19/21 1601 PJE [id number] Interpreted by: DORON QUINTERO MD Electronically signed by: Reviewed: Reviewed by Me Departure Communication (Admissions) Time/Spoke to Admitting Phy: 17:[address] Rouse and she agrees to observe the patient with cardiac consultation. Time/Spoke to Consulting Phy: 16:39 1639: Left VM for Dr De Paz. 1658: Discussed case with Dr. De Paz and he will be happy to see the patient in the morning if we will have Dr. Hardwick watch him overnight. 1700: Discussed the case with Dr. Hardwick and he agrees to consult for cardiology tonight. He would like treatment dose Lovenox, aspirin and beta-annetta. Impression Primary Impression: Acute coronary syndrome Additional Impression: Chest pain Qualified Codes: R07.9 - Chest pain, unspecified Disposition: ADMITTED INPATIENT Condition: Stable Admissions Decision to Admit Reason: Admit from ER (General) Decision to Admit/Date: June 19, 2021 Time/Decision to Admit Time: 16:30 Departure-Patient Inst. Referrals: DAVID BOURGEOIS MD (PCP/Family) Primary Care Physician ESTELA SWEENEY June 19, 2021 15:56
[2021-06-19] MEDS ORDERED: NITROGLYCERIN 0.4 MG SL TABS BTL 25'S SL PRN ×2 (16:00→22:30)
[2021-06-19] MEDS ORDERED: ASPIRIN 81 MG CHEW (CHILDREN'S ASA) PO ONE (16:00)
[2021-06-19 16:02] LABS: BASOPHILS # (AUTO) 0.1 10^3/uL (0.0-0.1); BASOPHILS % (AUTO) 1 % (0-10); EOSINOPHILS # (AUTO) 0.1 10^3/uL (0.0-0.3); EOSINOPHILS % (AUTO) 1 % (0-10); HEMATOCRIT 42 % (40-54); HEMOGLOBIN 14.3 g/dL (13.3-17.7); LYMPHOCYTES # (AUTO) 1.9 10^3/uL (1.0-4.0); LYMPHOCYTES % (AUTO) 17 % (12-44); MEAN CORPUSCULAR HEMOGLOBIN 30 pg (25-34); MEAN CORPUSCULAR HGB CONC 34 g/dL (32-36); MEAN CORPUSCULAR VOLUME 89 fL (80-99); MEAN PLATELET VOLUME 9.7 fL (9.0-12.2); MONOCYTES # (AUTO) 0.7 10^3/uL (0.0-1.0); MONOCYTES % (AUTO) 6 % (0-12); NEUTROPHILS # (AUTO) 8.6 10^3/uL (1.8-7.8); NEUTROPHILS % (AUTO) 75 % (42-75); PLATELET COUNT 308 10^3/uL (130-400); WHITE BLOOD COUNT 11.5 10^3/uL (4.3-11.0)
--- NOTE | 2021-06-19 16:02 | Diagnostic Imaging Report ---
INDICATION: Chest pain. COMPARISON: 11/29/2020. TECHNIQUE: Single radiograph of the chest dated June 19, 2021. FINDINGS: The cardiac silhouette is within normal limits in size. No significant pulmonary vascular congestion. The lungs appear stable and clear of focal pulmonary opacity. No pleural effusion. No pneumothorax. Chronic fracturing of the posterolateral right 5th rib, stable. No definite acute osseous abnormality. IMPRESSION: Similar-appearing examination without acute cardiopulmonary abnormality. Dictated by: Dictated on workstation # [id number]
[2021-06-19 16:13] LABS: INR 0.9 (0.8-1.4); PROTHROMBIN TIME PATIENT 12.6 SEC (12.2-14.7)
[2021-06-19 16:34] LABS: BILIRUBIN,TOTAL 0.4 MG/DL (0.1-1.0); CALCIUM 9.3 MG/DL (8.5-10.1); CREATININE SERUM 0.86 MG/DL (0.60-1.30); MAGNESIUM 1.7 MG/DL (1.6-2.4); POTASSIUM 3.9 MMOL/L (3.6-5.0)
[2021-06-19 16:35] LABS: ALBUMIN 4.2 GM/DL (3.2-4.5); TOTAL PROTEIN 6.8 GM/DL (6.4-8.2)
[2021-06-19] MEDS ORDERED: ENOXAPARIN 60 MG/0.6 ML (LOVENOX) SYR SC ONE (17:15)
[2021-06-19] MEDS ORDERED: meTOproloL SUCCINATE 50 MG (TOPROL XL) TAB PO SCH (17:15)
[2021-06-19 18:30] VITALS: BP 157/108
[2021-06-19 19:53] VITALS: BP 152/103
[2021-06-19 20:34] VITALS: BP 152/103
[2021-06-19 21:06] VITALS: BP 152/103
[2021-06-19] MEDS ORDERED: RT-ALBUTEROL SULF 2.5 MG/3 ML PRE-MIX VIAL INH PRN (21:30)
[2021-06-19] MEDS ORDERED: LORazepam 0.5 MG (ATIVAN) TABLET PO PRN (22:15)
[2021-06-19] MEDS ORDERED: ACETAMINOPHEN 325 MG TABLET PO PRN (22:15)
[2021-06-19] MEDS ORDERED: ONDANSETRON 4 MG/2 ML (SDV) Z0FRAN IV PRN (22:15)
[2021-06-19] MEDS ORDERED: CATHETER FLUSH 10 ML SYR IVP PRN (22:15)
[2021-06-19] MEDS ORDERED: morphine INJ 4 MG/ML 1 ML (VIAL/SYRINGE) IV PRN (22:30)
[2021-06-20] VITALS (16 sets, daily range): BP systolic 118–167; BP diastolic 78–101
[2021-06-20] MEDS: rOPINIRole 0.25 MG (REQUIP) TAB PO SCH ×2 (00:21→20:11)
[2021-06-20] MEDS: OLANZapine 2.5 MG (ZyPREXA) TAB PO SCH ×2 (00:21→20:11)
[2021-06-20 05:28] LABS: BASOPHILS # (AUTO) 0.1 10^3/uL (0.0-0.1); BASOPHILS % (AUTO) 1 % (0-10); EOSINOPHILS # (AUTO) 0.1 10^3/uL (0.0-0.3); EOSINOPHILS % (AUTO) 1 % (0-10); HEMATOCRIT 41 % (40-54); HEMOGLOBIN 13.6 g/dL (13.3-17.7); LYMPHOCYTES # (AUTO) 1.9 10^3/uL (1.0-4.0); LYMPHOCYTES % (AUTO) 20 % (12-44); MEAN CORPUSCULAR HEMOGLOBIN 31 pg (25-34); MEAN CORPUSCULAR HGB CONC 34 g/dL (32-36); MEAN CORPUSCULAR VOLUME 92 fL (80-99); MEAN PLATELET VOLUME 9.6 fL (9.0-12.2); MONOCYTES # (AUTO) 0.7 10^3/uL (0.0-1.0); MONOCYTES % (AUTO) 8 % (0-12); NEUTROPHILS # (AUTO) 6.5 10^3/uL (1.8-7.8); NEUTROPHILS % (AUTO) 70 % (42-75); PLATELET COUNT 273 10^3/uL (130-400); WHITE BLOOD COUNT 9.3 10^3/uL (4.3-11.0)
[2021-06-20 05:41] LABS: CHLORIDE 108 MMOL/L (98-107); POTASSIUM 3.8 MMOL/L (3.6-5.0); SODIUM 142 MMOL/L (135-145)
[2021-06-20 05:43] LABS: TRIGLYCERIDES 145 MG/DL (<150); VLDL CHOLESTEROL 29 MG/DL (5-40)
[2021-06-20 05:44] LABS: GLUCOSE 115 MG/DL (70-105)
[2021-06-20 05:45] LABS: CARBON DIOXIDE 24 MMOL/L (21-32)
[2021-06-20 05:47] LABS: CREATININE SERUM 0.85 MG/DL (0.60-1.30); GFR ESTIMATED 101
[2021-06-20 05:49] LABS: BUN/CREATININE RATIO 22; CHOLESTEROL 153 MG/DL (< 200)
[2021-06-20 05:50] LABS: HDL CHOLESTEROL 28 MG/DL (40-60)
[2021-06-20] MEDS: RT-ALBUTEROL SULF 2.5 MG/3 ML PRE-MIX VIAL INH SCH ×4 (07:09→22:47)
[2021-06-20] MEDS ORDERED: VERAPAMIL 5 MG/2 ML (CALAN) VIAL IV ONE (07:38)
[2021-06-20] MEDS ORDERED: NS IV 1000 ML 1,000 ML ONE (07:39)
[2021-06-20] MEDS ORDERED: HEParin 1000 UNIT/ML (10ML VIAL) FOR BOLUS ONE (07:39)
[2021-06-20] MEDS ORDERED: fentaNYL INJ 100 MCG/2 ML AMP ONE (07:39)
[2021-06-20] MEDS ORDERED: HEParin (CATH LAB) 1,000 ML IV ONE (07:39)
[2021-06-20] MEDS ORDERED: MIDAZOLAM 5 MG/5 ML (VERSED) VIAL ONE (07:39)
[2021-06-20] MEDS ORDERED: NITRO DRIP 25000 MCG/D5W 250 ML IV ONE (07:39)
[2021-06-20] MEDS ORDERED: LIDOCAINE 1% INJ 20 ML VIAL ONE ×2 (07:39→08:44)
--- NOTE | 2021-06-20 07:55 | Consultation-Cardiology ---
HPI-Cardiology Cardiology Consultation Date of Consultation 06/20/21 Date of Admission Time Seen by Provider: 07:52 Indication: Chest pain HPI 56-year-old gentleman with multiple risk factors for coronary artery disease has dyspnea, COPD, hypertension hyperlipidemia. Underwent stress test yesterday during exercise test had frequent PVCs ventricular bigeminy and short runs of no nsustained ventricular tachycardia. Patient was scheduled to be seen as an outpatient, he returned to the emergency room with active chest pain. Described dull achiness in the retrosternal area. No acute EKG changes, cardiac enzymes were negative. I discussed with him the management plan recommended cardiac catheterization. Home Medications & Allergies Allergies: Coded Allergies: chlorpromazine (Verified Allergy, Unknown, paralysis, 04/30/18) fentanyl (Verified Allergy, Unknown, hives, 04/30/18) thioridazine (Verified Allergy, Unknown, confusion, 04/30/18) Home Medication List Reviewed: Yes MOV-Epixqt-Ygnruo Hx Patient Social History Marital Status: Smoking Status: Current Everyday Smoker Type Used: Cigarettes 2nd Hand Smoke Exposure: Yes Recent Hopitalizations: Yes (DC'd 1 week ago for right hip surgery) Have you traveled recently?: No Alcohol Use?: No Immunizations Up To Date Date of Pneumonia Vaccine: Dec 09, 2016 Date of Influenza Vaccine: Nov 14, 2019 Past Medical History Discussed below Family Medical History Family Medical Hx Strong family history of heart disease Review of Systems-General Review of Systems Constitutional: No chills, No diaphoresis, No fever, No malaise EENTM: see HPI, no symptoms reported Respiratory: see HPI; No cough; dyspnea on exertion; No hemoptysis, No orthopnea, No phlegm, No short of breath, No stridor, No wheezing, No other Cardiovascular: see HPI, chest pain; No edema, No Hx of Intervention, No palpitations, No syncope, No vascular heart diseas, No other Gastrointestinal: no symptoms reported, see HPI Genitourinary: no symptoms reported, see HPI Musculoskeletal: No back pain, No gout, No joint pain Skin: No change in color, No pruritus, No rash Psychiatric/Neurological: Denies Headache, Denies Numbness All Other Systems Reviewed Negative Unless Noted: Yes Reviewed Test Results Reviewed Test Results Lab Laboratory Tests Test 06/19/21 15:50 06/20/21 01:25 06/20/21 05:05 Range/Units White Blood Count 11.5 H 9.3 4.3-11.0 10^3/uL Red Blood Count 4.74 4.41 4.30-5.52 10^6/uL Hemoglobin 14.3 13.6 13.3-17.7 g/dL Hematocrit 42 41 40-54 % Mean Corpuscular Volume 89 92 80-99 fL Mean Corpuscular Hemoglobin 30 31 25-34 pg Mean Corpuscular Hemoglobin Concent 34 34 32-36 g/dL Red Cell Distribution Width 15.5 H 15.6 H 10.0-14.5 % Platelet Count 308 273 130-400 10^3/uL Mean Platelet Volume 9.7 9.6 9.0-12.2 fL Immature Granulocyte % (Auto) 1 1 % Neutrophils (%) (Auto) 75 70 42-75 % Lymphocytes (%) (Auto) 17 20 12-44 % Monocytes (%) (Auto) 6 8 0-12 % Eosinophils (%) (Auto) 1 1 0-10 % Basophils (%) (Auto) 1 1 0-10 % Neutrophils # (Auto) 8.6 H 6.5 1.8-7.8 10^3/uL Lymphocytes # (Auto) 1.9 1.9 1.0-4.0 10^3/uL Monocytes # (Auto) 0.7 0.7 0.0-1.0 10^3/uL Eosinophils # (Auto) 0.1 0.1 0.0-0.3 10^3/uL Basophils # (Auto) 0.1 0.1 0.0-0.1 10^3/uL Immature Granulocyte # (Auto) 0.1 0.1 0.0-0.1 10^3/uL Prothrombin Time 12.6 12.2-14.7 SEC INR Comment 0.9 0.8-1.4 Activated Partial Thromboplast Time 26 24-35 SEC Sodium Level 140 142 135-145 MMOL/L Potassium Level 3.9 3.8 3.6-5.0 MMOL/L Chloride Level 104 108 H 98-107 MMOL/L Carbon Dioxide Level 24 24 21-32 MMOL/L Anion Gap 12 10 5-14 MMOL/L Blood Urea Nitrogen 21 H 19 H 7-18 MG/DL Creatinine 0.86 0.85 0.60-1.30 MG/DL Estimat Glomerular Filtration Rate 100 101 BUN/Creatinine Ratio 24 22 Glucose Level 279 H 115 H 70-105 MG/DL Calcium Level 9.3 9.0 8.5-10.1 MG/DL Corrected Calcium 9.1 8.5-10.1 MG/DL Magnesium Level 1.7 1.6-2.4 MG/DL Total Bilirubin 0.4 0.1-1.0 MG/DL Aspartate Amino Transf (AST/SGOT) 13 5-34 U/L Alanine Aminotransferase (ALT/SGPT) 15 0-55 U/L Alkaline Phosphatase 106 40-136 U/L Myoglobin 33.8 10.0-92.0 NG/ML Troponin I < 0.30 < 0.028 < 0.028 <0.028 NG/ML Pro-B-Type Natriuretic Peptide 288.7 H <75.0 PG/ML Total Protein 6.8 6.4-8.2 GM/DL Albumin 4.2 3.2-4.5 GM/DL Triglycerides Level 145 <150 MG/DL Cholesterol Level 153 < 200 MG/DL LDL Cholesterol Direct 101 1-129 MG/DL VLDL Cholesterol 29 5-40 MG/DL HDL Cholesterol 28 L 40-60 MG/DL Physical Exam Physical Exam Vital Signs Vital Signs - First Documented 06/19/21 06/19/21 06/19/21 15:45 20:34 21:48 Temp 36.4 Pulse 81 Resp 18 B/P (MAP) 165/98 (120) Pulse Ox 98 O2 Delivery Room Air O2 Flow Rate 3.00 FiO2 21 Capillary Refill : Less Than 3 Seconds Height, Weight, BMI Height: 5'6.00" Weight: 138lbs. 0oz. 62.873091ih; 24.26 BMI Method:Stated General Appearance: Anxious, Chronically ill, Mild Distress Eyes: Bilateral Eye Normal Inspection, Bilateral Eye PERRL, Bilateral Eye EOMI HEENT: PERRL/EOMI, Pharynx Normal, Moist Mucous Membranes Neck: Full Range of Motion, Normal Inspection Respiratory: Lungs Clear, Normal Breath Sounds, No Accessory Muscle Use, No Respiratory Distress Cardiovascular: Regular Rate, Rhythm, No Edema, Normal Peripheral Pulses Gastrointestinal: Normal Bowel Sounds, Non Tender, Soft Back: Normal Inspection, No CVA Tenderness, No Vertebral Tenderness Extremity: Normal Capillary Refill, Normal Inspection, No Pedal Edema Neurologic/Psychiatric: Alert, Oriented x3, No Motor/Sensory Deficits Skin: Normal Color, Warm/Dry Lymphatic: No Adenopathy A/P-Cardiology Admission Diagnosis Chest pain Nonsustained ventricular tachycardia Hypertension Hyperlipidemia Assessment/Plan Chest pain resembling angina. Abnormal stress test, planning to proceed with cardiac catheterization possible PTCA Frequent PVCs noted during stress test, nonsustained ventricular tachycardia, planning to initiate beta-blockers after cardiac catheterization Dyspnea on exertion which has been worsening. Has multiple risk factors for coronary artery disease, has underlying COPD and using oxygen at night. I am planning to evaluate echo and stress test. COPD, using oxygen at night, educated on smoking cessation, managed by primary care physician Hypertension, severe hypertensive response to exercise. Planning to initiate beta-blockers and add ARB. Hyperlipidemia, maintained on rosuvastatin 40 mg daily, last lipid profile in December showing total cholesterol 128, triglyceride 95, HDL 33, LDL 77. Continue to monitor Diabetes mellitus, followed and managed by primary care physician Tobaccoism, smoking 1 to 2 packs a day, still an active smoker, educated on smoking cessation History of bipolar disorder History of illicit drug use, he stopped using any illegal drugs since 2011. Strong family history of heart disease with multiple family members with heart attack or strokes. Gastroesophageal reflux disease maintained on Protonix Clinical Quality Measures AMI/AHF: ASA po Prior to arrival: TIERA Ortiz MD June 20, 2021 07:55
--- NOTE | 2021-06-20 07:56 | Conscious Sedation/ASA ---
Conscious Sedation Pre-Proced Time 07:55 ASA Score 3 For ASA 3 and 4: Consider anesthesia and medical clearance. Also, for patients with a history of failed moderate sedation consider anesthesia. Airway Lungs Heart ASA score ASA 1: a normal healthy patient ASA 2: a patient with a mild systemic disease (mid diabetes, controlled hypertension, obesity x ASA 3: a patient with a severe systemic disease that limits activity (angina, COPD, prior Myocardial infarction) ASA 4: a patient with an incapacitating disease that is a constant threat to life (CHF, renal failure) ASA 5: a moribund patient not expected to survive 24 hrs. (ruptured aneurysm) ASA 6: a declared brain- patient whose organs are being harvested. For emergent operations, add the letter E after the classification Mallampati Classification Grade 3 Sedation Plan Analgesia, Amnesia, Plan communicated to team members, Discussed options with patient/fam, Discussed risks with patient/fam The patient is an appropriate candidate to undergo the planned procedure, sedation, and anesthesia. The patient immediately re-assessed prior to indication. TIERA VIVEROS MD June 20, 2021 07:56
[2021-06-20] MEDS ORDERED: HEParin (CATH LAB) 0 ML IV ONE (08:44)
[2021-06-20] MEDS ORDERED: PATIENT MAY USE OWN MEDS, ALL PO SCH (09:00)
[2021-06-20] MEDS ORDERED: CATHETER FLUSH 10 ML SYR IV PRN (09:15)
[2021-06-20] MEDS ORDERED: IOHEXOL 350 MG/ML 100 ML (OMNIPAQUE 350) VIAL IV ONE (09:15)
[2021-06-20] MEDS ORDERED: HOLD METFORMIN - RECEIVED CONTRAST 20 ML VIAL IV SCH (09:15)
[2021-06-20] MEDS ORDERED: NS 100 ML (IVPB) BAG IV ONE (09:15)
[2021-06-20] MEDS: CATHETER FLUSH 10 ML SYR IVP SCH ×3 (10:43→22:03)
[2021-06-20] MEDS: inSUlin ASPART (NovoLOG) 1 UNIT/0.01 ML (CHARGE PER UNIT) SC SCH ×4 (10:44→22:03)
[2021-06-20] MEDS: NS IV 1000 ML 1,000 ML IV SCH ×2 (10:45→20:20)
[2021-06-20] MEDS: ASPIRIN E.C. 81 MG (ECOTRIN) TAB PO SCH ×2 (10:45→11:04)
[2021-06-20] MEDS: meTOproloL SUCCINATE 50 MG (TOPROL XL) TAB PO SCH ×2 (10:45→11:03)
[2021-06-20] MEDS: ENOXAPARIN 80 MG/0.8 ML (LOVENOX) SYR SC SCH ×2 (11:04→22:02)
[2021-06-20] MEDS: LOSARTAN 25 MG (COZAAR) TAB PO SCH (11:04)
--- NOTE | 2021-06-20 12:15 | History & Physical ---
ELLA RTEANA A MED STUDENT 06/20/21 1215: History of Present Illness History of Present Illness Reason for visit/HPI 56 yo male who presented to ED last night for chest pain following stress test. Pt has hx of COPD, HTN, Diabetes and high cholesterol. Pt reports he had a stress test yesterday and on his way home he experienced chest pain, so he went back to the ED. Pt denies ever having chest pain like this previously. Pt's stress test was halted d/t HTN and nonsustained Vtach, EF of 42%, and apical inferior wall hypokinesia with no reversibility. Pt had Echo 2 months ago which showed EF of 55-60%. EKG in ED showed no ST segment changes, but LVH. Pt was taken down to director of cardiac cath lab this morning and aortic dissection was suspected. Post cath pt has no chest pain, palpitations, SOA, abdominal pain. Pt does report a headache and feeling hungry. Date of Admission June 19, 2021 at 18:30 Date Seen by a Provider: June 20, 2021 Time Seen by a Provider: 10:00 I consulted on this patient on 06/20/21 12:10 Attending Physician Johny De Paz MD Admitting Physician Kemar Aldridge MD Consult Allergies and Home Medications Allergies Coded Allergies: chlorpromazine (Verified Allergy, Unknown, paralysis, 04/30/18) fentanyl (Verified Allergy, Unknown, hives, 04/30/18) thioridazine (Verified Allergy, Unknown, confusion, 04/30/18) Patient Home Medication List Albuterol Sulfate (Ventolin Hfa) 18 Gm Hfa.aer.ad, 2 PUFF INH Q6H PRN for SHORTNESS OF BREATH, (Reported) Entered as Reported by: RUBEN KU on 12/27/19 1042 Last Action: Reviewed Buspirone HCl (Buspirone HCl) 10 Mg Tablet, 10 MG PO BID, (Reported) Entered as Reported by: SANTOS RODARTE on 08/16/19 1444 Last Action: Reviewed Cyclobenzaprine HCl (Cyclobenzaprine HCl) 10 Mg Tablet, 10 MG PO Q8H PRN for MUSCLE SPASMS, (Reported) Entered as Reported by: RUBEN KU on 06/20/21 1544 Last Action: Reviewed Doxepin HCl (Doxepin HCl) 3 Mg Tablet, 3 MG PO HS, (Reported) Entered as Reported by: RUBEN KU on 06/20/211543 Last Action: Reviewed Fluticasone Propionate (Fluticasone Propionate) 16 Gm Chapin.susp, 2 SPR NSEACH DAILY PRN for CONGESTION, (Reported) Entered as Reported by: SANTOS RODARTE on 08/16/191443 Last Action: Reviewed Fluticasone/Salmeterol (Advair Hfa 115-21 Mcg Inhaler) 115 Mcg-21 Mcg/Actuation Hfa.aer.ad, 1 PUFF INH DAILY, (Reported) Entered as Reported by: RUBEN KU on 06/20/211543 Last Action: Reviewed Gabapentin (Gabapentin) 600 Mg Tablet, 600 MG PO TID, (Reported) Entered as Reported by: RUBEN KU on 06/20/211543 Last Action: Reviewed Insulin Aspart (Novolog) 100 Unit/1 Ml Susp, UNIT SQ PER PUMP, (Reported) Entered as Reported by: SANTOS RODARTE on 08/16/191443 Last Action: Reviewed Lumateperone Tosylate (Caplyta) 42 Mg Capsule, 42 MG PO HS, (Reported) Entered as Reported by: RUBEN KU on 06/20/211543 Last Action: Reviewed Olanzapine (Olanzapine) 2.5 Mg Tablet, 2.5 MG PO HS, (Reported) Entered as Reported by: RUBEN KU on 06/20/211543 Last Action: Reviewed Pantoprazole Sodium (Pantoprazole Sodium) 40 Mg Tablet.dr, 40 MG PO DAILY, (Reported) Entered as Reported by: RUBEN KU on 06/20/211543 Last Action: Reviewed Propranolol HCl (Propranolol HCl) 10 Mg Tablet, 10 MG PO TID, (Reported) Entered as Reported by: RUBEN KU on 12/27/19 104 Last Action: Reviewed Rosuvastatin Calcium (Rosuvastatin Calcium) 40 Mg Tablet, 40 MG PO DAILY, (Reported) Entered as Reported by: RUBEN KU on 06/20/211543 Last Action: Reviewed Discontinued Medications Amitriptyline HCl (Amitriptyline HCl) 10 Mg Tablet, 10 MG PO HS PRN for SLEEP, (Reported) Discontinued Reason: No Longer Taking Entered as Reported by: SANTOS RODARTE on 08/16/19 1444 Last Action: Discontinued Cephalexin (Cephalexin) 500 Mg Tablet, 500 MG PO TID Discontinued Reason: No Longer Taking Prescribed by: GEMMA PAVON on 05/25/21 1449 Last Action: Discontinued Citalopram Hydrobromide (Citalopram HBr) 40 Mg Tablet, 40 MG PO DAILY, (Reported) Discontinued Reason: No Longer Taking Entered as Reported by: SRAVANTHI GALLARDO on 04/30/18 1235 Last Action: Discontinued Fluticasone/Salmeterol (Advair Hfa 115-21 Mcg Inhaler) 12 Gm Hfa.aer.ad, 0 PUFF IH RTBID Discontinued Reason: Duplicate Order Prescribed by: CHANDA DAVILA on 12/29/19 114 Last Action: Discontinued Gabapentin (Neurontin) 300 Mg Capsule, 300 MG PO TID, (Reported) Discontinued Reason: No Longer Taking Entered as Reported by: RUBEN KU on 12/27/19 104 Last Action: Discontinued Oxycodone HCl (Oxycodone HCl) 5 Mg Tablet, 5 MG PO Q6H PRN for PAIN-SEVERE (8- 10), (Reported) Discontinued Reason: No Longer Taking Entered as Reported by: RUBEN KU on 12/27/19 104 Last Action: Discontinued Pantoprazole Sodium (Protonix) 40 Mg Tablet.dr, 40 MG PO DAILY Discontinued Reason: No Longer Taking Prescribed by: CHANDA DAVILA on 12/29/19 1146 Last Action: Discontinued Ropinirole HCl (Requip) 0.25 Mg Tab, 0.25 MG PO Q8HR PRN for RESTLESS LEGS Discontinued Reason: No Longer Taking Prescribed by: CHANDA DAVILA on 12/29/19 114 Last Action: Discontinued Tramadol HCl (Tramadol HCl) 50 Mg Tablet, 50 MG PO Q4H PRN for PAIN-MODERATE (5- 7), (Reported) Discontinued Reason: No Longer Taking Entered as Reported by: RUBEN KU on 12/27/19 104 Last Action: Discontinued Past Ctexybh-Rbeyvb-Blzjhy Hx Patient Social History Marrital Status: Tobacco Use?: Yes Tobacco type used: Cigarettes Smoking Status: Current Everyday Smoker Use of E-Cig and/or Vaping dev: No Substance use?: No Alcohol Use?: No Pt feels they are or have been: No Immunizations Up To Date Date of Influenza Vaccine: Nov 14, 2019 First/Initial COVID19 Vaccinat: 06/28/2020 Second COVID19 Vaccination Rod: 07/26/2020 Tetanus Booster (TDap): More Than 5 Years Date of Pneumonia Vaccine: Dec 09, 2016 Seasonal Allergies Seasonal Allergies: No Current Status Advance Directives: No Communicates: Verbally Primary Language: Cambodian Preferred Spoken Language: Cambodian Is interpretation needed?: No Sensory deficits: Vision impairment Implanted or Applied Medical D: Insulin pump Past Medical History Surgeries: Gallbladder, Orthopedic Asthma, Chronic Bronchitis, COPD, Emphysema High Cholesterol, Hypertension Neuropathy Kidney Stones Gastroesophageal Reflux Degenerate Disk Disease, Arthritis Diabetes, Insulin dep Bipolar, Personality Disorder Blood Disorders: No Review of Systems Constitutional: No chills, No fever EENTM: No hearing loss, No blurred vision Respiratory: No cough, No short of breath Cardiovascular: No chest pain, No palpitations Gastrointestinal: No abdominal pain, No constipation, No diarrhea, No nausea, No vomiting Genitourinary: No dysuria, No frequency Musculoskeletal: No back pain, No joint pain Skin: No lesions, No lumps Psychiatric/Neurological: Denies Anxiety, Denies Depressed Physical Exam Vital Signs Vital Signs - First Documented 06/19/21 06/19/21 06/19/21 15:45 20:34 21:48 Temp 36.4 Pulse 81 Resp 18 B/P (MAP) 165/98 (120) Pulse Ox 98 O2 Delivery Room Air O2 Flow Rate 3.00 FiO2 21 Capillary Refill : Less Than 3 Seconds Height, Weight, BMI Height: 5'6.00" Weight: 138lbs. 0oz. 62.909500rg; 24.26 BMI Method:Stated General Appearance: No Apparent Distress, WD/WN HEENT: PERRL/EOMI, TMs Normal Neck: Full Range of Motion, Normal Inspection Respiratory: No Accessory Muscle Use, No Respiratory Distress, Inspiration, Wheezing Cardiovascular: Regular Rate, Rhythm, No Edema Gastrointestinal: Normal Bowel Sounds, No Organomegaly, No Pulsatile Mass, Non Tender, Soft Rectal: Deferred Extremity: Normal Capillary Refill, Normal Inspection, No Pedal Edema Neurologic/Psychiatric: Alert, Oriented x3, No Motor/Sensory Deficits Skin: Normal Color, Warm/Dry Assessment/Plan Assessment and Plan Acute coronary syndrome s/p heart catheterization HTN Diabetes High Cholesterol COPD Acute coronary syndrome s/p heart catheterization -No interventions necessary on cath -Monitoring for possible aortic dissection after cath -CT ordered to be done at 1300 -Cardiology following, appreciate their recs -EF at stress test yesterday showed 42% HTN -Mildly elevated -Continue to monitor -Metoprolol Diabetes -Insulin pump and sensor High Cholesterol -Manage per cardiology COPD -MAT protocol Clinical Quality Measures AMI/AHF: ASA po Prior to arrival: No JOAQUIN VILLAGRAN MD 06/20/21 4002: Allergies and Home Medications Allergies Coded Allergies: chlorpromazine (Verified Allergy, Unknown, paralysis, 04/30/18) fentanyl (Verified Allergy, Unknown, hives, 04/30/18) thioridazine (Verified Allergy, Unknown, confusion, 04/30/18) Patient Home Medication List Home Medication List Reviewed: Yes Albuterol Sulfate (Ventolin Hfa) 18 Gm Hfa.aer.ad, 2 PUFF INH Q6H PRN for SHORTNESS OF BREATH, (Reported) Entered as Reported by: RUBEN KU on 12/27/19 1042 Last Action: Reviewed Buspirone HCl (Buspirone HCl) 10 Mg Tablet, 10 MG PO BID, (Reported) Entered as Reported by: SANTOS RODARTE on 08/16/19 144 Last Action: Reviewed Cyclobenzaprine HCl (Cyclobenzaprine HCl) 10 Mg Tablet, 10 MG PO Q8H PRN for M USCLE SPASMS, (Reported) Entered as Reported by: RUBEN KU on 06/20/211543 Last Action: Reviewed Doxepin HCl (Doxepin HCl) 3 Mg Tablet, 3 MG PO HS, (Reported) Entered as Reported by: RUBEN KU on 06/20/211543 Last Action: Reviewed Fluticasone Propionate (Fluticasone Propionate) 16 Gm Chapin.susp, 2 SPR NSEACH DAILY PRN for CONGESTION, (Reported) Entered as Reported by: SANTOS RODARTE on 08/16/191443 Last Action: Reviewed Fluticasone/Salmeterol (Advair Hfa 115-21 Mcg Inhaler) 115 Mcg-21 Mcg/Actuation Hfa.aer.ad, 1 PUFF INH DAILY, (Reported) Entered as Reported by: RUBEN KU on 06/20/211543 Last Action: Reviewed Gabapentin (Gabapentin) 600 Mg Tablet, 600 MG PO TID, (Reported) Entered as Reported by: RUBEN KU on 06/20/211543 Last Action: Reviewed Insulin Aspart (Novolog) 100 Unit/1 Ml Susp, UNIT SQ PER PUMP, (Reported) Entered as Reported by: SANTOS RODARTE on 08/16/191443 Last Action: Reviewed Lumateperone Tosylate (Caplyta) 42 Mg Capsule, 42 MG PO HS, (Reported) Entered as Reported by: RUBEN KU on 06/20/211543 Last Action: Reviewed Olanzapine (Olanzapine) 2.5 Mg Tablet, 2.5 MG PO HS, (Reported) Entered as Reported by: RUBEN KU on 06/20/211543 Last Action: Reviewed Pantoprazole Sodium (Pantoprazole Sodium) 40 Mg Tablet.dr, 40 MG PO DAILY, (Reported) Entered as Reported by: RUBEN KU on 06/20/211543 Last Action: Reviewed Propranolol HCl (Propranolol HCl) 10 Mg Tablet, 10 MG PO TID, (Reported) Entered as Reported by: RUBEN KU on 12/27/19 104 Last Action: Reviewed Rosuvastatin Calcium (Rosuvastatin Calcium) 40 Mg Tablet, 40 MG PO DAILY, (Reported) Entered as Reported by: RUBEN KU on 06/20/211543 Last Action: Reviewed Discontinued Medications Amitriptyline HCl (Amitriptyline HCl) 10 Mg Tablet, 10 MG PO HS PRN for SLEEP, (Reported) Discontinued Reason: No Longer Taking Entered as Reported by: SANTOS RODARTE on 08/16/191443 Last Action: Discontinued Cephalexin (Cephalexin) 500 Mg Tablet, 500 MG PO TID Discontinued Reason: No Longer Taking Prescribed by: GEMMA PAVON on 05/25/21 1449 Last Action: Discontinued Citalopram Hydrobromide (Citalopram HBr) 40 Mg Tablet, 40 MG PO DAILY, (Reported) Discontinued Reason: No Longer Taking Entered as Reported by: SRAVANTHI GALLARDO on 04/30/18 1235 Last Action: Discontinued Fluticasone/Salmeterol (Advair Hfa 115-21 Mcg Inhaler) 12 Gm Hfa.aer.ad, 0 PUFF IH RTBID Discontinued Reason: Duplicate Order Prescribed by: CHANDA DAVILA on 12/29/191145 Last Action: Discontinued Gabapentin (Neurontin) 300 Mg Capsule, 300 MG PO TID, (Reported) Discontinued Reason: No Longer Taking Entered as Reported by: RUBEN KU on 12/27/191041 Last Action: Discontinued Oxycodone HCl (Oxycodone HCl) 5 Mg Tablet, 5 MG PO Q6H PRN for PAIN-SEVERE (8- 10), (Reported) Discontinued Reason: No Longer Taking Entered as Reported by: RUBEN KU on 12/27/191041 Last Action: Discontinued Pantoprazole Sodium (Protonix) 40 Mg Tablet.dr, 40 MG PO DAILY Discontinued Reason: No Longer Taking Prescribed by: CHANDA DAVILA on 12/29/191145 Last Action: Discontinued Ropinirole HCl (Requip) 0.25 Mg Tab, 0.25 MG PO Q8HR PRN for RESTLESS LEGS Discontinued Reason: No Longer Taking Prescribed by: CHANDA DAVILA on 12/29/191145 Last Action: Discontinued Tramadol HCl (Tramadol HCl) 50 Mg Tablet, 50 MG PO Q4H PRN for PAIN-MODERATE (5- 7), (Reported) Discontinued Reason: No Longer Taking Entered as Reported by: RUBEN KU on 12/27/191041 Last Action: Discontinued Assessment/Plan Admission Diagnosis Admission Status: Observation Supervisory-Addendum Brief Verification & Attestation Participated in pt care: history, physical Personally performed: exam, history Care discussed with: Medical Student Procedures: n/a Verification and Attestation of Medical Student E/M Service A medical student performed and documented this service in my presence. I reviewed and verified all information documented by the medical student and made modifications to such information, when appropriate. I personally performed the physical exam and medical decision making. Joaquin Villagran, June 20, 2021,17:36 Abnormal Stress test Atypical Chest pain Ulcerated aortic arch plaque IDDM HTN HLD Tobaccoism H/o illicit drug use Patient taken to director of cardiac cath lab today by Dr De Paz CP has resolved this AM Per Dr De Paz will need referral to CT surgery as outpatient Continue home meds Discussed the need for smoking cessation ELLA RETANA MED STUDENT June 20, 2021 12:15 JOAQUIN VILLAGRAN MD June 20, 2021 17:38
--- NOTE | 2021-06-20 14:05 | Diagnostic Imaging Report ---
PROCEDURE: CT angiography of the chest with contrast. TECHNIQUE: Multiple contiguous axial images were obtained through the chest after uneventful bolus administration of intravenous contrast. 3D reconstructed CTA MIP acquisitions were also performed. Auto Exposure Controls were utilized during the CT exam to meet ALARA standards for radiation dose reduction. INDICATION: Abnormal resistance was encountered at catheter angiography. This study is performed for possible dissection. Compared with CT angio chest 12/22/2012. Post IV consciousness CT angio chest with 2-D and 3-D reconstructions performed. Acquisitions were carried out at the level just below the skull base beyond the carotid bifurcations. FINDINGS: A smooth a band or weblike structure adherent to the anterior jackman of the proximal aortic arch with iso-enhancement of the lumen anterior and posterior to that structure is identical in appearance to the previous exam, allthough previously that level was degraded by streak and motion artifact. There is some slight contour deformity and wasting of the aortic outer wall at its attachments and this is likely a chronic fibrous band but could could reflect a chronic dissection showing no interval progression and no flow limitation. This is identical in appearance to the prior and terminates proximal to the takeoff of the innominate artery. 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 The bilateral subclavian arteries, the common carotid arteries, the carotid bulbs and bifurcations, major proximal external carotids and cervical internal carotids are all widely patent where visualized. There is no evidence for dissection or stenosis. Along laterally along the left lateral wall of the distal aortic arch is an intraluminal opacified outpouching now extending about 14 mm lateral/peripheral to the normal aortic luminal contour, previously this extended out about 8 mm. At its base this focal outpouching measures 2 cm AP today, previously 1.6 cm. The lumen is somewhat irregular at this level. Given its progression, I doubt that this is owing to a ductus diverticulum but instead is felt suspicious for an enlarging penetrating atheromatous ulcer without its wall perforation or rupture. There were no findings of intramural hematoma. The descending thoracic aorta and visualized upper abdominal aorta normal.. There is some paraseptal cyst and and the pulmonary apices where there is pleural-parenchymal scarring. This dependent bibasilar partial atelectasis greater right. There were no findings felt suggestive of kyle pneumonia a mild interstitial edema however could not be differentiated from some chronic septal thickening. There is no pleural or pericardial effusion and there is no pneumothorax. No acute chest wall pathology. IMPRESSION: 1. Smooth band like linear intraluminal structure adhered to the anterior jackman of the proximal aortic arch identical in appearance to a prior with iso-enhancement of the lumen on both sides conceivably a stable limited dissection, however given the atypical outer wall aortic contour at the structures attachments, this is likely a chronic fibrous band. This would presume to account for the area of atypical resistance encountered at catheter angiography. 2. Broad-based outpouching laterally off the viraj-ductal distal arch has enlarged from the previous exam and it is somewhat irregular and is suspicious for progressive unruptured penetrating atheromatous ulcer. 3. No evidence for aortic stenosis or intramural hemorrhage. No vessel rupture. 4. 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 5. Chronic interstitial lung disease, mild superimposed interstitial edema could not be excluded. Pertinent results of this exam have been discussed by phone with Dr. Mcclain prior to dictation. Dictated by: Dictated on workstation # [id number]
--- NOTE | 2021-06-20 15:28 | Tele-ICU Progress Note ---
Subjective Date Seen by a Provider: June 20, 2021 Time Seen by a Provider: 15:04 Subjective/Events-last exam This gentleman has a history of hypertension and coronary risk factors he presented with atypical chest pain and subsequently had a stress test. The stress test had to be discontinued because of development of hypertension and chest discomfort associated with the nonsustained V. tach. At this time he is transferred to the intensive care unit for close monitoring. This a.m. he underwent cardiac catheterization the report of which is pending however I was told that he did not need any intervention. Currently he has no chest pain. Blood pressure is stable. No arrhythmias noted on the monitor. Sepsis Event Evaluation Height, Weight, BMI Height: 5'6.00" Weight: 138lbs. 0oz. 62.171152ud; 24.26 BMI Method:Stated Exam Exam Patient acknowledged, consented, and participated in this virtual visit which was conducted using real time audio/video Vital Signs Date Time Temp Pulse Resp B/P (MAP) Pulse Ox O2 Delivery O2 Flow Rate FiO2 06/20/21 14:51 Room Air 06/20/21 13:00 72 06/20/21 12:00 60 17 127/79 (95) 98 Nasal Cannula 3.00 06/20/21 11:00 61 12 132/80 (97) 98 Nasal Cannula 3.00 06/20/21 10:45 62 29 138/84 (105) 98 Nasal Cannula 3.00 06/20/21 10:30 62 19 133/88 (103) 99 Nasal Cannula 3.00 06/20/21 10:15 73 20 132/84 (101) 99 Nasal Cannula 3.00 06/20/21 10:00 70 13 132/84 (103) 100 Nasal Cannula 3.00 06/20/21 09:45 63 9 131/78 (95) 100 Nasal Cannula 3.00 06/20/21 09:30 51 11 129/88 (107) 90 Nasal Cannula 3.00 06/20/21 09:21 Room Air 06/20/21 09:15 68 18 126/84 (102) 88 Nasal Cannula 3.00 06/20/21 09:00 136/80 (98) Nasal Cannula 3.00 06/20/21 07:20 96 Nasal Cannula 2.00 06/20/21 07:00 68 06/20/21 04:00 58 15 153/101 (118) 98 Nasal Cannula 3.00 06/20/21 04:00 37.0 06/20/21 01:00 73 06/20/21 00:00 74 14 167/95 (119) 96 Nasal Cannula 3.00 06/20/21 00:00 36.7 06/19/21 21:48 Nasal Cannula 3.00 06/19/21 21:06 36.7 69 95 06/19/21 20:34 36.7 69 95 21 06/19/21 20:00 Room Air 06/19/21 20:00 Room Air 06/19/21 19:53 36.7 69 21 152/103 (119) 95 06/19/21 18:31 74 06/19/21 18:30 157/108 (124) 96 06/19/21 17:27 36.2 82 18 177/96 95 Room Air 06/19/21 15:45 36.4 81 18 165/98 (120) 98 Room Air I & O 06/20/21 06:59 Intake Total 500 ml Balance 500 ml Height & Weight Height: 5'6.00" Weight: 138lbs. 0oz. 62.872989ow; 24.26 BMI Method:Stated General Appearance: No Apparent Distress, WD/WN HEENT: PERRL/EOMI, TMs Normal Neck: Full Range of Motion, Normal Inspection Respiratory: No Accessory Muscle Use, No Respiratory Distress, Inspiration, Wheezing Cardiovascular: Regular Rate, Rhythm, No Edema Capillary Refill: Less Than 3 Seconds Extremity: Normal Capillary Refill, Normal Inspection, No Pedal Edema Neurologic/Psychiatric: Alert, Oriented x3, No Motor/Sensory Deficits Skin: Normal Color, Warm/Dry Lymphatic: No Adenopathy Other comments PE PER RN Results Lab Laboratory Tests 06/19/21 15:50 06/20/21 05:05 Assessment/Plan Assessment/Plan 1. Atypical chest pain now resolved 2. Hypertension. 3. History of COPD 4. Hyperlipidemia 5. Gastroesophageal reflux disease 6. Insulin requiring type 2 diabetes mellitus. Recommendations 1. Continue monitor for any chest pain. 2. As needed sublingual nitroglycerin. 3. LDL goal less than 70. 4. Further management of hypertension and chest pain per cardiology service. 5. Discharge planning per cardiology and primary care service Critical Care: Critically Ill Patient Time spent with patient (mins): 20 LOUIS BANGURA MD June 20, 2021 15:28
[2021-06-20] MEDS ORDERED: CYCL10TA25 PO (15:44)
[2021-06-20] MEDS ORDERED: PANT40TA52 PO (15:44)
[2021-06-20] MEDS ORDERED: LUMA42CA PO (15:44)
[2021-06-20] MEDS ORDERED: GBPN600T PO (15:44)
[2021-06-20] MEDS ORDERED: FLUT12AE4 INH (15:44)
[2021-06-20] MEDS ORDERED: ROSU40TA23 PO (15:44)
[2021-06-20] MEDS ORDERED: OLAN2.5T27 PO (15:44)
[2021-06-20] MEDS ORDERED: [UNRECOGNIZED DRUG - CODE] PO (15:44)
--- NOTE | 2021-06-20 16:32 | Cardiac Cath Report ---
Cardiac Cath Report Physician (s)/Stranner (s) Physician TIERA VIVEROS MD Pre-Procedure Diagnosis Pre-Procedure Diagnosis: Chest painCoronary artery disease Post-Procedure Note Procedure Start Date: June 20, 2021 Name of Procedure: Left heart catheterization Aortic root angiogram Aortic arch angiogram Findings/Procedure Note PROCEDURE NOTE: 56-year-old gentleman with history of hypertension, COPD, had an abnormal stress test, admitted through the emergency room with active chest pain. I decided to proceed with cardiac catheterization possible PTCA. After explaining the procedure to the patient, all pros and cons were explained, all questions were answered. The patient signed the consent and then he was placed on the cardiac catheterization laboratory. Groin was prepped SL fashion local anesthesia was used. Sheath placed in the right radial artery, I had difficulty advancing J-wire across the brachiocephalic artery then reach the aortic arch at the junction with the ascending aorta and I was unable to advance the wire. I advanced the catheter did angiogram with small injection and I was concerned about dissection in the aortic arch. Subsequently I retracted the catheter and did femoral access and try to advance a pigtail with a J-wire and I reached the same area. I was unable to advance the catheter I removed the catheter and used Kenny right catheter with a Storq wire and directed it posteriorly and I was able to advance the wire then I exchanged the catheter into a pigtail catheter and did aortic root angiogram which showed normal aortic root. Exchanged the catheter again and used Kenny left and engaged the left system and did angiogram then Kenny right advance it to the left ventricular c avity, pressure was measured then engage the right coronary artery and did right coronary angiogram then I flushed the catheter and evaluated the pressure at the aortic root then at the ascending aorta then aortic arch and then descending aorta are then abdominal aorta. I did not see any significant gradient. Sheath were removed and closure device deployed to the right groin and vascular band to the right wrist, CT scan was done of the chest to evaluate for dissection and it showed bandlike smooth area on the anterior aortic arch causing some narrowing which probably the difficulty area. It was present and a previous study was done about 2 years ago. He had an ulcerated plaque also noted. FINDINGS: Hemodynamics LV 129/17, end-diastolic pressure 17 Aorta 133/74 mean of 117 Aortic root 118/60 over 82 Ascending aorta 122/60 2/87 Aortic arch 128/60 Descending aorta 136/60 Abdominal aorta 138/50 . ANATOMY: Left Main is free of obstructive disease Left Anterior Descending is tortuous with mild disease nonobstructive disease Left Circumflex is tortuous with mild disease nonobstructive disease Right Coronary Artery is dominant with mild disease nonobstructive disease LV Gram was not done, pressure was measured Aorta evaluation done with aortic arch angiogram and aortic root angiogram Aortic root angiogram showed normal ascending aorta and aortic root, no dissection or aneurysm was noted Aortic arch angiogram showed an area of ridge at the junction of the ascending aorta with aortic arch. I was unable to advance the catheter from the radial ar leticia through that area. CONCLUSION: 1. Mild coronary artery disease nonobstructive disease 2. Normal left ventricular systolic function 3. Smooth ridge at the junction of the ascending aorta and aortic arch. I was unable to advance the catheter through the radial access but was able to redirect a Kenny right catheter through that area. Confirmed with CT scan. Patient had a smooth muscle area of narrowing in the anterior aspect of the ascending aorta. DISCUSSION AND RECOMMENDATION: Patient had ulcerated ulcerated plaque in the arch. That has grown compared to the study that was done [address] scan. I will refer for CT surgery evaluation. Anesthesia Type: Conscious Sedation Estimated blood loss (mL): 30 ml Contrast Amount: 60 ml Total Radiation Dose: 205 mGy Post-Procedure Diagnosis Post-operative diagnosis: Chest pain Coronary artery disease Hypertension Hyperlipidemia TIERA VIVEROS MD June 20, 2021 16:32
[2021-06-21] VITALS (11 sets, daily range): BP systolic 105–141; BP diastolic 69–92
[2021-06-21] MEDS: RT-ALBUTEROL SULF 2.5 MG/3 ML PRE-MIX VIAL INH SCH ×2 (02:24→07:08)
[2021-06-21] MEDS: NS IV 1000 ML 1,000 ML IV SCH (03:57)
[2021-06-21 04:08] LABS: HEMATOCRIT 39 % (40-54); HEMOGLOBIN 12.5 g/dL (13.3-17.7); MEAN CORPUSCULAR HEMOGLOBIN 30 pg (25-34); MEAN CORPUSCULAR HGB CONC 32 g/dL (32-36); MEAN CORPUSCULAR VOLUME 93 fL (80-99); MEAN PLATELET VOLUME 9.8 fL (9.0-12.2); PLATELET COUNT 248 10^3/uL (130-400); WHITE BLOOD COUNT 8.7 10^3/uL (4.3-11.0)
[2021-06-21 04:39] LABS: POTASSIUM 3.5 MMOL/L (3.6-5.0)
[2021-06-21 04:40] LABS: CALCIUM 8.5 MG/DL (8.5-10.1)
[2021-06-21 04:45] LABS: CREATININE SERUM 0.81 MG/DL (0.60-1.30)
[2021-06-21] MEDS: inSUlin ASPART (NovoLOG) 1 UNIT/0.01 ML (CHARGE PER UNIT) SC SCH ×2 (04:48→11:15)
[2021-06-21] MEDS: MAGNESIUM 1 GM/100 ML IVPB 100 ML IV SCH ×2 (05:12→06:25)
[2021-06-21] MEDS: CATHETER FLUSH 10 ML SYR IVP SCH (05:13)
--- NOTE | 2021-06-21 05:55 | Progress Note - Hospitalist ---
Subjective HPI/CC On Admission Date Seen by Provider: June 21, 2021 Time Seen by Provider: 09:00 Subjective/Events-last exam Pt had an uneventful hospital course after he was admitted for cardiac catheterization from chest pain found to have a possible aortic aneurysm that was pursued. There was no evidence of any acute issues so he was deemed stable for discharge and planned on going home in improved condition. Review of Systems General: Fatigue Objective Exam Vital Signs Vital Signs Date Time Temp Pulse Resp B/P (MAP) Pulse Ox O2 Delivery O2 Flow Rate FiO2 06/21/21 12:20 36.1 06/21/21 12:00 71 22 141/92 (108) 99 Nasal Cannula 3.00 06/19/21 20:34 21 Capillary Refill : Less Than 3 Seconds General Appearance: No Apparent Distress, WD/WN, Chronically ill Respiratory: Lungs Clear, Normal Breath Sounds Cardiovascular: Regular Rate, Rhythm Results/Procedures Lab Laboratory Tests 06/21/21 03:55 Patient resulted labs reviewed. Assessment/Plan Assessment and Plan Assess & Plan/Chief Complaint Discharge home Critical Care Critically Ill Patient Clinical Quality Measures AMI/AHF: ASA po Prior to arrival: CHANDA Daniel DO June 21, 2021 05:55
[2021-06-21] MEDS ORDERED: KCL 20 MEQ TAB (K-DUR) PO ONE (06:00)
[2021-06-21] MEDS ORDERED: KCL 20 MEQ TAB (K-DUR) PO SCH (06:00)
[2021-06-21] MEDS ORDERED: MAGNESIUM 1 GM/100 ML IVPB 100 ML IV SCH (06:00)
[2021-06-21] MEDS ORDERED: POTASSIUM CL 10MEQ/50ML IVPB 50 ML IV SCH (06:00)
[2021-06-21] MEDS: meTOproloL SUCCINATE 50 MG (TOPROL XL) TAB PO SCH ×2 (07:26→07:55)
[2021-06-21] MEDS: ASPIRIN E.C. 81 MG (ECOTRIN) TAB PO SCH ×2 (07:26→07:55)
[2021-06-21] MEDS: LOSARTAN 25 MG (COZAAR) TAB PO SCH (07:55)
[2021-06-21] MEDS: ENOXAPARIN 80 MG/0.8 ML (LOVENOX) SYR SC SCH (07:56)
[2021-06-21] MEDS ORDERED: ASPI-1238 PO (09:37)
[2021-06-21] MEDS ORDERED: LOSA25TA41 PO (09:37)
[2021-06-21] MEDS ORDERED: METO50TA7 PO (09:37)
--- NOTE | 2021-06-21 09:37 | Discharge Inst-Post CATH ---
Discharge Inst-CATH/EP Problems Reviewed?: Yes Post Cardiac Cath/EP D/C Inst Follow Up/Plan Appointment with Dr. De Paz's office in 2 weeks <b>CARDIAC CATH/EP PROCEDURE DISCHARGE INSTRUCTIONS</b> ACTIVITY * Go Home directly and rest. * Limit activity of the leg (or wrist if it was used) for 7 days including aerobics, swimming, jogging, bicycling, etc. * Restrict stair-climbing for 7 days if possible, if not, climb up with your non-cath leg, then bring together on the same step. * Avoid lifting, pushing, pulling or excessive movement of the affected extremity for 7 days. * Customary sexual activity may be resumed after 2 days-use caution not to use a position that strains or causes pain to the affected extremity. * No driving for 24 hours. * NO SMOKING. * Avoid straining for bowel movements for 7 days. * Gentle walking on level ground is allowed. * Returning to work will depend on the type of procedure and the results. Your doctor will discuss this with you. CALL YOUR DOCTOR FOR ANY OF THE FOLLOWING: *If bleeding from the puncture site occurs- Apply gentle pressure to site with clean cloth and call your doctor or EMS. * If a knot or lump forms under the skin, increases in size, or causes pain. * If bruising appears to be worsening or moving further down your leg instead of disappearing. * Temperature above 101 F. CARE OF YOUR GROIN INCISION; * Bruising or purple discoloration of the skin near the puncture site is common. * You may shower only, no bathtub bathing for 5 days. Be careful to avoid slipping as your leg may feel stiff. * If a closure device was used on your femoral artery, please see the attached guide regarding care of the device and your leg. * Leave dressing on FOR 24 hours. CARE OF YOUR WRIST INCISION; * Bruising or purple discoloration of the skin near the puncture site is common. * You may shower. * DO NOT submerge wrist. * Leave dressing on FOR 24 hours. TIERA DE PAZ MD June 21, 2021 09:37
--- NOTE | 2021-06-21 09:45 | Cardiology Discharge Summary ---
Discharge Summary Hospital Course Problems Reviewed?: Yes Hospital Course Date of Admission: June 19, 2021 at 18:30 Admission Diagnosis : Family Physician/Provider: Kemar Aldridge MD Date of Discharge: 06/21/21 Discharge Diagnosis: [ ] Hospital Course: [ Chest pain resembling angina. Abnormal stress test, cardiac catheterization showed mild coronary artery disease nonobstructive disease. Ascending thoracic aortic dissection/fibrous ridge within the thoracic aorta. Has been present for the past 2 years, was identified on the previous CT scan from 2 years ago. Additional finding penetrating ulcer versus diverticulum in the aortic arch that has been enlarged compared to the CT scan finding of 2 years ago. I had a long discussion with the patient, he would require evaluation for CT surgery that will be complicated but not urgent for now. I forwarded copy of his CT scan and his cath film to and [facility] [place]. And I will see consultation with multiple surgeon to evaluate the best plan option for him. Meanwhile, I would continue with aggressive blood pressure monitoring and management, started on Toprol-XL 50 mg daily and losartan 25 mg daily and I will arrange for follow-up in 1 to 2 weeks. Frequent PVCs noted during stress test, nonsustained ventricular tachycardia, started on Toprol. Heart rate is better. Continue to monitor Dyspnea on exertion which has been worsening. Has multiple risk factors for coronary artery disease, has underlying COPD and using oxygen at night. COPD, using oxygen at night, educated on smoking cessation, managed by primary care physician Hypertension, severe hypertensive response to exercise. Planning to initiate beta-blockers and add ARB. Hyperlipidemia, maintained on rosuvastatin 40 mg daily, last lipid profile in December showing total cholesterol 128, triglyceride 95, HDL 33, LDL 77. Continue to monitor Diabetes mellitus, followed and managed by primary care physician Tobaccoism, smoking 1 to 2 packs a day, still an active smoker, educated on smoking cessation History of bipolar disorder History of illicit drug use, he stopped using any illegal drugs since 2011. Chronic back pain, multiple injection done in the past. Strong family history of heart disease with multiple family members with heart attack or strokes. Gastroesophageal reflux disease maintained on Protonix CT scan impression: 1. Smooth band like linear intraluminal structure adhered to the anterior jackman of the proximal aortic arch identical in appearance to a prior with iso- enhancement of the lumen on both sides conceivably a stable limited dissection, however given the atypical outer wall aortic contour at the structures attachments, this is likely a chronic fibrous band. This would presume to account for the area of atypical resistance encountered at catheter angiography. 2. Broad-based outpouching laterally off the viraj-ductal distal arch has enlarged from the previous exam and it is somewhat irregular and is suspicious for progressive unruptured penetrating atheromatous ulcer. 3. No evidence for aortic stenosis or intramural hemorrhage. No vessel rupture. 4. 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 5. Chronic interstitial lung disease, mild superimposed interstitial edema could not be excluded.] Labs and Pending Lab Test: Laboratory Tests 06/20/21 10:55: Glucometer 129H 06/20/21 15:52: Glucometer 192H 06/21/21 03:35: Magnesium Level 1.7 06/21/21 03:55: White Blood Count 8.7, Red Blood Count 4.15L, Hemoglobin 12.5L, Hematocrit 39L, Mean Corpuscular Volume 93, Mean Corpuscular Hemoglobin 30, Mean Corpuscular Hemoglobin Concent 32, Red Cell Distribution Width 15.8H, Platelet Count 248, Mean Platelet Volume 9.8, Sodium Level 140, Potassium Level 3.5L, Chloride Level 107, Carbon Dioxide Level 21, Anion Gap 12, Blood Urea Nitrogen 14, Creatinine 0.81, Estimat Glomerular Filtration Rate 102, BUN/Creatinine Ratio 17, Glucose Level 148H, Calcium Level 8.5 Home Meds Active Aspirin EC (Aspirin) 81 Mg Tablet.dr 81 Mg PO DAILY Losartan Potassium 25 Mg Tablet 25 Mg PO DAILY Metoprolol Succinate 50 Mg Tab.er.24h 50 Mg PO DAILY Reported Advair Hfa 115-21 Mcg Inhaler (Fluticasone/Salmeterol) 115 Mcg-21 Mcg/Actuation Hfa.aer.ad 1 Puff INH DAILY Rosuvastatin Calcium 40 Mg Tablet 40 Mg PO DAILY Doxepin HCl 3 Mg Tablet 3 Mg PO HS LAST FILLED 04-19-2021 #30/30 DAY SUPPLY Pantoprazole Sodium 40 Mg Tablet.dr 40 Mg PO DAILY LAST FILLED 04-22-2021 #30/30 DAY SUPPLY Caplyta (Lumateperone Tosylate) 42 Mg Capsule 42 Mg PO HS LAST FILLED 04-26-2021 #30/30 DAY SUPPLY Cyclobenzaprine HCl 10 Mg Tablet 10 Mg PO Q8H PRN Olanzapine 2.5 Mg Tablet 2.5 Mg PO HS Gabapentin 600 Mg Tablet 600 Mg PO TID Propranolol HCl 10 Mg Tablet 10 Mg PO TID Ventolin Hfa (Albuterol Sulfate) 18 Gm Hfa.aer.ad 2 Puff INH Q6H PRN Fluticasone Propionate 16 Gm [place].susp 2 Spr NSEACH DAILY PRN Novolog (Insulin Aspart) 100 Unit/1 Ml Susp Unit SQ PER PUMP Buspirone HCl 10 Mg Tablet 10 Mg PO BID LAST FILLED 04-19-2021 #60/30 DAY SUPPLY Assessment/Pt DC Instructions Chest pain Coronary artery disease Chronic aortic dissection Thoracic aortic aneurysm Hypertension Nonsustained ventricular tachycardia Discharge Physical Examination Allergies: Coded Allergies: chlorpromazine (Verified Allergy, Unknown, paralysis, 04/30/18) fentanyl (Verified Allergy, Unknown, hives, 04/30/18) thioridazine (Verified Allergy, Unknown, confusion, 04/30/18) General Appearance: No Apparent Distress HEENT: PERRL/EOMI, TMs Normal, Normal ENT Inspection, Pharynx Normal Respiratory: Chest Non Tender, Lungs Clear, Normal Breath Sounds, No Accessory Muscle Use, No Respiratory Distress Cardiovascular: Regular Rate, Rhythm, No Edema, No Gallop, No JVD, No Murmur Gastrointestinal: Normal Bowel Sounds, No Organomegaly, No Pulsatile Mass, Non Tender Extremity: Normal Capillary Refill, Normal Inspection, Normal Range of Motion, Non Tender, No Calf Tenderness, No Pedal Edema Skin: Normal Color, Warm/Dry Neurologic/Psychiatric: Alert, Oriented x3, No Motor/Sensory Deficits, Normal Mood/Affect, skate hop II-XII Norm as Tested Clinical Quality Measures Admission Status Admission Status: Inpatient Order (span 2 midnights) Reason for Inpatient Admission: Coronary artery disease Thoracic aortic aneurysm Chronic thoracic aortic dissection AMI/AHF: ASA po Prior to arrival: TIERA Ortiz MD June 21, 2021 09:43
== END 2021-06-21 12:55 | disposition home or self-care (01) ==
LOC: EDUNIT# 15:39 → ER FS 15:40 → CSD 18:30 → ICU 06-20 09:10
PROVIDERS: ADMIT Family Medicine; ATTEND Internal Medicine Cardiovascular Disease
DX: I25.119 Atherosclerotic heart disease of native coronary artery with unspecified angina pectoris (principal); I71.01 Dissection of thoracic aorta; J43.9 Emphysema, unspecified; I49.3 Ventricular premature depolarization; I47.2 Ventricular tachycardia; F17.210 Nicotine dependence, cigarettes, uncomplicated; E11.9 Type 2 diabetes mellitus without complications; I10 Essential (primary) hypertension; E78.5 Hyperlipidemia, unspecified; E78.00 Pure hypercholesterolemia, unspecified; K21.9 Gastro-esophageal reflux disease without esophagitis; Z82.49 Family history of ischemic heart disease and other diseases of the circulatory system; Z99.81 Dependence on supplemental oxygen; Z88.5 Allergy status to narcotic agent; Z88.8 Allergy status to other drugs, medicaments and biological substances; Z79.4 Long term (current) use of insulin
CPT/HCPCS: 36221; 36415; 71045; 71275; 80048 ×2; 80053; 80061; 82947 ×2; 83735 ×2; 83874; 83880; 84484 ×2; 85025 ×2; 85027; 85610; 85730; 93005 ×2; 93041; 93458; 93567; 94640 ×2; 94760; 99284; C1760; C1769 ×2; C1894; G0378 ×2; 96372

== ENCOUNTER → 2021-06-19 | Outpatient (CLI) | payer MEDICARE, MEDICAID ==
[~2021-06-19] MED LIST changes: +ASPI-1238 PO; +CATHETER FLUSH 10 ML SYR IVP PRN; +CYCL10TA25 PO; +FLUT12AE4 INH; +GBPN600T PO; +LOSA25TA41 PO; +LUMA42CA PO; +METO50TA7 PO; +OLAN2.5T27 PO; +PANT40TA52 PO; +REGADENOSON 0.4 MG/5 ML SYR (LEXISCAN) IV ONE; +ROSU40TA23 PO; +[UNRECOGNIZED DRUG - CODE] PO
[2021-06-19 13:09] VITALS: BP 155/107
--- NOTE | 2021-06-19 15:23 | Cardiology Stress Test Report ---
Stress Test Report Date of Procedure/Referring: Date of Procedure: June 19, 2021 PCP Johny De Paz MD Admitting Physician Kemar Aldridge MD Indications: HTN Baseline Heart Rate: 75 Baseline Blood Pressure: Blood Pressure Systolic: 155 Blood Pressure Diastolic: 107 Vital Signs Date Time Temp Pulse Resp B/P (MAP) Pulse Ox O2 Delivery O2 Flow Rate FiO2 06/19/21 13:09 75 155/107 (123) Baseline Vital Signs Vital Signs Date Time Temp Pulse Resp B/P (MAP) Pulse Ox O2 Delivery O2 Flow Rate FiO2 06/19/21 13:09 75 155/107 (123) Baseline EKG: Baseline EKG: NSR Summary: After explaining the procedure and details to the patient, he signed the consent and was brought to the stress nuclear laboratory. Patient exercised on standard Bipin protocol, EKG, heart rate and blood pressure were monitored continuously, resting and stress doses of radio tracer were injected, imaging was acquired and reviewed in the short axis, horizontal long axis and vertical long axis views Patient was able to exercise for a total of 6 minutes on Bipin protocol, METs 7.3 Maximum heart rate 148 Maximum blood pressure 238/110 Stress EKG, Minimal nondiagnostic changes Recovery EKG, Return to baseline TID: 0.94 SSS: 6 SDS: 6 EF: 42 Conclusion: 1. Fair exercise tolerance for a total of 6 minutes on standard Bipin protocol, 7.3 METS achieving 91% of maximal expected heart rate 2. Severe hypertensive response to exercise with peak blood pressure 238/110 return to baseline during recovery 3. Exercise-induced frequent PVCs and ventricular bigeminy, ventricular couplets. Few short episode of 3 beats nonsustained ventricular tachycardia resolved later in recovery 4. Diaphragmatic attenuation with fixed defect involving the mid to apical inferior wall with no significant reversibility 5. Normal left ventricular size with hypokinesia of the inferior wall, ejection fraction 42% Copy Copies To 1: KEMAR ALDRIDGE MD, BASHAR J MD June 19, 2021 15:23
== END ==
LOC: CARD 12:00
PROVIDERS: ATTEND Internal Medicine Cardiovascular Disease
DX: I10 Essential (primary) hypertension (principal); I25.10 Atherosclerotic heart disease of native coronary artery without angina pectoris
CPT/HCPCS: 78452; 93017; A9502

== ENCOUNTER 2021-08-26 15:26 | Emergency (ER) | payer MEDICARE, MEDICAID ==
[~2021-08-26] VITALS: Ht 170 cm; Wt 70.0 kg
[~2021-08-26 15:26] MED LIST changes: +ASPI-1238 PO; +CYCL10TA25 PO; +FLUT12AE4 INH; +GBPN600T PO; +LOSA25TA41 PO; +LUMA42CA PO; +METO50TA7 PO; +OLAN2.5T27 PO; +PANT40TA52 PO; +ROSU40TA23 PO; +[UNRECOGNIZED DRUG - CODE] PO
--- NOTE | 2021-08-26 15:40 | ED Chest Pain ---
General Stated Complaint: CHEST TIGHTNESS,SOA,HEADACHE History of Present Illness Date Seen by Provider: Aug 26, 2021 Time Seen by Provider: 15:40 Initial Comments 56-year-old male with PMH of chronic thoracic aortic dissection/CAD, is here with complaints of chest discomfort shortness of breath and chest tightness. Patient has a known stable thoracic aortic dissection that is supposed to be scheduled for surgery soon. Denies any worsening pain, fever, headache, dizziness. Allergies and Home Medications Allergies Coded Allergies: chlorpromazine (Verified Allergy, Unknown, paralysis, 04/30/18) fentanyl (Verified Allergy, Unknown, hives, 04/30/18) thioridazine (Verified Allergy, Unknown, confusion, 04/30/18) Patient Home Medication List Home Medication List Reviewed: Yes Albuterol Sulfate (Ventolin Hfa) 18 Gm Hfa.aer.ad, 2 PUFF INH Q6H PRN for SHORTNESS OF BREATH, (Reported) Entered as Reported by: RUBEN KU on 12/27/19 1042 Aspirin (Aspirin EC) 81 Mg Tablet.dr, 81 MG PO DAILY Prescribed by: TIERA VIVEROS on 06/21/21 0937 Buspirone HCl (Buspirone HCl) 10 Mg Tablet, 10 MG PO BID, (Reported) Entered as Reported by: SANTOS RODARTE on 08/16/19 1444 Cyclobenzaprine HCl (Cyclobenzaprine HCl) 10 Mg Tablet, 10 MG PO Q8H PRN for MUSCLE SPASMS, (Reported) Entered as Reported by: RUBEN KU on 06/20/21 1544 Doxepin HCl (Doxepin HCl) 3 Mg Tablet, 3 MG PO HS, (Reported) Entered as Reported by: RUBEN KU on 06/20/21 1544 Fluticasone Propionate (Fluticasone Propionate) 16 Gm [place].susp, 2 SPR NSEACH DAILY PRN for CONGESTION, (Reported) Entered as Reported by: SATNOS RODARTE on 08/16/19 1444 Fluticasone/Salmeterol (Advair Hfa 115-21 Mcg Inhaler) 115 Mcg-21 Mcg/Actuation Hfa.aer.ad, 1 PUFF INH DAILY, (Reported) Entered as Reported by: RUBEN KU on 06/20/21 1544 Gabapentin (Gabapentin) 600 Mg Tablet, 600 MG PO TID, (Reported) Entered as Reported by: RUBEN KU on 06/20/21 154 Insulin Aspart (Novolog) 100 Unit/1 Ml Susp, UNIT SQ PER PUMP, (Reported) Entered as Reported by: SANTOS RODARTE on 08/16/19 1444 Losartan Potassium (Losartan Potassium) 25 Mg Tablet, 25 MG PO DAILY Prescribed by: TIERA VIVEROS on 06/21/21 0937 Lumateperone Tosylate (Caplyta) 42 Mg Capsule, 42 MG PO HS, (Reported) Entered as Reported by: RUBEN KU on 06/20/21 154 Metoprolol Succinate (Metoprolol Succinate) 50 Mg Tab.er.24h, 50 MG PO DAILY Prescribed by: TIERA VIVEROS on 06/21/21 0937 Olanzapine (Olanzapine) 2.5 Mg Tablet, 2.5 MG PO HS, (Reported) Entered as Reported by: RUBEN KU on 06/20/21 154 Pantoprazole Sodium (Pantoprazole Sodium) 40 Mg Tablet.dr, 40 MG PO DAILY, (Reported) Entered as Reported by: RUBEN KU on 06/20/21 154 Rosuvastatin Calcium (Rosuvastatin Calcium) 40 Mg Tablet, 40 MG PO DAILY, (Reported) Entered as Reported by: RUBEN KU on 06/20/21 154 Review of Systems Review of Systems Constitutional: no symptoms reported EENTM: No Symptoms Reported Respiratory: Shortness of Air Cardiovascular: Chest Pain Gastrointestinal: No Symptoms Reported Genitourinary: No Symptoms Reported Musculoskeletal: no symptoms reported Skin: no symptoms reported Psychiatric/Neurological: No Symptoms Reported Endocrine: No Symptoms Reported Hematologic/Lymphatic: No Symptoms Reported Past Mokdsrh-Eghazh-Arzjmt Hx Immunizations Up To Date First/Initial COVID19 Vaccinat: 06/28/2020 Second COVID19 Vaccination Rod: 07/26/2020 Third COVID19 Vaccination Date: yes Seasonal Allergies Seasonal Allergies: No Past Medical History Surgery/Hospitalization HX: R HIP REPLACEMENT, FARIBA TO L SHOULDER Surgeries: Yes (hip surgery, shoulder, hernia) Gallbladder, Orthopedic Respiratory: Yes Asthma, Chronic Bronchitis, COPD, Emphysema Cardiac: Yes High Cholesterol, Hypertension Neurological: Yes Neuropathy Genitourinary: Yes Kidney Stones Gastrointestinal: Yes (epigastric pain) Gastroesophageal Reflux Musculoskeletal: Yes Degenerate Disk Disease, Arthritis Endocrine: Yes Diabetes, Insulin dep HEENT: No Cancer: No Psychosocial: Yes (bipolar disorder I, borderline personality ) Bipolar, Personality Disorder Integumentary: No Blood Disorders: No Physical Exam Vital Signs Vital Signs - First Documented 08/26/21 16:23 Temp 36.4 Pulse 58 Resp 20 B/P (MAP) 169/93 (118) Pulse Ox 95 O2 Delivery Room Air Capillary Refill : Height, Weight, BMI Height: 5'6.00" Weight: 138lbs. 0oz. [id number]; 25.47 BMI Method:Stated General Appearance: No Apparent Distress, WD/WN HEENT: PERRL/EOMI, Normal ENT Inspection Neck: Full Range of Motion, Normal Inspection, Non Tender, Supple Respiratory: Chest Non Tender, Lungs Clear, Normal Breath Sounds Cardiovascular: Regular Rate, Rhythm, No Edema, No Murmur Gastrointestinal: Normal Bowel Sounds, Non Tender, Soft Neurologic/Psychiatric: Alert, Oriented x3, No Motor/Sensory Deficits Skin: Normal Color Lymphatic: No Adenopathy Focused Exam Lactate Level 08/26/21 16:09: Lactic Acid Level 1.68 Lactic Acid Level Laboratory Tests Test 08/26/21 16:09 Lactic Acid Level 1.68 MMOL/L (0.50-2.00) Procedures/Interventions Suture Size: 5-0 Progress/Results/Core Measures Results/Orders Lab Results Laboratory Tests Test 08/26/21 15:44 08/26/21 16:09 08/26/21 17:05 Range/Units White Blood Count 10.6 4.3-11.0 10^3/uL Red Blood Count 5.01 4.30-5.52 10^6/uL Hemoglobin 15.5 13.3-17.7 g/dL Hematocrit 45 40-54 % Mean Corpuscular Volume 89 80-99 fL Mean Corpuscular Hemoglobin 31 25-34 pg Mean Corpuscular Hemoglobin Concent 35 32-36 g/dL Red Cell Distribution Width 15.2 H 10.0-14.5 % Platelet Count 295 130-400 10^3/uL Mean Platelet Volume 9.5 9.0-12.2 fL Immature Granulocyte % (Auto) 1 % Neutrophils (%) (Auto) 71 42-75 % Lymphocytes (%) (Auto) 20 12-44 % Monocytes (%) (Auto) 6 0-12 % Eosinophils (%) (Auto) 1 0-10 % Basophils (%) (Auto) 1 0-10 % Neutrophils # (Auto) 7.5 1.8-7.8 10^3/uL Lymphocytes # (Auto) 2.2 1.0-4.0 10^3/uL Monocytes # (Auto) 0.6 0.0-1.0 10^3/uL Eosinophils # (Auto) 0.1 0.0-0.3 10^3/uL Basophils # (Auto) 0.1 0.0-0.1 10^3/uL Immature Granulocyte # (Auto) 0.1 0.0-0.1 10^3/uL Prothrombin Time 11.9 L 12.2-14.7 SEC INR Comment 0.8 0.8-1.4 Activated Partial Thromboplast Time 27 24-35 SEC D-Dimer 1.31 H 0.00-0.49 UG/ML Sodium Level 140 135-145 MMOL/L Potassium Level 4.4 3.6-5.0 MMOL/L Chloride Level 103 98-107 MMOL/L Carbon Dioxide Level 27 21-32 MMOL/L Anion Gap 10 5-14 MMOL/L Blood Urea Nitrogen 20 H 7-18 MG/DL Creatinine 0.99 0.60-1.30 MG/DL Estimat Glomerular Filtration Rate 88 BUN/Creatinine Ratio 20 Glucose Level 175 H 70-105 MG/DL Calcium Level 9.7 8.5-10.1 MG/DL Corrected Calcium 9.5 8.5-10.1 MG/DL Magnesium Level 1.7 1.6-2.4 MG/DL Total Bilirubin 0.4 0.1-1.0 MG/DL Aspartate Amino Transf (AST/SGOT) 13 5-34 U/L Alanine Aminotransferase (ALT/SGPT) 14 0-55 U/L Alkaline Phosphatase 115 40-136 U/L Troponin I < 0.30 < 0.30 <0.30 NG/ML Pro-B-Type Natriuretic Peptide 462.3 H <125.0 PG/ML Total Protein 6.9 6.4-8.2 GM/DL Albumin 4.2 3.2-4.5 GM/DL Serum Alcohol < 10 <10 MG/DL Lactic Acid Level 1.68 0.50-2.00 MMOL/L My Orders Orders - HELEN COLEY MD Alcohol (08/26/21 15:40) Cbc With Automated Diff (08/26/21 15:40) Comprehensive Metabolic Panel (08/26/21 15:40) Fibrin Degradation Products (08/26/21 15:40) Lactic Acid Analyzer (08/26/21 15:40) Magnesium (08/26/21 15:40) Protime With Inr (08/26/21 15:40) Partial Thromboplastin Time (08/26/21 15:40) Probnp Fs (08/26/21 15:40) Troponin I Fs (08/26/21 15:40) Chest 1 View Ap/Pa Only (08/26/21 15:40) Aspirin Chewable Tablet (Baby Aspirin Ch (08/26/21 15:45) Troponin I Fs (08/26/21 16:44) Ekg Tracing (08/26/21 16:44) Ct Angio Chest W (08/26/21 17:43) Iohexol Injection (Omnipaque 350 Mg/Ml 1 (08/26/21 18:00) Received Contrast (Hold Metformin- Contr (08/26/21 18:00) Ns (Ivpb) (Sodium Chloride 0.9% Ivpb Bag (08/26/21 18:00) Medications Given in ED Current Medications Medications Dose Ordered Sig/Roshan Route Start Time Stop Time Status Last Admin Dose Admin Aspirin 324 mg ONCE ONCE PO 08/26/21 15:45 08/26/21 15:46 DC 08/26/21 17:10 324 MG Iohexol 100 ml ONCE ONCE IV 08/26/21 18:00 08/26/21 18:01 DC 08/26/21 18:14 100 ML Sodium Chloride 100 ml ONCE ONCE IV 08/26/21 18:00 08/26/21 18:01 DC 08/26/21 18:14 100 ML Vital Signs/I&O 08/26/21 08/26/21 16:23 19:10 Temp 36.4 Pulse 58 74 Resp 20 16 B/P (MAP) 169/93 (118) 160/97 Pulse Ox 95 94 O2 Delivery Room Air Progress Progress Note : Progress Note 1) ACS RULED OUT: - Troponin/ EKG x 2 : non-ischemic - D-dimer elevated at 1.31. CTA chest shows no PE, and chronic stable thoracic aortic dissection. - ASA 324mg STAT - Labs unremarkable otherwise - Pt has an appointment with cardiology/ cardiothoracic to schedule open heart surgery as per pt. - Follow up with PCP and Cardiology -The patient was seen in the ED, and treated appropriately to presentation at a specific point in time. Patient is informed that there is a possibility that disease and illness can evolve and change in acuity rapidly or slowly after patient is discharged from the ER. Precautionary advice given to the patient for immediate return to ER if symptoms worsen or do not resolve, and to seek emergency care sooner rather than later. Pt also advised on the importance of PCP follow up and compliance with management and follow up plan with PCP and/or specialist, as this is part of the management plan. Pt verbally expressed understanding. Diagnostic Imaging Diagonstic Imaging: Xray, CT Plain Films/CT/US/NM/MRI: chest Comments [facility] [place], [place] NAME: [facility] REC#: [id number] PT STATUS: REG ER : 1965 PHYSICIAN: HELEN COLEY MD ADMIT DATE: 08/26/21/ER FS Signed Date of Exam:08/26/21 CHEST 1 VIEW AP/PA ONLY INDICATION: Chest pain. TECHNIQUE: Frontal chest obtained at 03:47 p.m. and compared to 06/19/2021. FINDINGS: Heart and mediastinal silhouette are normal in appearance. There is COPD change. There are chronic-appearing increased interstitial markings. There is no consolidation or pneumothorax or pleural fluid. IMPRESSION: COPD changes with no acute process in the chest. Dictated by: Dictated on workstation # [id number] Dict: 08/26/21 1606 Trans: 08/26/211705 AS6 [id number] Interpreted by: MAX HERRERA MD Electronically signed by: MAX HERRERA MD 08/26/211705 [facility] [place], [place] NAME: [facility] REC#: [id number] PT STATUS: DEP ER : 1965 PHYSICIAN: HELEN COLEY MD ADMIT DATE: 08/26/21/ER FS Signed Date of Exam:08/26/21 CT ANGIO CHEST W PROCEDURE: CT angiography of the chest with contrast. TECHNIQUE: Multiple contiguous axial images were obtained through the chest after uneventful bolus administration of intravenous contrast. 3D reconstructed CTA MIP acquisitions were also performed. Auto Exposure Controls were utilized during the CT exam to meet ALARA standards for radiation dose reduction. INDICATION: Chest pain. COMPARISON: Exam is compared with study 06/20/2021. FINDINGS: Pulmonary arterial branches are widely patent. No pulmonary arterial filling defect. No evidence for PE. Linear band-like intraluminal hypodensity within the distal ascending aorta is identical in appearance to multiple previous studies; unclear if this is a chronic limited dissection versus a chronic fibrous band. This is stable and did not appear flow limiting. Lateral outpouching of the aortic luminal content at the mid transverse arch is identical and unchanged in morphology and extent from prior; either diverticulum, stable unruptured small saccular aneurysm, or owing to penetrating ulcer disease. This showed no progression. Remaining thoracic aorta is stable and unremarkable with no acute pathology apparent. Some bibasilar dependent atelectasis. Lungs are otherwise clear. No effusion or pneumothorax. There is centrilobular emphysema, chronic. No lung mass. No thoracic adenopathy. No acute chest wall pathology. No findings of pulmonary edema or pneumonia. The visualized upper abdomen shows some stable nodularity and thickening of the left adrenal gland with no acute appearing upper abdominal pathology. IMPRESSION: 1. Negative for PE. 2. Unchanged aortic abnormalities with an intraluminal linear band-like density at its distal ascending limb; considerations above. This showed no progression. Unchanged outpouching of the aortic luminal content, directed left laterally at the mid segment arch, identical in appearance to prior; again uncertain if this is a diverticulum, stable unruptured aneurysm, or owing to penetrating ulcer disease. No progression. No acute appearing aortic pathology. 3. Clear lungs with no effusion or pneumothorax. No acute finding identified at today's study. Dictated by: Dictated on workstation # [id number] Dict: 08/26/21 1825 Trans: 08/26/211942 [id number] Interpreted by: SHAMA COOPER Electronically signed by: SHAMA COOPER 08/26/211942 Departure Impression Primary Impression: Chronic chest pain Additional Impression: Chronic dissection of thoracic aorta Disposition: HOME, SELF-CARE Condition: Stable Departure-Patient Inst. Referrals: SELF,DAVID GARBER (PCP/Family) Primary Care Physician Patient Instructions: Heart Healthy Diet, Aortic Dissection, Chronic Pain (DC) Add. Discharge Instructions: Follow up with roll carrier as planned on Thursday for scheduling surgery - Return to ER if symptoms worsen HELEN COLEY MD Aug 26, 2021 15:40
[2021-08-26] MEDS ORDERED: ASPIRIN 81 MG CHEW (CHILDREN'S ASA) PO ONE (15:45)
[2021-08-26 15:56] LABS: BASOPHILS # (AUTO) 0.1 10^3/uL (0.0-0.1); BASOPHILS % (AUTO) 1 % (0-10); EOSINOPHILS # (AUTO) 0.1 10^3/uL (0.0-0.3); EOSINOPHILS % (AUTO) 1 % (0-10); HEMATOCRIT 45 % (40-54); HEMOGLOBIN 15.5 g/dL (13.3-17.7); LYMPHOCYTES # (AUTO) 2.2 10^3/uL (1.0-4.0); LYMPHOCYTES % (AUTO) 20 % (12-44); MEAN CORPUSCULAR HEMOGLOBIN 31 pg (25-34); MEAN CORPUSCULAR HGB CONC 35 g/dL (32-36); MEAN CORPUSCULAR VOLUME 89 fL (80-99); MEAN PLATELET VOLUME 9.5 fL (9.0-12.2); MONOCYTES # (AUTO) 0.6 10^3/uL (0.0-1.0); MONOCYTES % (AUTO) 6 % (0-12); NEUTROPHILS # (AUTO) 7.5 10^3/uL (1.8-7.8); NEUTROPHILS % (AUTO) 71 % (42-75); PLATELET COUNT 295 10^3/uL (130-400); WHITE BLOOD COUNT 10.6 10^3/uL (4.3-11.0)
--- NOTE | 2021-08-26 16:09 | Diagnostic Imaging Report ---
INDICATION: Chest pain. TECHNIQUE: Frontal chest obtained at 03:47 p.m. and compared to 06/19/2021. FINDINGS: Heart and mediastinal silhouette are normal in appearance. There is COPD change. There are chronic-appearing increased interstitial markings. There is no consolidation or pneumothorax or pleural fluid. IMPRESSION: COPD changes with no acute process in the chest. Dictated by: Dictated on workstation # [id number]
[2021-08-26 16:35] LABS: ALANINE AMINOTRANSFERASE 14 U/L (0-55); ALBUMIN 4.2 GM/DL (3.2-4.5); ALKALINE PHOSPHATASE 115 U/L (40-136); BILIRUBIN,TOTAL 0.4 MG/DL (0.1-1.0); BUN/CREATININE RATIO 20; CALCIUM 9.7 MG/DL (8.5-10.1); CARBON DIOXIDE 27 MMOL/L (21-32); CHLORIDE 103 MMOL/L (98-107); CREATININE SERUM 0.99 MG/DL (0.60-1.30); GFR ESTIMATED 88; GLUCOSE 175 MG/DL (70-105); MAGNESIUM 1.7 MG/DL (1.6-2.4); POTASSIUM 4.4 MMOL/L (3.6-5.0); SODIUM 140 MMOL/L (135-145); TOTAL PROTEIN 6.9 GM/DL (6.4-8.2)
[2021-08-26 16:56] LABS: FIBRIN DEGRADATION PRODUCTS 1.31 UG/ML (0.00-0.49); INR 0.8 (0.8-1.4); PROTHROMBIN TIME PATIENT 11.9 SEC (12.2-14.7)
[2021-08-26] MEDS ORDERED: NS 100 ML (IVPB) BAG IV ONE (18:00)
[2021-08-26] MEDS ORDERED: IOHEXOL 350 MG/ML 100 ML (OMNIPAQUE 350) VIAL IV ONE (18:00)
[2021-08-26] MEDS ORDERED: HOLD METFORMIN - RECEIVED CONTRAST 20 ML VIAL IV SCH (18:00)
--- NOTE | 2021-08-26 18:40 | Diagnostic Imaging Report ---
PROCEDURE: CT angiography of the chest with contrast. TECHNIQUE: Multiple contiguous axial images were obtained through the chest after uneventful bolus administration of intravenous contrast. 3D reconstructed CTA MIP acquisitions were also performed. Auto Exposure Controls were utilized during the CT exam to meet ALARA standards for radiation dose reduction. INDICATION: Chest pain. COMPARISON: Exam is compared with study 06/20/2021. FINDINGS: Pulmonary arterial branches are widely patent. No pulmonary arterial filling defect. No evidence for PE. Linear band-like intraluminal hypodensity within the distal ascending aorta is identical in appearance to multiple previous studies; unclear if this is a chronic limited dissection versus a chronic fibrous band. This is stable and did not appear flow limiting. Lateral outpouching of the aortic luminal content at the mid transverse arch is identical and unchanged in morphology and extent from prior; either diverticulum, stable unruptured small saccular aneurysm, or owing to penetrating ulcer disease. This showed no progression. Remaining thoracic aorta is stable and unremarkable with no acute pathology apparent. Some bibasilar dependent atelectasis. Lungs are otherwise clear. No effusion or pneumothorax. There is centrilobular emphysema, chronic. No lung mass. No thoracic adenopathy. No acute chest wall pathology. No findings of pulmonary edema or pneumonia. The visualized upper abdomen shows some stable nodularity and thickening of the left adrenal gland with no acute appearing upper abdominal pathology. IMPRESSION: 1. Negative for PE. 2. Unchanged aortic abnormalities with an intraluminal linear band-like density at its distal ascending limb; considerations above. This showed no progression. Unchanged outpouching of the aortic luminal content, directed left laterally at the mid segment arch, identical in appearance to prior; again uncertain if this is a diverticulum, stable unruptured aneurysm, or owing to penetrating ulcer disease. No progression. No acute appearing aortic pathology. 3. Clear lungs with no effusion or pneumothorax. No acute finding identified at today's study. Dictated by: Dictated on workstation # [id number]
[2021-08-26 19:10] VITALS: BP 160/97
== END 2021-08-26 19:25 | disposition home or self-care (01) ==
LOC: EDUNIT# 15:26 → ER FS 15:28
DX: I71.01 Dissection of thoracic aorta (principal); R79.1 Abnormal coagulation profile; E11.9 Type 2 diabetes mellitus without complications; Z79.4 Long term (current) use of insulin
CPT/HCPCS: 36415; 71045; 71275; 80053; 83605; 83735; 83880; 84484; 85025; 85379; 85610; 85730; G0480; 80320; 93005; Q9967

== ENCOUNTER 2021-12-01 12:46 | Emergency (ER) | payer MEDICARE, MEDICAID ==
[~2021-12-01] VITALS: Ht 170 cm; Wt 63.0 kg
[2021-12-01] MEDS ORDERED: ORPHENADRINE 60 MG/2 ML (NORFLEX) AMP (ED ONLY) IM STA (12:56)
[2021-12-01] MEDS ORDERED: KETOROLAC 60 MG/2 ML VIAL IM STA (12:56)
--- NOTE | 2021-12-01 13:03 | ED Back Pain ---
General Chief Complaint: Back Problems Stated Complaint: BACK PAIN Source of Information: Patient History of Present Illness Date Seen by Provider: Dec 01, 2021 Time Seen by Provider: 12:49 Initial Comments 56-year-old male presenting with complaints of left sided low back pain. He states this has been happening for over a week now. He did mention it to his primary care provider on Thursday when he was in the clinic but he states that nothing was done. He felt like the pain was severe enough today that he came to the emergency department. He denies any fall or injury. He has no change in his urination or bowel movements. Denies having fever, chills, body aches, nausea, vomiting, rash, radiation of the pain. Pain is worse with movement and palpation. He rates the pain as severe today. He had tried taking some Tylenol earlier today for it. Location: Paraspinous Muscles (left lower back) Timing/Duration: 1 Week Severity: Severe Pain/Injury Location: Back Method of Injury: Unknown Modifying Factors: Worse With Movement Associated Symptoms: No muscle spasms, No fever, No weakness, No numbness in legs/feet, No tingling in legs/feet, No sensory/motor loss, No lower back pain, No loss of bladder control, No loss of bowel control Allergies and Home Medications Allergies Coded Allergies: chlorpromazine (Verified Allergy, Unknown, paralysis, 04/30/18) fentanyl (Verified Allergy, Unknown, hives, 04/30/18) thioridazine (Verified Allergy, Unknown, confusion, 04/30/18) Patient Home Medication List Home Medication List Reviewed: Yes Albuterol Sulfate (Ventolin Hfa) 18 Gm Hfa.aer.ad, 2 PUFF INH Q6H PRN for SHORTNESS OF BREATH, (Reported) Entered as Reported by: RUBEN KU on 12/27/19 1042 Aspirin (Aspirin EC) 81 Mg Tablet.dr, 81 MG PO DAILY Prescribed by: TIERA VIVEROS on 06/21/21 0937 Buspirone HCl (Buspirone HCl) 10 Mg Tablet, 10 MG PO BID, (Reported) Entered as Reported by: SANTOS RODARTE on 08/16/19 1444 Cyclobenzaprine HCl (Cyclobenzaprine HCl) 10 Mg Tablet, 10 MG PO Q8H PRN for MUSCLE SPASMS, (Reported) Entered as Reported by: RUBEN KU on 06/20/21 154 Doxepin HCl (Doxepin HCl) 3 Mg Tablet, 3 MG PO HS, (Reported) Entered as Reported by: RUBEN KU on 06/20/21 154 Fluticasone Propionate (Fluticasone Propionate) 16 Gm [place].susp, 2 SPR NSEACH DAILY PRN for CONGESTION, (Reported) Entered as Reported by: SANTOS RODARTE on 08/16/19 1444 Fluticasone/Salmeterol (Advair Hfa 115-21 Mcg Inhaler) 115 Mcg-21 Mcg/Actuation Hfa.aer.ad, 1 PUFF INH DAILY, (Reported) Entered as Reported by: RUBEN KU on 06/20/21 154 Gabapentin (Gabapentin) 600 Mg Tablet, 600 MG PO TID, (Reported) Entered as Reported by: RUBEN KU on 06/20/21 154 Insulin Aspart (Novolog) 100 Unit/1 Ml Susp, UNIT SQ PER PUMP, (Reported) Entered as Reported by: SANTOS RODARTE on 08/16/19 144 Losartan Potassium (Losartan Potassium) 25 Mg Tablet, 25 MG PO DAILY Prescribed by: TIERA VIVEROS on 06/21/21 0937 Lumateperone Tosylate (Caplyta) 42 Mg Capsule, 42 MG PO HS, (Reported) Entered as Reported by: RUBEN KU on 06/20/21 154 Methocarbamol (Methocarbamol) 750 Mg Tablet, 750 MG FEEDING Q8H PRN for muscle spasm Prescribed by: LINDA BLOOM on 12/01/21 1412 Metoprolol Succinate (Metoprolol Succinate) 50 Mg Tab.er.24h, 50 MG PO DAILY Prescribed by: TIERA VIVEROS on 06/21/21 0937 Olanzapine (Olanzapine) 2.5 Mg Tablet, 2.5 MG PO HS, (Reported) Entered as Reported by: RUBEN KU on 06/20/21 154 Pantoprazole Sodium (Pantoprazole Sodium) 40 Mg Tablet.dr, 40 MG PO DAILY, (Reported) Entered as Reported by: RUBEN KU on 06/20/21 154 Prednisolone (Prednisolone) 15 Mg/5 Ml Solution, 30 MG GT DAILY Prescribed by: LINDA BLOOM on 12/01/21 1412 Rosuvastatin Calcium (Rosuvastatin Calcium) 40 Mg Tablet, 40 MG PO DAILY, (Reported) Entered as Reported by: RUBEN KU on 06/20/21 1544 Review of Systems Constitutional: No chills, No fever EENTM: no symptoms reported Respiratory: no symptoms reported Cardiovascular: no symptoms reported Gastrointestinal: no symptoms reported Genitourinary: no symptoms reported Musculoskeletal: see HPI Skin: No change in color, No rash Psychiatric/Neurological: Denies Numbness, Denies Paresthesia Past Phhdezo-Wihtwx-Mxktat Hx Patient Social History Tobacco Use?: No Smoking Status: Former Smoker Use of E-Cig and/or Vaping dev: No Substance use?: No Alcohol Use?: No Immunizations Up To Date First/Initial COVID19 Vaccinat: 06/28/2020 Second COVID19 Vaccination Rod: 07/26/2020 Third COVID19 Vaccination Date: yes Seasonal Allergies Seasonal Allergies: No Past Medical History Surgery/Hospitalization HX: R HIP REPLACEMENT, FARIBA TO L SHOULDER, PEG tube, CABG Surgeries: Yes (hip surgery, shoulder, hernia) Gallbladder, Orthopedic Respiratory: Yes Asthma, Chronic Bronchitis, COPD, Emphysema Cardiac: Yes High Cholesterol, Hypertension Neurological: Yes Neuropathy Genitourinary: Yes Kidney Stones Gastrointestinal: Yes (epigastric pain) Gastroesophageal Reflux Musculoskeletal: Yes Degenerate Disk Disease, Arthritis Endocrine: Yes Diabetes, Insulin dep HEENT: No Cancer: No Psychosocial: Yes (bipolar disorder I, borderline personality ) Bipolar, Personality Disorder Integumentary: No Blood Disorders: No Physical Exam Vital Signs Vital Signs - First Documented 12/01/21 12:55 Temp 36.2 Pulse 92 Resp 18 B/P (MAP) 112/65 (81) Pulse Ox 96 O2 Delivery Room Air Capillary Refill : Height, Weight, BMI Height: 5'6.00" Weight: 138lbs. 0oz. [id number]; 24.00 BMI Method:Stated General Appearance: No Apparent Distress Cardiovascular: Regular Rate, Rhythm, Normal Peripheral Pulses Respiratory: Chest Non Tender, Lungs Clear, Normal Breath Sounds Gastrointestinal: Normal Bowel Sounds, No Pulsatile Mass, Non Tender, Soft Back: No CVA Tenderness, No Vertebral Tenderness, Other (tender to palpation left paraspinal muscles and lateral from spine. no step off or deformity noted. no rash) Extremity: Normal Capillary Refill, Normal Inspection, No Pedal Edema Neurologic/Psychiatric: Alert, Oriented x3 Skin: Normal Color, Warm/Dry; No Rash Procedures/Interventions Suture Size: 5-0 Progress/Results/Core Measures Results/Orders My Orders Orders - ILNDA BLOOM MD Ct Abdomen/Pelvis Wo (12/01/21 12:56) Ketorolac Injection (Toradol Injection) (12/01/21 12:56) Orphenadrine Inj (Ed Only) (Norflex Inje (12/01/21 12:56) Vital Signs/I&O 12/01/21 12/01/21 12:55 14:13 Temp 36.2 36.2 Pulse 92 92 Resp 18 18 B/P (MAP) 112/65 (81) 112/65 Pulse Ox 96 96 O2 Delivery Room Air Room Air Progress Progress Note #1: Progress Note Ordered urinalysis to look for signs of infection or blood. CT scan of the abdomen and pelvis without contrast to evaluate for possible kidney stone or pathology to causes back pain over the last week. Give Toradol 60 mg IM for pain and inflammation, Norflex 60 mg IM for muscle spasms and pain. Differential diagnosis includes kidney stone, muscle strain of the back, colitis, diverticulitis, pyelonephritis Progress Note #2: Progress Note Patient states that he is unable to provide a urine specimen. His CT scan did not show any acute process to account for his pain. He has stable abdominal aortic aneurysm and right iliac artery aneurysm. There is no signs of rupture or leaking. No acute pathology on the left side to account for his pain. Diagnostic Imaging Diagonstic Imaging: CT Plain Films/CT/US/NM/MRI: abdomen, pelvis Comments NAME: [facility] REC#: [id number] PT STATUS: REG ER : 1965 PHYSICIAN: LINDA BLOOM MD ADMIT DATE: 12/01/21/ER FS Draft Date of Exam:12/01/21 CT ABDOMEN/PELVIS WO CT ABDOMEN/PELVIS WO TECHNIQUE: Unenhanced CT imaging of the abdomen and pelvis was performed. 2-D reformats are created and submitted for interpretation. Automatic exposure controls were utilized to optimize patient dose. INDICATION: Left-sided back pain COMPARISON: 08/26/2021 FINDINGS: Lower chest: The lung bases are clear. No pericardial or pleural effusion. Status post repair of ascending aortic aneurysm. Endograft is also partially imaged at the level of the aortic arch. Peritoneum: No free intraperitoneal air or fluid. Liver and biliary system: Unenhanced liver is normal. Cholecystectomy. No biliary duct dilatation. Spleen and Pancreas: Spleen is normal. Unenhanced pancreas is grossly normal. Adrenals: Normal. tract: No renal or ureteral calculi. Calcification of the right renal hilum are vascular. No obstructive uropathy. Multiple right-sided renal cysts are unchanged. Exophytic left renal cyst is also stable. Urinary bladder is normal in appearance. GI tract: Stomach is decompressed by enteric tube. No bowel obstruction. No pericolonic inflammatory changes. Normal appendix. Vasculature and Lymph nodes: Infrarenal abdominal aortic aneurysm measures 3.0 cm. There is also aneurysmal dilatation of the right common iliac artery measuring 2.6 cm, unchanged since prior exam. No abdominal or pelvic lymphadenopathy. Musculoskeletal: No concerning osseous lesion. Right total hip arthroplasty. IMPRESSION: 1. No urinary tract calculi or obstructive uropathy. 2. Stable size of infrarenal abdominal aortic aneurysm measuring 3.0 cm and right common iliac artery aneurysm measuring 2.7 cm. There are no features of aortic rupture. Dictated on workstation # [id number] Dict: 12/01/21 1332 Trans: 12/01/21 1344 CV [id number] Interpreted by: MILES GRIER MD Electronically signed by: Reviewed: Reviewed by Me Departure Impression Primary Impression: Pain in left lumbar region of back Additional Impression: Strain of lumbar paraspinal muscle Qualified Codes: S39.012A - Strain of muscle, fascia and tendon of lower back, initial encounter Disposition: 01 HOME, SELF-CARE Condition: Stable Departure-Patient Inst. Decision time for Depature: 14:07 Referrals: DAVID ALDRIDGE MD (PCP) Primary Care Physician Patient Instructions: Muscle Strain ED, Low Back Pain ED, Using Cold for Pain Add. Discharge Instructions: If you are not having to urinate much you might consider giving an extra 8 to 16 ounces of water through your PEG tube 2-3 times a day to help with hydration. Try the medicine for muscle spasm and back pain at home. If not seeing improvement with your pain this week you should check back with Dr. Aldridge and the [facility] clinic as you may need to get physical therapy or additional testing beyond what is available at the ER All discharge instructions reviewed with patient and/or family. Voiced u nderstanding. Scripts Prednisolone (Prednisolone) 15 Mg/5 Ml Solution 30 MG GT DAILY for Back Pain for 5 Days, #50 ML 0 Refills Prov: LINDA BLOOM MD 12/01/21 Methocarbamol (Methocarbamol) 750 Mg Tablet 750 MG FEEDING Q8H PRN for muscle spasm for 7 Days, #21 TAB 0 Refills Prov: LINDA BLOOM MD 12/01/21 LINDA BLOOM MD Dec 01, 2021 13:03
--- NOTE | 2021-12-01 13:45 | Diagnostic Imaging Report ---
CT ABDOMEN/PELVIS WO TECHNIQUE: Unenhanced CT imaging of the abdomen and pelvis was performed. 2-D reformats are created and submitted for interpretation. Automatic exposure controls were utilized to optimize patient dose. INDICATION: Left-sided back pain COMPARISON: 08/26/2021 FINDINGS: Lower chest: The lung bases are clear. No pericardial or pleural effusion. Status post repair of ascending aortic aneurysm. Endograft is also partially imaged at the level of the aortic arch. Peritoneum: No free intraperitoneal air or fluid. Liver and biliary system: Unenhanced liver is normal. Cholecystectomy. No biliary duct dilatation. Spleen and Pancreas: Spleen is normal. Unenhanced pancreas is grossly normal. Adrenals: Normal. tract: No renal or ureteral calculi. Calcification of the right renal hilum are vascular. No obstructive uropathy. Multiple right-sided renal cysts are unchanged. Exophytic left renal cyst is also stable. Urinary bladder is normal in appearance. GI tract: Stomach is decompressed by enteric tube. No bowel obstruction. No pericolonic inflammatory changes. Normal appendix. Vasculature and Lymph nodes: Infrarenal abdominal aortic aneurysm measures 3.0 cm. There is also aneurysmal dilatation of the right common iliac artery measuring 2.6 cm, unchanged since prior exam. No abdominal or pelvic lymphadenopathy. Musculoskeletal: No concerning osseous lesion. Right total hip arthroplasty. IMPRESSION: 1. No urinary tract calculi or obstructive uropathy. 2. Stable size of infrarenal abdominal aortic aneurysm measuring 3.0 cm and right common iliac artery aneurysm measuring 2.7 cm. There are no features of aortic rupture. Dictated by: Dictated on workstation # [id number]
[2021-12-01] MEDS ORDERED: PRED30SOLN GT (14:12)
[2021-12-01] MEDS ORDERED: METH-732 FEEDING (14:12)
[2021-12-01 14:13] VITALS: BP 112/65
== END 2021-12-01 14:13 | disposition home or self-care (01) ==
LOC: EDUNIT# 12:46 → ER FS 12:47
DX: S39.012A Strain of muscle, fascia and tendon of lower back, initial encounter (principal); E11.40 Type 2 diabetes mellitus with diabetic neuropathy, unspecified; Z87.891 Personal history of nicotine dependence; Z79.4 Long term (current) use of insulin; X58.XXXA Exposure to other specified factors, initial encounter
CPT/HCPCS: 74176

== ENCOUNTER 2021-12-03 20:06 | Emergency (ER) | payer MEDICARE, MEDICAID ==
[~2021-12-03] VITALS: Ht 170.1 cm; Wt 61.7 kg
[~2021-12-03 20:06] MED LIST changes: +METH-732 FEEDING; +PRED30SOLN GT
--- NOTE | 2021-12-03 20:56 | Diagnostic Imaging Report ---
INDICATION: Chest pain and dizziness. Correlation made with prior chest radiograph from November 29, [address] angiogram of the chest performed August 26, 2021. FINDINGS: Patient is status post sternotomy. 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 Heart size is appropriate. There are no current findings of edema. There is no evidence of pneumonia. There is no effusion. There is no pneumothorax. IMPRESSION: 1. Previous endograft aortic arch repair with interval sternotomy. 2. Lungs clear without acute cardiopulmonary process. Dictated by: Dictated on workstation # [id number]
[2021-12-03 20:58] LABS: BASOPHILS % (AUTO) 0 % (0-10); EOSINOPHILS % (AUTO) 0 % (0-10); HEMATOCRIT 40 % (40-54); HEMOGLOBIN 12.4 g/dL (13.3-17.7); LYMPHOCYTES # (AUTO) 0.7 10^3/uL (1.0-4.0); LYMPHOCYTES % (AUTO) 9 % (12-44); MEAN CORPUSCULAR HEMOGLOBIN 28 pg (25-34); MEAN CORPUSCULAR HGB CONC 31 g/dL (32-36); MEAN CORPUSCULAR VOLUME 89 fL (80-99); MEAN PLATELET VOLUME 9.9 fL (9.0-12.2); MONOCYTES # (AUTO) 0.8 10^3/uL (0.0-1.0); MONOCYTES % (AUTO) 11 % (0-12); NEUTROPHILS # (AUTO) 5.8 10^3/uL (1.8-7.8); NEUTROPHILS % (AUTO) 79 % (42-75); PLATELET COUNT 277 10^3/uL (130-400); WHITE BLOOD COUNT 7.3 10^3/uL (4.3-11.0)
[2021-12-03] MEDS ORDERED: HOLD METFORMIN - RECEIVED CONTRAST 20 ML VIAL IV SCH (21:00)
[2021-12-03] MEDS ORDERED: NS 100 ML (IVPB) BAG IV ONE (21:00)
[2021-12-03] MEDS ORDERED: IOHEXOL 350 MG/ML 100 ML (OMNIPAQUE 350) VIAL IV ONE (21:00)
[2021-12-03 21:24] LABS: BUN/CREATININE RATIO 28; CARBON DIOXIDE 29 MMOL/L (21-32); CHLORIDE 98 MMOL/L (98-107); CREATININE SERUM 1.06 MG/DL (0.60-1.30); GFR ESTIMATED 81; GLUCOSE 180 MG/DL (70-105); POTASSIUM 4.1 MMOL/L (3.6-5.0); SODIUM 140 MMOL/L (135-145)
[2021-12-03 21:25] LABS: ALANINE AMINOTRANSFERASE 12 U/L (0-55); ALBUMIN 3.7 GM/DL (3.2-4.5); ALKALINE PHOSPHATASE 110 U/L (40-136); BILIRUBIN,TOTAL 0.4 MG/DL (0.1-1.0); CALCIUM 9.8 MG/DL (8.5-10.1); TOTAL PROTEIN 7.1 GM/DL (6.4-8.2)
--- NOTE | 2021-12-03 21:31 | ED General ---
General Chief Complaint: Dizziness/Syncope Stated Complaint: LIGHTHEADED,DIZZY Nursing Triage Note: Patient states that he has been feeling dizziness for the last few days. Patient also states that he has been having back pain in the center part of his back/shoulder blade area. Patient has a history of an aortic arch replacement in August. Patient denies hitting his head/injury. Source of Information: Patient Exam Limitations: No Limitations History of Present Illness Date Seen by Provider: Dec 03, 2021 Time Seen by Provider: 20:12 Initial Comments 56-year-old male presents the emergency department today for dizziness, pain between his shoulder blades. He has a history of an aortic arch repair several years ago. Denies any anterior chest pain. No shortness of breath. No blurred or double vision. Dizziness is described more as lightheadedness, especially going from sitting to standing. He has not had any episodes when he has been standing for significant period of time. No syncopal or presyncopal type episodes. No head trauma. Denies any fevers chills cough abdominal pain or changes in bowel or bladder habits. Allergies and Home Medications Allergies Coded Allergies: chlorpromazine (Verified Allergy, Unknown, paralysis, 04/30/18) fentanyl (Verified Allergy, Unknown, hives, 04/30/18) thioridazine (Verified Allergy, Unknown, confusion, 04/30/18) Patient Home Medication List Home Medication List Reviewed: Yes Albuterol Sulfate (Ventolin Hfa) 18 Gm Hfa.aer.ad, 2 PUFF INH Q6H PRN for SHORTNESS OF BREATH, (Reported) Entered as Reported by: RUBEN KU on 12/27/19 1042 Aspirin (Aspirin EC) 81 Mg Tablet.dr, 81 MG PO DAILY Prescribed by: TIERA VIVEROS on 06/21/21 0937 Buspirone HCl (Buspirone HCl) 10 Mg Tablet, 10 MG PO BID, (Reported) Entered as Reported by: SANTOS RODARTE on 08/16/19 1444 Cyclobenzaprine HCl (Cyclobenzaprine HCl) 10 Mg Tablet, 10 MG PO Q8H PRN for MUSCLE SPASMS, (Reported) Entered as Reported by: RUBEN KU on 06/20/21 1544 Doxepin HCl (Doxepin HCl) 3 Mg Tablet, 3 MG PO HS, (Reported) Entered as Reported by: RUBEN KU on 06/20/21 154 Fluticasone Propionate (Fluticasone Propionate) 16 Gm Alborn.susp, 2 SPR NSEACH DAILY PRN for CONGESTION, (Reported) Entered as Reported by: SANTOS RODARTE on 08/16/19 1444 Fluticasone/Salmeterol (Advair Hfa 115-21 Mcg Inhaler) 115 Mcg-21 Mcg/Actuation Hfa.aer.ad, 1 PUFF INH DAILY, (Reported) Entered as Reported by: RUBEN KU on 06/20/21 154 Gabapentin (Gabapentin) 600 Mg Tablet, 600 MG PO TID, (Reported) Entered as Reported by: RUBEN KU on 06/20/21 154 Insulin Aspart (Novolog) 100 Unit/1 Ml Susp, UNIT SQ PER PUMP, (Reported) Entered as Reported by: SANTOS RODARTE on 08/16/19 144 Losartan Potassium (Losartan Potassium) 25 Mg Tablet, 25 MG PO DAILY Prescribed by: TIERA VIVEROS on 06/21/21 0937 Lumateperone Tosylate (Caplyta) 42 Mg Capsule, 42 MG PO HS, (Reported) Entered as Reported by: RUBEN KU on 06/20/21 154 Methocarbamol (Methocarbamol) 750 Mg Tablet, 750 MG FEEDING Q8H PRN for muscle spasm Prescribed by: LINDA BLOOM on 12/01/21 141 Metoprolol Succinate (Metoprolol Succinate) 50 Mg Tab.er.24h, 50 MG PO DAILY Prescribed by: TIERA VIVEROS on 06/21/21 0937 Olanzapine (Olanzapine) 2.5 Mg Tablet, 2.5 MG PO HS, (Reported) Entered as Reported by: RUBEN KU on 06/20/21 154 Pantoprazole Sodium (Pantoprazole Sodium) 40 Mg Tablet.dr, 40 MG PO DAILY, (Reported) Entered as Reported by: RUBEN KU on 06/20/21 154 Prednisolone (Prednisolone) 15 Mg/5 Ml Solution, 30 MG GT DAILY Prescribed by: LINDA BLOOM on 12/01/21 141 Rosuvastatin Calcium (Rosuvastatin Calcium) 40 Mg Tablet, 40 MG PO DAILY, (Reported) Entered as Reported by: RUBEN KU on 06/20/21 1544 Review of Systems Review of Systems Constitutional: no symptoms reported, dizziness EENTM: no symptoms reported Respiratory: no symptoms reported Cardiovascular: no symptoms reported Gastrointestinal: no symptoms reported Genitourinary: no symptoms reported Musculoskeletal: other (Pain in the mid thoracic region posteriorly) Skin: no symptoms reported Psychiatric/Neurological: No Symptoms Reported Hematologic/Lymphatic: No Symptoms Reported Immunological/Allergic: no symptoms reported Past Samibfq-Cfsceb-Oxhcmd Hx Patient Social History Tobacco Use?: No Substance use?: No Alcohol Use?: No Pt feels they are or have been: No Immunizations Up To Date First/Initial COVID19 Vaccinat: 06/28/2020 Second COVID19 Vaccination Rod: 07/26/2020 Third COVID19 Vaccination Date: yes Seasonal Allergies Seasonal Allergies: No Past Medical History Surgery/Hospitalization HX: R HIP REPLACEMENT, FARIBA TO L SHOULDER, PEG tube, CABG Surgeries: Yes (hip surgery, shoulder, hernia) Gallbladder, Orthopedic Respiratory: Yes Asthma, Chronic Bronchitis, COPD, Emphysema Cardiac: Yes High Cholesterol, Hypertension Neurological: Yes Neuropathy Genitourinary: Yes Kidney Stones Gastrointestinal: Yes (epigastric pain) Gastroesophageal Reflux Musculoskeletal: Yes Degenerate Disk Disease, Arthritis Endocrine: Yes Diabetes, Insulin dep HEENT: No Cancer: No Psychosocial: Yes (bipolar disorder I, borderline personality ) Bipolar, Personality Disorder Integumentary: No Blood Disorders: No Family Medical History Reviewed Nursing Family Hx No Pertinent Family Hx Physical Exam Vital Signs Vital Signs - First Documented 12/03/21 20:09 Temp 37.0 Pulse 95 Resp 18 B/P (MAP) 161/87 (111) Pulse Ox 96 O2 Delivery Room Air Capillary Refill : Less Than 3 Seconds Height, Weight, BMI Height: 5'6.00" Weight: 138lbs. 0oz. [id number]; 21.00 BMI Method:Stated General Appearance: No Apparent Distress, WD/WN HEENT: PERRL/EOMI, TMs Normal, Normal ENT Inspection, Pharynx Normal Neck: Full Range of Motion, Normal Inspection, Non Tender, Supple Respiratory: Chest Non Tender, Lungs Clear, Normal Breath Sounds, No Accessory Muscle Use, No Respiratory Distress Cardiovascular: Regular Rate, Rhythm, No Edema, No Gallop, No JVD, No Murmur Gastrointestinal: Normal Bowel Sounds, No Organomegaly, No Pulsatile Mass, Non Tender, Soft Back: Normal Inspection, No CVA Tenderness, No Vertebral Tenderness, Other (Tenderness palpation mid thoracic region between the shoulder blades.) Extremity: Normal Capillary Refill, Normal Inspection, Normal Range of Motion, Non Tender, No Calf Tenderness Neurologic/Psychiatric: Alert, Oriented x3, No Motor/Sensory Deficits, Normal Mood/Affect, emergency services director II-XII Norm as Tested Skin: Normal Color, Warm/Dry Lymphatic: No Adenopathy Procedures/Interventions Suture Size: 5-0 Progress/Results/Core Measures Suspected Sepsis SIRS Temperature: Pulse: 95 Respiratory Rate: 18 Laboratory Tests 12/03/21 20:50: White Blood Count 7.3 Blood Pressure 161 /87 Mean: 111 Laboratory Tests 12/03/21 20:50: Creatinine 1.06, Platelet Count 277, Total Bilirubin 0.4 Results/Orders Lab Results Laboratory Tests Test 12/03/21 20:50 Range/Units White Blood Count 7.3 4.3-11.0 10^3/uL Red Blood Count 4.51 4.30-5.52 10^6/uL Hemoglobin 12.4 L 13.3-17.7 g/dL Hematocrit 40 40-54 % Mean Corpuscular Volume 89 80-99 fL Mean Corpuscular Hemoglobin 28 25-34 pg Mean Corpuscular Hemoglobin Concent 31 L 32-36 g/dL Red Cell Distribution Width 16.0 H 10.0-14.5 % Platelet Count 277 130-400 10^3/uL Mean Platelet Volume 9.9 9.0-12.2 fL Immature Granulocyte % (Auto) 0 % Neutrophils (%) (Auto) 79 H 42-75 % Lymphocytes (%) (Auto) 9 L 12-44 % Monocytes (%) (Auto) 11 0-12 % Eosinophils (%) (Auto) 0 0-10 % Basophils (%) (Auto) 0 0-10 % Neutrophils # (Auto) 5.8 1.8-7.8 10^3/uL Lymphocytes # (Auto) 0.7 L 1.0-4.0 10^3/uL Monocytes # (Auto) 0.8 0.0-1.0 10^3/uL Eosinophils # (Auto) 0.0 0.0-0.3 10^3/uL Basophils # (Auto) 0.0 0.0-0.1 10^3/uL Immature Granulocyte # (Auto) 0.0 0.0-0.1 10^3/uL Sodium Level 140 135-145 MMOL/L Potassium Level 4.1 3.6-5.0 MMOL/L Chloride Level 98 98-107 MMOL/L Carbon Dioxide Level 29 21-32 MMOL/L Anion Gap 13 5-14 MMOL/L Blood Urea Nitrogen 30 H 7-18 MG/DL Creatinine 1.06 0.60-1.30 MG/DL Estimat Glomerular Filtration Rate 81 BUN/Creatinine Ratio 28 Glucose Level 180 H 70-105 MG/DL Calcium Level 9.8 8.5-10.1 MG/DL Corrected Calcium 10.0 8.5-10.1 MG/DL Total Bilirubin 0.4 0.1-1.0 MG/DL Aspartate Amino Transf (AST/SGOT) 14 5-34 U/L Alanine Aminotransferase (ALT/SGPT) 12 0-55 U/L Alkaline Phosphatase 110 40-136 U/L Troponin I < 0.30 <0.30 NG/ML Total Protein 7.1 6.4-8.2 GM/DL Albumin 3.7 3.2-4.5 GM/DL My Orders Orders - TOSIN BACK DO Cbc With Automated Diff (12/03/21 20:22) Comprehensive Metabolic Panel (12/03/21 20:22) Troponin I Fs (12/03/21 20:22) Chest Pa/Lat (2 View) (12/03/21 20:22) Ekg Tracing (12/03/21 20:42) Ed Iv/Invasive Line Start (12/03/21 20:42) Monitor-Rhythm Ecg Trace Only (12/03/21 20:43) Ct Angio Chest W (12/03/21 20:48) Iohexol Injection (Omnipaque 350 Mg/Ml 1 (12/03/21 21:00) Di Iv Start (Assessment) .IV start (12/03/21 20:50) Received Contrast (Hold Metformin- Contr (12/03/21 21:00) Ns (Ivpb) (Sodium Chloride 0.9% Ivpb Bag (12/03/21 21:00) Medications Given in ED Current Medications Medications Dose Ordered Sig/Roshan Route Start Time Stop Time Status Last Admin Dose Admin Iohexol 100 ml ONCE ONCE IV 12/03/21 21:00 12/03/21 21:01 DC 12/03/21 21:05 100 ML Sodium Chloride 100 ml ONCE ONCE IV 12/03/21 21:00 12/03/21 21:01 DC 12/03/21 21:05 100 ML Vital Signs/I&O 12/03/21 20:09 Temp 37.0 Pulse 95 Resp 18 B/P (MAP) 161/87 (111) Pulse Ox 96 O2 Delivery Room Air Capillary Refill : Less Than 3 Seconds Blood Pressure Mean: 111 ECG Comment Sinus rhythm with a rate of 87 bpm. Normal intervals. Right axis deviation. No ST abnormalities. T waves inverted in inferior leads.. No ectopy. Diagnostic Imaging Diagonstic Imaging: CT Plain Films/CT/US/NM/MRI: chest Comments NAME: OSIRIS ISABEL [facility] REC#: [id number] PT STATUS: REG ER : 1965 PHYSICIAN: TOSIN BACK DO ADMIT DATE: 12/03/21/ER FS Draft Date of Exam:12/03/21 CT ANGIO CHEST W PROCEDURE: CT angiography of the chest with contrast. TECHNIQUE: Multiple contiguous axial images were obtained through the chest after uneventful bolus administration of intravenous contrast. 3D reconstructed CTA MIP acquisitions were also performed. Auto Exposure Controls were utilized during the CT exam to meet ALARA standards for radiation dose reduction. INDICATION: Chest pain and back pain. History of aortic arch repair. COMPARISON made with a prior CT angiogram from August 26, 2021. FINDINGS: When compared to the prior examination, there has been a new sternotomy performed and there has been a graft repair of the thoracic aorta. There is no evidence of to suggest dissection. The pulmonary arteries are unremarkable without filling defect to suggest embolism. There is no evidence of right ventricular strain. There is stable cardiomegaly. There is no filling defect in the left atrium. The lungs demonstrate background features of centrilobular and paraseptal emphysema. There is minor basilar atelectasis. There is no alveolar consolidation to suggest pneumonia. There is no effusion. There is no pneumothorax. There are no pathologically enlarged thoracic lymph nodes. The upper abdomen demonstrates bilateral renal cysts. There is a gastrostomy tube. The patient is status post cholecystectomy. There are degenerative endplate changes within the thoracic spine. There is no acute thoracic spine abnormality. There are either prior nonunited fractures or postsurgical changes of the posterior lateral 5th and 6th ribs. There is also a healing fracture of the anterior right 7th and 8th ribs. Multiple healed left-sided rib fractures were also noted. IMPRESSION: 1. Status post sternotomy and prior stent graft repair of the thoracic aortic arch. No complicating features or dissection evident. 2. No findings of pulmonary embolism or right ventricular strain. 3. Cardiomegaly. There is no filling defect in the left atrium. 4. Pulmonary emphysema without findings of pneumonia or edema. 5. Multiple prior remote bilateral rib fractures are evident. Posterolateral right 5th and 6th ribs may be postsurgical in nature. There is no acute osseous abnormality. Dictated on workstation # [id number] Departure Communication (Admissions) Patient is hemodynamically stable Neurologic exam, negative hints exam. I believe his lightheadedness is more related to orthostasis as he has a mostly if he goes from sitting to standing. No chest pain or shortness of breath during these events. He does have midthoracic back pain, he jumped minute I touch this area of his back and exam. I believe this is likely musculoskeletal. He is taking Flexeril and Tylenol at home. I will give him some hydrocodone. Questions were sought and answered he is discharged in stable condition. His CT angiography of his chest is negative with no evidence for pneumonia, pneumothorax, complication of his thoracic aortic repair. Impression Primary Impression: Lightheaded Additional Impression: Back pain Qualified Codes: M54.6 - Pain in thoracic spine Disposition: 01 HOME, SELF-CARE Condition: Stable Departure-Patient Inst. Referrals: SELF,DAVID GARBER (PCP/Family) Primary Care Physician Patient Instructions: Dizziness, Nonvertigo, (DC) Add. Discharge Instructions: Please take the medication as prescribed as needed for pain. This may make you drowsy so do not drive or make important decisions while taking it. Do not take any other medications containing Tylenol while taking this. If your dizziness persists, I recommend you follow-up with your primary doctor for further evaluation and treatment recommendations. There is no indication that this is from an emergent medical condition at this time. Return to the emergency department for any severe concerns All discharge instructions reviewed with patient and/or family. Voiced understanding. Scripts Hydrocodone Bit/Acetaminophen (HYDROcodone/APAP 5 MG/325 MG TAB) 1 Tab Tab 1 TAB PO Q6H for Pain for 3 Days, #12 TAB Prov: TOSIN BACK DO 12/03/21 TOSIN BACK DO Dec 03, 2021 21:31
[2021-12-03] MEDS ORDERED: ACHD5005 PO (21:38)
[2021-12-03 21:42] VITALS: BP 142/86
[2021-12-03] MEDS ORDERED: HYDROcodone/APAP 5 MG/325 MG (LORTAB) TAB PO ONE (21:45)
== END 2021-12-03 21:46 | disposition home or self-care (01) ==
LOC: EDUNIT# 20:06 → ER FS 20:07
DX: R42 Dizziness and giddiness (principal); M54.6 Pain in thoracic spine; E11.40 Type 2 diabetes mellitus with diabetic neuropathy, unspecified; Z87.39 Personal history of other diseases of the musculoskeletal system and connective tissue; Z28.310 Unvaccinated for COVID-19; Z79.4 Long term (current) use of insulin
CPT/HCPCS: 36415; 71046; 71275; 80053; 84484; 85025; 93005; 93041; Q9967

== ENCOUNTER 2021-12-09 00:49 | Emergency (ER) | payer MEDICARE, MEDICAID ==
[~2021-12-09 00:49] MED LIST changes: +ACHD5005 PO
--- NOTE | 2021-12-09 01:18 | ED General ---
General Chief Complaint: Cardiac/General Problems Stated Complaint: INCISIONAL BLEEDING Source of Information: Patient, EMS Exam Limitations: No Limitations History of Present Illness Date Seen by Provider: Dec 09, 2021 Time Seen by Provider: 00:51 Initial Comments 56-year-old male with past medical history of aortic dissection s/p repair, CAD, HTN, DM, HLD, COPD coming in via EMS from home due to bleeding around his right sided chest wound. The patient states he had surgery on his aortic arch in August at [facility]. He states he woke up with blood on his chest. He states it started bleeding and lasted roughly 15 minutes before they applied pressure and it stopped. He denies this ever happening before. He takes baby aspirin daily, but no blood thinners. Denies any recent trauma. Is otherwise denying any other acute complaints. Allergies and Home Medications Allergies Coded Allergies: chlorpromazine (Verified Allergy, Unknown, paralysis, 04/30/18) fentanyl (Verified Allergy, Unknown, hives, 04/30/18) thioridazine (Verified Allergy, Unknown, confusion, 04/30/18) Patient Home Medication List Home Medication List Reviewed: Yes Albuterol Sulfate (Ventolin Hfa) 18 Gm Hfa.aer.ad, 2 PUFF INH Q6H PRN for SHORTNESS OF BREATH, (Reported) Entered as Reported by: RUBEN KU on 12/27/19 1042 Aspirin (Aspirin EC) 81 Mg Tablet.dr, 81 MG PO DAILY Prescribed by: TIERA VIVEROS on 06/21/21 0937 Buspirone HCl (Buspirone HCl) 10 Mg Tablet, 10 MG PO BID, (Reported) Entered as Reported by: SANTOS RODARTE on 08/16/19 1444 Cyclobenzaprine HCl (Cyclobenzaprine HCl) 10 Mg Tablet, 10 MG PO Q8H PRN for MUSCLE SPASMS, (Reported) Entered as Reported by: RUBEN KU on 06/20/21 1544 Doxepin HCl (Doxepin HCl) 3 Mg Tablet, 3 MG PO HS, (Reported) Entered as Reported by: RUBEN KU on 06/20/21 1544 Fluticasone Propionate (Fluticasone Propionate) 16 Gm [place].susp, 2 SPR NSEACH DAILY PRN for CONGESTION, (Reported) Entered as Reported by: SANTOS RODARTE on 08/16/19 1444 Fluticasone/Salmeterol (Advair Hfa 115-21 Mcg Inhaler) 115 Mcg-21 Mcg/Actuation Hfa.aer.ad, 1 PUFF INH DAILY, (Reported) Entered as Reported by: RUBEN KU on 06/20/21 154 Gabapentin (Gabapentin) 600 Mg Tablet, 600 MG PO TID, (Reported) Entered as Reported by: RUBEN KU on 06/20/21 154 Hydrocodone Bit/Acetaminophen (HYDROcodone/APAP 5 MG/325 MG TAB) 1 Tab Tab, 1 TAB PO Q6H Prescribed by: TOSIN BACK MD on 12/03/212138 Insulin Aspart (Novolog) 100 Unit/1 Ml Susp, UNIT SQ PER PUMP, (Reported) Entered as Reported by: SANTOS RODARTE on 08/16/19 144 Losartan Potassium (Losartan Potassium) 25 Mg Tablet, 25 MG PO DAILY Prescribed by: TIERA VIVEROS on 06/21/21 0937 Lumateperone Tosylate (Caplyta) 42 Mg Capsule, 42 MG PO HS, (Reported) Entered as Reported by: RUBEN KU on 06/20/211543 Methocarbamol (Methocarbamol) 750 Mg Tablet, 750 MG FEEDING Q8H PRN for muscle spasm Prescribed by: LINDA BLOOM on 12/01/21 141 Metoprolol Succinate (Metoprolol Succinate) 50 Mg Tab.er.24h, 50 MG PO DAILY Prescribed by: TIREA VIVEROS on 06/21/21936 Olanzapine (Olanzapine) 2.5 Mg Tablet, 2.5 MG PO HS, (Reported) Entered as Reported by: RUBEN KU on 06/20/211543 Pantoprazole Sodium (Pantoprazole Sodium) 40 Mg Tablet.dr, 40 MG PO DAILY, (Reported) Entered as Reported by: RUBEN KU on 06/20/211543 Prednisolone (Prednisolone) 15 Mg/5 Ml Solution, 30 MG GT DAILY Prescribed by: LINDA BLOOM on 12/01/21 141 Rosuvastatin Calcium (Rosuvastatin Calcium) 40 Mg Tablet, 40 MG PO DAILY, (Reported) Entered as Reported by: RUBEN KU on 06/20/211543 Review of Systems Review of Systems Constitutional: No fever EENTM: no symptoms reported Respiratory: no symptoms reported Cardiovascular: see HPI Gastrointestinal: no symptoms reported Genitourinary: no symptoms reported Musculoskeletal: no symptoms reported Skin: no symptoms reported Psychiatric/Neurological: No Symptoms Reported Hematologic/Lymphatic: See HPI Immunological/Allergic: no symptoms reported All Other Systems Reviewed Negative Unless Noted: Yes Past Dxasxgq-Lepzfq-[id number] Hx Patient Social History Substance use?: No Immunizations Up To Date First/Initial COVID19 Vaccinat: 06/28/2020 Second COVID19 Vaccination Rod: 07/26/2020 Third COVID19 Vaccination Date: yes Seasonal Allergies Seasonal Allergies: No Past Medical History Surgery/Hospitalization HX: R HIP REPLACEMENT, FARIBA TO L SHOULDER, PEG tube, CABG Surgeries: Yes (hip surgery, shoulder, hernia) Gallbladder, Orthopedic Respiratory: Yes Asthma, Chronic Bronchitis, COPD, Emphysema Cardiac: Yes High Cholesterol, Hypertension Neurological: Yes Neuropathy Genitourinary: Yes Kidney Stones Gastrointestinal: Yes (epigastric pain) Gastroesophageal Reflux Musculoskeletal: Yes Degenerate Disk Disease, Arthritis Endocrine: Yes Diabetes, Insulin dep HEENT: No Cancer: No Psychosocial: Yes (bipolar disorder I, borderline personality ) Bipolar, Personality Disorder Integumentary: No Blood Disorders: No Family Medical History No Pertinent Family Hx Physical Exam Vital Signs Vital Signs - First Documented 12/09/21 00:50 Temp 36.6 Pulse 101 Resp 22 B/P (MAP) 149/61 (90) Pulse Ox 94 O2 Delivery Room Air Capillary Refill : Height, Weight, BMI Height: 5'6.00" Weight: 138lbs. 0oz. 62.671975wv; 21.00 BMI Method:Stated General Appearance: No Apparent Distress, WD/WN Eyes: Bilateral Eye Normal Inspection HEENT: PERRL/EOMI, Normal ENT Inspection, Pharynx Normal Neck: Full Range of Motion, Normal Inspection, Non Tender, Supple Respiratory: Chest Non Tender, Lungs Clear, Normal Breath Sounds, No Accessory Muscle Use, No Respiratory Distress Cardiovascular: Regular Rate, Rhythm, No Edema, Normal Peripheral Pulses Gastrointestinal: Normal Bowel Sounds, Non Tender, Soft; No Distended, No Guarding Back: Normal Inspection, No CVA Tenderness Extremity: Normal Capillary Refill, Normal Inspection, Normal Range of Motion, Non Tender, No Calf Tenderness, No Pedal Edema Neurologic/Psychiatric: Alert, No Motor/Sensory Deficits, Normal Mood/Affect Skin: Normal Color, Warm/Dry, Other (Healed surgical wound to his center of his chest, and surgical wound to the right side of his chest under his clavicle bleeding pulsating dark red blood) Lymphatic: No Adenopathy Focused Exam Lactate Level 12/09/21 01:10: Lactic Acid Level 2.47*H Lactic Acid Level Laboratory Tests Test 12/09/21 01:10 Lactic Acid Level 2.47 MMOL/L (0.50-2.00) *H Procedures/Interventions Suture Size: 5-0 Progress/Results/Core Measures Suspected Sepsis SIRS Temperature: Pulse: Respiratory Rate: Laboratory Tests 12/09/21 01:00: White Blood Count 22.6H Blood Pressure / Mean: 12/09/21 01:10: Lactic Acid Level 2.47*H Laboratory Tests 12/09/21 01:00: Creatinine 0.94, INR Comment 1.0, Platelet Count 250, Total Bilirubin 0.7 Results/Orders Lab Results Laboratory Tests Test 12/09/21 01:00 12/09/21 01:10 Range/Units White Blood Count 22.6 H 4.3-11.0 10^3/uL Red Blood Count 4.99 4.30-5.52 10^6/uL Hemoglobin 13.7 13.3-17.7 g/dL Hematocrit 43 40-54 % Mean Corpuscular Volume 87 80-99 fL Mean Corpuscular Hemoglobin 28 25-34 pg Mean Corpuscular Hemoglobin Concent 32 32-36 g/dL Red Cell Distribution Width 16.1 H 10.0-14.5 % Platelet Count 250 130-400 10^3/uL Mean Platelet Volume 10.4 9.0-12.2 fL Immature Granulocyte % (Auto) 1 % Neutrophils (%) (Auto) 88 H 42-75 % Lymphocytes (%) (Auto) 3 L 12-44 % Monocytes (%) (Auto) 7 0-12 % Eosinophils (%) (Auto) 1 0-10 % Basophils (%) (Auto) 0 0-10 % Neutrophils # (Auto) 19.9 H 1.8-7.8 10^3/uL Lymphocytes # (Auto) 0.6 L 1.0-4.0 10^3/uL Monocytes # (Auto) 1.6 H 0.0-1.0 10^3/uL Eosinophils # (Auto) 0.2 0.0-0.3 10^3/uL Basophils # (Auto) 0.1 0.0-0.1 10^3/uL Immature Granulocyte # (Auto) 0.3 H 0.0-0.1 10^3/uL Neutrophils % (Manual) 72 % Lymphocytes % (Manual) 3 % Monocytes % (Manual) 9 % Eosinophils % (Manual) 1 % Basophils % (Manual) 1 % Band Neutrophils 11 % Atypical Lymphocytes 1 % Reactive Lymphocytes 2 % Platelet Estimate NORMAL Blood Morphology Comment NORMAL Prothrombin Time 13.7 12.2-14.7 SEC INR Comment 1.0 0.8-1.4 Activated Partial Thromboplast Time 28 24-35 SEC D-Dimer 2.44 H 0.00-0.49 UG/ML Sodium Level 138 135-145 MMOL/L Potassium Level 4.2 3.6-5.0 MMOL/L Chloride Level 93 L 98-107 MMOL/L Carbon Dioxide Level 21 21-32 MMOL/L Anion Gap 24 H 5-14 MMOL/L Blood Urea Nitrogen 23 H 7-18 MG/DL Creatinine 0.94 0.60-1.30 MG/DL Estimat Glomerular Filtration Rate 94 BUN/Creatinine Ratio 24 Glucose Level 165 H 70-105 MG/DL Calcium Level 9.7 8.5-10.1 MG/DL Corrected Calcium 9.9 8.5-10.1 MG/DL Magnesium Level 1.5 L 1.6-2.4 MG/DL Total Bilirubin 0.7 0.1-1.0 MG/DL Aspartate Amino Transf (AST/SGOT) 29 5-34 U/L Alanine Aminotransferase (ALT/SGPT) 15 0-55 U/L Alkaline Phosphatase 119 40-136 U/L Troponin I < 0.30 <0.30 NG/ML Total Protein 7.1 6.4-8.2 GM/DL Albumin 3.8 3.2-4.5 GM/DL Lactic Acid Level 2.47 *H 0.50-2.00 MMOL/L My Orders Orders - SOLO FIGUEROA MD Cbc With Automated Diff (12/09/21 00:59) Comprehensive Metabolic Panel (12/09/21 00:59) Fibrin Degradation Products (12/09/21 00:59) Lactic Acid Analyzer (12/09/21 00:59) Magnesium (12/09/21 00:59) Protime With Inr (12/09/21 00:59) Partial Thromboplastin Time (12/09/21 00:59) Chest 1 View Ap/Pa Only (12/09/21 00:59) Ed Iv/Invasive Line Start (12/09/21 01:11) Ekg Tracing (12/09/21 01:11) Monitor-Rhythm Ecg Trace Only (12/09/21 01:11) Troponin I Fs (12/09/21 01:11) Ct Angio Chest W (12/09/21 01:24) Manual Differential (12/09/21 01:00) Iohexol Injection (Omnipaque 350 Mg/Ml 1 (12/09/21 01:45) Received Contrast (Hold Metformin- Contr (12/09/21 01:45) Sodium Chloride Flush (Catheter Flush Sy (12/09/21 01:45) Ns (Ivpb) (Sodium Chloride 0.9% Ivpb Bag (12/09/21 01:45) Medications Given in ED Current Medications Medications Dose Ordered Sig/Roshan Route Start Time Stop Time Status Last Admin Dose Admin Iohexol 100 ml ONCE ONCE IV 12/09/21 01:45 12/09/21 01:46 DC 12/09/21 02:06 100 ML Sodium Chloride 100 ml ONCE ONCE IV 12/09/21 01:45 12/09/21 01:46 DC 12/09/21 02:06 100 ML Vital Signs/I&O 12/09/21 00:50 Temp 36.6 Pulse 101 Resp 22 B/P (MAP) 149/61 (90) Pulse Ox 94 O2 Delivery Room Air Capillary Refill : Progress Note : Progress Note 56-year-old male with above history coming in due to bleeding from his right upper chest wound. Initially on arrival, patient appeared hemostatic. Shortly after that there was a large amount of pulsating dark red blood from the right upper chest wound. Applied direct and firm pressure to the area for 15 minutes which slowed the bleeding significantly. Bilateral IVs were placed and labs were sent. I contacted [facility] and discussed that we do not have a blood bank, and I would like him transferred for higher level of care and continuity of care. They recommended CTA which I accompanied the patient to imaging. Unfortunately, anytime he has moved significantly, he does seem to bleed again which does tend to stop with direct firm pressure. After CT, I contacted [facility] again. Patient accepted for transfer by Dr. Knutson at 02:30. Will go via [facility]. At the time of leaving, the patient had MAP greater than 70 and heart rate was in the 80s. He is having pain just under his right clavicle going into his right shoulder where the bleeding is, but his pain is decently controlled when he is not moving. ECG Initial ECG Impression Date: Dec 09, 2021 Initial ECG Impression Time: 01:15 Initial ECG Rate: 97 Initial ECG Rhythm: Normal Sinus Comment Wide QRS, left axis deviation, left bundle branch block, no STEMI Diagnostic Imaging Diagonstic Imaging: Xray (chest), CT (CTA chest) Reviewed: Reviewed Night [facility] Study Departure Impression Primary Impression: Post-op bleeding Qualified Codes: I97.618 - Postprocedural hemorrhage of a circulatory system organ or structure following other circulatory system procedure Additional Impression: H/O aortic arch replacement Disposition: XFER SHT-TRM HOSP Condition: Stable Admissions Decision to Admit/Date: Dec 09, 2021 Time/Decision to Admit Time: 02:00 Transfer Transfer Reason: Exceeds level of care Time Spoke to Accepting Phy: 02:20 Transfer Progress Notes Called for helicopter to be on standby at 01:00am. Called [facility] to discuss the case with the transfer center at 01:15am. They would like further workup before discussing transfer. Called [facility] after CT at 02:00. They are looking at the clouded CT images and will call back. Transfer Facility: [facility] Method of Transfer: Air Departure-Patient Inst. Referrals: DAVID BOURGEOIS MD (PCP/Family) Primary Care Physician SOLO FIGUEROA MD Dec 09, 2021 01:18
[2021-12-09 01:22] LABS: BASOPHILS # (AUTO) 0.1 10^3/uL (0.0-0.1); BASOPHILS % (AUTO) 0 % (0-10); EOSINOPHILS # (AUTO) 0.2 10^3/uL (0.0-0.3); EOSINOPHILS % (AUTO) 1 % (0-10); HEMATOCRIT 43 % (40-54); HEMOGLOBIN 13.7 g/dL (13.3-17.7); LYMPHOCYTES # (AUTO) 0.6 10^3/uL (1.0-4.0); LYMPHOCYTES % (AUTO) 3 % (12-44); MEAN CORPUSCULAR HEMOGLOBIN 28 pg (25-34); MEAN CORPUSCULAR HGB CONC 32 g/dL (32-36); MEAN CORPUSCULAR VOLUME 87 fL (80-99); MEAN PLATELET VOLUME 10.4 fL (9.0-12.2); MONOCYTES # (AUTO) 1.6 10^3/uL (0.0-1.0); MONOCYTES % (AUTO) 7 % (0-12); NEUTROPHILS # (AUTO) 19.9 10^3/uL (1.8-7.8); NEUTROPHILS % (AUTO) 88 % (42-75); PLATELET COUNT 250 10^3/uL (130-400); WHITE BLOOD COUNT 22.6 10^3/uL (4.3-11.0)
[2021-12-09] MEDS ORDERED: IOHEXOL 350 MG/ML 100 ML (OMNIPAQUE 350) VIAL IV ONE (01:45)
[2021-12-09] MEDS ORDERED: NS 100 ML (IVPB) BAG IV ONE (01:45)
[2021-12-09] MEDS ORDERED: CATHETER FLUSH 10 ML SYR IV PRN (01:45)
[2021-12-09] MEDS ORDERED: HOLD METFORMIN - RECEIVED CONTRAST 20 ML VIAL IV SCH (01:45)
[2021-12-09 01:57] LABS: SODIUM 138 MMOL/L (135-145)
[2021-12-09 01:58] LABS: ALANINE AMINOTRANSFERASE 15 U/L (0-55); ALBUMIN 3.8 GM/DL (3.2-4.5); ALKALINE PHOSPHATASE 119 U/L (40-136); BILIRUBIN,TOTAL 0.7 MG/DL (0.1-1.0); BUN/CREATININE RATIO 24; CALCIUM 9.7 MG/DL (8.5-10.1); CARBON DIOXIDE 21 MMOL/L (21-32); CHLORIDE 93 MMOL/L (98-107); CREATININE SERUM 0.94 MG/DL (0.60-1.30); GFR ESTIMATED 94; GLUCOSE 165 MG/DL (70-105); MAGNESIUM 1.5 MG/DL (1.6-2.4); POTASSIUM 4.2 MMOL/L (3.6-5.0); TOTAL PROTEIN 7.1 GM/DL (6.4-8.2)
[2021-12-09 02:00] LABS: PROTHROMBIN TIME PATIENT 13.7 SEC (12.2-14.7)
[2021-12-09 02:01] LABS: FIBRIN DEGRADATION PRODUCTS 2.44 UG/ML (0.00-0.49)
[2021-12-09 02:04] LABS: ATYPICAL LYMPHOCYTES 1 %; BAND NEUTROPHILS 11 %; BASOPHILS % (MANUAL) 1 %; EOSINOPHILS % (MANUAL) 1 %; LYMPHOCYTES % (MANUAL) 3 %; MONOCYTES % (MANUAL) 9 %; NEUTROPHILS % (MANUAL) 72 %; PLATELET ESTIMATE NORMAL; RBC MORPH NORMAL; REACTIVE LYMPHOCYTES 2 %
[2021-12-09 02:35] VITALS: BP 143/66
--- NOTE | 2021-12-09 06:45 | Diagnostic Imaging Report ---
PROCEDURE: CT angiography Chest TECHNIQUE: After intravenous administration of contrast, thin section axial CT angiography of the chest was performed. 3D MIP reconstructions were made. All CT scans use one or more of the following dose optimizing techniques: automated exposure control, MA and/or KvP adjustment based on a patient size and exam type, or iterative reconstruction. INDICATION: Status post endovascular repair of aorta. Bleeding from chest wound. COMPARISON: 12/03/2021 FINDINGS: Vasculature: No pulmonary emboli. No CT evidence of pulmonary hypertension or right ventricular strain. Stable appearance of thoracic aortic repair utilizing endovascular graft. No dissection within the ascending or descending aorta. The graft remains widely patent. The left subclavian artery is occluded centrally at the level of the graft, but the right subclavian to left subclavian bypass graft is widely patent. Heart and mediastinum: Visualized thyroid is normal. No supraclavicular, axillary, or intra-thoracic lymphadenopathy. The heart is normal in size without pericardial effusion. Pleura: No pleural effusion or pneumothorax. Lungs and airway: No endoluminal lesion in the trachea or central bronchi. Moderate centrilobular emphysema. Right lower lobe groundglass has developed. Upper abdomen: Allowing for the phase of contrast, no acute abnormality in the upper abdomen is seen. Musculoskeletal: Median sternotomy changes are again seen. There is no hematoma around the sternotomy. No retrosternal hemorrhage. In the right axilla/supraclavicular region, there is question of a pseudoaneurysm. IMPRESSION: 1. No active bleeding around the sternotomy site. 2. Status post stent graft repair of the aortic arch. No aortic dissection. 3. Groundglass opacities in the right lower lobe which could be on the basis of pneumonia in appropriate setting. Alternatively, atelectasis may give this appearance. 4. No pulmonary emboli. 5. Potential pseudoaneurysm in the right supraclavicular/axillary region 6. Findings are in agreement with the preliminary report. Dictated by: Dictated on workstation # [id number]
--- NOTE | 2021-12-09 07:09 | Diagnostic Imaging Report ---
CHEST 1 VIEW AP/PA ONLY Indication: Bleeding from chest wound. Comparison: 12/03/2021 Findings: Status post EVR of aortic arch. Bilateral axillary surgical clips are present. Lungs are clear. No pleural effusion or pneumothorax. Normal heart size. Impression: 1. No radiographic abnormality to account for patient's bleeding. Dictated by: Dictated on workstation # [id number]
== END 2021-12-09 02:35 | disposition short-term general hospital (02) ==
LOC: EDUNIT# 00:49 → ER FS 00:51
DX: I97.618 Postprocedural hemorrhage of a circulatory system organ or structure following other circulatory system procedure (principal); E11.9 Type 2 diabetes mellitus without complications; Z95.828 Presence of other vascular implants and grafts; Z95.1 Presence of aortocoronary bypass graft; Z28.310 Unvaccinated for COVID-19; Z79.82 Long term (current) use of aspirin; Z79.4 Long term (current) use of insulin
CPT/HCPCS: 36415; 71045; 71275; 80053; 83605; 83735; 84484; 85007; 85027; 85379; 85610; 85730; 93005; 93041